=== PATIENT | female | born 1940 | race Hispanic/Latino ===

== ENCOUNTER 2016-06-20 14:21 | Inpatient (IN) | payer MEDICARE, OTHER ==
[2016-06-20 14:28] VITALS: BMI 27.4
[2016-06-20] MEDS ORDERED: Morphine 4 mg/ml ISec IVP STA ×2 (14:47→18:10)
--- NOTE | 2016-06-20 14:51 | ED PDOC ---
Arrival/HPI - General Chief Complaint: Trauma Time Seen by Provider: 06/20/16 14:50 Historian: Patient, Family - History of Present Illness Narrative History of Present Illness (Text): 06/20/16 14:51 A 75 year old female was brought into the emergency department by family complaining of left hip pain prior to arrival. History obtained through family who translated for patient. Family reports patient felt near-syncopal causing her to fall and land on her left hip. Patient states the pain is worse with movement. Patient denies any loss of consciousness, head trauma, headache, neck pain, back pain, nausea, vomiting, abdominal pain, chest pain, shortness of breath or any other complaints. PMD: Dr. Humphrey Time/Duration: Prior to Arrival Symptom Course: Unchanged Quality: Other Context: Home Past Medical History - Provider Review Nursing Documentation Reviewed: Yes - Infectious Disease Hx of Infectious Diseases: None - Cardiac Hx Cardiac Disorders: Yes Hx Hypertension: Yes - Pulmonary Hx Respiratory Disorders: No - Neurological Hx Neurological Disorder: Yes Hx Dizziness: Yes - HEENT Hx HEENT Disorder: No - Renal Hx Renal Disorder: No - Endocrine/Metabolic Hx Endocrine Disorders: Yes Hx Diabetes Mellitus Type 2: Yes Hx Hypothyroidism: Yes - Hematological/Oncological Hx Blood Disorders: No - Integumentary Hx Dermatological Disorder: No - Musculoskeletal/Rheumatological Hx Musculoskeletal Disorders: Yes Hx Falls: Yes - Gastrointestinal Hx Gastrointestinal Disorders: No - Genitourinary/Gynecological Hx Genitourinary Disorders: No - Psychiatric Hx Psychophysiologic Disorder: No Hx Substance Use: No - Surgical History Hx Orthopedic Surgery: Yes Hx Thyroidectomy: Yes (partial) Other/Comment: R hip surgery - Anesthesia Hx Anesthesia: Yes Hx Anesthesia Reactions: No Hx Malignant Hyperthermia: No - Suicidal Assessment Feels Threatened In Home Enviroment: No Family/Social History - Physician Review Nursing Documentation Reviewed: Yes Family/Social History: No Known Family HX Smoking Status: Never Smoked Hx Alcohol Use: No Hx Substance Use: No Allergies/Home Meds Allergies/Adverse Reactions: Allergies No Known Allergies Allergy (Verified 06/20/16 14:27) Home Medications: Home Meds Medication Instructions Recorded Confirmed Diclofenac Sodium [Voltaren] 50 mg PO BID PRN 12/03/15 12/03/15 Glimepiride [Amaryl] 1 mg PO BID 12/03/15 12/03/15 HYDROmorphone [Dilaudid] 4 mg PO Q3H 12/03/15 12/03/15 Omeprazole 20 mg PO BID 12/03/15 12/03/15 Oxybutynin [Ditropan Tab] 5 mg PO DAILY 12/03/15 12/03/15 Polyethylene Glycol 3350 [Miralax] 17 gm PO DAILY PRN 12/03/15 12/03/15 Physical Exam - Physical Exam Narrative Physical Exam (Text): - Review of Systems Constitutional: Normal. absent: Fatigue, Weight Change, Fevers Eyes: Normal ENT: Normal Respiratory: Normal absent: SOB, Cough, Sputum Cardiovascular: (+) Near-syncope absent: Chest pain, Palpitations Gastrointestinal: Normal absent: Abdominal pain, Diarrhea, Nausea, Vomiting Genitourinary: Normal. absent: Dysuria, Frequency, Hematuria Musculoskeletal: (+) Left hip pain absent: Arthralgias, Back Pain, Neck Pain Skin: Normal Neurological: Normal absent: Focal Weakness Endocrine: Normal Hemo/Lymphatic: Normal Psychiatric: Normal - Physical exam Patient appears age appropriate, speaking full sentences without difficulty Head atraumatic. No nasal bone deformity or tenderness, no facial or jaw pain/ swelling. No neck midline tenderness, thoracic and lumbar spine with no midline tenderness. Pt moving b/l upper extremities without difficulty, 5/5 strength, with full active and passive ROM (except for LLE). Left hip tenderness with decrease ROM. L. knee/foot/ankle unremarkable. Distal neurovasc fully intact. Abd soft/nt/ng, no hematomas, no peritoneal signs. Neg. pelvic rock. - Systems Exam Head: Present: Atraumatic, Normocephalic Pupils: Present: PERRL Extraocular Muscles: Present: EOMI Conjunctiva: Present: Normal Mouth: Present: Moist Mucous Membranes Neck: Present: Normal Range of Motion. No: MIDLINE TENDERNESS, Paraspinal Tenderness Respiratory/Chest: Present: Clear to Auscultation, Good Air Exchange. No: Respiratory Distress, Accessory Muscle Use, Tachypneic Cardiovascular: Present: Regular Rate and Rhythm, Normal S1, S2, Peripheral Pulses Present. No: Murmurs Abdomen: Present: Normal Bowel Sounds, No: Tenderness, Peritoneal Signs, Rebound, Guarding, Distention Back: Present: Normal Inspection. No: Midline Tenderness, Paraspinal Tenderness Upper Extremity: Present: Normal Inspection. No: Cyanosis, Edema Lower Extremity: Present: Left hip tenderness, decreased ROM secondary to pain. Distal neurovascular intact. No: Edema Neurological: Present: GCS=15, Speech Normal, cranial nerves II through XII fully intact with no cerebellar abnormality, neuro-sensory fully intact. No focal neurological deficits. Skin: Present: Warm, Dry, Normal Color. No: Rashes Lymphatic: Present: OX3, NI, NC Psychiatric: Present: Alert, Oriented x 3, Normal Insight, Normal Concentration Vital Signs Reviewed: Yes Vital Signs Temp Pulse Resp BP Pulse Ox 06/20/16 17:54 69 18 125/64 97 06/20/16 16:28 73 19 128/69 97 06/20/16 15:39 68 18 134/79 99 06/20/16 14:49 97.8 F 70 19 117/65 99 Temperature: Afebrile Blood Pressure: Normal Pulse: Regular Respiratory Rate: Normal Appearance: Positive for: Well-Appearing, Non-Toxic, Comfortable Pain Distress: None Mental Status: Positive for: Alert and Oriented X 3 Finger Stick Blood Glucose: 282 Medical Decision Making ED Course and Treatment: 06/20/16 14:51 Impression: A 75 year old female with left hip pain. Patient felt near syncopal causing her to fall. On exam left hip tenderness and decreased ROM secondary to pain. Plan: -- Head CT -- Left hip xray -- EKG -- Labs -- Morphine -- Reassess and disposition Progress Notes: EKG shows NSR at [address]-segment elevations, normal intervals. Interpreted by me. 06/20/16 18:06 New Vehicle Sales Consultant : Ti Murrell MD FINDINGS: BLADDER: Unremarkable. No mass. REPRODUCTIVE ORGANS: Unremarkable. VISUALIZED BOWEL: Unremarkable. PERITONEUM: Unremarkable, as visualized. No free fluid. No free air. LYMPH NODES: Unremarkable. No enlarged lymph nodes. BONES: No acute fracture dislocation is observed. Extensive soft tissue density along the left greater trochanter possibly representing hematoma or trochanteric bursitis. VASCULATURE: Unremarkable. OTHER FINDINGS: None. IMPRESSION: No acute fracture. Question left greater trochanter soft tissue hematoma versus trochanteric bursitis. 06/20/16 18:09 based on previous records, Dr. Mckinney saw pt in the hospital paged for admission for inability to walk due to pain and near syncope 06/20/16 18:[address] Mckinney, accepted pt to her service dw Dr. [place] (per Dr. Mckinney's request), states will see tomorrow pt and family aware of and agree with plan encounter translated by family members - Lab Interpretations Lab Results: 06/20/16 14:33 06/20/16 14:33 Lab Results 06/20/16 16:01: Blood Type B POSITIVE, Antibody Screen Negative, BBK History Checked Patient has bt 06/20/16 14:33: WBC 7.2, RBC 4.58, Hgb 10.7 L, Hct 33.7 L, MCV 73.6 L, MCH 23.4 L, MCHC 31.8, RDW 17.9 H, Plt Count 183, Gran % 75.3 H, Lymph % (Auto) 15.6 L, [place] % (Auto) 8.2 H, Eos % (Auto) 0.6 L, Baso % (Auto) 0.3, Gran # 5.42, Lymph # 1.1 L, [place] # 0.6, Eos # 0.0, Baso # 0.02, PT 11.3, INR 1.05, APTT 28.1, Sodium 138, Potassium 4.1, Chloride 106, Carbon Dioxide 17 L, Anion Gap 19, BUN 24 H, Creatinine 1.4, Est GFR ( Amer) 44, Est GFR (Non-Af Amer) 36, Random Glucose 265 H, Calcium 8.9, Total Bilirubin 0.9, AST 45 H, ALT 23, Alkaline Phosphatase 178 H, Total Protein 8.8 H, Albumin 3.9, Globulin 4.9, Albumin/Globulin Ratio 0.8 L I have reviewed the lab results: Yes - RAD Interpretation Radiology Orders: 06/20/16 14:44 HEAD W/O CONTRAST [CT] Stat Hip Left [HIP MIN 2V W/ PELVIS LT] [RAD] Stat 06/20/16 16:11 HIP WITHOUT CONTRAST LEFT [CT] Stat PELVIS W/O PO OR IV CONTRAST [CT] Stat FEMUR 1 VIEW LT [RAD] Stat 06/20/16 18:19 CAROTID & VERTEBRAL DUPLEX [US] Urgent - Medication Orders Current Medication Orders: Glimepiride (Amaryl) 1 mg PO BID DESHAWN Levothyroxine Sodium (Synthroid) 125 mcg PO ACB DESHAWN Metoprolol Tartrate (Lopressor) 25 mg PO BRKDIN DESHAWN Oxybutynin Chloride (Ditropan Tab) 5 mg PO DAILY DESHAWN Pantoprazole Sodium (Protonix Ec Tab) 40 mg PO 0630 DESHAWN Discontinued Medications Morphine Sulfate (Morphine) 4 mg IVP STAT STA Stop: 06/20/16 14:48 Last Admin: 06/20/16 14:57 Dose: 4 MG MAR Pain Assessment Document 06/20/16 14:57 SE (Rec: 06/20/16 14:57 SE [id number]) Pain Reassessment Is this a pain reassessment? No Sleep Is patient sleeping during reassessment? No Presence of Pain Presence of Pain Yes Pain Scale Used Pain Scale Used Numeric Location Left, Right or Bilateral Left Pain Location Body Site Hip Thigh IVP Administration Document 06/20/16 14:57 SE (Rec: 06/20/16 14:57 SE [id number]) Charges for Administration # of IVP Administrations 1 Morphine Sulfate (Morphine) 4 mg IVP STAT STA Stop: 06/20/16 18:11 - Scribe Statement The provider has reviewed the documentation as recorded by the Serge Ku Provider Scribe Attestation: All medical record entries made by the Scribe were at my direction and personally dictated by me. I have reviewed the chart and agree that the record accurately reflects my personal performance of the history, physical exam, medical decision making, and the department course for this patient. I have also personally directed, reviewed, and agree with the discharge instructions and disposition. Disposition/Present on Arrival - Present on Arrival Any Indicators Present on Arrival: No History of DVT/PE: No History of Uncontrolled Diabetes: Yes Urinary Catheter: No History of Decub. Ulcer: No History Surgical Site Infection Following: None - Disposition Have Diagnosis and Disposition been Completed?: Yes Diagnosis: Near syncope Disposition: HOSPITALIZED Disposition Time: 18:10 Patient Plan: Admission Patient Problems: Current Active Problems Problem Status Diagnosed Near syncope Acute Condition: FAIR Referrals: PCP,NO [Primary Care Provider] - Follow up with primary
[2016-06-20 15:04] LABS: ADD MANUAL DIFF? NO
[2016-06-20 15:13] LABS: BASO # 0.02 K/mm3 (0.0-2.0); BASO % 0.3 % (0.0-3.0); EOS % 0.6 % (1.5-5.0); GRAN # 5.42 (1.4-6.5); GRAN % 75.3 % (50.0-68.0); HEMATOCRIT 33.7 % (36.0-48.0); LYMPH # 1.1 (1.2-3.4); LYMPH % 15.6 % (22.0-35.0); MEAN CELL VOLUME 73.6 fL (80.0-105.0); MEAN CORPUSCULAR HEMOGLOBIN 23.4 pg (25.0-35.0); MEAN CORPUSCULAR HGB CONC 31.8 g/dl (31.0-37.0); MONO # 0.6 (0.1-0.6); MONO % 8.2 % (1.0-6.0); PLATELET COUNT 183 10^3/uL (120.0-450.0); RED CELL DISTRIBUTION WIDTH 17.9 % (11.5-14.5); WHITE BLOOD COUNT 7.2 10^3/ul (4.5-11.0)
[2016-06-20 15:22] LABS: INR 1.05 (0.93-1.08); PARTIAL THROMBOPLASTIN TIME 28.1 Seconds (23.7-30.8)
[2016-06-20 15:27] LABS: ALB/GLOB RATIO 0.8 (1.1-1.8); BILIRUBIN,TOTAL 0.9 mg/dL (0.2-1.3); CALCIUM 8.9 mg/dL (8.4-10.5); POTASSIUM 4.1 mmol/L (3.6-5.0); TOTAL PROTEIN 8.8 g/dL (5.8-8.3)
--- NOTE | 2016-06-20 16:06 | CT ---
PROCEDURE: CT HEAD WITHOUT CONTRAST. HISTORY: fall COMPARISON: 12/03/2015 TECHNIQUE: Axial computed tomography images were obtained through the head/brain without intravenous contrast. Radiation dose: Total exam DLP = 688 mGy-cm. This CT exam was performed using one or more of the following dose reduction techniques: Automated exposure control, adjustment of the mA and/or kV according to patient size, and/or use of iterative reconstruction technique. FINDINGS: HEMORRHAGE: No intracranial hemorrhage. BRAIN: No mass effect or edema. Chronic microvascular changes are seen VENTRICLES: Unremarkable. No hydrocephalus. CALVARIUM: Unremarkable. PARANASAL SINUSES: Unremarkable as visualized. No significant inflammatory changes. MASTOID AIR CELLS: Unremarkable as visualized. No inflammatory changes. OTHER FINDINGS: None. IMPRESSION: No acute finding
--- NOTE | 2016-06-20 17:55 | CT ---
PROCEDURE: Left hip noncontrast CT scan HISTORY: fall COMPARISON: None TECHNIQUE: Noncontrast CT scan through the left hip followed by coronal sagittal reconstructions. Radiation dosage of 461 MAS FINDINGS: There is no acute fracture or dislocation. No joint effusion is observed. There is extensive soft tissue density along the greater trochanter compatible with an underlying hematoma in the setting of recent trauma. This alternatively could represent severe trochanteric bursitis. No muscle tear or hematoma is observed. Limited assessment of the internal pelvic cavity is unremarkable. IMPRESSION: No acute fracture. Question left greater trochanter soft tissue hematoma versus trochanteric bursitis.
--- NOTE | 2016-06-20 18:02 | CT ---
PROCEDURE: CT Pelvis without contrast HISTORY: fall COMPARISON: None. TECHNIQUE: Contiguous axial images of the pelvis . No intravenous or oral contrast given. Coronal and sagittal reformats generated. Radiation dose: Total exam DLP = 776 mGy-cm. This CT exam was performed using one or more of the following dose reduction techniques: Automated exposure control, adjustment of the mA and/or kV according to patient size, and/or use of iterative reconstruction technique. FINDINGS: BLADDER: Unremarkable. No mass. REPRODUCTIVE ORGANS: Unremarkable. VISUALIZED BOWEL: Unremarkable. PERITONEUM: Unremarkable, as visualized. No free fluid. No free air. LYMPH NODES: Unremarkable. No enlarged lymph nodes. BONES: No acute fracture dislocation is observed. Extensive soft tissue density along the left greater trochanter possibly representing hematoma or trochanteric bursitis. VASCULATURE: Unremarkable. OTHER FINDINGS: None. IMPRESSION: No acute fracture. Question left greater trochanter soft tissue hematoma versus trochanteric bursitis.
[2016-06-20] MEDS ORDERED: Morphine 4 mg/ml ISec IVP PRN (18:23)
[2016-06-20] MEDS: Levothyroxine 125 MCG TAB PO SCH (18:44)
[2016-06-20 18:59] LABS: TROPONIN I < 0.01 ng/mL
--- NOTE | 2016-06-20 19:41 | HP ---
HISTORY OF PRESENT ILLNESS: The patient is a 75-year-old who was brought in by family. The patient is Azeri speaking. History taken from the family member that when she got up to walk to the bed she felt very weak and dizzy and she fell. She fell on her left side then she was unable to stand up, w as complaining of lot of pain in the left hip. She did not lose consciousness, did not hit her head. No complaint of headache. Does have some slight neck pain, back pain. No history of nausea or vom iting. No fever, no chills. PAST MEDICAL HISTORY: Significant for: 1. Hypertension. 2. Non-insulin dependent diabetes. 3. Hypothyroidism. 4. Gastritis. ALLERGIES: She is not allergic to any medications. MEDICATIONS AT HOME: She is on: 1. Carafate 1 gram q.i.d. 2. Crestor 5 mg daily. 3. MiraLax 17 grams daily. 4. Ditropan 5 mg daily. 5. Omeprazole 20 mg twice a day. 6. Metoprolol 25 twice a day. 7. Levothyroxine 125 mcg daily. 8. Amaryl 1 mg twice. 9. 50 mg twice a day. SOCIAL HISTORY: She lives with her family. Denies smoking, drinking or alcohol use. PHYSICAL EXAMINATION: GENERAL: Complained of left hip pain. Otherwise, she is awake and alert, not able communicative, be cause of language barrier. VITAL SIGNS: She is afebrile, pulse 70, respirations 19, blood pressure 117/65. LUNGS: Bilateral fair airflow, no rhonchi or crackle. HEART: S1, S2 audible. ABDOMEN: Soft, nontender, no hepatosplenomegaly. NEUROLOGIC: The patient is awake and alert, complained of left hip pain and inability to move. LABORATORY DATA: WBC 7.2, hemoglobin 10.7, hematocrit 33.7, platelet of 183. PT 11.3, INR 1.05. Ch emistry: Sodium 138, potassium 4.1, chloride 106, CO2 of , BUN 24, creatinine 1.4, blood sugar of 265, calcium 8.9, AST 45, ALT 23, alk phos 178, total protein 8.8. CT scan of the pelvis: Left g reater trochanteric soft tissue hematoma versus trochanteric bursitis. CT of the hip: No acute frac ture, questionable soft tissue hematoma. ASSESSMENT: 1. Near syncope. 2. Non-insulin dependent diabetes. 3. Hypertension. 4. Hyperlipidemia. 5. Chronic back pain. PLAN: We will admit the patient. Start her on analgesic. Dr. Hudson to evaluate the patient and will order for carotid Doppler, physical therapy evaluation and will continue her usual medicatio n and monitor blood sugar. She is on Amaryl 1 mg twice a day, levothyroxine 125 mcg daily, Protonix 40 daily, morphine 4 mg q. 4 hours p.r.n., metoprolol 25 twice a day, and oxybutynin 5 mg daily. We will evaluate the patient in the a.m. Demetrius Mckinney MD cc: [id number] TT: 06/20/2016 19:40:54 md
[2016-06-21] MEDS: Insulin Lispro (humaLOG) MEDIUM Coverage SC SCH ×5 (05:45→22:03)
[2016-06-21 06:52] LABS: ADD MANUAL DIFF? NO
[2016-06-21] MEDS: Pantoprazole 40 mg EC Tab PO SCH (06:55)
[2016-06-21 07:13] LABS: ALB/GLOB RATIO 0.7 (1.1-1.8); BILIRUBIN,TOTAL 1.2 mg/dL (0.2-1.3); CALCIUM 9.1 mg/dL (8.4-10.5)
[2016-06-21 07:25] LABS: POTASSIUM 4.1 mmol/L (3.6-5.0)
[2016-06-21 08:02] LABS: BASO # 0.03 K/mm3 (0.0-2.0); BASO % 0.5 % (0.0-3.0); EOS # 0.2 (0.0-0.7); EOS % 3.5 % (1.5-5.0); GRAN # 3.47 (1.4-6.5); GRAN % 55.6 % (50.0-68.0); HEMATOCRIT 35.7 % (36.0-48.0); LYMPH # 1.7 (1.2-3.4); LYMPH % 27.8 % (22.0-35.0); MEAN CELL VOLUME 73.5 fL (80.0-105.0); MEAN CORPUSCULAR HEMOGLOBIN 23.5 pg (25.0-35.0); MEAN CORPUSCULAR HGB CONC 31.9 g/dl (31.0-37.0); MONO # 0.8 (0.1-0.6); MONO % 12.6 % (1.0-6.0); PLATELET COUNT 194 10^3/uL (120.0-450.0); RED CELL DISTRIBUTION WIDTH 17.8 % (11.5-14.5); WHITE BLOOD COUNT 6.3 10^3/ul (4.5-11.0)
--- NOTE | 2016-06-21 08:45 | US ---
PROCEDURE: Bilateral carotid artery duplex ultrasound HISTORY: Carotid stenosis syncope. PHYSICIAN(S): Mikael Richardson MD. TECHNIQUE: Duplex sonography and color-flow Doppler were used to evaluate the carotid bifurcations and limited segments of the vertebral arteries bilaterally. FINDINGS: There is mild smooth heterogeneous plaque noted at the carotid bifurcations bilaterally. The peak systolic velocity in the proximal right internal carotid artery is 77 cm/sec. This corresponds to a 20 to 39% proximal right ICA stenosis. Normal systolic velocities are noted in the proximal right external carotid artery. There is antegrade flow in the right vertebral artery. The peak systolic velocity in the proximal left internal carotid artery is 90 cm/sec. This corresponds to a 20 to 39% proximal left ICA stenosis. Normal systolic velocities are noted in the proximal left external carotid artery. There is antegrade flow in the left vertebral artery. IMPRESSION: 1. Bilateral 20-39% proximal ICA stenoses. 2. Antegrade flow in both vertebral arteries.
--- NOTE | 2016-06-21 09:33 | CON ---
DATE: 06/21/2016 ORTHOPEDIC CONSULT REPORT A 75-year-old female in 265, bed 1. 8am The patient has a history by the family since she is not talking,she had fallin out of bed at home and sustained injury to her left hip. The son says it is her hip pain and not abdominal pain - as both regions cause pain. Plain x -rays show no fracture including a CAT scan. There may be a suggestion of some swelling or involvement of the intratrochanteric region on the CAT scan. So I am going to order an MRI to see if there is a stress fracture of her left hip, as when I moved the hip, it does hurt. It is definitely not deformed and no obvious fracture, but there is possibility of a stress fracture of her left hip. So we will get an MRI of her left hip. Hopefully, she can cooperate with this to determine if she has any bone edema of the left hip, which could cause further fracture if she falls again, but today, she can have a diet, and I will check her once the MRI is done to make sure there is no fracture of her left hip , because she does hurt when I attempt to move the hip, but not touch the hip, but she hurts I would say more in her lower abdomen on the left side than the hip, but that is to be evaluated by the medical doctors. I will follow her after the MRI is done of her left hip to make sure there is no fracture. the mri was done today showing a stress fx of lt hip inter troch region the family is now hwre and he surg will be done in am about 9.30 amtold of haja Nathaniel Hudson DO cc: [id number] TT: 06/21/2016 09:33:05 Confirmation # [id number] Dictation # [id number] jn ,may need blood transfusion if hgb gets ,,8gm . MTDD
--- NOTE | 2016-06-21 09:42 | RAD ---
PROCEDURE: Pelvis, left hip. HISTORY: fall, L hip pain COMPARISON: June 20, 2016. Left femur. June 20, 2016. CT pelvis left hip TECHNIQUE: Standard protocol for this study/examination. FINDINGS: There are no osseous abnormalities to suggest fracture. The pelvic ring is intact. Preserved femoral-acetabular relationship. Negative study for protrusio, subluxation or dislocation. Degenerative changes: Moderate left hip. Incompletely visualized postoperative findings proximal right femur. IMPRESSION: No acute findings related to/accounting for the clinical presentation.
--- NOTE | 2016-06-21 09:52 | RAD ---
PROCEDURE: Left femur HISTORY: fall COMPARISON: June 20, 2016. TECHNIQUE: Standard protocol for this study/examination. FINDINGS: No significant/acute osseous, articular or soft tissue abnormalities. IMPRESSION: No acute findings related to/accounting for the clinical presentation.
--- NOTE | 2016-06-21 10:51 | CARD ---
APPROVED REPORT EKG Measurement Heart [id number] <Conclusion> Normal sinus rhythm Left axis deviation Inferior infarct, age undetermined Abnormal ECG
--- NOTE | 2016-06-21 11:12 | MRI ---
PROCEDURE: MRI Left Hip TECHNIQUE: Multiecho multiplanar sequences were performed through the left hip without the use of intravenous contrast. HISTORY: Pain. COMPARISON:: Plain radiographs an noncontrast CT from 06/20/2016 FINDINGS: BONES: There is an acute nondisplaced left intertrochanteric fracture with mild surrounding vasogenic edema. Bone alignment is normal. Status post right hip arthroplasty. There is severe degenerative osteoarthrosis in the hip joint with near complete loss of joint space. MUSCLES:: There is increased T2/stir signal in the the lateral periarticular muscles and diffuse subcutaneous edema in the lateral soft tissues. JOINT FLUID:: Normal. OTHER FINDINGS: None. IMPRESSION: Acute nondisplaced left intertrochanteric fracture. No dislocation. Suspect acute hematoma in the lateral periarticular muscles.
--- NOTE | 2016-06-21 11:52 | PN ---
DATE: 06/21/2016 SUBJECTIVE: The patient is a 75-year-old Citizen Of [place] female who was admitted last night after a fall. CT scan and x-ray did not show any fracture. However, her pain was unproportional. Dr. Hudson ordered for MRI of the hip that showed nondisplaced intertrochanteric fracture on MRI. PHYSICAL EXAMINATION: GENERAL: The patient is a poor historian, does not offer much complaint. VITAL SIGNS: She is afebrile. Pulse 7____, respirations 20, blood pressure 139/65. LUNGS: Bilateral fair airflow. No rhonchi or crackle. HEART: S1, S2 audible. ABDOMEN: Soft, nontender. No rebound, no guarding. NEUROLOGIC: She is awake, alert, and communicative. She is awake and alert, able to express herself , but language, she is Yi-speaking, and information was gotten through java support engineer. EXTREMITIES: Lower extremity exam: She has decreased range of motion because of her left hip pain. She is unable to flex at her knee, and she has bruise in her buttock area. LABORATORY EXAMINATION: WBC 6.3, hemoglobin 11.4, hematocrit 35.7, platelets 194. PT 11.3, INR 1.05 . Chemistry: Sodium 142, potassium 4.1, chloride 108, CO2 of 21. BUN 24, creatinine 1.4. Blood hernández gar 126. Alk phos is 172. ASSESSMENT AND PLAN: 1. Status post fall. 2. Left hip intertrochanteric fracture. 3. Noninsulin-dependent diabetes. 4. Hypothyroidism. 5. History of peptic ulcer disease. 6. Calcified aortic valve. 7. Generalized osteoarthritis. PLAN: I had a discussion with the patient's son, ____. According to him, she does ambulate, althoug h her ambulation is very limited, only with a cane. It is up to Dr. Hudson to decide if she is candidate for surgical intervention to bring her back to her baseline, and Dr. Sanchez has been consu lted for cardiology clearance. We will continue to monitor her blood sugar and analgesic as needed. We will follow up the patient in a.m. Demetrius Mckinney MD cc: [phone] TT: 06/21/2016 11:51:30 Confirmation # [id number] Dictation # [id number] jn
[2016-06-21] MEDS: Levothyroxine 125 MCG TAB PO SCH (11:56)
[2016-06-21] MEDS: POLYETHYLENE GLYCOL 3350 17 GM/Dose PACKET PO SCH (11:58)
[2016-06-21] MEDS ORDERED: DiphenhydrAMINE 50 mg/ml Inj IM ONE (16:59)
--- NOTE | 2016-06-21 18:34 | CON ---
DATE: 06/21/2016 REASON FOR CONSULTATION: Preop evaluation and risk stratification for hip surgery. BRIEF CLINICAL HISTORY: This is a 75-year-old female with past medical history of hypertension, type 2 diabetes, hypothyroidism, gastritis, history of possible gastric ulcer, who fell down 2 days ago a nd sustained fracture of the hip, which did not show in regular x-rays, but MRI shows fracture. The patient is scheduled for OR tomorrow at 9:30, so cardiology consult was called for preop evaluation a nd risk stratification. The patient's son is at the bedside and [id number] is at bedside. ____ the information from the son who said that patient denies any chest pain, shortness of breath, any p alpitation. No history of recent shortness of breath or palpitation or chest pain. No definite hist ory of any cardiac disease. PAST HISTORY: Significant for hypertension, diabetes, hyperlipidemia and hypothyroidism and gastriti s, possible gastric ulcer, history of left hip fracture 2 years ago, admitted at [facility] are where the patient had surgery. PAST SURGICAL HISTORY: Significant for left hip surgery 2 years ago. SOCIAL HISTORY: Denies any history of smoking. Denies any history of alcohol abuse. CURRENT MEDICATIONS: The patient is taking sucralfate, Crestor, MiraLax, oxybutynin, metoprolol, lev othyroxine, hydromorphone, glimepiride, diclofenac. ALLERGIES: No known drug allergy. PHYSICAL EXAMINATION: As follows: VITAL SIGNS: Temperature afebrile, heart rate 63, blood pressure 126/73. HEENT: PERRLA. Extraocular muscles intact. NECK: Supple. No carotid bruits. No thyromegaly. CHEST: Clear to auscultation. HEART: S1, S2 regular. ABDOMEN: Soft. EXTREMITIES: Clubbing and cyanosis negative. BLOOD WORKUP: As follows: WBC 6.3, hemoglobin 11.4, hematocrit 35.7, platelet count 194. Chemistry : Sodium 140, potassium ____, chloride 108, carbon dioxide 21, anion gap of 17, BUN 24, creatinine 1 .4. Troponin 0.01, negative. EKG shows normal sinus Q-wave in II, III, aVF. IMPRESSION: No definite history of cardiac problems, no history of recent ischemia, no history of an jonel, palpitations, congestive heart failure. The patient would be moderate risk because of underlyi ng comorbidities, but no absolute contraindication for surgery. The patient has a recent fall and hi story of fracture from the operating room internal fixation. The patient could get the benefit from earlier mobilization and that will prevent him from sepsis, ____ pneumonia, bedsores. So, risk/benef it ratio is in favor of patient having early surgery, early mobilization, and at the same time, no ab solute contraindication from medical point of view or cardiology point of view. So, we will schedule d the patient to go for surgery as mentioned above with a moderate risk. Discussed in length with th e son and the [id number], who translated to the patient in Greenlandic for me. We will also inform Kerrie Mckinney for the patient is okay to go for operating room from cardiology point of view as mentione d above. Thank you, Dr. Mckinney for providing us the opportunity in taking care of the patient. Riddhi Song MD cc: [id number] TT: 06/21/2016 18:33:16 Confirmation # [id number] Dictation # [id number] sn
[2016-06-21 18:39] LABS: ADD MANUAL DIFF? NO
[2016-06-21 18:42] LABS: BASO # 0.06 K/mm3 (0.0-2.0); EOS # 0.3 (0.0-0.7); EOS % 4.4 % (1.5-5.0); GRAN # 3.17 (1.4-6.5); GRAN % 51.7 % (50.0-68.0); HEMATOCRIT 33.5 % (36.0-48.0); LYMPH # 1.9 (1.2-3.4); LYMPH % 31.5 % (22.0-35.0); MEAN CELL VOLUME 73.5 fL (80.0-105.0); MEAN CORPUSCULAR HEMOGLOBIN 23.5 pg (25.0-35.0); MEAN CORPUSCULAR HGB CONC 31.9 g/dl (31.0-37.0); MEAN PLATELET VOLUME 10.6 fl (7.0-11.0); MONO # 0.7 (0.1-0.6); MONO % 11.4 % (1.0-6.0); PLATELET COUNT 152 10^3/uL (120.0-450.0); RED CELL DISTRIBUTION WIDTH 17.9 % (11.5-14.5); WHITE BLOOD COUNT 6.1 10^3/ul (4.5-11.0)
[2016-06-21] MEDS: Dextrose 5%/0.45% NS 1,000 ML IV SCH (18:54)
[2016-06-22] MEDS: Pantoprazole 40 mg EC Tab PO SCH (06:09)
[2016-06-22 07:24] LABS: ADD MANUAL DIFF? NO
[2016-06-22 07:33] LABS: BASO # 0.04 K/mm3 (0.0-2.0); BASO % 0.6 % (0.0-3.0); EOS # 0.4 (0.0-0.7); EOS % 5.6 % (1.5-5.0); GRAN # 3.53 (1.4-6.5); GRAN % 48.7 % (50.0-68.0); HEMATOCRIT 33.7 % (36.0-48.0); LYMPH # 2.5 (1.2-3.4); LYMPH % 34.4 % (22.0-35.0); MEAN CELL VOLUME 73.6 fL (80.0-105.0); MEAN CORPUSCULAR HEMOGLOBIN 23.8 pg (25.0-35.0); MEAN CORPUSCULAR HGB CONC 32.3 g/dl (31.0-37.0); MONO # 0.8 (0.1-0.6); MONO % 10.7 % (1.0-6.0); PLATELET COUNT 164 10^3/uL (120.0-450.0); RED CELL DISTRIBUTION WIDTH 17.9 % (11.5-14.5); WHITE BLOOD COUNT 7.3 10^3/ul (4.5-11.0)
[2016-06-22] MEDS: Levothyroxine 125 MCG TAB PO SCH (07:37)
[2016-06-22 07:48] LABS: ALB/GLOB RATIO 0.7 (1.1-1.8); BILIRUBIN,TOTAL 0.8 mg/dL (0.2-1.3); CALCIUM 8.9 mg/dL (8.4-10.5); MAGNESIUM 2.1 mg/dL (1.7-2.2); PHOSPHOROUS 3.8 mg/dL (2.5-4.5); POTASSIUM 4.1 mmol/L (3.6-5.0); TOTAL PROTEIN 8.6 g/dL (5.8-8.3)
[2016-06-22] MEDS: Insulin Lispro (humaLOG) MEDIUM Coverage SC SCH ×4 (08:13→21:45)
[2016-06-22] MEDS: POLYETHYLENE GLYCOL 3350 17 GM/Dose PACKET PO SCH (10:00)
--- NOTE | 2016-06-22 10:18 | RAD ---
HISTORY: pre op chest COMPARISON: 12/03/2015 FINDINGS: LUNGS: No active pulmonary disease. PLEURA: No significant pleural effusion identified, no pneumothorax apparent. CARDIOVASCULAR: Normal. OSSEOUS STRUCTURES: No significant abnormalities. VISUALIZED UPPER ABDOMEN: Normal. OTHER FINDINGS: None. IMPRESSION: No active disease.
[2016-06-22] MEDS ORDERED: Propofol 10 mg/ml Inj (20 ML) ONE (11:16)
[2016-06-22] MEDS ORDERED: Midazolam 2 MG/2 ML VIAL ONE (11:17)
[2016-06-22] MEDS ORDERED: Desflurane Inhalation Anesthetic Liq (240 ml) ONE (11:32)
[2016-06-22] MEDS ORDERED: Succinylcholine 200 mg/10 ml Inj IV ONE (11:32)
[2016-06-22] MEDS ORDERED: Rocuronium 10 mg/ml (5 ml) ONE (11:32)
[2016-06-22] MEDS ORDERED: ePHEDrine 50 mg/ml Inj ONE ×3 (11:58→15:43)
--- NOTE | 2016-06-22 12:05 | PN ---
DATE: 06/22/2016 The patient is a 75-year-old, seen and examined, lying in bed, complained of left hip pain. PHYSICAL EXAMINATION: GENERAL: She is awake, alert, able to communicate. VITAL SIGNS: She is afebrile, pulse 64, respirations 16, blood pressure 130/64. LUNGS: Bilateral fair airflow, no rhonchi or crackle. HEART: S1, S2 audible. No murmur. ABDOMEN: Soft, nontender, no rebound, no guarding. NEUROLOGIC: The patient is awake and alert, unable to move left leg because of pain. LABORATORY EXAMINATION: WBCs 7.3, hemoglobin 10.9, hematocrit 33.7, platelet of 164. Chemistry: So dium 139, potassium 4.1, chloride 109, CO2 20, BUN 29, creatinine 1.5, blood sugar of 124. She has left intertrochanteric fracture. ASSESSMENT: 1. Status post fall, left intertrochanteric fracture. 2. History of hypertension. 3. Mild dementia. 4. Hyperlipidemia. 5. Non-insulin dependent diabetes. 6. Degenerative disk disease. PLAN: The patient was evaluated by telepathist and is scheduled for open reduction internal fixatio n today. The patient has mild renal insufficiency. We will continue her on IV fluid. She will be p laced on deep venous thrombosis prophylaxis. She is on laxative, analgesic as needed and will be sta rted on physical therapy soon and we will arrange for acute rehab after surgical intervention. Demetrius Mckinney MD cc: [phone] TT: 06/22/2016 12:05:22 Confirmation # [id number] Dictation # [id number] en
[2016-06-22] MEDS: Bupivacaine 0.5% Inj(30mL) ONE ×2 (12:43→12:51)
[2016-06-22] MEDS ORDERED: Neostigmine Methylsulfate 3mg/3ml Syringe IV ONE (13:03)
[2016-06-22] MEDS ORDERED: Sodium Chloride 0.9% 1,000 ML IV SCH (13:15)
[2016-06-22] MEDS ORDERED: HYDROmorphone 0.5 mg/0.5 ml ISec SC PRN (13:21)
--- NOTE | 2016-06-22 15:14 | PN ---
DATE: 06/22/2016 The patient is in room 265, bed 1. REASON FOR CONSULTATION: Preop evaluation for hip surgery, risk stratification. HISTORY OF PRESENT ILLNESS: A 75-year-old female with past medical history of hypertension, type 2 d iabetes, hypothyroidism, gastritis, history of possible gastric ulcer, who fell down 2 days ago and s ustained fracture of the hip, which was seen only on MRI. The patient is going to surgery today. Th e patient denies any chest pain, shortness of breath, or palpitation. The patient is lying flat in b ed without any cardiac symptoms. PHYSICAL EXAMINATION: VITAL SIGNS: Blood pressure 105/59, respirations 14. The patient is afebrile. Pulse 60. HEAD: Normocephalic. EYES: Pupils normal. Conjunctivae slightly pale. NECK: JVP low. Carotid equal. THORAX: AP diameter normal. LUNGS: Clear. CARDIOVASCULAR: S1, S2. ABDOMEN: Soft, no tenderness, no organomegaly. EXTREMITIES: No clubbing, no cyanosis. LABORATORIES: WBC 7.3, hemoglobin 10.9, hematocrit 33.7, platelets 164. Sodium 139, potassium 4.1, BUN 29, creatinine 1.5, sugar 124. Calcium, phosphorus, magnesium are normal. AST, ALT normal. TSH 2.04. DIAGNOSES: Fractured hip, hypertension, diabetes, hyperlipidemia, hypothyroidism, gastritis, questio nable history of gastric ulcer. The patient, from cardiology point of view, can go for surgery at mo derate risk. Clinically, patient's cardiac status at this time seems to be stable. The patient star afshin on metoprolol 25 b.i.d. already, Lovenox 30 subQ daily, levothyroxine 125 mcg p.o. daily, Amaryl 1 mg b.i.d. We will follow with you. Riddhi Sanchez MD cc: [phone] TT: 06/22/2016 15:13:26 Confirmation # [id number] Dictation # [id number] en
[2016-06-22 17:11] LABS: ADD MANUAL DIFF? NO
[2016-06-22 17:13] LABS: BASO # 0.03 K/mm3 (0.0-2.0); BASO % 0.3 % (0.0-3.0); EOS # 0.1 (0.0-0.7); EOS % 0.9 % (1.5-5.0); GRAN # 8.09 (1.4-6.5); GRAN % 74.4 % (50.0-68.0); HEMATOCRIT 32.8 % (36.0-48.0); LYMPH # 1.6 (1.2-3.4); LYMPH % 14.8 % (22.0-35.0); MEAN CELL VOLUME 74.7 fL (80.0-105.0); MEAN CORPUSCULAR HEMOGLOBIN 23.7 pg (25.0-35.0); MEAN CORPUSCULAR HGB CONC 31.7 g/dl (31.0-37.0); MEAN PLATELET VOLUME 10.7 fl (7.0-11.0); MONO % 9.6 % (1.0-6.0); PLATELET COUNT 147 10^3/uL (120.0-450.0); WHITE BLOOD COUNT 10.9 10^3/ul (4.5-11.0)
--- NOTE | 2016-06-22 17:16 | OP ---
PROCEDURE DATE: 06/22/2016 PREOPERATIVE DIAGNOSIS: Stress fracture, left intertrochanteric hip area, proven by MRI that she had a stress fracture. POSTOPERATIVE DIAGNOSIS: Stress fracture, left intertrochanteric hip area proven by MRI that she had a stress fracture. PROCEDURE: Open reduction, internal fixation of left intertrochanteric fracture with a Biomet peritroch alexander TFN using a alexander that was 220 mm long with a lag screw 95 mm long, locked distally with a cortical screw 34 mm long. DESCRIPTION OF PROCEDURE: The patient was taken to the OR. Left hip prepped and draped in sterile fashion. ____helped me, strategically involved with retracting the neurovascular structures and protecting the skin and muscles, making it easier to accomplish an open reduction, internal fixation with a Biomet alexander. The first incision was proximal to the greater trochanter by 4 cm 2 inches long. Deep knife used to go through the subcutaneous tissue into the greater trochanter with digital palpation, once we opened the fascia, then put in a threaded tip guidewire, overreamed this. Once it was in a good position for 7 cm, then when that was done, we put in the beaded tip guidewire the rest of the way to allow us to ream with 1 reamer. Canal was pretty wide, to make sure there was no obstruction by putting a 12.5 mm reamer. After that was done , then we put in the appropriate length alexander which was 22 cm, 11 mm wide and inserted over the guidewire, took the guidewire out and then did a second incision to allow us to get into the femoral head and neck. Once it was in good position in both AP and lateral projection, we did in a similar fashion putting in a threaded tip guidewire into the femoral head and neck, over- reaming it with an 11 mm reamer and then getting our length of 95 mm and so we put in a 95 mm lag screw and locked it proximally. Took the traction off and put 1 locking screw distally with a third incision utilizing the jig and this accomplished fixation of the fracture. Once we locked it with the 32 mm long locking screws distally. The 3 wounds were irrigated with normal saline, and closed in layers with 0 Vicryl deep layer for the fascia, 2-0 subcutaneous tissue, skin with 3-0 nylon. The patient taken to recovery in good condition. Nathaniel Hudson DO cc: [id number] TT: 06/22/2016 17:15:41 jn MTDD
[2016-06-22] MEDS: Dextrose 5%/0.45% NS 1,000 ML IV SCH (23:03)
[2016-06-23] MEDS: HYDROmorphone 0.5 mg/0.5 ml ISec SC PRN (02:22)
[2016-06-23] MEDS: Pantoprazole 40 mg EC Tab PO SCH (06:11)
[2016-06-23 07:22] LABS: ALB/GLOB RATIO 0.7 (1.1-1.8); BILIRUBIN,TOTAL 0.7 mg/dL (0.2-1.3); CALCIUM 8.1 mg/dL (8.4-10.5); POTASSIUM 4.2 mmol/L (3.6-5.0); TOTAL PROTEIN 7.1 g/dL (5.8-8.3)
[2016-06-23] MEDS: Insulin Lispro (humaLOG) MEDIUM Coverage SC SCH ×4 (07:49→22:28)
--- NOTE | 2016-06-23 08:05 | PN ---
DATE: 06/23/2016 ROOM 265, bed 1. She is much more comfortable, does not show signs of left hip pain. The fracture is stabilized with the intramedullary device and a pin and we will plan on getting her up out of bed. She is allowed to put weight on her hip and will closely watch her hemoglobin and hematocrit. Presently, it is at 10. 4 and 32 hemoglobin and hematocrit. She does not display much pain, so will get her up out of bed an d watch her H and H. Plan for good subacute rehab in a couple of days. Nathaniel Hudson DO cc: [id number] TT: 06/23/2016 08:04:32 Confirmation # [id number] Dictation # [id number] michelle
[2016-06-23] MEDS: Levothyroxine 125 MCG TAB PO SCH (08:12)
[2016-06-23 09:30] LABS: ADD MANUAL DIFF? NO
[2016-06-23 09:35] LABS: BASO # 0.03 K/mm3 (0.0-2.0); BASO % 0.4 % (0.0-3.0); EOS # 0.2 (0.0-0.7); EOS % 3.2 % (1.5-5.0); GRAN # 3.35 (1.4-6.5); HEMATOCRIT 27.2 % (36.0-48.0); LYMPH # 2.3 (1.2-3.4); LYMPH % 33.4 % (22.0-35.0); MEAN CELL VOLUME 73.5 fL (80.0-105.0); MEAN CORPUSCULAR HEMOGLOBIN 23.8 pg (25.0-35.0); MEAN CORPUSCULAR HGB CONC 32.4 g/dl (31.0-37.0); PLATELET COUNT 143 10^3/uL (120.0-450.0); RED CELL DISTRIBUTION WIDTH 17.8 % (11.5-14.5); WHITE BLOOD COUNT 6.9 10^3/ul (4.5-11.0)
[2016-06-23] MEDS: POLYETHYLENE GLYCOL 3350 17 GM/Dose PACKET PO SCH (10:10)
[2016-06-23] MEDS: Enoxaparin 30 mg Syringe SC SCH (10:10)
--- NOTE | 2016-06-23 11:43 | RAD ---
Fluoroscopy dated 06/22/2016. History: ORIF left hip fracture. Fluoroscopic guidance for ORIF of left hip. . Approximately 44 seconds of fluoroscopy time utilized. Please refer to operative report for additional details. Impression: Fluoroscopic guided ORIF left hip. Please refer to operative report for additional details
--- NOTE | 2016-06-23 17:12 | PN ---
DATE: 06/23/2016 SUBJECTIVE: The patient is a 75-year-old, seen and examined, lying in bed, complained of pain at the surgical site, no nausea or vomiting, no fever, no chills. PHYSICAL EXAMINATION: VITAL SIGNS: She was afebrile earlier, but in the afternoon she had 99.7, pulse 80, respirations 18, blood pressure 94/48. LUNGS: Bilateral fair airflow, no rhonchi or crackle. HEART: S1, S2 audible. ABDOMEN: Soft, nontender, no rebound, no guarding. NEUROLOGIC: She is awake and alert, able to communicate. Communicating to her son who was by the be dside. LABORATORY: WBC 6.9, hemoglobin 8.8, hematocrit 27.2, platelet of 143. Chemistry: Sodium 134, pota ssium 4.2, chloride 106, CO2 of 19, BUN 29, creatinine 1.6, blood sugar 167. ASSESSMENT AND PLAN: 1. Status post fall and left hip fracture, intertrochanteric. 2. Noninsulin dependent diabetes. 3. Deconditioning and difficulty walking. 4. History of hypertension, but currently hypotensive. 5. Blood loss anemia postoperative 6. Hyperlipidemia. 7. History of degenerative disk disease. PLAN: The patient has drop in hemoglobin. We will follow up CBC in a.m. If it drops below 8, we mi ght give blood transfusion. She is on analgesic as needed. We will monitor blood sugar. I will cut down her metoprolol to 25 daily only. We will monitor her CBC and CMP in a.m. The patient was eval uated by Dr. Hudson. Plan for physical therapy soon, the patient's ambulatory status was not t hat great prior to the fall. She had limited mobility, so probably would be to bring her back to her baseline. I will discuss about the disposition plan in subacute rehab. Demetrius Mckinney MD cc: [phone] TT: 06/23/2016 17:11:52 Confirmation # [id number] Dictation # [id number] michelle
[2016-06-24] MEDS: Pantoprazole 40 mg EC Tab PO SCH (06:37)
[2016-06-24 07:00] LABS: ADD MANUAL DIFF? NO
[2016-06-24 07:19] LABS: BASO # 0.03 K/mm3 (0.0-2.0); BASO % 0.4 % (0.0-3.0); EOS # 0.3 (0.0-0.7); EOS % 4.4 % (1.5-5.0); GRAN # 3.39 (1.4-6.5); GRAN % 46.1 % (50.0-68.0); LYMPH # 2.5 (1.2-3.4); LYMPH % 34.1 % (22.0-35.0); MEAN CELL VOLUME 72.6 fL (80.0-105.0); MEAN CORPUSCULAR HEMOGLOBIN 23.4 pg (25.0-35.0); MEAN CORPUSCULAR HGB CONC 32.2 g/dl (31.0-37.0); MONO # 1.1 (0.1-0.6); PLATELET COUNT 160 10^3/uL (120.0-450.0); RED CELL DISTRIBUTION WIDTH 17.9 % (11.5-14.5); WHITE BLOOD COUNT 7.4 10^3/ul (4.5-11.0)
[2016-06-24 07:23] LABS: ALB/GLOB RATIO 0.7 (1.1-1.8); BILIRUBIN,TOTAL 0.8 mg/dL (0.2-1.3); CALCIUM 8.2 mg/dL (8.4-10.5); POTASSIUM 3.9 mmol/L (3.6-5.0); TOTAL PROTEIN 7.2 g/dL (5.8-8.3)
[2016-06-24] MEDS: Levothyroxine 125 MCG TAB PO SCH (08:15)
--- NOTE | 2016-06-24 09:29 | PN ---
DATE: 06/24/2016 Second day postop report. She is recuperating from a left hip fracture fixation done on 06/22/2016 an d she is doing well, has no undue complaint of pain. The wounds are dry. She has ability to move wi thout undue pain. She was up out of bed. We will continue therapy and follow her CBC. If it goes u nder 8 grams hemoglobin, we will be planning to give her 2 units of blood if that happens and hopeful ly, she can go to subacute rehabilitation this coming week. Nathaniel Hudson DO cc: [id number] TT: 06/24/2016 09:29:25 Confirmation # [id number] Dictation # [id number] en
--- NOTE | 2016-06-24 09:41 | PN ---
DATE: 06/24/2016 The patient is a 76-year-old, seen and examined, lying in bed, seems to be more comfortable. Complai rachel of pain in the left hip area at surgical site upon moving. No nausea, vomiting. Eating fair. PHYSICAL EXAMINATION: VITAL SIGNS: She has a temperature of 100.9, pulse 82, respirations 18, blood pressure 102/47. LUNGS: Bilateral fair airflow, no rhonchi or crackle. HEART: S1, S2 audible. ABDOMEN: Soft, nontender, no rebound, no guarding. NEUROLOGIC: She is awake and alert. EXTREMITIES: Left leg slight edema. LABORATORY EXAMINATION: WBCs 7.4, hemoglobin 8.7, hematocrit 27, platelet 160. Chemistry: Sodium 1 37, potassium 3.9, chloride 106, CO2 20, BUN 31, creatinine 1.5, blood sugar of 56. ASSESSMENT: 1. Status post fall. 2. Left intertrochanteric femur fracture. 3. Hypertension. 4. Noninsulin dependent diabetes. 5. Drop in hemoglobin and hematocrit. 6. History of degenerative disk disease. 7. Postop blood loss anemia. PLAN: We will give her 1 blood transfusion. Will continue her telemetry monitoring. Analgesic as n eeded. She is on deep venous thrombosis prophylaxis. We will continue that. We will reevaluate thi s patient in a.m. and we will get CBC and CMP in a.m. Demetrius Mckinney MD cc: [phone] TT: 06/24/2016 09:41:12 Confirmation # [id number] Dictation # [id number] en
[2016-06-24] MEDS: Insulin Lispro (humaLOG) MEDIUM Coverage SC SCH ×4 (09:45→21:43)
[2016-06-24] MEDS: POLYETHYLENE GLYCOL 3350 17 GM/Dose PACKET PO SCH (09:46)
[2016-06-24] MEDS: Enoxaparin 30 mg Syringe SC SCH (09:46)
[2016-06-25] MEDS: Pantoprazole 40 mg EC Tab PO SCH (05:45)
[2016-06-25 07:30] LABS: ALB/GLOB RATIO 0.7 (1.1-1.8); BILIRUBIN,TOTAL 0.9 mg/dL (0.2-1.3); CALCIUM 8.4 mg/dL (8.4-10.5); POTASSIUM 4.2 mmol/L (3.6-5.0); TOTAL PROTEIN 7.3 g/dL (5.8-8.3)
[2016-06-25] MEDS: Insulin Lispro (humaLOG) MEDIUM Coverage SC SCH ×4 (07:38→22:00)
[2016-06-25] MEDS: Levothyroxine 125 MCG TAB PO SCH (07:47)
[2016-06-25] MEDS: Enoxaparin 30 mg Syringe SC SCH (08:59)
[2016-06-25] MEDS: POLYETHYLENE GLYCOL 3350 17 GM/Dose PACKET PO SCH (08:59)
[2016-06-25 10:59] LABS: ADD MANUAL DIFF? NO
[2016-06-25 11:07] LABS: BASO # 0.02 K/mm3 (0.0-2.0); BASO % 0.3 % (0.0-3.0); EOS # 0.3 (0.0-0.7); EOS % 4.4 % (1.5-5.0); GRAN # 4.36 (1.4-6.5); GRAN % 59.9 % (50.0-68.0); HEMATOCRIT 29.1 % (36.0-48.0); LYMPH # 1.6 (1.2-3.4); LYMPH % 22.4 % (22.0-35.0); MEAN CORPUSCULAR HEMOGLOBIN 24.7 pg (25.0-35.0); MEAN PLATELET VOLUME 10.8 fl (7.0-11.0); PLATELET COUNT 162 10^3/uL (120.0-450.0); RED CELL DISTRIBUTION WIDTH 18.8 % (11.5-14.5); WHITE BLOOD COUNT 7.3 10^3/ul (4.5-11.0)
[2016-06-25 11:11] LABS: ALB/GLOB RATIO 0.7 (1.1-1.8); BILIRUBIN,TOTAL 1.1 mg/dL (0.2-1.3); CALCIUM 8.3 mg/dL (8.4-10.5); POTASSIUM 4.2 mmol/L (3.6-5.0); TOTAL PROTEIN 7.3 g/dL (5.8-8.3)
--- NOTE | 2016-06-25 13:15 | PN ---
DATE: 06/25/2016 SUBJECTIVE: The patient is a 76-year-old, seen and examined, lying in bed, seems to be comfortable, complains of pain only when she moves. Eating fair. PHYSICAL EXAMINATION: VITAL SIGNS: She has temperature of 99.5, pulse 72, respirations 20, blood pressure 123/64. LUNGS: Bilateral good airflow, no rhonchi or crackle. HEART: S1, S2 audible. ABDOMEN: Soft, nontender, no rebound, no guarding. NEUROLOGIC: She is awake and alert, able to communicate, limited because of language barrier. NEUROLOGIC: She is awake and alert. LABORATORY: WBC 7.3, hemoglobin 9.6, hematocrit 29, platelet of 162. Chemistry: Sodium 136, potass ium 4.2, chloride 108, CO2 of 19, BUN 32, creatinine 1.4, blood sugar 146. ASSESSMENT AND PLAN: 1. Status post fall. 2. Status post left intertrochanteric femur fracture, status post open reduction internal fixation. 3. Hypertension. 4. Non-insulin dependent diabetes. 5. Acute on chronic anemia, status post blood transfusion. 6. Degenerative disk disease. PLAN: The patient is currently on a laxative. She is getting Dilaudid as needed. She is on oxybut ynin. Blood sugar is being monitored. We will continue her on DVT prophylaxis. She is on levothyro xine. We will continue that. Discussed with social scientist. The patient is ready to be transferre d to subacute rehabilitation for gait training. As soon as the arrangement is made, the patient will be transferred. Hemodynamically she is stable. We will discontinue her telemetry and we will reeva luate the patient in a.m. Demetrius Mckinney MD cc: [phone] TT: 06/25/2016 13:13:57 Confirmation # [id number] Dictation # [id number] sn
--- NOTE | 2016-06-25 14:24 | PN ---
DATE: 06/25/2016 REASON FOR CONSULTATION AND FOLLOWUP: Fractured hip, status post surgery, risk stratification. HISTORY OF PRESENT ILLNESS: A 76-year-old female with past medical history for hypertension, type 2 diabetes, hypothyroidism, gastritis, history of possible gastric ulcer, who fell down and sustained f racture of the left hip, for which patient had already surgery. The patient lying flat in bed withou t chest pain, shortness of breath, or palpitation. PHYSICAL EXAMINATION: VITAL SIGNS: Blood pressure 104/63, respirations 15, pulse 66, temperature 97.8. HEAD: Normocephalic. EYES: Pupils normal. Conjunctivae slightly pale. NECK: JVP low. Carotid equal. THORAX: AP diameter normal. LUNGS: Clear. CARDIOVASCULAR: S1, S2. ABDOMEN: Soft, no tenderness, no organomegaly. Bowel sounds normal. EXTREMITIES: No clubbing, no cyanosis. LABORATORIES: WBC 7.3, hemoglobin 9.6, hematocrit 29.1, platelets 162. Sodium 136, potassium 4.2, B UN 32, creatinine 1.4, random sugar 145. AST, ALT normal. Total protein, albumin normal. DIAGNOSES: Fractured hip, hypertension, diabetes, hyperlipidemia, hypothyroidism, gastritis, questio nable history of gastric ulcer, status post blood transfusions for anemia. PLAN: Continue metoprolol 25 b.i.d., continue Lovenox 30 mg subQ daily, Protonix 40 daily, Synthroid 125 mcg p.o. daily, Amaryl 1 mg b.i.d. We will follow with you. Riddhi Sanchez MD cc: [phone] TT: 06/25/2016 14:24:06 Confirmation # [id number] Dictation # [id number] en
[2016-06-25] MEDS: HYDROmorphone 0.5 mg/0.5 ml ISec SC PRN ×2 (16:12→21:29)
[2016-06-25 20:44] VITALS: O2SAT 96
[2016-06-26] MEDS: Pantoprazole 40 mg EC Tab PO SCH (06:28)
[2016-06-26 07:51] VITALS: RESP 18; TEMP 98.7
[2016-06-26] MEDS: Insulin Lispro (humaLOG) MEDIUM Coverage SC SCH ×3 (07:54→16:48)
[2016-06-26] MEDS: Levothyroxine 125 MCG TAB PO SCH (08:03)
--- NOTE | 2016-06-26 09:53 | PN ---
DATE: 06/26/2016 LOCATION: 366, bed 3. The patient underwent ORIF of her left hip for a stress fracture approximately 4 days ago and she has no undue complications. She has had 1 unit of blood. Hemoglobin is stable at 9.6. The patient got up out of bed and ambulated a little bit yesterday. Will continue aggressive therapy when she goes to subacute rehab. Hopefully if it is somewhere in [facility], I can follow her. Otherwise, she is doing well. I can move the hip without much pain on that left side. She has mild osteoarthritis, but does not need a total hip. I will follow her at the subacute rehab for followup on rehabilitati on for left hip stress fracture fixed with a peritroch alexander. Will get x-rays at the other facility. Nathaniel Hudson DO cc: [phone] TT: 06/26/2016 09:53:30 Confirmation # [id number] Dictation # [id number] elroy
[2016-06-26] MEDS: Enoxaparin 30 mg Syringe SC SCH (09:54)
[2016-06-26] MEDS: POLYETHYLENE GLYCOL 3350 17 GM/Dose PACKET PO SCH (09:54)
--- NOTE | 2016-06-26 11:28 | PN ---
DATE: 06/26/2016 REASON FOR CONSULTATION AND FOLLOWUP: Fractured hip, preop evaluation and postop follow up for hip f racture status post OR internal fixation. BRIEF CLINICAL HISTORY: This is a 76-year-old female with past medical history significant for hyper tension, type 2 diabetes, hypothyroidism, gastritis, history of possible gastric ulcer, who fell down and sustained fracture of left hip. The patient underwent OR internal fixation. Denies any chest p ain, shortness of breath, any palpitation. Complained of pain of operative site. PHYSICAL EXAMINATION: VITAL SIGNS: Temperature afebrile, heart rate ____, blood pressure 121/66. HEENT: PERRLA. Extraocular muscles intact. NECK: Supple. No carotid bruits. No thyromegaly. CHEST: Clear to auscultation. HEART: S1, S2 regular. ABDOMEN: Soft. EXTREMITIES: Clubbing and cyanosis negative. LABORATORY DATA: WBC 7.3, hemoglobin 9.____, hematocrit 29.1, platelet count 162. Chemistry shows s odium ____, potassium 4.2, chloride 108, carbon dioxide 90, anion gap of 13, BUN 32, creatinine 1.4. Total protein 7.2, albumin 2.____, albumin/globulin ratio 0.7. IMPRESSION: Status post fall, status post fractured hip, status post open reduction internal fixatio n, anemia postoperative; diabetes, hypertension, hyperlipidemia, status post packed red blood cells t ransfusion, hypothyroidism, hyperlipidemia, gastritis, questionable history of gastric ulcer. RECOMMENDATION: Continue DVT prophylaxis postop surgery ____ with Lovenox. Continue metoprolol. Co ntinue Synthroid. Continue rehab. Will follow with you. [facility] status is stable. Continue rehabilita tion. Thank you, Dr. Mckinney, for providing the opportunity in taking care of this patient. Riddhi Song MD cc:Demetrius Mckinney MD 305 TT: 06/26/2016 11:27:28 Confirmation # [id number] Dictation # [id number] mn
--- NOTE | 2016-06-26 12:51 | DS ---
DATE: 06/26/2016 SUBJECTIVE: The patient is 76 years old, seen and examined, lying in bed. Does not look in any distress. Only hurts when moves. Eating and tolerating. PHYSICAL EXAMINATION: VITAL SIGNS: She is afebrile, pulse 63, respirations 18, blood pressure 121/66. LUNGS: Bilateral fair airflow, no rhonchi or crackle. HEART: S1, S2 audible. No murmur. ABDOMEN: Soft, nontender, no rebound, no guarding. NEUROLOGIC: She is awake and alert and not very communicative because of language barrier. Does not offer any complaint. LABORATORY EXAMINATION: There is no new lab available today. ASSESSMENT AND PLAN: 1. Status post fall. 2. Status post intertrochanteric fracture open reduction internal fixation. 3. Postop anemia, status post blood transfusion. 4. Non-insulin dependent diabetes. 5. Hypertension. 6. Hyperlipidemia. 7. Hypothyroidism. PLAN: Currently, patient is on DVT prophylaxis. She is on stool softener, we will continue that. She is on analgesic as needed. Continue her on metoprolol and continue her on levothyroxine. We will continue to monitor her blood sugar. environmental services attendant is in the process of making arrangement for acute rehab. Once this is arranged, she will be discharged. ADDENDUM PT WAS ACCEPTED IN [facility] SO IS BEING DISCHARGED TODAY WILL RESUME ALL MEDS BEING GIVEN HERE. Demetrius Mckinney MD cc: [phone] TT: 06/26/2016 12:50:20 Confirmation # [id number] Dictation # [id number] MTDKerrie
[2016-06-26] MEDS ORDERED: HYDROmorphone 0.5 mg/0.5 ml ISec SC PRN (14:11)
[2016-06-26 17:46] VITALS: BP 129/98; PULSE 69
== END 2016-06-26 20:20 | DRG 481 ==
LOC: ED 14:21 → ERH 18:23 → 2RNO 20:18 → 3RNO 06-25 15:46
PROVIDERS: ADMIT Internal Medicine; ATTEND Internal Medicine
PROC: 0QS704Z Reposition Left Upper Femur with Internal Fixation Device, Open Approach (ICD-10-PCS; principal; 2016-06-22 09:30)
PROC: 30233N1 Transfusion of Nonautologous Red Blood Cells into Peripheral Vein, Percutaneous Approach (ICD-10-PCS; 2016-06-24)
DX: S72.145A Nondisplaced intertrochanteric fracture of left femur, initial encounter for closed fracture (principal); D62 Acute posthemorrhagic anemia; E11.9 Type 2 diabetes mellitus without complications; I10 Essential (primary) hypertension; E78.5 Hyperlipidemia, unspecified; E03.9 Hypothyroidism, unspecified; K29.70 Gastritis, unspecified, without bleeding; F03.90 Unspecified dementia, unspecified severity, without behavioral disturbance, psychotic disturbance, mood disturbance, and anxiety; M15.9 Polyosteoarthritis, unspecified; R26.2 Difficulty in walking, not elsewhere classified; W18.39XA Other fall on same level, initial encounter; Z79.84 Long term (current) use of oral hypoglycemic drugs; Z87.11 Personal history of peptic ulcer disease; Y93.89 Activity, other specified; Y92.098 Other place in other non-institutional residence as the place of occurrence of the external cause; Y99.8 Other external cause status

== ENCOUNTER 2016-08-09 19:01 | Inpatient (IN) | payer OTHER, MEDICARE ==
[2016-08-09 19:17] VITALS: BMI 26.3
[2016-08-09] MEDS ORDERED: Sodium Chloride 0.9% 1,000 ML IV STA ×2 (19:30→20:08)
--- NOTE | 2016-08-09 19:33 | ED PDOC ---
Arrival/HPI - General Chief Complaint: Altered Mental Status Time Seen by Provider: 08/09/16 19:06 - History of Present Illness Narrative History of Present Illness (Text): 08/09/16 19:32 Patient is a 76 y/o F with hx of htn, hyperlipidemia, and hypothyroid, presenting with 3 day history of generalized fatigue and decreased appetite. Patient also reports some vomiting and diarrhea 3 days ago. Patient is confused and is not oriented to time. Son reports that his mother is intermittently confused secondary to dementia, but reports that this has also worsened over the last 3 days. Past Medical History - Infectious Disease Hx of Infectious Diseases: None - Cardiac Hx Cardiac Disorders: Yes Hx Hypertension: Yes - Pulmonary Hx Respiratory Disorders: No - Neurological Hx Neurological Disorder: Yes Hx Dizziness: Yes - HEENT Hx HEENT Disorder: No - Renal Hx Renal Disorder: No - Endocrine/Metabolic Hx Diabetes Mellitus Type 2: Yes Hx Hypothyroidism: Yes - Hematological/Oncological Hx Blood Disorders: No - Integumentary Hx Dermatological Disorder: No - Musculoskeletal/Rheumatological Hx Falls: Yes Other/Comment: b/l hip replacement - Gastrointestinal Hx Gastrointestinal Disorders: No - Genitourinary/Gynecological Hx Genitourinary Disorders: No - Psychiatric Hx Psychophysiologic Disorder: No Hx Substance Use: No - Surgical History Hx Orthopedic Surgery: Yes Other/Comment: b/l hip replacment. - Anesthesia Hx Anesthesia: Yes Hx Anesthesia Reactions: No Hx Malignant Hyperthermia: No - Suicidal Assessment Feels Threatened In Home Enviroment: No Family/Social History Family/Social History: No Known Family HX Smoking Status: Never Smoked Hx Alcohol Use: No Hx Substance Use: No Allergies/Home Meds Allergies/Adverse Reactions: Allergies No Known Allergies Allergy (Verified 06/20/16 14:27) Home Medications: Home Meds Medication Instructions Recorded Confirmed B Complex W-C No.20/Folic Acid 1 sgl PO DAILY 08/09/16 08/09/16 [Raghav Caps] Ferrous Sulfate [Feosol] 325 mg PO DAILY 08/09/16 08/09/16 Glimepiride 1 mg PO BID 08/09/16 08/09/16 Levothyroxine [Synthroid] 125 mcg PO DAILY 08/09/16 08/09/16 Meloxicam 15 mg PO DAILY 08/09/16 08/09/16 Metoprolol Tartrate [Lopressor] 25 mg PO DAILY 08/09/16 08/09/16 Omeprazole 20 mg PO BID 08/09/16 08/09/16 Oxybutynin [Oxybutynin Chloride] 5 mg PO DAILY 08/09/16 08/09/16 Review of Systems - Review of Systems Systems not reviewed;Unavailable: Dementia Constitutional: Fatigue, Fevers Eyes: absent: Vision Changes ENT: absent: Hearing Changes Respiratory: absent: SOB, Cough Cardiovascular: absent: Chest Pain, Syncope Gastrointestinal: Diarrhea, Nausea, Vomiting. absent: Abdominal Pain, Constipation Skin: absent: Rash Neurological: absent: Headache, Dizziness, Focal Weakness, Gait Changes Physical Exam Vital Signs Temp Pulse Resp BP Pulse Ox 08/09/16 20:50 99.4 F 08/09/16 20:39 76 76 H 127/66 94 L 08/09/16 19:10 102.9 F H 88 20 162/87 H 91 L Temperature: Febrile Blood Pressure: Hypertensive Pulse: Regular Respiratory Rate: Normal Appearance: Positive for: Well-Appearing, Non-Toxic, Comfortable Pain Distress: None Mental Status: Positive for: Alert and Oriented X 3 - Systems Exam Head: Present: Atraumatic, Normocephalic Pupils: Present: PERRL Extroacular Muscles: Present: EOMI Conjunctiva: Present: Normal Neck: Present: Normal Range of Motion. No: Meningeal Signs Respiratory/Chest: Present: Clear to Auscultation, Good Air Exchange. No: Respiratory Distress, Accessory Muscle Use Cardiovascular: Present: Regular Rate and Rhythm, Normal S1, S2. No: Murmurs Abdomen: No: Tenderness, Distention, Rebound, Guarding Back: Present: Decubitus Ulcer Upper Extremity: Present: Normal Inspection Lower Extremity: Present: Normal Inspection, Other (moving extremities x 4) Neurological: Present: GCS=15, CN II-XII Intact, Speech Normal Psychiatric: Present: Alert (oriented x 2 (not to time)) Medical Decision Making ED Course and Treatment: 08/09/16 19:43 Patient is febrile and has generalized fatigue and decreased appetite. Will get labs, cxray, ua, blood and urine cultures, give tylenol and IVF. EKG shows NSRat 88bpm with LAD and no acute ST changes, unchanged form prior on 06/20/16 08/09/16 20:11 Lactate resulted at 2.2. Patient meets SIRS criteria and code sepsis called. 1L NS already given. Additional 1.1 L ordered to be given bolus over 30 minutes which equals 30ml/kg. Broad spectrum antibiotics ordered. 4 hour repeat lactate ordered. 08/09/16 20:12 UA consistent with uti 08/09/16 20:28 Cxray negative. Paged hospitalist and will admit for urosepsis. 08/09/16 20:[address] Del Rio and patient accepted - Lab Interpretations Lab Results: 08/09/16 19:20 08/09/16 19:20 Lab Results 08/09/16 19:20: Free T4 1.85, TSH 3rd Generation < 0.02 L 08/09/16 19:20: Urine Color Yellow, Urine Appearance Cloudy, Urine pH 6.0, Ur Specific [place] 1.020, Urine Protein 30 H, Urine Glucose (UA) Negative, Urine Ketones Negative, Urine Blood Large H, Urine Nitrate Positive H, Urine Bilirubin Negative, Urine Urobilinogen 0.2, Ur Leukocyte Esterase Large H, Urine RBC 25 - 30, Urine WBC Tntc, Ur Epithelial Cells 4 - 5, Urine Bacteria Many 08/09/16 19:20: Sodium 137, Chloride 107, Potassium 3.9, Carbon Dioxide 20 L, Anion Gap 14, BUN 32 H, Creatinine 1.4, Est GFR ( Amer) 44, Est GFR (Non- Af Amer) 36, Random Glucose 93, Calcium 9.2, Phosphorus 2.8, Magnesium 2.0, Total Bilirubin 1.1, AST 56 H, ALT 33, Alkaline Phosphatase 171 H, Total Protein 8.3, Albumin 3.4, Globulin 4.8, Albumin/Globulin Ratio 0.7 L 08/09/16 19:20: pO2 29 L, VBG pH 7.43, VBG pCO2 31.0 L, VBG HCO3 20.6 L, VBG Total CO2 21.6 L, VBG O2 Sat (Calc) 60.4, VBG Base Excess -2.8 L, VBG Potassium 4.3, Sodium 138.0, Chloride 109.0 H, Glucose 87, Lactate 2.4 H, FiO2 21.0, Venous Blood Potassium 4.3 08/09/16 19:20: WBC 9.2 D, RBC 4.82, Hgb 12.1, Hct 36.4, MCV 75.5 L, MCH 25.1, MCHC 33.2, RDW 17.9 H, Plt Count 217, MPV 11.2 H, Gran % 69.2 H, Lymph % (Auto) 19.6 L, [place] % (Auto) 11.1 H, Eos % (Auto) 0.0 L, Baso % (Auto) 0.1, Gran # 6.39 , Lymph # 1.8, [place] # 1.0 H, Eos # 0.0, Baso # 0.01 - RAD Interpretation Radiology Orders: 08/09/16 19:30 CHEST PORTABLE [RAD] Stat - Medication Orders Current Medication Orders: Vancomycin HCl (Vancomycin 1gm) 1 gm in 250 mls @ 167 mls/hr IVPB STAT STA PRN Reason: Protocol Stop: 08/09/16 21:39 Last Admin: 08/09/16 21:07 Dose: 167 mls/hr Discontinued Medications Acetaminophen (Tylenol 650 Mg Supp) 650 mg RC STAT STA Stop: 08/09/16 19:41 Last Admin: 08/09/16 19:50 Dose: 650 mg Re-Assess: [email or web address] Pain/Vitals Document 08/09/16 20:50 RD (Rec: 08/09/16 20:53 RD [id number]) Vitals Temperature (97.6 F-99.6 F) 99.4 F Temperature Source Oral Sodium Chloride (Sodium Chloride 0.9%) 1,000 mls @ 999 mls/hr IV .Q1H1M STA Stop: 08/09/16 20:30 Last Admin: 08/09/16 19:48 Dose: 999 mls/hr Sodium Chloride (Sodium Chloride 0.9%) 1,000 mls @ 999 mls/hr IV .Q1H1M STA Stop: 08/09/16 21:08 Last Admin: 08/09/16 20:20 Dose: 999 mls/hr Sodium Chloride 1,100 ml/ IV (SUPPLIES) 1,100 mls @ 4,046.94 mls/hr IV ONCE ONE PRN Reason: 60 ML/KG/HR Stop: 08/09/16 20:09 Last Admin: 08/09/16 20:23 Dose: Piperacillin Sod/Tazobactam Sod (Zosyn 3.375 In Ns 100ml) 100 mls @ 200 mls/hr IVPB STAT STA PRN Reason: Protocol Stop: 08/09/16 20:39 Last Admin: 08/09/16 20:21 Dose: 200 mls/hr Disposition/Present on Arrival - Present on Arrival Any Indicators Present on Arrival: No History of DVT/PE: No History of Uncontrolled Diabetes: Yes Urinary Catheter: No History of Decub. Ulcer: No History Surgical Site Infection Following: None - Disposition Have Diagnosis and Disposition been Completed?: Yes Diagnosis: UTI (urinary tract infection), Sepsis Disposition: HOSPITALIZED Disposition Time: 20:30 Patient Plan: Admission Patient Problems: Current Active Problems Problem Status Onset Sepsis Acute UTI (urinary tract infection) Acute Condition: FAIR
[2016-08-09 19:52] LABS: ADD MANUAL DIFF? NO
[2016-08-09 19:56] LABS: VENOUS BLOOD GAS BASE EXCESS -2.8 mmol/L (0.0-2.0); VENOUS BLOOD PH 7.43 (7.32-7.43)
[2016-08-09 20:00] LABS: URINE BILIRUBIN NEGATIVE (NEGATIVE); URINE BLOOD LARGE (NEGATIVE); URINE GLUCOSE (UA) NEGATIVE (NEGATIVE); URINE KETONE NEGATIVE (NEGATIVE); URINE LEUKOCYTE ESTERASE LARGE Leu/uL (NEGATIVE); URINE PROTEIN 30 mg/dL (<30 mg/dL); URINE UROBILINOGEN 0.2 E.U./dL (<1 E.U./dL)
[2016-08-09 20:01] LABS: URINE APPEARANCE CLOUDY (CLEAR); URINE COLOR YELLOW (YELLOW)
[2016-08-09 20:06] LABS: ALB/GLOB RATIO 0.7 (1.1-1.8); BILIRUBIN,TOTAL 1.1 mg/dL (0.2-1.3); CALCIUM 9.2 mg/dL (8.4-10.5); PHOSPHOROUS 2.8 mg/dL (2.5-4.5); POTASSIUM 3.9 mmol/L (3.6-5.0); TOTAL PROTEIN 8.3 g/dL (5.8-8.3)
[2016-08-09 20:09] LABS: URINE BACTERIA MANY (NEG); URINE RBC 25 - 30 /hpf (0-2); URINE WBC TNTC /hpf (0-6)
[2016-08-09] MEDS ORDERED: Vancomycin 1gm in NS 250ml 1 GM/250 ML BAG IVPB STA (20:10)
[2016-08-09] MEDS ORDERED: Piperacillin/Tazobact 3.375 gm 100 ML IVPB STA (20:10)
[2016-08-09 20:11] LABS: BASO # 0.01 K/mm3 (0.0-2.0); BASO % 0.1 % (0.0-3.0); GRAN # 6.39 (1.4-6.5); GRAN % 69.2 % (50.0-68.0); HEMATOCRIT 36.4 % (36.0-48.0); LYMPH # 1.8 (1.2-3.4); LYMPH % 19.6 % (22.0-35.0); MEAN CELL VOLUME 75.5 fL (80.0-105.0); MEAN CORPUSCULAR HEMOGLOBIN 25.1 pg (25.0-35.0); MEAN CORPUSCULAR HGB CONC 33.2 g/dl (31.0-37.0); MEAN PLATELET VOLUME 11.2 fl (7.0-11.0); MONO % 11.1 % (1.0-6.0); PLATELET COUNT 217 10^3/uL (120.0-450.0); RED CELL DISTRIBUTION WIDTH 17.9 % (11.5-14.5); WHITE BLOOD COUNT 9.2 10^3/ul (4.5-11.0)
[2016-08-09 20:22] LABS: FREE T4 1.85 ng/dL (0.78-2.19)
[2016-08-09 20:36] LABS: THYROID STIMULATING HORMONE < 0.02 mIU/mL (0.46-4.68)
[2016-08-09] MEDS: Insulin Lispro (humaLOG) LOW Coverage SC SCH (22:00)
[2016-08-09] MEDS: Sodium Chloride 0.9% 1,000 ML IV SCH (22:04)
[2016-08-10 00:34] LABS: VENOUS BLOOD GAS BASE EXCESS -5.9 mmol/L (0.0-2.0); VENOUS BLOOD PH 7.44 (7.32-7.43)
--- NOTE | 2016-08-10 00:37 | CP.PCM.HP ---
<Vesna Durán - Last Filed: 08/10/16 01:30> History of Present Illness - History of Present Illness History of Present Illness: PGY-1 H&P 76 yo female with PMH of HTN, HLD, hypothryroidism, and DM presented to ED with general fatigue and weakness. Patient speak Georgian, Son is at bedside to translate. Per family patient has been having fatigue, decreased appetite and weakness over the last few days. Today patient was very lethargic, no speaking a lot and not getting out of bed, they family decided to call an ambulance. Yesterday patient fell due to weakness, she denies loss of consciousness and hitting her head. She complains of chest wall tenderness secondary to the fall. 3 days ago patient had episodes of vomiting and diarrhea which has since resolved. Per son patient has some confusion due to dementia. Patient also has a wound on her lower back for the past few month. Per daughter the wound is cleaned daily and has yellow drainage. Patient denies any dysuria, or other urinary symptoms. She denies weight changes, sob, cough, abd pain. PMH: HTN, HLD, hypothryroidism, and DM PSH: bilateral hip surgery social hx: denies smoking, alcohol use, illicit drug use allergy: NKDA PMD: denies Present on Admission - Present on Admission Any Indicators Present on Admission: Yes Decubitus Ulcer Present: Yes Review of Systems - Constitutional Constitutional: Chills, Lethargy, Weakness. absent: Fever, Weight Gain, Weight Loss Additional comments: decreased appetite - EENT Nose/Mouth/Throat: absent: Nasal Congestion, Nasal Discharge, Sore Throat - Cardiovascular Cardiovascular: absent: Chest Pain, Diaphoresis, Dyspnea, Lightheadedness, Palpitations Additional comments: chest wall tenderness - Respiratory Respiratory: absent: Cough, Dyspnea, Hemoptysis - Gastrointestinal Gastrointestinal: absent: Abdominal Pain, Constipation, Diarrhea, Nausea, Vomiting - Genitourinary Genitourinary: absent: Difficulty Urinating, Dysuria, Hematuria, Urinary Frequency - Musculoskeletal Musculoskeletal: Neck Pain, Numbness. absent: Stiffness - Integumentary Integumentary: Skin Ulcer. absent: Rash, Swelling - Neurological Neurological: Numbness, Weakness. absent: Dizziness, Focal Weakness, Headaches , Syncope - Hematologic/Lymphatic Hematologic: absent: Easy Bleeding, Easy Bruising Past Patient History - Infectious Disease Hx of Infectious Diseases: None - Past Medical History & Family History Past Medical History?: Yes - Past Social History Smoking Status: Never Smoked Alcohol: None Drugs: Denies - CARDIAC Hx Cardiac Disorders: Yes Hx Hypercholesterolemia: Yes Hx Hypertension: Yes - PULMONARY Hx Respiratory Disorders: No (DENIES) - NEUROLOGICAL Hx Neurological Disorder: Yes Hx Dementia: Yes - HEENT Hx HEENT Problems: Yes (USES GLASSES) - RENAL Hx Chronic Kidney Disease: No (DENIES) - ENDOCRINE/METABOLIC Hx Endocrine Disorders: Yes Hx Diabetes Mellitus Type 2: Yes Hx Hypothyroidism: Yes - HEMATOLOGICAL/ONCOLOGICAL Hx Blood Disorders: No - INTEGUMENTARY Hx Dermatological Problems: No - MUSCULOSKELETAL/RHEUMATOLOGICAL Hx Falls: Yes - GASTROINTESTINAL Hx Gastrointestinal Disorders: Yes (GASTRITIS) - GENITOURINARY/GYNECOLOGICAL Hx Genitourinary Disorders: No Hx Incontinence: No - PSYCHIATRIC Hx Substance Use: No - SURGICAL HISTORY Hx Surgeries: Yes (PARTIAL THYROIDECTOMY,B/L HIP REPLACEMENT) Hx Orthopedic Surgery: Yes Other/Comment: b/l hip replacment. - ANESTHESIA Hx Anesthesia: Yes Hx Anesthesia Reactions: No Hx Malignant Hyperthermia: No Meds Allergies/Adverse Reactions: Allergies Allergy/AdvReac Type Severity Reaction Status Date / Time No Known Allergies Allergy Verified 06/20/16 14:27 Physical Exam - Constitutional Appears: Well, No Acute Distress - Head Exam Head Exam: ATRAUMATIC, NORMOCEPHALIC - Eye Exam Eye Exam: Normal appearance - ENT Exam ENT Exam: Mucous Membranes Dry - Respiratory Exam Respiratory Exam: Clear to Auscultation Bilateral, NORMAL BREATHING PATTERN. absent: Rales, Rhonchi, Wheezes, Respiratory Distress - Cardiovascular Exam Cardiovascular Exam: REGULAR RHYTHM, +S1, +S2. absent: Tachycardia, Diastolic murmur, Systolic Murmur - GI/Abdominal Exam GI & Abdominal Exam: Normal Bowel Sounds, Soft. absent: Distended, Firm, Guarding, Tenderness - Extremities Exam Extremities exam: Positive for: normal inspection. Negative for: pedal edema - Neurological Exam Neurological exam: Alert, Oriented x3 - Skin Skin Exam: Dry, Intact, Normal Color, Warm Results - Vital Signs Recent Vital Signs: Last Vital Signs Temp 98.2 F 08/10/16 00:14 Pulse 62 08/10/16 00:14 Resp 18 08/10/16 00:14 BP 111/59 L 08/10/16 00:14 Pulse Ox 97 08/10/16 00:14 - Labs Result Diagrams: 08/09/16 19:20 08/09/16 19:20 Assessment & Plan - Assessment and Plan (Free Text) Assessment: 76 yo female with PMH of HTN, HLD, hypothryroidism, and DM presented to ED with general fatigue and weakness most likely due to urosepsis. Found to have elevated lactate, code sepsis called. Plan: 1. urosepsis - UA positive - repeat lactate - urine culture - blood culture - zosyn and vanco - procalcitonin - ID consult - Tylenol prn fever 2. decubitous ulcer - wound culture - wound care nurse - zosyn and vanco - procalcitonin - ID consult 3. hypothyroidism - cont home med synthroid 125mcg - TSH, T4 4. HTN - hold home BP meds, metoprolol - clonidine 0.1 prn for SBP>170 - cont to monitor 5. DM - hold home meds to avoid hypoglycemia - ISSS- low - fingersticks ACHS ppx DVT- SCDs GI- protonix <Eliane JUAN,Rock - Last Filed: 08/12/16 08:56> Results - Vital Signs Recent Vital Signs: Last Vital Signs Temp 97.9 F 08/12/16 06:00 Pulse 69 08/12/16 07:54 Resp 20 08/12/16 06:00 BP 144/69 08/12/16 07:54 Pulse Ox 98 08/12/16 06:00 - Labs Result Diagrams: 08/12/16 07:54 08/12/16 07:54 Labs: Laboratory Results - last 24 hr 08/11/16 08/12/16 08/12/16 08:26 07:54 07:54 WBC 7.6 RBC 4.30 Hgb 10.7 L Hct 32.3 L MCV 75.1 L MCH 24.9 L MCHC 33.1 RDW 18.4 H Plt Count 187 MPV 10.3 Gran % 57.2 Lymph % (Auto) 27.1 [place] % (Auto) 10.0 H Eos % (Auto) 4.9 Baso % (Auto) 0.8 Gran # 4.36 Lymph # 2.1 [place] # 0.8 H Eos # 0.4 Baso # 0.06 Sodium 140 Potassium 3.8 Chloride 115 H Carbon Dioxide 17 L Anion Gap 12 BUN 19 Creatinine 1.1 Est GFR ( Amer) 58 Est GFR (Non-Af Amer) 48 Random Glucose 67 L Calcium 8.5 Iron TIBC % Saturation Total Bilirubin 0.8 AST 45 H ALT 33 Alkaline Phosphatase 154 H Total Protein 6.8 Albumin 2.7 L Globulin 4.1 Albumin/Globulin Ratio 0.7 L Triglycerides 190 H Cholesterol 115 L LDL Cholesterol Direct 69 HDL Cholesterol 14 L Free T4 Total T3 TSH 3rd Generation Hepatitis A IgM Ab Negative Hep Bs Antigen Negative Hep B Core IgM Ab Negative Hepatitis C Antibody Negative 08/12/16 08/12/16 07:54 07:54 WBC RBC Hgb Hct MCV MCH MCHC RDW Plt Count MPV Gran % Lymph % (Auto) [place] % (Auto) Eos % (Auto) Baso % (Auto) Gran # Lymph # [place] # Eos # Baso # Sodium Potassium Chloride Carbon Dioxide Anion Gap BUN Creatinine Est GFR ( Amer) Est GFR (Non-Af Amer) Random Glucose Calcium Iron 38 L TIBC 236 L % Saturation 16 L Total Bilirubin AST ALT Alkaline Phosphatase Total Protein Albumin Globulin Albumin/Globulin Ratio Triglycerides Cholesterol LDL Cholesterol Direct HDL Cholesterol Free T4 1.85 Total T3 0.72 L TSH 3rd Generation 0.27 L Hepatitis A IgM Ab Hep Bs Antigen Hep B Core IgM Ab Hepatitis C Antibody Attending/Attestation - Attestation I have personally seen and examined this patient.: Yes I have fully participated in the care of the patient.: Yes I have reviewed all pertinent clinical information: Yes Notes (Text): 08/12/16 08:54 -I agree with the above H&P completed by the resident physician with the following additions and/or changes: The patient is a76 year old woman with PMH of HTN, HLD, hypothryroidism, and DM who is being admitted for sepsis due to UTI and possibly infected sacral ulcer. Empiric IV antibiotics have been started and an ID consult placed. Because she is hemodynamically stable, she can be admitted to telemetry. 08/12/16 08:56
--- NOTE | 2016-08-10 00:41 | PCM.SEPTIC ---
<Vesna Durán - Last Filed: 08/10/16 01:29> Sepsis Progress Note - Reassessment Type Date of Evaluation: 08/10/16 Time of Evaluation: 00:40 Reassessment Type: Non-invasive reassessment - Non Invasive Reassessment Were the most recent vital sign reviewed: Yes Vital Sign (Latest): Temp Pulse Resp BP Pulse Ox 98.2 F 62 18 111/59 L 97 08/10/16 00:14 08/10/16 00:14 08/10/16 00:14 08/10/16 00:14 08/10/16 00:14 Cardiovascular: Yes: Regular Rate, Rhythm. No: Chest Non Tender, Murmur, Bradycardia, Tachycardia Respiratory: Yes: Normal Breath Sounds. No: Accessory Muscle Use, Crackles, Rales, Rhonchi, Stridor, Wheezing, Respiratory Distress Capillary Refill: Normal (Less than 2 sec) Skin: Normal Color, Warm, Dry <Rock Del Rio MD - Last Filed: 08/12/16 08:59> Sepsis Progress Note - Non Invasive Reassessment Vital Sign (Latest): Temp Pulse Resp BP Pulse Ox 97.9 F 69 20 144/69 98 08/12/16 06:00 08/12/16 07:54 08/12/16 06:00 08/12/16 07:54 08/12/16 06:00 Attending/Attestation - Attestation I have personally seen and examined this patient.: Yes I have fully participated in the care of the patient.: Yes I have reviewed all pertinent clinical information, including history, physical exam and plan: Yes Notes (Text): 08/12/16 08:59 -I agree with the above sepsis note completed by the resident physician.
[2016-08-10] MEDS: Piperacillin/Tazobact 3.375 gm 100 ML IVPB SCH ×2 (02:02→08:07)
[2016-08-10] MEDS: Sodium Chloride 0.9% 1,000 ML IV SCH ×3 (05:16→16:07)
[2016-08-10 06:48] LABS: ADD MANUAL DIFF? NO
[2016-08-10 07:21] LABS: ALB/GLOB RATIO 0.6 (1.1-1.8); BILIRUBIN,TOTAL 0.9 mg/dL (0.2-1.3); CALCIUM 7.9 mg/dL (8.4-10.5); POTASSIUM 3.4 mmol/L (3.6-5.0); TOTAL PROTEIN 6.5 g/dL (5.8-8.3)
[2016-08-10 07:33] LABS: BASO # 0.01 K/mm3 (0.0-2.0); BASO % 0.2 % (0.0-3.0); EOS # 0.1 (0.0-0.7); EOS % 0.9 % (1.5-5.0); GRAN # 3.97 (1.4-6.5); GRAN % 60.3 % (50.0-68.0); HEMATOCRIT 31.9 % (36.0-48.0); LYMPH # 1.7 (1.2-3.4); LYMPH % 25.4 % (22.0-35.0); MEAN CELL VOLUME 76.3 fL (80.0-105.0); MEAN CORPUSCULAR HEMOGLOBIN 25.1 pg (25.0-35.0); MEAN CORPUSCULAR HGB CONC 32.9 g/dl (31.0-37.0); MONO # 0.9 (0.1-0.6); MONO % 13.2 % (1.0-6.0); PLATELET COUNT 158 10^3/uL (120.0-450.0); RED CELL DISTRIBUTION WIDTH 18.1 % (11.5-14.5); WHITE BLOOD COUNT 6.6 10^3/ul (4.5-11.0)
[2016-08-10] MEDS ORDERED: Potassium Chloride 20 mEq ER Tab PO ONE (07:50)
[2016-08-10] MEDS: Insulin Lispro (humaLOG) LOW Coverage SC SCH ×4 (07:53→21:18)
--- NOTE | 2016-08-10 08:14 | RAD ---
HISTORY: fever, AMS COMPARISON: 06/21/2016 FINDINGS: LUNGS: The lungs are hyperinflated and there is peribronchial thickening with chronic changes in both lungs. There is no lobar pneumonia. There is an apparent 1.8 cm nodular opacity in the left retrocardiac region. PLEURA: No significant pleural effusion identified, no pneumothorax apparent. CARDIOVASCULAR: Normal. OSSEOUS STRUCTURES: No significant abnormalities. VISUALIZED UPPER ABDOMEN: Normal. OTHER FINDINGS: None. IMPRESSION: COPD. No acute findings. Apparent 1.8 cm nodular opacity in the left retrocardiac region could represent round atelectasis or pneumonia parenchymal nodule cannot be entirely excluded. A dedicated CT scan of the thorax without intravenous contrast is recommended for further evaluation.
[2016-08-10] MEDS ORDERED: Albuterol-Ipratrop 3 mg / 0.5 (3 ml) UD IH PRN (08:20)
[2016-08-10] MEDS: Levothyroxine 125 MCG TAB PO SCH (09:37)
[2016-08-10] MEDS: Vancomycin 1gm in NS 250ml 1 GM/250 ML BAG IVPB SCH (09:38)
[2016-08-10] MEDS: Pantoprazole 40 mg EC Tab PO SCH (09:38)
[2016-08-10] MEDS: Multivitamin Vitamin B Complex (Nephro-Vite) Tab PO SCH (09:38)
[2016-08-10] MEDS: Albuterol-Ipratrop 3 mg / 0.5 (3 ml) UD IH SCH ×2 (13:17→20:18)
--- NOTE | 2016-08-10 18:57 | CP.PCM.CON ---
History of Present Illness - History of Present Illness History of Present Illness: Infectious Disease Consultation: August 10, 2016 76 yo Chinese female with extensive past medical history presented with fatigue and weakness. The patient with altered mental status as per the family and EMS services initiated. The patient complained of chest wall tenderness. Transient nausea, vomiting, and diarrhea episode. Lower back ulcer with mild yellow drainage. PMHx: Hypertension, Hyperlipidemia, hypothyroidism, and diabetes mellitus. PSHx: Bilateral hp surgery Allergies: NKDA Social Hx: No tobacco, EtOH, or illicit drug use Active Medications Acetaminophen (Tylenol 325mg Tab) 650 mg PO Q6 PRN PRN Reason: Fever >100.4 F Last Admin: 08/10/16 16:32 Dose: 650 mg Albuterol/Ipratropium (Duoneb 3 Mg/0.5 Mg (3 Ml) Ud) 3 ml IH [id number] [facility] Last Admin: 08/10/16 13:17 Dose: 3 ml Albuterol/Ipratropium (Duoneb 3 Mg/0.5 Mg (3 Ml) Ud) 3 ml IH Q2H PRN PRN Reason: Shortness of Breath Clonidine HCl (Catapres) 0.1 mg PO Q6 PRN PRN Reason: Systolic Blood Pressure Ferrous Sulfate (Feosol) 324 mg PO DAILY [facility] Last Admin: 08/10/16 09:38 Dose: 324 mg Vancomycin HCl (Vancomycin 1gm) 1 gm in 250 mls @ 167 mls/hr IVPB DAILY [facility] PRN Reason: Protocol Last Admin: 08/10/16 09:38 Dose: 167 mls/hr Sodium Chloride (Sodium Chloride 0.9%) 1,000 mls @ 100 mls/hr IV .Q10H [facility] Last Admin: 08/10/16 16:07 Dose: 100 mls/hr Insulin Human Lispro (Humalog Low) 0 units SC ACHS [facility] PRN Reason: Protocol Last Admin: 08/10/16 16:28 Dose: Not Given Levothyroxine Sodium (Synthroid) 125 mcg PO DAILY [facility] Last Admin: 08/10/16 09:37 Dose: 125 mcg Ondansetron HCl (Zofran Inj) 4 mg IVP Q6H PRN PRN Reason: Nausea/Vomiting Oxybutynin Chloride (Ditropan Tab) 5 mg PO DAILY [facility] Last Admin: 08/10/16 09:38 Dose: 5 mg Pantoprazole Sodium (Protonix Ec Tab) 40 mg PO DAILY [facility] Last Admin: 08/10/16 09:38 Dose: 40 mg Vitamin B Complex/Vit C/Folic Acid (Nephro-Mane) 1 tab PO DAILY [facility] Last Admin: 08/10/16 09:38 Dose: 1 tab Family Hx: none given ROS: Fatigue, weakness, nausea, vomiting, diarrhea. Chest wall tenderness. No melena, hematuria, hematemesis, hematochezia, depression, anxiety. Past Patient History - Infectious Disease Hx of Infectious Diseases: None - Past Medical History & Family History Past Medical History?: Yes - Past Social History Smoking Status: Never Smoked Alcohol: None Drugs: Denies - CARDIAC Hx Cardiac Disorders: Yes Hx Hypercholesterolemia: Yes Hx Hypertension: Yes - PULMONARY Hx Respiratory Disorders: No (DENIES) - NEUROLOGICAL Hx Neurological Disorder: Yes Hx Dementia: Yes - HEENT Hx HEENT Problems: Yes (USES GLASSES) - RENAL Hx Chronic Kidney Disease: No (DENIES) - ENDOCRINE/METABOLIC Hx Endocrine Disorders: Yes Hx Diabetes Mellitus Type 2: Yes Hx Hypothyroidism: Yes - HEMATOLOGICAL/ONCOLOGICAL Hx Blood Disorders: No - INTEGUMENTARY Hx Dermatological Problems: No - MUSCULOSKELETAL/RHEUMATOLOGICAL Hx Falls: Yes - GASTROINTESTINAL Hx Gastrointestinal Disorders: Yes (GASTRITIS) - GENITOURINARY/GYNECOLOGICAL Hx Genitourinary Disorders: No Hx Incontinence: No - PSYCHIATRIC Hx Substance Use: No - SURGICAL HISTORY Hx Surgeries: Yes (PARTIAL THYROIDECTOMY,B/L HIP REPLACEMENT) Hx Orthopedic Surgery: Yes Other/Comment: b/l hip replacment. - ANESTHESIA Hx Anesthesia: Yes Hx Anesthesia Reactions: No Hx Malignant Hyperthermia: No Meds Allergies/Adverse Reactions: Allergies Allergy/AdvReac Type Severity Reaction Status Date / Time No Known Allergies Allergy Verified 06/20/16 14:27 - Medications Medications: Current Medications Acetaminophen (Tylenol 325mg Tab) 650 mg PO Q6 PRN PRN Reason: Fever >100.4 F Last Admin: 08/10/16 16:32 Dose: 650 mg Albuterol/Ipratropium (Duoneb 3 Mg/0.5 Mg (3 Ml) Ud) 3 ml IH [id number] [facility] Last Admin: 08/10/16 13:17 Dose: 3 ml Albuterol/Ipratropium (Duoneb 3 Mg/0.5 Mg (3 Ml) Ud) 3 ml IH Q2H PRN PRN Reason: Shortness of Breath Clonidine HCl (Catapres) 0.1 mg PO Q6 PRN PRN Reason: Systolic Blood Pressure Ferrous Sulfate (Feosol) 324 mg PO DAILY [facility] Last Admin: 08/10/16 09:38 Dose: 324 mg Vancomycin HCl (Vancomycin 1gm) 1 gm in 250 mls @ 167 mls/hr IVPB DAILY [facility] PRN Reason: Protocol Last Admin: 08/10/16 09:38 Dose: 167 mls/hr Sodium Chloride (Sodium Chloride 0.9%) 1,000 mls @ 100 mls/hr IV .Q10H [facility] Last Admin: 08/10/16 16:07 Dose: 100 mls/hr Insulin Human Lispro (Humalog Low) 0 units SC ACHS [facility] PRN Reason: Protocol Last Admin: 08/10/16 16:28 Dose: Not Given Levothyroxine Sodium (Synthroid) 125 mcg PO DAILY [facility] Last Admin: 08/10/16 09:37 Dose: 125 mcg Ondansetron HCl (Zofran Inj) 4 mg IVP Q6H PRN PRN Reason: Nausea/Vomiting Oxybutynin Chloride (Ditropan Tab) 5 mg PO DAILY [facility] Last Admin: 08/10/16 09:38 Dose: 5 mg Pantoprazole Sodium (Protonix Ec Tab) 40 mg PO DAILY [facility] Last Admin: 08/10/16 09:38 Dose: 40 mg Vitamin B Complex/Vit C/Folic Acid (Nephro-Mane) 1 tab PO DAILY [facility] Last Admin: 08/10/16 09:38 Dose: 1 tab Physical Exam - Constitutional Appears: Non-toxic, No Acute Distress, Chronically Ill - Head Exam Head Exam: ATRAUMATIC, NORMOCEPHALIC - Eye Exam Eye Exam: EOMI, PERRL Pupil Exam: NORMAL ACCOMODATION, PERRL - ENT Exam ENT Exam: Mucous Membranes Moist, Normal External Ear Exam, TM's Normal Bilaterally - Respiratory Exam Respiratory Exam: Clear to Auscultation Bilateral, NORMAL BREATHING PATTERN. absent: Rales, Rhonchi, Wheezes - Cardiovascular Exam Cardiovascular Exam: REGULAR RHYTHM, RRR, +S1, +S2 - GI/Abdominal Exam GI & Abdominal Exam: Normal Bowel Sounds, Soft. absent: Distended, Tenderness - Extremities Exam Extremities exam: Positive for: full ROM, normal inspection - Neurological Exam Neurological exam: Alert, CN II-XII Intact, Normal Gait, Oriented x3 - Psychiatric Exam Psychiatric exam: Normal Affect, Normal Mood - Skin Skin Exam: Intact, Normal Color Results - Vital Signs Recent Vital Signs: Last Vital Signs Temp 97.4 F L 08/10/16 12:00 Pulse 68 08/10/16 14:00 Resp 18 08/10/16 12:00 BP 127/66 08/10/16 12:00 Pulse Ox 98 08/10/16 06:00 - Labs Result Diagrams: 08/10/16 06:30 08/10/16 06:30 Labs: Laboratory Results - last 24 hr 08/09/16 08/10/16 08/10/16 23:55 06:30 06:30 WBC 6.6 D RBC 4.18 Hgb 10.5 L Hct 31.9 L MCV 76.3 L MCH 25.1 MCHC 32.9 RDW 18.1 H Plt Count 158 MPV 11.0 Gran % 60.3 Lymph % (Auto) 25.4 [facility] % (Auto) 13.2 H Eos % (Auto) 0.9 L Baso % (Auto) 0.2 Gran # 3.97 Lymph # 1.7 [facility] # 0.9 H Eos # 0.1 Baso # 0.01 pO2 79 H VBG pH 7.44 H VBG pCO2 26.0 L VBG HCO3 17.7 L VBG Total CO2 18.5 L VBG O2 Sat (Calc) 99.4 H VBG Base Excess -5.9 L VBG Potassium 3.6 Sodium 139.0 139 Chloride 117.0 H 115 H Glucose 84 Lactate 1.1 FiO2 21.0 Potassium 3.4 L Carbon Dioxide 17 L Anion Gap 10 BUN 28 H Creatinine 1.3 Est GFR ( Amer) 48 Est GFR (Non-Af Amer) 40 Random Glucose 73 Calcium 7.9 L Total Bilirubin 0.9 AST 43 H ALT 27 Alkaline Phosphatase 119 Total Protein 6.5 Albumin 2.5 L Globulin 4.0 Albumin/Globulin Ratio 0.6 L Venous Blood Potassium 3.6 Assessment & Plan - Assessment and Plan (Free Text) Assessment: 76 yo female with potential UTI started on Zosyn and Vancomycin. [place] cultures sent. Fever up to 102.9 F. Multiple medical issues. Supportive care. Lower back wound. Local wound care. Renal insufficiency. R/O sepsis. Thank you for allowing me to participate in the care of the patient, we will follow with you.
--- NOTE | 2016-08-10 19:03 | CT ---
PROCEDURE: CT Chest without contrast HISTORY: F/U LT LUNG NODULE/ATELECTASIS COMPARISON: Comparison is made to the previous study dated 11/10/2014 TECHNIQUE: Contiguous axial images were obtained through the chest without intravenous contrast enhancement. Sagittal and coronal reconstructions were performed. Radiation dose (DLP): mGy-cm. This CT exam was performed using one or more of the following dose reduction techniques: Automated exposure control, adjustment of the mA and/or kV according to patient size, and/or use of iterative reconstruction technique. FINDINGS: LUNGS: Mild pulmonary vascular congestion seen. No evidence of suspicious mass in the lungs. No evidence of pneumonia. MEDIASTINUM: Unremarkable thoracic aorta. No aneurysm. Mild to moderate cardiomegaly seen. There is a small pericardial effusion. Mild enlargement of the pulmonary artery. No lymphadenopathy. PLEURA: Small bilateral pleural effusions. BONES: No fracture. No destructive lesion. Diffuse osteopenia seen UPPER ABDOMEN: Cirrhotic changes of the liver seen. OTHER FINDINGS: None. IMPRESSION: No evidence of pneumonia or mass in the lungs. Bibasilar atelectasis. Small bilateral pleural effusions. Cardiomegaly. Cirrhosis
--- NOTE | 2016-08-10 19:21 | CARD ---
APPROVED REPORT EKG Measurement Heart [id number] [id number] <Conclusion> Normal sinus rhythm Left axis deviation Inferior infarct, age undetermined Abnormal ECG
[2016-08-11] MEDS: Albuterol-Ipratrop 3 mg / 0.5 (3 ml) UD IH SCH ×2 (01:35→08:14)
[2016-08-11] MEDS: Sodium Chloride 0.9% 1,000 ML IV SCH (01:58)
[2016-08-11 06:47] LABS: ADD MANUAL DIFF? NO
[2016-08-11 06:50] LABS: BASO # 0.02 K/mm3 (0.0-2.0); BASO % 0.3 % (0.0-3.0); EOS # 0.1 (0.0-0.7); EOS % 1.9 % (1.5-5.0); GRAN # 4.57 (1.4-6.5); GRAN % 60.8 % (50.0-68.0); LYMPH # 1.7 (1.2-3.4); LYMPH % 23.2 % (22.0-35.0); MEAN CELL VOLUME 74.6 fL (80.0-105.0); MEAN CORPUSCULAR HEMOGLOBIN 25.2 pg (25.0-35.0); MEAN CORPUSCULAR HGB CONC 33.8 g/dl (31.0-37.0); MEAN PLATELET VOLUME 10.9 fl (7.0-11.0); MONO % 13.8 % (1.0-6.0); PLATELET COUNT 177 10^3/uL (120.0-450.0); RED CELL DISTRIBUTION WIDTH 18.2 % (11.5-14.5); WHITE BLOOD COUNT 7.5 10^3/ul (4.5-11.0)
[2016-08-11 07:02] LABS: ALB/GLOB RATIO 0.6 (1.1-1.8); ALKALINE PHOSPHATASE 140 U/L (38-133); ALT/SGPT 34 U/L (7-56); AST/SGOT 49 U/L (15-39); BILIRUBIN,TOTAL 0.7 mg/dL (0.2-1.3); BLOOD UREA NITROGEN 21 mg/dL (7-21); CALCIUM 8.2 mg/dL (8.4-10.5); CARBON DIOXIDE 16 mmol/L (21-33); CHLORIDE 117 mmol/L (98-107); GFR AFRICAN-AMERICAN > 60; GLUCOSE,RANDOM 72 mg/dL (70-110); POTASSIUM 3.7 mmol/L (3.6-5.0); SODIUM 140 mmol/L (132-148); TOTAL PROTEIN 6.5 g/dL (5.8-8.3)
[2016-08-11] MEDS ORDERED: Levalbuterol 0.63 MG/3 ML Inhal Soln UD IH PRN ×2 (08:18→08:19)
[2016-08-11] MEDS: Multivitamin Vitamin B Complex (Nephro-Vite) Tab PO SCH (09:37)
[2016-08-11] MEDS: Levothyroxine 125 MCG TAB PO SCH (09:37)
[2016-08-11] MEDS: Pantoprazole 40 mg EC Tab PO SCH (09:37)
[2016-08-11] MEDS: Enoxaparin 80 mg Syringe SC STA ×2 (09:37→09:58)
[2016-08-11] MEDS: Sucralfate 1 gm/10 ml Oral Susp UD PO SCH ×2 (09:40→17:59)
[2016-08-11] MEDS: Vancomycin 1gm in NS 250ml 1 GM/250 ML BAG IVPB SCH (09:40)
[2016-08-11] MEDS ORDERED: Enoxaparin 80 mg Syringe SC SCH (10:00)
[2016-08-11] MEDS ORDERED: Enoxaparin 40 mg Syringe SC SCH (10:00)
[2016-08-11] MEDS ORDERED: Piperacillin/Tazobact 3.375 gm 100 ML IVPB SCH (12:00)
[2016-08-11] MEDS: Insulin Lispro (humaLOG) LOW Coverage SC SCH ×4 (12:38→22:15)
[2016-08-11] MEDS: Levalbuterol 0.63 MG/3 ML Inhal Soln UD IH SCH ×2 (13:44→19:12)
--- NOTE | 2016-08-11 14:52 | CP.PCM.PN ---
<Daniela Hurley - Last Filed: 08/11/16 15:30> Subjective - Date & Time of Evaluation Date of Evaluation: 08/11/16 Time of Evaluation: 14:49 - Subjective Subjective: HOSPITALISTS PROGRESS NOTE Pt is seen and examined at bedside. No acute events overnight. Patient is noted to be tachycardic on monitor. EKg is done and shows new onset a fib with rvr. Patient denie shaving any CP, SOB, abd pain N/V/D/C. She is tolerating diet. Objective - Vital Signs/Intake and Output Vital Signs (last 24 hours): Temp Pulse Resp BP Pulse Ox 98.7 F 75 19 120/74 97 08/11/16 12:00 08/11/16 12:00 08/11/16 12:00 08/11/16 12:00 08/11/16 05:36 Intake and Output: 08/11/16 08/11/16 06:59 18:59 Intake Total 1320 Output Total 700 Balance 620 - Medications Medications: Current Medications Acetaminophen (Tylenol 325mg Tab) 650 mg PO Q6 PRN PRN Reason: Fever >100.4 F Last Admin: 08/10/16 16:32 Dose: 650 mg Aspirin (Ecotrin) 81 mg PO 0800 [facility] Atorvastatin Calcium (Lipitor) 20 mg PO DIN [facility] Enoxaparin Sodium (Lovenox) 70 mg SC Q12H [facility] PRN Reason: Protocol Ferrous Sulfate (Feosol) 324 mg PO DAILY [facility] Last Admin: 08/11/16 09:37 Dose: 324 mg Vancomycin HCl (Vancomycin 1gm) 1 gm in 250 mls @ 167 mls/hr IVPB DAILY [facility] PRN Reason: Protocol Last Admin: 08/11/16 09:40 Dose: 167 mls/hr Piperacillin Sod/Tazobactam Sod (Zosyn 3.375 In Ns 100ml) 100 mls @ 200 mls/hr IVPB Q6 [facility] PRN Reason: Protocol Stop: 08/11/16 18:29 Last Admin: 08/11/16 13:10 Dose: 200 mls/hr Insulin Human Lispro (Humalog Low) 0 units SC ACHS [facility] PRN Reason: Protocol Last Admin: 08/11/16 12:46 Dose: 1 units Levalbuterol HCl (Xopenex) 0.63 mg IH [id number] [facility] Last Admin: 08/11/16 13:44 Dose: 0.63 mg Levalbuterol HCl (Xopenex) 0.63 mg IH [id number] PRN PRN Reason: Shortness of Breath Levothyroxine Sodium (Synthroid) 125 mcg PO DAILY [facility] Last Admin: 08/11/16 09:37 Dose: 125 mcg Metoprolol Tartrate (Lopressor) 25 mg PO BRKDIN [facility] Ondansetron HCl (Zofran Inj) 4 mg IVP Q6H PRN PRN Reason: Nausea/Vomiting Oxybutynin Chloride (Ditropan Tab) 5 mg PO DAILY [facility] Last Admin: 08/11/16 09:37 Dose: 5 mg Pantoprazole Sodium (Protonix Ec Tab) 40 mg PO DAILY [facility] Last Admin: 08/11/16 09:37 Dose: 40 mg Sucralfate (Carafate Oral Susp) 1 gm PO BID [facility] Last Admin: 08/11/16 09:40 Dose: 1 gm Vitamin B Complex/Vit C/Folic Acid (Nephro-Mane) 1 tab PO DAILY [facility] Last Admin: 08/11/16 09:37 Dose: 1 tab - Labs Labs: 08/11/16 06:30 08/11/16 06:30 - Constitutional Appears: Non-toxic, No Acute Distress - Head Exam Head Exam: ATRAUMATIC - Eye Exam Eye Exam: EOMI - ENT Exam ENT Exam: Mucous Membranes Moist - Respiratory Exam Respiratory Exam: Clear to Ausculation Bilateral. absent: Accessory Muscle Use , Rales, Rhonchi, Wheezes, Respiratory Distress - Cardiovascular Exam Cardiovascular Exam: Tachycardia, Irregular Rhythm, +S1, +S2. absent: Gallop, Murmur - GI/Abdominal Exam GI & Abdominal Exam: Soft, Normal Bowel Sounds. absent: Distended, Firm, Guarding, Rigid, Tenderness - Extremities Exam Extremities Exam: Full ROM. absent: Pedal Edema, Tenderness - Neurological Exam Neurological Exam: Alert, Awake, Oriented x3 - Psychiatric Exam Psychiatric exam: Normal Affect, Normal Mood - Skin Skin Exam: Dry, Intact, Normal Color, Warm Assessment and Plan - Assessment and Plan (Free Text) Assessment: 76 yo female with PMH of HTN, HLD, hypothryroidism, and DM is admitted to hospital for urosepsis. Plan: 1. urosepsis - urine culture pending - blood culture negative - zosyn and vanco - procalcitonin is elevated at 6 - ID consult appreciated - Tylenol prn fever 2. Net onset A-fib with RVR - Cardiology consulted requested - Patient received stat dose of cardizem 5 mg IVP - Contine lopressor - Started on lovenox 1mg/kg BID. Patient does have history of esophageal ulcer. After discussing with GI, Dr. Hernandez, will continue anticoagulation for now. 3. decubitous ulcer - wound culture - wound care nurse 4. hypothyroidism - cont home med synthroid 125mcg - TSh is low, T4 normal 5. HTN - hold home BP meds, metoprolol - clonidine 0.1 prn for SBP>170 - cont to monitor 5. DM - hold home meds to avoid hypoglycemia - ISS- low - fingersticks ACHS 6. HLD - Lipitor 20 mg po qd 7. History of esophageal ulcer - Will check stool for occult blood - will continue to monitor closely for bleeding ppx DVT- SCDs GI- protonix Son is made aware of the new onset a fib. Explained thoroughly all the risk and benefits of anticoag therapy. Case discussed with attending, Dr. Guidry. <Shantel Guidry - Last Filed: 08/11/16 17:34> Objective - Vital Signs/Intake and Output Vital Signs (last 24 hours): Temp Pulse Resp BP Pulse Ox 98.7 F 111 H 19 120/74 97 08/11/16 12:00 08/11/16 14:00 08/11/16 12:00 08/11/16 12:00 08/11/16 05:36 Intake and Output: 08/11/16 08/11/16 06:59 18:59 Intake Total 1320 Output Total 700 Balance 620 - Medications Medications: Current Medications Acetaminophen (Tylenol 325mg Tab) 650 mg PO Q6 PRN PRN Reason: Fever >100.4 F Last Admin: 08/10/16 16:32 Dose: 650 mg Aspirin (Ecotrin) 81 mg PO 0800 [facility] Atorvastatin Calcium (Lipitor) 20 mg PO DIN [facility] Enoxaparin Sodium (Lovenox) 70 mg SC Q12H [facility] PRN Reason: Protocol Ferrous Sulfate (Feosol) 324 mg PO DAILY [facility] Last Admin: 08/11/16 09:37 Dose: 324 mg Vancomycin HCl (Vancomycin 1gm) 1 gm in 250 mls @ 167 mls/hr IVPB DAILY [facility] PRN Reason: Protocol Last Admin: 08/11/16 09:40 Dose: 167 mls/hr Piperacillin Sod/Tazobactam Sod (Zosyn 3.375 In Ns 100ml) 100 mls @ 200 mls/hr IVPB Q6 [facility] PRN Reason: Protocol Stop: 08/11/16 18:29 Last Admin: 08/11/16 13:10 Dose: 200 mls/hr Insulin Human Lispro (Humalog Low) 0 units SC ACHS [facility] PRN Reason: Protocol Last Admin: 08/11/16 12:46 Dose: 1 units Levalbuterol HCl (Xopenex) 0.63 mg IH [id number] [facility] Last Admin: 08/11/16 13:44 Dose: 0.63 mg Levalbuterol HCl (Xopenex) 0.63 mg IH [id number] PRN PRN Reason: Shortness of Breath Levothyroxine Sodium (Synthroid) 125 mcg PO DAILY [facility] Last Admin: 08/11/16 09:37 Dose: 125 mcg Metoprolol Tartrate (Lopressor) 25 mg PO BRKDIN [facility] Ondansetron HCl (Zofran Inj) 4 mg IVP Q6H PRN PRN Reason: Nausea/Vomiting Oxybutynin Chloride (Ditropan Tab) 5 mg PO DAILY [facility] Last Admin: 08/11/16 09:37 Dose: 5 mg Pantoprazole Sodium (Protonix Ec Tab) 40 mg PO DAILY [facility] Last Admin: 08/11/16 09:37 Dose: 40 mg Sucralfate (Carafate Oral Susp) 1 gm PO BID [facility] Last Admin: 08/11/16 09:40 Dose: 1 gm Vitamin B Complex/Vit C/Folic Acid (Nephro-Mane) 1 tab PO DAILY [facility] Last Admin: 08/11/16 09:37 Dose: 1 tab - Labs Labs: 08/11/16 06:30 08/11/16 06:30 Attending/Attestation - Attestation I have personally seen and examined this patient.: Yes I have fully participated in the care of the patient.: Yes I have reviewed all pertinent clinical information, including history, physical exam and plan: Yes Notes (Text): 06/03/17 17:29 attending note; Patient seen and examined with resident. Patient is a 76 year old British female with PMH of HTN, HLD, hypothryroidism, recent hip surgery, fall and DM is admitted to hospital for urosepsis. fever resolved. No leukocytosis. Blood culture is negative. urine culture is growing gram-negative rods. Identification pending. Wound culture growing gram-negative rods. Continue IV vancomycin and Zosyn.ID evaluation appreciated. Patient had tachycardia this morning. MAT VS a fib. started on aspirin and Lovenox. IV Cardizem given. Started on by mouth metoprolol. Cardiology evaluation with Dr. Sanchez requested. History of esophageal ulcer; currently hemoglobin is stable. GI evaluation with Dr. Hernandez requested. Continue Protonix and Carafate. PT evaluation requested. case discussed with patient's daughter in detail. Upon discharge The patient will follow up with PMD Dr. Humphrey. 08/11/16 17:33
--- NOTE | 2016-08-11 15:32 | CON ---
DATE: 08/11/2016 LOCATION: Room 260, bed 1. REASON FOR CONSULTATION: Atrial fibrillation. HISTORY OF PRESENT ILLNESS: The patient is a 76-year-old female who speaks only Syriac. History obt ained through interpretation. The patient known case of hypertension, diabetes, hyperlipidemia, hypo thyroidism, gastritis, possible gastric ulcer, admitted with history that she was feeling generalized weakness and decreased appetite. The patient also stated that she tried to get out of bed and she f elt weak and she fell down, but denies syncope. The patient denies any chest pain, shortness of josi th, or palpitations. The patient, while on the monitor, developed initially what looked like multifo catie atrial tachycardia. Later on, it developed into atrial fibrillation. The patient is asymptomati c. Denies any dizziness, chest pain, shortness of breath, or palpitations. PAST MEDICAL HISTORY: Significant for hypertension, diabetes, hyperlipidemia, hypothyroidism, gastri tis, possible gastric ulcer, history of fracture of both hips and had surgery for that. PERSONAL HISTORY: No history of smoking or drinking. HOME MEDICATIONS: Vitamin B complex, ferrous sulfate 325 daily, glimepiride 1 mg b.i.d., Synthroid 1 25 mcg p.o. daily, meloxicam 15 mg p.o. daily, Lopressor 25 mg daily, omeprazole 20 mg b.i.d., oxybut ynin 5 mg p.o. daily. REVIEW OF SYSTEMS: All the systems were reviewed, positive mentioned in the history, otherwise negat claudia. PHYSICAL EXAMINATION: VITAL SIGNS: Blood pressure 116/63, respiration 20, pulse 67, temperature 98.4. Now, the pulse is 1 25 per minute and is . HEENT: Head is normocephalic. Eyes: Pupils normal. Conjunctivae slightly pale. NECK: JVP low. Carotids equal. THORAX: AP diameter normal. LUNGS: Clear. CARDIOVASCULAR: S1, S2. Regular rhythm. ABDOMEN: Soft, nontender, no organomegaly. EXTREMITIES: No clubbing, no cyanosis. LABORATORY DATA: WBC 7.5, hemoglobin 10.8, hematocrit 32.0, platelets 177, sodium 140, potassium 3.7 , BUN 21, creatinine 1.0, random glucose 72. TSH is less than 0.02 and free T4 is normal at 1.85. C hest x-ray: COPD pattern. There is a 1.8 cm nodular patch seen in the left retrocardiac region, whi ch can represent atelectasis or pneumonia. Pulmonary nodules cannot be entirely excluded. Repeat CT scan showed bibasilar atelectasis, small bilateral pleural effusion, cardiomegaly, cirrhosis of live r. EKG on admission shows normal sinus rhythm, left axis deviation, Q-wave in lead 3 and aVF, possib ility of old inferior wall AR. DIAGNOSES: New onset atrial fibrillation, hypertension, diabetes, hyperlipidemia, hypothyroidism, an emia, history of gastric ulcers in the past, arthritis. PLAN: The patient on Lovenox 70 mg subQ q. 12 hours, metoprolol 25 b.i.d., Lipitor 20 daily, insulin as ordered, ferrous sulfate 325 mg p.o. daily, aspirin 81 mg p.o. daily. We will do an echocardiogr am. We will repeat T3, free T4 and TSH. We will also do a lipid profile. The patient also has anem ia. We will monitor the patient and we will follow with you. Riddhi Sanchez MD cc: [id number] TT: 08/11/2016 15:31:50 Confirmation # [id number] Dictation # [id number] gerhard
--- NOTE | 2016-08-11 15:46 | CARD ---
APPROVED REPORT EKG Measurement Heart [id number] <Conclusion> Atrial fibrillation with rapid ventricular response Left axis deviation Nonspecific ST and T wave abnormality, probably digitalis effect Abnormal ECG
--- NOTE | 2016-08-11 17:12 | CP.PCM.PN ---
Subjective - Date & Time of Evaluation Date of Evaluation: 08/11/16 Time of Evaluation: 15:30 - Subjective Subjective: Infectious Disease Follow Up: August 11, 2016 76 yo Italian female with extensive past medical history presented with fatigue and weakness. The patient with altered mental status as per the family and EMS services initiated. The patient complained of chest wall tenderness. Transient nausea, vomiting, and diarrhea episode. Lower back ulcer with mild yellow drainage. Patient tachycardic today with RVR. Objective - Vital Signs/Intake and Output Vital Signs (last 24 hours): Temp Pulse Resp BP Pulse Ox 98.7 F 111 H 19 120/74 97 08/11/16 12:00 08/11/16 14:00 08/11/16 12:00 08/11/16 12:00 08/11/16 05:36 Intake and Output: 08/11/16 08/11/16 06:59 18:59 Intake Total 1320 Output Total 700 Balance 620 - Medications Medications: Current Medications Acetaminophen (Tylenol 325mg Tab) 650 mg PO Q6 PRN PRN Reason: Fever >100.4 F Last Admin: 08/10/16 16:32 Dose: 650 mg Aspirin (Ecotrin) 81 mg PO 0800 [facility] Atorvastatin Calcium (Lipitor) 20 mg PO DIN [facility] Enoxaparin Sodium (Lovenox) 70 mg SC Q12H [facility] PRN Reason: Protocol Ferrous Sulfate (Feosol) 324 mg PO DAILY [facility] Last Admin: 08/11/16 09:37 Dose: 324 mg Vancomycin HCl (Vancomycin 1gm) 1 gm in 250 mls @ 167 mls/hr IVPB DAILY [facility] PRN Reason: Protocol Last Admin: 08/11/16 09:40 Dose: 167 mls/hr Piperacillin Sod/Tazobactam Sod (Zosyn 3.375 In Ns 100ml) 100 mls @ 200 mls/hr IVPB Q6 [facility] PRN Reason: Protocol Stop: 08/11/16 18:29 Last Admin: 08/11/16 13:10 Dose: 200 mls/hr Insulin Human Lispro (Humalog Low) 0 units SC ACHS [facility] PRN Reason: Protocol Last Admin: 08/11/16 12:46 Dose: 1 units Levalbuterol HCl (Xopenex) 0.63 mg IH [id number] [facility] Last Admin: 08/11/16 13:44 Dose: 0.63 mg Levalbuterol HCl (Xopenex) 0.63 mg IH [id number] PRN PRN Reason: Shortness of Breath Levothyroxine Sodium (Synthroid) 125 mcg PO DAILY [facility] Last Admin: 08/11/16 09:37 Dose: 125 mcg Metoprolol Tartrate (Lopressor) 25 mg PO BRKDIN [facility] Ondansetron HCl (Zofran Inj) 4 mg IVP Q6H PRN PRN Reason: Nausea/Vomiting Oxybutynin Chloride (Ditropan Tab) 5 mg PO DAILY [facility] Last Admin: 08/11/16 09:37 Dose: 5 mg Pantoprazole Sodium (Protonix Ec Tab) 40 mg PO DAILY [facility] Last Admin: 08/11/16 09:37 Dose: 40 mg Sucralfate (Carafate Oral Susp) 1 gm PO BID [facility] Last Admin: 08/11/16 09:40 Dose: 1 gm Vitamin B Complex/Vit C/Folic Acid (Nephro-Mane) 1 tab PO DAILY [facility] Last Admin: 08/11/16 09:37 Dose: 1 tab - Labs Labs: 08/11/16 06:30 08/11/16 06:30 - Constitutional Appears: Non-toxic, No Acute Distress, Chronically Ill - Head Exam Head Exam: ATRAUMATIC, NORMOCEPHALIC - Eye Exam Eye Exam: EOMI, PERRL Pupil Exam: NORMAL ACCOMODATION, PERRL - ENT Exam ENT Exam: Mucous Membranes Moist, Normal External Ear Exam, TM's Normal Bilaterally - Neck Exam Neck Exam: Full ROM, Normal Inspection - Respiratory Exam Respiratory Exam: Clear to Ausculation Bilateral, NORMAL BREATHING PATTERN. absent: Rales, Rhonchi, Wheezes - Cardiovascular Exam Cardiovascular Exam: REGULAR RHYTHM, RRR, +S1, +S2 - GI/Abdominal Exam GI & Abdominal Exam: Soft, Normal Bowel Sounds. absent: Distended, Tenderness - Extremities Exam Extremities Exam: Full ROM, Normal Inspection - Neurological Exam Neurological Exam: Alert, Awake, CN II-XII Intact, Oriented x3 - Psychiatric Exam Psychiatric exam: Normal Affect, Normal Mood - Skin Skin Exam: Intact, Normal Color Assessment and Plan - Assessment and Plan (Free Text) Assessment: 76 yo female with potential UTI started on Zosyn and Vancomycin. [place] cultures sent. Fever up to 102.9 F. Multiple medical issues. Supportive care. Lower back wound. Local wound care. Renal insufficiency. Gram negative rods in urine and wound cultures. Awaiting final culture results. R/O sepsis. Thank you for allowing me to participate in the care of the patient, we will follow with you.
[2016-08-11] MEDS: Piperacillin/Tazobact 3.375 gm 100 ML IVPB SCH (17:59)
[2016-08-11] MEDS: Enoxaparin 80 mg Syringe SC SCH (20:04)
--- NOTE | 2016-08-11 23:03 | CON ---
DATE: 08/11/2016 REQUESTING PHYSICIAN: Dr. Guidry. REASON FOR CONSULTATION: I have been asked to see this 76-year-old female with a history of diabetes mellitus, hypertension, hypothyroidism, gastrointestinal bleeding secondary to an esophageal ulcer, who was brought to the hospital by the family for increasing fatigue and weakness over the last few d ays associated with increasing lethargy. The patient apparently fell at home the day prior to admiss ion due to weakness. In the hospital, workup was suggestive of urosepsis with large amounts of bacte amalia, white blood cell counts in the urine with positive nitrates. She was treated for urosepsis as h er urine was positive for gram-negative rods. The patient was also found to have a decubitus ulcer. The patient was also found to have a cardiac arrhythmia and subsequently found to have atrial fibril lation. Given her history of upper gastrointestinal bleed back in 11/2014 with an esophageal ulcer, I have been asked to see the patient for possible antiplatelet treatment. The patient does have a his tory of dementia and has had frequent falls at home with the falls requiring bilateral hip surgery du e to hip fracture. The history is obtained from the son who was at the bedside as the patient is Alyssa bic and does not speak any Uzbek. PAST MEDICAL HISTORY: Is as above. Again, the patient has a history of diabetes mellitus, hypothyro idism, upper gastrointestinal bleeding secondary to esophageal ulcer, dementia, frequent falls requir ing hip surgery for hip fractures bilaterally. SOCIAL HISTORY: There is no history of cigarette smoking or alcohol use. FAMILY HISTORY: Noncontributory. REVIEW OF SYSTEMS: A 14-point review of systems is unobtainable due to a language barrier. PHYSICAL EXAMINATION: GENERAL: A well-developed female appearing awake and alert, lying in bed. VITAL SIGNS: Reveal temperature of 98.7, blood pressure 120/74, heart rate 111. HEENT: Reveal sclerae to be white, conjunctivae pink. NECK: Supple. CHEST: Lungs are clear. HEART: Reveals an irregularly irregular rate. ABDOMEN: Soft, nontender. EXTREMITIES: Show no edema. LABORATORY DATA: Reveal BUN 21, creatinine 1, alkaline phosphatase 140, AST 49, ALT 34. CBC reveals a white blood cell count 7.5, hemoglobin 10.8. IMPRESSION: This is a 76-year-old female admitted to the hospital with urosepsis, generalized weakne ss, increasing lethargy, now found to be in atrial fibrillation. The patient is at high risk for padmini g-term anticoagulation with warfarin as well as other antiplatelet agents as she has frequent falls a t home as verified by bilateral hip fractures requiring bilateral hip surgery. She also has a histor y of upper gastrointestinal bleeding secondary to esophageal ulcer. She has not followed up with me for this problem over the last year and a half. I have informed the patient's son of the high risk f or long-term anticoagulation as well as the risk for a cerebrovascular accident given her recent find ing of atrial fibrillation. RECOMMENDATIONS: Consider treating the patient with aspirin therapy if this is agreeable with cardio logy. The patient does have anemia, but this appears to be chronic. There are no signs of active ga strointestinal bleeding at this time. The patient should also be maintained on long-term PPI therapy . Mariusz Hernandez MD cc: [id number] TT: 08/11/2016 23:02:11 Confirmation # [id number] Dictation # [id number]
[2016-08-12] MEDS: Piperacillin/Tazobact 3.375 gm 100 ML IVPB SCH ×4 (00:05→19:04)
[2016-08-12] MEDS: Levalbuterol 0.63 MG/3 ML Inhal Soln UD IH SCH ×4 (00:59→20:07)
[2016-08-12 07:57] LABS: ADD MANUAL DIFF? NO
[2016-08-12 08:02] LABS: BASO # 0.06 K/mm3 (0.0-2.0); BASO % 0.8 % (0.0-3.0); EOS # 0.4 (0.0-0.7); EOS % 4.9 % (1.5-5.0); GRAN # 4.36 (1.4-6.5); GRAN % 57.2 % (50.0-68.0); HEMATOCRIT 32.3 % (36.0-48.0); LYMPH # 2.1 (1.2-3.4); LYMPH % 27.1 % (22.0-35.0); MEAN CELL VOLUME 75.1 fL (80.0-105.0); MEAN CORPUSCULAR HEMOGLOBIN 24.9 pg (25.0-35.0); MEAN CORPUSCULAR HGB CONC 33.1 g/dl (31.0-37.0); MEAN PLATELET VOLUME 10.3 fl (7.0-11.0); MONO # 0.8 (0.1-0.6); PLATELET COUNT 187 10^3/uL (120.0-450.0); RED CELL DISTRIBUTION WIDTH 18.4 % (11.5-14.5); WHITE BLOOD COUNT 7.6 10^3/ul (4.5-11.0)
[2016-08-12 08:17] LABS: ALB/GLOB RATIO 0.7 (1.1-1.8); BILIRUBIN,TOTAL 0.8 mg/dL (0.2-1.3); CALCIUM 8.5 mg/dL (8.4-10.5); POTASSIUM 3.8 mmol/L (3.6-5.0); TOTAL PROTEIN 6.8 g/dL (5.8-8.3)
[2016-08-12 08:26] LABS: IRON 38 ug/dL (45-180)
[2016-08-12] MEDS: Enoxaparin 80 mg Syringe SC SCH (08:26)
[2016-08-12] MEDS: Insulin Lispro (humaLOG) LOW Coverage SC SCH ×4 (08:30→21:54)
[2016-08-12 08:32] LABS: FREE T4 1.85 ng/dL (0.78-2.19)
[2016-08-12 08:46] LABS: T3 0.72 ng/mL (0.97-1.69); THYROID STIMULATING HORMONE 0.27 mIU/mL (0.46-4.68)
[2016-08-12] MEDS: Vancomycin 1gm in NS 250ml 1 GM/250 ML BAG IVPB SCH (11:10)
[2016-08-12] MEDS: Pantoprazole 40 mg EC Tab PO SCH (11:10)
[2016-08-12] MEDS: Sucralfate 1 gm/10 ml Oral Susp UD PO SCH ×2 (11:10→19:04)
[2016-08-12] MEDS: Multivitamin Vitamin B Complex (Nephro-Vite) Tab PO SCH (11:10)
[2016-08-12] MEDS: Levothyroxine 125 MCG TAB PO SCH (11:10)
--- NOTE | 2016-08-12 11:27 | CP.PCM.PN ---
Addendum entered and electronically signed by Daniela Hurley DO 08/12/16 11:33: Assessment: Iron deficiency anemia: Patient is receiving ferrous sulfate Original Note: <Daniela Hurley - Last Filed: 08/12/16 11:23> Subjective - Date & Time of Evaluation Date of Evaluation: 08/12/16 Time of Evaluation: 11:23 - Subjective Subjective: HOSPITALISTS PROGRESS NOTE Pt is seen and examined at bedside. No acute events overnight. Patient's heart rate has been stable throughout the night but has remained in A fib. Patient denie shaving any CP, SOB, abd pain, N/v/D/C, fevers or chills. Objective - Vital Signs/Intake and Output Vital Signs (last 24 hours): Temp Pulse Resp BP Pulse Ox 97.9 F 69 20 144/69 98 08/12/16 06:00 08/12/16 07:54 08/12/16 06:00 08/12/16 07:54 08/12/16 06:00 Intake and Output: 08/12/16 08/12/16 06:59 18:59 Intake Total 1560 Output Total 800 Balance 760 - Medications Medications: Current Medications Acetaminophen (Tylenol 325mg Tab) 650 mg PO Q6 PRN PRN Reason: Fever >100.4 F Last Admin: 08/11/16 18:01 Dose: 650 mg Aspirin (Ecotrin) 81 mg PO 0800 [facility] Last Admin: 08/12/16 11:10 Dose: 81 mg Atorvastatin Calcium (Lipitor) 20 mg PO DIN [facility] Last Admin: 08/11/16 17:56 Dose: 20 mg Enoxaparin Sodium (Lovenox) 70 mg SC Q12H [facility] PRN Reason: Protocol Last Admin: 08/12/16 08:26 Dose: 70 mg Ferrous Sulfate (Feosol) 324 mg PO DAILY [facility] Last Admin: 08/12/16 11:10 Dose: 324 mg Vancomycin HCl (Vancomycin 1gm) 1 gm in 250 mls @ 167 mls/hr IVPB DAILY [facility] PRN Reason: Protocol Last Admin: 08/12/16 11:10 Dose: 167 mls/hr Piperacillin Sod/Tazobactam Sod (Zosyn 3.375 In Ns 100ml) 100 mls @ 200 mls/hr IVPB Q6 [facility] PRN Reason: Protocol Last Admin: 08/12/16 05:23 Dose: 200 mls/hr Insulin Human Lispro (Humalog Low) 0 units SC ACHS [facility] PRN Reason: Protocol Last Admin: 08/12/16 08:30 Dose: Not Given Ketorolac Tromethamine (Toradol) 15 mg IVP Q12 PRN PRN Reason: Pain, severe (8-10) Levalbuterol HCl (Xopenex) 0.63 mg IH [id number] [facility] Last Admin: 08/12/16 07:57 Dose: 0.63 mg Levalbuterol HCl (Xopenex) 0.63 mg IH [id number] PRN PRN Reason: Shortness of Breath Levothyroxine Sodium (Synthroid) 125 mcg PO DAILY [facility] Last Admin: 08/12/16 11:10 Dose: 125 mcg Metoprolol Tartrate (Lopressor) 25 mg PO BRKDIN [facility] Last Admin: 08/12/16 07:54 Dose: 25 mg Ondansetron HCl (Zofran Inj) 4 mg IVP Q6H PRN PRN Reason: Nausea/Vomiting Oxybutynin Chloride (Ditropan Tab) 5 mg PO DAILY [facility] Last Admin: 08/12/16 11:10 Dose: 5 mg Pantoprazole Sodium (Protonix Ec Tab) 40 mg PO DAILY [facility] Last Admin: 08/12/16 11:10 Dose: 40 mg Sucralfate (Carafate Oral Susp) 1 gm PO BID [facility] Last Admin: 08/12/16 11:10 Dose: 1 gm Vitamin B Complex/Vit C/Folic Acid (Nephro-Mane) 1 tab PO DAILY [facility] Last Admin: 08/12/16 11:10 Dose: 1 tab - Labs Labs: 08/12/16 07:54 08/12/16 07:54 - Constitutional Appears: Non-toxic, No Acute Distress - Head Exam Head Exam: ATRAUMATIC - Eye Exam Eye Exam: EOMI - ENT Exam ENT Exam: Mucous Membranes Moist - Respiratory Exam Respiratory Exam: Clear to Ausculation Bilateral, NORMAL BREATHING PATTERN. absent: Rales, Rhonchi, Wheezes - Cardiovascular Exam Cardiovascular Exam: REGULAR RHYTHM - GI/Abdominal Exam GI & Abdominal Exam: Soft, Normal Bowel Sounds. absent: Distended, Firm, Guarding, Rigid, Tenderness - Extremities Exam Extremities Exam: absent: Pedal Edema, Tenderness - Neurological Exam Neurological Exam: Alert, Awake, Oriented x3 - Psychiatric Exam Psychiatric exam: Normal Affect, Normal Mood - Skin Skin Exam: Dry, Intact, Normal Color, Warm Assessment and Plan - Assessment and Plan (Free Text) Assessment: 76 yo female with PMH of HTN, HLD, hypothryroidism, and DM is admitted to hospital for urosepsis. Patient was found to have new onset a fib. Plan: 1. urosepsis - urine culture pending - blood culture negative - zosyn and vanco - procalcitonin was elevated - ID consult appreciated - Tylenol prn fever 2. Net onset A-fib with RVR - Cardiology is consulted. - Continue lopressor - Started on lovenox 1mg/kg BID. Patient does have history of esophageal ulcer. After discussing with GI, Dr. Hernandez, will continue anticoagulation for now. 3. decubitous ulcer - wound culture - wound care nurse - Abx 4. hypothyroidism - cont home med synthroid 125mcg - Repeat TSH is low and Free T4 is normal. T3 is low 5. HTN - hold home BP meds, metoprolol - clonidine 0.1 prn for SBP>170 - cont to monitor 5. DM - hold home meds to avoid hypoglycemia - ISS- low - fingersticks ACHS 6. HLD - Lipitor 20 mg po qd - Lipid panel shows elevated TG low cholesterol and normal LDL. will consider starting fenofibrate 7. History of esophageal ulcer - No signs of bleeding - will continue to monitor closely for bleeding ppx DVT- SCDs GI- protonix Case discussed with attending, Dr. Guidry. <Shantel Guidry - Last Filed: 08/12/16 14:39> Objective - Vital Signs/Intake and Output Vital Signs (last 24 hours): Temp Pulse Resp BP Pulse Ox 98.1 F 63 19 147/81 98 08/12/16 12:00 08/12/16 12:00 08/12/16 12:00 08/12/16 12:00 08/12/16 06:00 Intake and Output: 08/12/16 08/12/16 06:59 18:59 Intake Total 1560 Output Total 800 Balance 760 - Medications Medications: Current Medications Acetaminophen (Tylenol 325mg Tab) 650 mg PO Q6 PRN PRN Reason: Fever >100.4 F Last Admin: 08/11/16 18:01 Dose: 650 mg Aspirin (Ecotrin) 81 mg PO 0800 [facility] Last Admin: 08/12/16 11:10 Dose: 81 mg Aspirin (Ecotrin) 81 mg PO DAILY [facility] Atorvastatin Calcium (Lipitor) 20 mg PO DIN [facility] Last Admin: 08/11/16 17:56 Dose: 20 mg Ferrous Sulfate (Feosol) 324 mg PO DAILY [facility] Last Admin: 08/12/16 11:10 Dose: 324 mg Vancomycin HCl (Vancomycin 1gm) 1 gm in 250 mls @ 167 mls/hr IVPB DAILY [facility] PRN Reason: Protocol Last Admin: 08/12/16 11:10 Dose: 167 mls/hr Piperacillin Sod/Tazobactam Sod (Zosyn 3.375 In Ns 100ml) 100 mls @ 200 mls/hr IVPB Q6 [facility] PRN Reason: Protocol Last Admin: 08/12/16 13:29 Dose: 200 mls/hr Insulin Human Lispro (Humalog Low) 0 units SC ACHS [facility] PRN Reason: Protocol Last Admin: 08/12/16 08:30 Dose: Not Given Ketorolac Tromethamine (Toradol) 15 mg IVP Q12 PRN PRN Reason: Pain, severe (8-10) Levalbuterol HCl (Xopenex) 0.63 mg IH [id number] [facility] Last Admin: 08/12/16 13:55 Dose: Not Given Levalbuterol HCl (Xopenex) 0.63 mg IH [id number] PRN PRN Reason: Shortness of Breath Levothyroxine Sodium (Synthroid) 125 mcg PO DAILY [facility] Last Admin: 08/12/16 11:10 Dose: 125 mcg Metoprolol Tartrate (Lopressor) 25 mg PO BRKDIN [facility] Last Admin: 08/12/16 07:54 Dose: 25 mg Ondansetron HCl (Zofran Inj) 4 mg IVP Q6H PRN PRN Reason: Nausea/Vomiting Oxybutynin Chloride (Ditropan Tab) 5 mg PO DAILY [facility] Last Admin: 08/12/16 11:10 Dose: 5 mg Pantoprazole Sodium (Protonix Ec Tab) 40 mg PO DAILY [facility] Last Admin: 08/12/16 11:10 Dose: 40 mg Sucralfate (Carafate Oral Susp) 1 gm PO BID [facility] Last Admin: 08/12/16 11:10 Dose: 1 gm Vitamin B Complex/Vit C/Folic Acid (Nephro-Mane) 1 tab PO DAILY [facility] Last Admin: 08/12/16 11:10 Dose: 1 tab - Labs Labs: 08/12/16 07:54 08/12/16 07:54 Attending/Attestation - Attestation I have personally seen and examined this patient.: Yes I have fully participated in the care of the patient.: Yes I have reviewed all pertinent clinical information, including history, physical exam and plan: Yes Notes (Text): 08/12/16 14:34 attending note; Patient seen and examined with resident. Patient is a 76 year old Macanese female with PMH of HTN, HLD, hypothryroidism, recent hip surgery, fall and DM is admitted to hospital for urosepsis. fever resolved. No leukocytosis. CT chest is negative this for pneumonia. Blood culture is negative. E. coli UTI;on Zosyn. Wound culture growing gram-negative rods. on IV vancomycin and Zosyn.ID evaluation with Dr. Lafleur appreciated. patient had paroxysmal atrial fibrillation yesterday. Today in sinus rhythm. on aspirin and Lovenox. continue po metoprolol. Cardiology evaluation with Dr. Sanchez appreciated. Echocardiogram ordered. we will follow up with cardiology to decide about the need for long-term coagulation. History of esophageal ulcer; currently hemoglobin is stable. GI evaluation with Dr. Hernandez appreciated. Continue Protonix and Carafate. PT evaluation appreciated. TCU evaluation requested. follow-up with assistant case manager for discharge planning. Upon discharge The patient will follow up with PMD Dr. Humphrey. 08/12/16 14:39
--- NOTE | 2016-08-12 16:36 | PN ---
DATE: 08/12/2016 The patient is in room 260, bed 1. REASON FOR CONSULTATION: Atrial fibrillation. HISTORY OF PRESENT ILLNESS: The patient is a 76-year-old female who speaks only Urdu. History was obtained through interpretation. The patient has known case of hypertension, diabetes, hyperlipidem ia, hypothyroidism, gastritis and possible esophageal ulcer in the past, admitted with a history that she was feeling generalized weak and decreased appetite. The patient also stated that she tried to get out of bed and she felt weak and she fell down, but denies syncope. The patient denies chest cassandra n, shortness of breath or palpitations, but the patient while the monitor developed atrial fibrillati on which at times looked multifocal atrial tachycardia, but later on it did look like atrial fi brillation. The patient was asymptomatic and the patient was given medication and she converted to a regular sinus rhythm. The patient lying flat in bed without chest pain, shortness of breath or palp itations. PHYSICAL EXAMINATION: VITAL SIGNS: Blood pressure 147/81, respirations 19, pulse 63, temperature 98.1. HEAD: Normocephalic. EYES: Pupils normal. Conjunctivae slightly pale. NECK: JVP low. Carotid equal. THORAX: AP diameter normal. LUNGS: Clear. CARDIOVASCULAR: S1, S2. ABDOMEN: Soft, nontender, no organomegaly. Bowel sounds normal. EXTREMITIES: No clubbing, no cyanosis. LABORATORY DATA: WBC 7.6, hemoglobin 10.7, hematocrit 32.3, platelets 187. Sodium 140, potassium 3. 8, BUN 19, creatinine 1.1. Serum iron is low, TIBC is low, percent saturation is low. DIAGNOSES: New onset atrial fibrillation converted to sinus rhythm, hypertension, diabetes, hyperlip idemia, hypothyroidism, history of esophageal ulcer in the past and arthritis. The patient has had f alls also in the past. The patient is now converted to sinus rhythm. Also, the patient has falls an d anemia, iron deficiency type anemia. PLAN: Will stop Lovenox and will give Ecotrin 81 mg p.o. daily, ferrous sulfate 324 daily, atorvasta tin 20 daily, metoprolol 25 b.i.d., Protonix 40 p.o. daily, vancomycin 1 gram IV daily and Synthroid 125 mcg daily. The patient is also on piperacillin 3.37 gram IV q.6 hours. Will continue present . Echo has been already requested. Will also order IV Lexiscan stress test and will follow brad ott. Riddhi Sanchez MD cc: [phone] TT: 08/12/2016 16:35:47 Confirmation # [id number] Dictation # [id number]
--- NOTE | 2016-08-12 17:26 | CP.PCM.PN ---
Subjective - Date & Time of Evaluation Date of Evaluation: 08/12/16 Time of Evaluation: 15:00 - Subjective Subjective: Infectious Disease Follow Up: August 12, 2016 76 yo Tajik female with extensive past medical history presented with fatigue and weakness. The patient with altered mental status as per the family and EMS services initiated. The patient complained of chest wall tenderness. Transient nausea, vomiting, and diarrhea episode. Lower back ulcer with mild yellow drainage. Patient tachycardic yesterday with RVR. Objective - Vital Signs/Intake and Output Vital Signs (last 24 hours): Temp Pulse Resp BP Pulse Ox 98.1 F 77 19 147/81 98 08/12/16 12:00 08/12/16 14:00 08/12/16 12:00 08/12/16 12:00 08/12/16 06:00 Intake and Output: 08/12/16 08/12/16 06:59 18:59 Intake Total 1560 Output Total 800 Balance 760 - Medications Medications: Current Medications Acetaminophen (Tylenol 325mg Tab) 650 mg PO Q6 PRN PRN Reason: Fever >100.4 F Last Admin: 08/11/16 18:01 Dose: 650 mg Aspirin (Ecotrin) 81 mg PO 0800 [facility] Last Admin: 08/12/16 11:10 Dose: 81 mg Aspirin (Ecotrin) 81 mg PO DAILY [facility] Atorvastatin Calcium (Lipitor) 20 mg PO DIN [facility] Last Admin: 08/11/16 17:56 Dose: 20 mg Ferrous Sulfate (Feosol) 324 mg PO DAILY [facility] Last Admin: 08/12/16 11:10 Dose: 324 mg Vancomycin HCl (Vancomycin 1gm) 1 gm in 250 mls @ 167 mls/hr IVPB DAILY [facility] PRN Reason: Protocol Last Admin: 08/12/16 11:10 Dose: 167 mls/hr Piperacillin Sod/Tazobactam Sod (Zosyn 3.375 In Ns 100ml) 100 mls @ 200 mls/hr IVPB Q6 [facility] PRN Reason: Protocol Last Admin: 08/12/16 13:29 Dose: 200 mls/hr Insulin Human Lispro (Humalog Low) 0 units SC ACHS [facility] PRN Reason: Protocol Last Admin: 08/12/16 08:30 Dose: Not Given Ketorolac Tromethamine (Toradol) 15 mg IVP Q12 PRN PRN Reason: Pain, severe (8-10) Levalbuterol HCl (Xopenex) 0.63 mg IH [id number] [facility] Last Admin: 08/12/16 13:55 Dose: Not Given Levalbuterol HCl (Xopenex) 0.63 mg IH [id number] PRN PRN Reason: Shortness of Breath Levothyroxine Sodium (Synthroid) 125 mcg PO DAILY [facility] Last Admin: 08/12/16 11:10 Dose: 125 mcg Metoprolol Tartrate (Lopressor) 25 mg PO BRKDIN [facility] Last Admin: 08/12/16 07:54 Dose: 25 mg Ondansetron HCl (Zofran Inj) 4 mg IVP Q6H PRN PRN Reason: Nausea/Vomiting Oxybutynin Chloride (Ditropan Tab) 5 mg PO DAILY [facility] Last Admin: 08/12/16 11:10 Dose: 5 mg Pantoprazole Sodium (Protonix Ec Tab) 40 mg PO DAILY [facility] Last Admin: 08/12/16 11:10 Dose: 40 mg Sucralfate (Carafate Oral Susp) 1 gm PO BID [facility] Last Admin: 08/12/16 11:10 Dose: 1 gm Vitamin B Complex/Vit C/Folic Acid (Nephro-Mane) 1 tab PO DAILY [facility] Last Admin: 08/12/16 11:10 Dose: 1 tab - Labs Labs: 08/12/16 07:54 08/12/16 07:54 - Constitutional Appears: Non-toxic, No Acute Distress, Chronically Ill - Head Exam Head Exam: ATRAUMATIC, NORMOCEPHALIC - Eye Exam Eye Exam: EOMI, PERRL Pupil Exam: NORMAL ACCOMODATION, PERRL - ENT Exam ENT Exam: Mucous Membranes Moist, Normal External Ear Exam, TM's Normal Bilaterally - Neck Exam Neck Exam: Full ROM, Normal Inspection - Respiratory Exam Respiratory Exam: Clear to Ausculation Bilateral, NORMAL BREATHING PATTERN. absent: Rales, Rhonchi, Wheezes - Cardiovascular Exam Cardiovascular Exam: REGULAR RHYTHM, RRR, +S1, +S2 - GI/Abdominal Exam GI & Abdominal Exam: Soft, Normal Bowel Sounds. absent: Distended, Tenderness - Extremities Exam Extremities Exam: Full ROM, Normal Inspection - Neurological Exam Neurological Exam: Alert, Awake, CN II-XII Intact, Oriented x3 - Psychiatric Exam Psychiatric exam: Normal Affect, Normal Mood - Skin Skin Exam: Intact, Normal Color Assessment and Plan - Assessment and Plan (Free Text) Assessment: 76 yo female with potential UTI started on Zosyn and Vancomycin. [place] cultures sent. Fever up to 102.9 F on admission. Multiple medical issues. Supportive care. Lower back wound. Local wound care. Renal insufficiency. Gram negative rods in urine and wound cultures. Awaiting final culture results. R/O sepsis. Afebrile the past few days. Thank you for allowing me to participate in the care of the patient, we will follow with you.
[2016-08-13] MEDS: Piperacillin/Tazobact 3.375 gm 100 ML IVPB SCH ×4 (00:59→17:42)
[2016-08-13] MEDS: Levalbuterol 0.63 MG/3 ML Inhal Soln UD IH SCH ×4 (01:37→19:40)
[2016-08-13 06:54] LABS: HEMATOCRIT 30.7 % (36.0-48.0); MEAN CELL VOLUME 74.7 fL (80.0-105.0); MEAN CORPUSCULAR HEMOGLOBIN 24.6 pg (25.0-35.0); MEAN CORPUSCULAR HGB CONC 32.9 g/dl (31.0-37.0); MEAN PLATELET VOLUME 10.9 fl (7.0-11.0); RED CELL DISTRIBUTION WIDTH 18.4 % (11.5-14.5); WHITE BLOOD COUNT 7.4 10^3/ul (4.5-11.0)
[2016-08-13 07:23] LABS: ALB/GLOB RATIO 0.6 (1.1-1.8); BILIRUBIN,TOTAL 0.8 mg/dL (0.2-1.3); CALCIUM 8.3 mg/dL (8.4-10.5); POTASSIUM 4.1 mmol/L (3.6-5.0); TOTAL PROTEIN 6.5 g/dL (5.8-8.3)
[2016-08-13] MEDS: Insulin Lispro (humaLOG) LOW Coverage SC SCH ×4 (08:32→22:21)
[2016-08-13] MEDS: Sucralfate 1 gm/10 ml Oral Susp UD PO SCH ×2 (10:00→17:41)
[2016-08-13] MEDS ORDERED: Aminophylline 25 mg/ml Inj ONE (10:28)
--- NOTE | 2016-08-13 12:36 | PN ---
DATE: 08/13/2016 SUBJECTIVE: The patient is lying in a stretcher waiting to have a stress test. She denies any chest pain, abdominal pain, nausea, vomiting or rectal bleeding. PHYSICAL EXAMINATION: VITAL SIGNS: Reveal a temperature of 98.6, blood pressure of 120/63, heart rate of 60. ABDOMEN: Soft. There is mild diffuse tenderness to deep palpation. No rebound, no guarding. LABORATORY DATA: Reveal hemoglobin of 10.1, which has been stable over the last 3 days. Chemistries reveal normal electrolytes with a blood sugar of 83 this morning. IMPRESSION: A 76-year-old female admitted to the hospital with generalized weakness, frequent falls. Found to have a urinary tract infection on possible urosepsis with new onset atrial fibrillation. The patient is at high risk for bleeding and thus I do not recommend patient be started on warfarin o r antiplatelet agents. She has had multiple falls in the past with hip fractures requiring bilateral hip surgery. She also has a history of an esophageal ulcer in the past with upper gastrointestinal bleeding. She is currently on baby aspirin. RECOMMENDATIONS: Continue Carafate suspension 1 gram 3 times a day as well as Protonix 40 mg once a day. The patient is to have a nuclear cardiac stress test today. Mariusz Hernandez MD cc: [id number] TT: 08/13/2016 12:35:28 Confirmation # [id number] Dictation # [id number]
[2016-08-13] MEDS: Levothyroxine 125 MCG TAB PO SCH (13:57)
[2016-08-13] MEDS: Multivitamin Vitamin B Complex (Nephro-Vite) Tab PO SCH (13:57)
[2016-08-13] MEDS: Pantoprazole 40 mg EC Tab PO SCH (13:57)
--- NOTE | 2016-08-13 14:25 | PN ---
DATE: 08/13/2016 REASON FOR CONSULTATION AND FOLLOWUP: Atrial fibrillation, cardiac evaluation, admitted with sepsis, possible urosepsis. BRIEF CLINICAL HISTORY: This is a 76-year-old obese female, Tajik speaking, with history of hyperte nsion, diabetes, hyperlipidemia, hypothyroidism. Admitted esophageal ulcer. Admitted with gen eralized weakness, loss of appetite, possible urosepsis. While in the hospital, the patient had 1 ep isode of atrial fibrillation and patient converted to normal sinus. Now, patient is in normal sinus. Admitting EKG was also normal sinus. Then yesterday, patient developed Afib, which converted spont aneously to normal sinus. The patient is scheduled for a stress test today. PHYSICAL EXAMINATION: VITAL SIGNS: Temperature afebrile, heart rate 60, blood pressure 120/63. HEENT: PERRLA. Extraocular muscles intact. NECK: Supple. No carotid bruit, no thyromegaly. CHEST: Clear to auscultation. HEART: S1, S2 regular. ABDOMEN: Soft. EXTREMITIES: Clubbing, cyanosis negative. BLOOD WORKUP: WBC 7.4, hemoglobin 10. , hematocrit 30.7, platelet count 210. Chemistry shows so dium 130, potassium 4.1, chloride 113, carbon dioxide 19, anion gap of 10, BUN 19, creatinine 1.1, to chrissy protein 6.5, albumin 2.5, albumin/globulin ratio 0.6. IMPRESSION: Protein calorie malnutrition, moderate, it was not present on admission, anemia, uroseps is possibly, urine culture growing Escherichia coli gram-negative, blood culture was negative, atrial fibrillation possibly related to sepsis, diabetes, hypertension, hyperlipidemia, obesity, multiple r isk factors for coronary artery disease. The patient is scheduled for a stress test today. History of fall in the past, history of esophageal ulcer, hypothyroidism. RECOMMENDATION: Continue aspirin, continue metoprolol, continue antibiotic. The patient is schedule d for a stress test today. The patient has anemia and history of esophageal ulcer. Lovenox was disc ontinued. We will follow with you. Continue metoprolol, continue levothyroxine, continue aspirin. We will follow with you. Further recommendation after the stress test and echo. We will follow with you. Thank you, Dr. Guidry, for providing us the opportunity in taking care of the patient. Riddhi Song MD cc: [id number] TT: 08/13/2016 14:24:15 Confirmation # [id number] Dictation # [id number]
--- NOTE | 2016-08-13 14:58 | CARD ---
APPROVED REPORT EKG Measurement Heart [id number] VT 160P-18 [id number] <Conclusion> Sinus bradycardia NSSTW changes
--- NOTE | 2016-08-13 16:30 | CP.PCM.PN ---
<Sanam Mtz - Last Filed: 08/13/16 16:27> Subjective - Date & Time of Evaluation Date of Evaluation: 08/13/16 Time of Evaluation: 11:00 - Subjective Subjective: Pt was seen and examined at bedside. No acute complaints at this time. No acute events overnight as per nursing staff. Pt scheduled for stress test this AM. Pt denied fever, chills, chest pains, palpitations, abdominal pains, n/v/d/c. Objective - Vital Signs/Intake and Output Vital Signs (last 24 hours): Temp Pulse Resp BP Pulse Ox 98.6 F 60 20 120/63 96 08/13/16 06:00 08/13/16 08:05 08/13/16 06:00 08/13/16 08:05 08/13/16 06:00 Intake and Output: 08/13/16 08/13/16 06:59 18:59 Intake Total 820 Output Total 1050 Balance -230 - Medications Medications: Current Medications Acetaminophen (Tylenol 325mg Tab) 650 mg PO Q6 PRN PRN Reason: Fever >100.4 F Last Admin: 08/11/16 18:01 Dose: 650 mg Aspirin (Ecotrin) 81 mg PO 0800 [facility] Last Admin: 08/13/16 08:05 Dose: 81 mg Aspirin (Ecotrin) 81 mg PO DAILY [facility] Last Admin: 08/13/16 13:39 Dose: Not Given Atorvastatin Calcium (Lipitor) 20 mg PO DIN [facility] Last Admin: 08/12/16 19:04 Dose: 20 mg Ferrous Sulfate (Feosol) 324 mg PO DAILY [facility] Last Admin: 08/13/16 14:01 Dose: 324 mg Piperacillin Sod/Tazobactam Sod (Zosyn 3.375 In Ns 100ml) 100 mls @ 200 mls/hr IVPB Q6 [facility] PRN Reason: Protocol Last Admin: 08/13/16 13:58 Dose: 200 mls/hr Insulin Human Lispro (Humalog Low) 0 units SC ACHS [facility] PRN Reason: Protocol Last Admin: 08/13/16 11:30 Dose: Not Given Ketorolac Tromethamine (Toradol) 15 mg IVP Q12 PRN PRN Reason: Pain, severe (8-10) Last Admin: 08/13/16 14:30 Dose: 15 mg Levalbuterol HCl (Xopenex) 0.63 mg IH [id number] [facility] Last Admin: 08/13/16 13:48 Dose: 0.63 mg Levalbuterol HCl (Xopenex) 0.63 mg IH [id number] PRN PRN Reason: Shortness of Breath Levothyroxine Sodium (Synthroid) 125 mcg PO DAILY [facility] Last Admin: 08/13/16 13:57 Dose: 125 mcg Metoprolol Tartrate (Lopressor) 25 mg PO BRKDIN [facility] Last Admin: 08/13/16 08:05 Dose: 25 mg Ondansetron HCl (Zofran Inj) 4 mg IVP Q6H PRN PRN Reason: Nausea/Vomiting Oxybutynin Chloride (Ditropan Tab) 5 mg PO DAILY [facility] Last Admin: 08/13/16 13:57 Dose: 5 mg Pantoprazole Sodium (Protonix Ec Tab) 40 mg PO DAILY [facility] Last Admin: 08/13/16 13:57 Dose: 40 mg Sucralfate (Carafate Oral Susp) 1 gm PO BID [facility] Last Admin: 08/13/16 10:00 Dose: Not Given Vitamin B Complex/Vit C/Folic Acid (Nephro-Mane) 1 tab PO DAILY [facility] Last Admin: 08/13/16 13:57 Dose: 1 tab - Labs Labs: 08/13/16 05:10 08/13/16 06:30 - Constitutional Appears: Well, No Acute Distress - Head Exam Head Exam: ATRAUMATIC, NORMAL INSPECTION, NORMOCEPHALIC - Eye Exam Eye Exam: EOMI, Normal appearance, PERRL - ENT Exam ENT Exam: Mucous Membranes Moist, Normal Exam - Respiratory Exam Respiratory Exam: Clear to Ausculation Bilateral, NORMAL BREATHING PATTERN - Cardiovascular Exam Cardiovascular Exam: REGULAR RHYTHM, +S1, +S2. absent: Murmur - GI/Abdominal Exam GI & Abdominal Exam: Soft, Normal Bowel Sounds. absent: Tenderness - Extremities Exam Extremities Exam: Full ROM, Normal Capillary Refill, Normal Inspection. absent : Joint Swelling, Pedal Edema - Neurological Exam Neurological Exam: Alert, Awake, CN II-XII Intact, Normal Gait, Oriented x3 - Psychiatric Exam Psychiatric exam: Normal Affect, Normal Mood - Skin Skin Exam: Dry, Intact, Normal Color, Warm Assessment and Plan - Assessment and Plan (Free Text) Assessment: 76 yo female with PMH of HTN, HLD, hypothryroidism, and DM is admitted to hospital for urosepsis. Patient was found to have new onset a fib. 1. Urosepsis - urine culture positive for E coli - blood culture negative - zosyn and vanco - ID consult appreciated - Tylenol prn fever - zosyn 2. Net onset A-fib with RVR converted to NSR - Cardiology is consulted, Dr. Song rec lexiscan stress test and echo. results pending - Continue lopressor. Patient does have history of esophageal ulcer. 3. decubitous ulcer - wound culture positive for e coli - wound care nurse - Abx 4. hypothyroidism - cont home med synthroid 125mcg 5. HTN - hold home BP meds, metoprolol - clonidine 0.1 prn for SBP>170 - cont to monitor 5. DM - hold home meds to avoid hypoglycemia - ISS- low - fingersticks ACHS 6. HLD - Lipitor 20 mg po qd - Lipid panel shows elevated TG low cholesterol and normal LDL. will consider starting fenofibrate 7. History of esophageal ulcer - No signs of bleeding - will continue to monitor closely for bleeding DVT- SCDs GI- protonix PT Eval completed, recommended TCU As per catalytic case operator, Pt insurance not compatible with TCU, has offered pt's son options of [facility] for placement. Will fu with family for placement. Seen reviewed and discussed with attending <Manjit Beverly - Last Filed: 08/13/16 18:23> Objective - Vital Signs/Intake and Output Vital Signs (last 24 hours): Temp Pulse Resp BP Pulse Ox 98.6 F 64 20 120/71 96 08/13/16 06:00 08/13/16 17:41 08/13/16 06:00 08/13/16 17:41 08/13/16 06:00 Intake and Output: 08/13/16 08/13/16 06:59 18:59 Intake Total 820 Output Total 1050 Balance -230 - Medications Medications: Current Medications Acetaminophen (Tylenol 325mg Tab) 650 mg PO Q6 PRN PRN Reason: Fever >100.4 F Last Admin: 08/11/16 18:01 Dose: 650 mg Aspirin (Ecotrin) 81 mg PO 0800 [facility] Last Admin: 08/13/16 08:05 Dose: 81 mg Aspirin (Ecotrin) 81 mg PO DAILY [facility] Last Admin: 08/13/16 13:39 Dose: Not Given Atorvastatin Calcium (Lipitor) 20 mg PO DIN [facility] Last Admin: 08/13/16 17:41 Dose: 20 mg Ferrous Sulfate (Feosol) 324 mg PO DAILY [facility] Last Admin: 08/13/16 14:01 Dose: 324 mg Piperacillin Sod/Tazobactam Sod (Zosyn 3.375 In Ns 100ml) 100 mls @ 200 mls/hr IVPB Q6 [facility] PRN Reason: Protocol Last Admin: 08/13/16 17:42 Dose: 200 mls/hr Insulin Human Lispro (Humalog Low) 0 units SC ACHS [facility] PRN Reason: Protocol Last Admin: 08/13/16 16:52 Dose: Not Given Ketorolac Tromethamine (Toradol) 15 mg IVP Q12 PRN PRN Reason: Pain, severe (8-10) Last Admin: 08/13/16 14:30 Dose: 15 mg Levalbuterol HCl (Xopenex) 0.63 mg IH [id number] [facility] Last Admin: 08/13/16 13:48 Dose: 0.63 mg Levalbuterol HCl (Xopenex) 0.63 mg IH [id number] PRN PRN Reason: Shortness of Breath Levothyroxine Sodium (Synthroid) 125 mcg PO DAILY [facility] Last Admin: 08/13/16 13:57 Dose: 125 mcg Metoprolol Tartrate (Lopressor) 25 mg PO BRKDIN [facility] Last Admin: 08/13/16 17:41 Dose: 25 mg Ondansetron HCl (Zofran Inj) 4 mg IVP Q6H PRN PRN Reason: Nausea/Vomiting Oxybutynin Chloride (Ditropan Tab) 5 mg PO DAILY [facility] Last Admin: 08/13/16 13:57 Dose: 5 mg Pantoprazole Sodium (Protonix Ec Tab) 40 mg PO DAILY [facility] Last Admin: 08/13/16 13:57 Dose: 40 mg Sucralfate (Carafate Oral Susp) 1 gm PO BID [facility] Last Admin: 08/13/16 17:41 Dose: 1 gm Vitamin B Complex/Vit C/Folic Acid (Nephro-Mane) 1 tab PO DAILY [facility] Last Admin: 08/13/16 13:57 Dose: 1 tab - Labs Labs: 08/13/16 05:10 08/13/16 06:30 Attending/Attestation - Attestation I have personally seen and examined this patient.: Yes I have fully participated in the care of the patient.: Yes I have reviewed all pertinent clinical information, including history, physical exam and plan: Yes Notes (Text): Patient seen and examined with resident. Agree with the above note with the following additions/ exceptions: This is 76 year old Turkish female with history of HTN, HLD, hypothryroidism, recent hip surgery, fall and DM-2 is admitted to hospital for urosepsis (EColi UTI).Wound culture growing gram- negative rods. Continue zosyn and vancomycin. Also found to have PAF on aspirin as she has a history of multiple falls and history of esophageal ulcer. HASBLED is 1. CHADSVASC 5. Echocardiogram pending. Patient is scheduled for stress test today. Continue Protonix and Carafate. launch check out are working on placement. Upon discharge The patient will follow up with PMD Dr. Humphrey. Dr Manjit Beverly
--- NOTE | 2016-08-13 17:16 | CARD ---
APPROVED REPORT EXAM: Two-dimensional and M-mode echocardiogram with Doppler and color Doppler. INDICATION Atrial Fibrillation 2D DIMENSIONS Left Atrium (2D)3.6 (1.6-4.0cm)IVSd0.8 (0.7-1.1cm) Aortic Root (2D)2.8 (2.0-3.7cm)LVDd4.0 (3.9-5.9cm) PWd0.9 (0.7-1.1cm)LVDs2.6 (2.5-4.0cm) FS (%) 36.2 %LVEF (%)66.3 (>50%) Mitral Valve MV E Tgugzefy065.0cm/s TDI Lateral E' Peak V17.50cm/sMedial E' Peak V11.30cm/sE/Lateral E'6.5 E/Medial E'10.1 Tricuspid Valve TR Peak Fysuadmv036ke/sRAP [id number] Peak Gr.15mmHg [id number] LEFT VENTRICLE The left ventricle is normal size. There is normal left ventricular wall thickness. The left ventricular function is normal.EF-60-65% There is normal LV segmental wall motion. A Fib No left ventricle thrombus noted on this study. There is no ventricular septal defect visualized. There is no left ventricular aneurysm. There is no mass noted in the left ventricle. RIGHT VENTRICLE The right ventricle is normal size. There is normal right ventricular wall thickness. The right ventricular systolic function is normal. ATRIA The left atrium size is normal. The right atrium size is normal. The interatrial septum is intact with no evidence for an atrial septal defect. AORTIC VALVE The aortic valve is not well visualized. There is trace aortic regurgitation. MITRAL VALVE The mitral valve is thickened but opens well. Mitral annular calcification is mild to moderate. Mitral regurgitation is trace. There is no mitral valve stenosis. There is no evidence of mitral valve prolapse. TRICUSPID VALVE The tricuspid valve leaflets are thickened , but open well. There is trace to mild tricuspid regurgitation.rvsp-20 MMOF HG. There is no tricuspid valve stenosis. There is no tricuspid valve prolapse or vegetation. PULMONIC VALVE The pulmonic valve is not well visualized. GREAT VESSELS The aortic root is normal in size. The ascending aorta is normal in size. The pulmonary artery is normal. The IVC is normal in size and collapses >50% with inspiration. PERICARDIAL EFFUSION There is no pleural effusion. There is a trace pericardial effusion. <Conclusion> [place] Chamber Size-60-65% There is trace aortic regurgitation. The aortic valve is not well visualized. Mitral regurgitation is trace. There is trace to mild tricuspid regurgitation.rvsp-20 MMOF HGTDS Poor Sonic Window, Pt was [place] at the time of Study.
--- NOTE | 2016-08-13 18:50 | CP.PCM.PN ---
Subjective - Date & Time of Evaluation Date of Evaluation: 08/13/16 Time of Evaluation: 17:00 - Subjective Subjective: Infectious Disease Follow Up: August 12, 2016 76 yo [place] female with extensive past medical history presented with fatigue and weakness. The patient with altered mental status as per the family and EMS services initiated. The patient complained of chest wall tenderness. Transient nausea, vomiting, and diarrhea episode. Lower back ulcer with mild yellow drainage. Patient tachycardic with RVR during this hospitalization. E. coli in the cultures of the buttocks wound and urine. Objective - Vital Signs/Intake and Output Vital Signs (last 24 hours): Temp Pulse Resp BP Pulse Ox 98.6 F 64 20 120/71 96 08/13/16 06:00 08/13/16 17:41 08/13/16 06:00 08/13/16 17:41 08/13/16 06:00 Intake and Output: 08/13/16 08/13/16 06:59 18:59 Intake Total 820 Output Total 1050 Balance -230 - Medications Medications: Current Medications Acetaminophen (Tylenol 325mg Tab) 650 mg PO Q6 PRN PRN Reason: Fever >100.4 F Last Admin: 08/11/16 18:01 Dose: 650 mg Aspirin (Ecotrin) 81 mg PO 0800 [facility] Last Admin: 08/13/16 08:05 Dose: 81 mg Aspirin (Ecotrin) 81 mg PO DAILY [facility] Last Admin: 08/13/16 13:39 Dose: Not Given Atorvastatin Calcium (Lipitor) 20 mg PO DIN [facility] Last Admin: 08/13/16 17:41 Dose: 20 mg Ferrous Sulfate (Feosol) 324 mg PO DAILY [facility] Last Admin: 08/13/16 14:01 Dose: 324 mg Piperacillin Sod/Tazobactam Sod (Zosyn 3.375 In Ns 100ml) 100 mls @ 200 mls/hr IVPB Q6 [facility] PRN Reason: Protocol Last Admin: 08/13/16 17:42 Dose: 200 mls/hr Insulin Human Lispro (Humalog Low) 0 units SC ACHS [facility] PRN Reason: Protocol Last Admin: 08/13/16 16:52 Dose: Not Given Ketorolac Tromethamine (Toradol) 15 mg IVP Q12 PRN PRN Reason: Pain, severe (8-10) Last Admin: 08/13/16 14:30 Dose: 15 mg Levalbuterol HCl (Xopenex) 0.63 mg IH [id number] [facility] Last Admin: 08/13/16 13:48 Dose: 0.63 mg Levalbuterol HCl (Xopenex) 0.63 mg IH [id number] PRN PRN Reason: Shortness of Breath Levothyroxine Sodium (Synthroid) 125 mcg PO DAILY [facility] Last Admin: 08/13/16 13:57 Dose: 125 mcg Metoprolol Tartrate (Lopressor) 25 mg PO BRKDIN [facility] Last Admin: 08/13/16 17:41 Dose: 25 mg Ondansetron HCl (Zofran Inj) 4 mg IVP Q6H PRN PRN Reason: Nausea/Vomiting Oxybutynin Chloride (Ditropan Tab) 5 mg PO DAILY [facility] Last Admin: 08/13/16 13:57 Dose: 5 mg Pantoprazole Sodium (Protonix Ec Tab) 40 mg PO DAILY [facility] Last Admin: 08/13/16 13:57 Dose: 40 mg Sucralfate (Carafate Oral Susp) 1 gm PO BID [facility] Last Admin: 08/13/16 17:41 Dose: 1 gm Vitamin B Complex/Vit C/Folic Acid (Nephro-Mane) 1 tab PO DAILY [facility] Last Admin: 08/13/16 13:57 Dose: 1 tab - Labs Labs: 08/13/16 05:10 08/13/16 06:30 - Constitutional Appears: Non-toxic, No Acute Distress, Chronically Ill - Head Exam Head Exam: ATRAUMATIC, NORMOCEPHALIC - Eye Exam Eye Exam: EOMI, PERRL Pupil Exam: NORMAL ACCOMODATION, PERRL - ENT Exam ENT Exam: Mucous Membranes Moist, Normal External Ear Exam, TM's Normal Bilaterally - Neck Exam Neck Exam: Full ROM, Normal Inspection - Respiratory Exam Respiratory Exam: Clear to Ausculation Bilateral, NORMAL BREATHING PATTERN. absent: Rales, Rhonchi, Wheezes - Cardiovascular Exam Cardiovascular Exam: REGULAR RHYTHM, RRR, +S1, +S2 - GI/Abdominal Exam GI & Abdominal Exam: Soft, Normal Bowel Sounds. absent: Distended, Tenderness - Extremities Exam Extremities Exam: Full ROM, Normal Inspection - Neurological Exam Neurological Exam: Alert, Awake, CN II-XII Intact, Oriented x3 - Psychiatric Exam Psychiatric exam: Normal Affect, Normal Mood - Skin Skin Exam: Intact, Normal Color Assessment and Plan - Assessment and Plan (Free Text) Assessment: 76 yo female with potential UTI started on Zosyn and Vancomycin. [place] cultures sent. Fever up to 102.9 F on admission. Multiple medical issues. Supportive care. Lower back wound. Local wound care. Renal insufficiency. Gram negative rods in urine and wound cultures. E. coli identified from cultures. Can consider use of fluoroquinolones for treatment. R/O sepsis. Afebrile the past few days. Thank you for allowing me to participate in the care of the patient, we will follow with you.
--- NOTE | 2016-08-13 21:25 | CARD ---
APPROVED REPORT Protocol: LEXISCAN Test Type: Lexiscan Sestamibi Stress Test Attending Physician: Dr. Riddhi Sanchez Referring Physician: Dr. Shantel Guidry Test Indications: Chest Pain Height:5 ft 3 in Weight:154lbs Medications: ASA Lipitor Feosol Insulin lopressor Ditropan Medical History: 76 y/o female hx of hypertension and diabetes Target HR: 142 bpm Resting ECG: RSR. Resting Heart Rate: 51 bpm Resting Blood Pressure: 130/80mmHg Submaximum (85%): 121 bpm PROCEDURE Pharmacologic stress testing was performed using 0.4mg per 5ml of regadenoson given intravenously over 7-10 seconds. Reversal agent aminophyline 100 mg, given intravenously for Dyspnea. POST EXERCISE Reason for Termination: Protocol completed Target HR: No Max HR: 57 bpm 52% of Maximum Predicted HR: 142 bpm Exercise duration: 06:15 min:sec, 0 Stage Exercise capacity: 1.0METs Max Blood Pressure: 136/70mmHg Blood Pressure response to exercise: normal resting BP - appropriate response Heart Rate response to exercise: appropriate Chest Pain: No, none Angina index: 0 Arrhythmia: No, none ST Change: No, none Deviation: 0 mm TEST SUMMARY [id number]/80.0. INFUSIONDOSE 101:000.00.01.060/.0. INFUSIONDOSE 201:000.00.01.075/.0. INFUSIONDOSE 301:[id number]/70.0. INFUSIONDOSE 401:[id number]/70.0. INFUSIONDOSE 501:000.00.01.058/.0. INFUSIONDOSE 601:000.00.01.058/.0. INFUSIONDOSE 700:150.00.01.057/.0. INTERPRETATION Stress EKG Conclusion: IV LEXISCAN NUCLEAR STRESS TEST NEGATIVE FOR CHEST PAIN AND NEGATIVE FOR ST-T CHANGES. NUCLEAR SCAN REPORT PENDING. Signed by Riddhi Sanchez Electronically Approved: 08/13/2016 12:32:21 EXAM: Myocardial Perfusion REST/STRESS Stress Test Type: Pharmacologic Imaging Protocol Rest Spect myocardial perfusion imaging was performed in supine position 50 minutes following the injection of 10.6 mCi of Tc-99 Myoview. At peak stress, the patient was injected intravenously with 30.9mCi of Tc-99 tetrofosmin after an infusion time of 0 minutes and 10 seconds. Gated Stress Spect was performed 80 minutes after intravenous Tc-99 Myoview injection. The images were gated to evaluate regional wall motion and calculate ventricular ejection fraction.Images were reconstructed using backfilter projection method in short horizontal and verticle long axis. Spect slices were generated. LV Perfusion The quality of the study is good. The left ventricle is normal in size. The right ventricle is unremarkable. The lung uptake is within normal limits. The distribution of tracer reveals normal uptake pattern throughout the LV myocardium on the stress study. The rest myocardial perfusion study shows no significant change. Wall Motion Wall motion study shows good contractility of the left ventricle. LVEF = 65%. Conclusion 1. Normal SPECT myocardial perfusion study. 2. Normal gated wall motion of the left ventricle.
[2016-08-14] MEDS: Piperacillin/Tazobact 3.375 gm 100 ML IVPB SCH ×5 (00:05→23:44)
[2016-08-14] MEDS: Levalbuterol 0.63 MG/3 ML Inhal Soln UD IH SCH ×5 (01:18→20:47)
[2016-08-14 06:19] LABS: HEMATOCRIT 31.6 % (36.0-48.0); MEAN CELL VOLUME 77.1 fL (80.0-105.0); MEAN CORPUSCULAR HEMOGLOBIN 24.6 pg (25.0-35.0); MEAN PLATELET VOLUME 10.4 fl (7.0-11.0); RED CELL DISTRIBUTION WIDTH 18.5 % (11.5-14.5); WHITE BLOOD COUNT 7.6 10^3/ul (4.5-11.0)
[2016-08-14 06:43] LABS: ALB/GLOB RATIO 0.7 (1.1-1.8); BILIRUBIN,TOTAL 0.6 mg/dL (0.2-1.3); CALCIUM 8.4 mg/dL (8.4-10.5); POTASSIUM 3.9 mmol/L (3.6-5.0); TOTAL PROTEIN 6.5 g/dL (5.8-8.3)
[2016-08-14] MEDS: Insulin Lispro (humaLOG) LOW Coverage SC SCH ×4 (07:55→22:06)
--- NOTE | 2016-08-14 10:00 | PN ---
DATE: 08/14/2016 REASON FOR CONSULTATION AND FOLLOWUP: Atrial fibrillation, cardiac evaluation, admitted with possibl e urosepsis, negative stress test. BRIEF CLINICAL HISTORY: A 76-year-old Vietnamese-speaking female with past medical history of hypertensi on, diabetes, hyperlipidemia, and hypothyroidism admitted with generalized weakness, loss of appetite , possible secondary to sepsis, 1 episode of atrial fibrillation converted to normal sinus, and then the patient in normal sinus. Denies any chest pain, shortness of breath, any palpitation. The patie nt underwent yesterday a stress test that was essentially negative. PHYSICAL EXAMINATION: VITAL SIGNS: Temperature afebrile, heart rate 61, blood pressure 128/54. HEENT: PERRLA. Extraocular muscles intact. NECK: Supple. No carotid bruits. No thyromegaly. CHEST: Clear to auscultation. HEART: S1, S2 regular. ABDOMEN: Soft. EXTREMITIES: Clubbing and cyanosis negative. LABORATORY DATA: Blood workup as follows: WBC 7.____, hemoglobin 10.____, hematocrit 31.6, platelet count 213. Chemistry shows sodium 130, potassium 3.9, chloride ____, carbon dioxide 20, anion gap o f 11, BUN 20, creatinine 1.2. A stress test yesterday showed no reversible ischemia, normal myocardial perfusion study, ejection fr action 65%. The patient had echocardiography also done. Now that shows ejection fraction of 65%, tr kailee aortic regurgitation, aortic valve not well visualized, trace mitral regurgitation, trace tricusp id regurg, RV systolic pressure 20 mmHg - technically difficult study, poor sonic window. The patien t was supine at the time of the study. A stress IV Lexiscan scan - ejection fraction 65%. EKG shows normal sinus. One EKG shows AFib, but now the patient is in normal sinus. IMPRESSION: Paroxysmal atrial fibrillation, one episode of atrial fibrillation, urosepsis, negative stress test. Essentially good left ventricular function by echo, as well trace mitral regurgitation, trace tricuspid regurgitation, history of esophageal ulcer, anemia, metoprolol. Since the patient h as a history of esophageal ulcer and anemia, Lovenox was discontinued. Ambulate. Continue levothyro xine, continue baby aspirin. We will discontinue telemetry. No further cardiac workup is planned. Discharge planning when the patient is stable from other consults. The patient can be discharged dara e. No further cardiac workup is planned at this time. We will discontinue telemetry. Riddhi Song MD cc: [id number] TT: 08/14/2016 10:00:08 Confirmation # [id number] Dictation # [id number] michelle
[2016-08-14] MEDS: Multivitamin Vitamin B Complex (Nephro-Vite) Tab PO SCH (10:40)
[2016-08-14] MEDS: Sucralfate 1 gm/10 ml Oral Susp UD PO SCH ×2 (10:40→17:36)
[2016-08-14] MEDS: Levothyroxine 125 MCG TAB PO SCH (10:40)
[2016-08-14] MEDS: Pantoprazole 40 mg EC Tab PO SCH (10:40)
--- NOTE | 2016-08-14 13:47 | PN ---
DATE: 08/14/2016 SUBJECTIVE: The patient is lying in bed, comfortable. She denies any abdominal pain, nausea and vom iting. Her nuclear stress test yesterday was negative for any ischemic changes. She also was noted to have a normal LV ejection fraction. The patient's rhythm has reverted back to normal sinus rhythm . PHYSICAL EXAMINATION: VITAL SIGNS: Reveal temperature of 97.8, blood pressure 130/62, heart rate of 57. ABDOMEN: Soft, nontender. LABORATORY DATA: Reveal hemoglobin 10.1. Normal electrolytes. IMPRESSION: A 76-year-old female admitted to the hospital with urinary tract infection, urosepsis, p aroxysmal atrial fibrillation, which has converted to sinus rhythm. The patient is at high risk for anticoagulation given her history of frequent falls as well as a history of upper gastrointestinal bl eed from an esophageal ulcer. Cardiology has recommended that the patient be placed on a baby aspiri n. RECOMMENDATIONS: 1. Would continue PPI. 2. Continue Carafate suspension. 3. No plans for any further GI workup at this time. Mariusz Hernandez MD cc: [id number] TT: 08/14/2016 13:47:27 Confirmation # [id number] Dictation # [id number] en
--- NOTE | 2016-08-14 19:46 | CP.PCM.PN ---
Subjective - Date & Time of Evaluation Date of Evaluation: 08/14/16 Time of Evaluation: 17:45 - Subjective Subjective: Infectious Disease Follow Up: August 14, 2016 76 yo Hungarian female with extensive past medical history presented with fatigue and weakness. The patient with altered mental status as per the family and EMS services initiated. The patient complained of chest wall tenderness. Transient nausea, vomiting, and diarrhea episode. Lower back ulcer with mild yellow drainage. Patient tachycardic with RVR during this hospitalization. E. coli in the cultures of the buttocks wound and urine. Negative stress test. Objective - Vital Signs/Intake and Output Vital Signs (last 24 hours): Temp Pulse Resp BP Pulse Ox 97.5 F L 80 17 129/76 93 L 08/14/16 16:00 08/14/16 17:37 08/14/16 16:00 08/14/16 17:37 08/14/16 16:00 - Medications Medications: Current Medications Acetaminophen (Tylenol 325mg Tab) 650 mg PO Q6 PRN PRN Reason: Fever >100.4 F Last Admin: 08/11/16 18:01 Dose: 650 mg Aspirin (Ecotrin) 81 mg PO 0800 [facility] Last Admin: 08/14/16 08:02 Dose: 81 mg Aspirin (Ecotrin) 81 mg PO DAILY [facility] Last Admin: 08/14/16 10:41 Dose: Not Given Atorvastatin Calcium (Lipitor) 20 mg PO DIN [facility] Last Admin: 08/14/16 17:38 Dose: 20 mg Ferrous Sulfate (Feosol) 324 mg PO DAILY [facility] Last Admin: 08/14/16 10:40 Dose: 324 mg Piperacillin Sod/Tazobactam Sod (Zosyn 3.375 In Ns 100ml) 100 mls @ 200 mls/hr IVPB Q6 [facility] PRN Reason: Protocol Last Admin: 08/14/16 19:12 Dose: 200 mls/hr Insulin Human Lispro (Humalog Low) 0 units SC ACHS [facility] PRN Reason: Protocol Last Admin: 08/14/16 17:38 Dose: Not Given Ketorolac Tromethamine (Toradol) 15 mg IVP Q12 PRN PRN Reason: Pain, severe (8-10) Last Admin: 08/13/16 14:30 Dose: 15 mg Levalbuterol HCl (Xopenex) 0.63 mg IH [id number] [facility] Last Admin: 08/14/16 13:55 Dose: 0.63 mg Levalbuterol HCl (Xopenex) 0.63 mg IH [id number] PRN PRN Reason: Shortness of Breath Levothyroxine Sodium (Synthroid) 125 mcg PO DAILY [facility] Last Admin: 08/14/16 10:40 Dose: 125 mcg Metoprolol Tartrate (Lopressor) 25 mg PO BRKDIN [facility] Last Admin: 08/14/16 17:37 Dose: 25 mg Ondansetron HCl (Zofran Inj) 4 mg IVP Q6H PRN PRN Reason: Nausea/Vomiting Oxybutynin Chloride (Ditropan Tab) 5 mg PO DAILY [facility] Last Admin: 08/14/16 10:40 Dose: 5 mg Pantoprazole Sodium (Protonix Ec Tab) 40 mg PO DAILY [facility] Last Admin: 08/14/16 10:40 Dose: 40 mg Sucralfate (Carafate Oral Susp) 1 gm PO BID [facility] Last Admin: 08/14/16 17:36 Dose: 1 gm Vitamin B Complex/Vit C/Folic Acid (Nephro-Mane) 1 tab PO DAILY [facility] Last Admin: 08/14/16 10:40 Dose: 1 tab - Labs Labs: 08/14/16 05:45 08/14/16 05:45 - Constitutional Appears: Non-toxic, No Acute Distress, Chronically Ill - Head Exam Head Exam: ATRAUMATIC, NORMOCEPHALIC - Eye Exam Eye Exam: EOMI, PERRL Pupil Exam: NORMAL ACCOMODATION, PERRL - ENT Exam ENT Exam: Mucous Membranes Moist, Normal External Ear Exam, TM's Normal Bilaterally - Neck Exam Neck Exam: Full ROM, Normal Inspection - Respiratory Exam Respiratory Exam: Clear to Ausculation Bilateral, NORMAL BREATHING PATTERN. absent: Rales, Rhonchi, Wheezes - Cardiovascular Exam Cardiovascular Exam: REGULAR RHYTHM, RRR, +S1, +S2 - GI/Abdominal Exam GI & Abdominal Exam: Soft, Normal Bowel Sounds. absent: Distended, Tenderness - Extremities Exam Extremities Exam: Full ROM, Normal Inspection - Neurological Exam Neurological Exam: Alert, Awake, CN II-XII Intact, Oriented x3 - Psychiatric Exam Psychiatric exam: Normal Affect, Normal Mood - Skin Skin Exam: Intact, Normal Color Assessment and Plan - Assessment and Plan (Free Text) Assessment: 76 yo female with potential UTI started on Zosyn and Vancomycin. [place] cultures sent. Fever up to 102.9 F on admission. Multiple medical issues. Supportive care. Lower back wound. Local wound care. Renal insufficiency. Gram negative rods in urine and wound cultures. E. coli identified from cultures. Can consider use of fluoroquinolones for treatment. R/O sepsis. Afebrile the past few days. Thank you for allowing me to participate in the care of the patient, we will follow with you.
[2016-08-15] MEDS: Levalbuterol 0.63 MG/3 ML Inhal Soln UD IH SCH ×4 (01:01→21:40)
[2016-08-15] MEDS: Piperacillin/Tazobact 3.375 gm 100 ML IVPB SCH ×4 (05:52→23:32)
[2016-08-15 07:14] LABS: HEMATOCRIT 32.1 % (36.0-48.0); MEAN CELL VOLUME 77.5 fL (80.0-105.0); MEAN CORPUSCULAR HEMOGLOBIN 24.6 pg (25.0-35.0); MEAN CORPUSCULAR HGB CONC 31.8 g/dl (31.0-37.0); MEAN PLATELET VOLUME 10.1 fl (7.0-11.0); RED CELL DISTRIBUTION WIDTH 18.7 % (11.5-14.5); WHITE BLOOD COUNT 7.2 10^3/ul (4.5-11.0)
[2016-08-15 07:22] LABS: ALB/GLOB RATIO 0.7 (1.1-1.8); BILIRUBIN,TOTAL 0.8 mg/dL (0.2-1.3); CALCIUM 8.4 mg/dL (8.4-10.5); POTASSIUM 3.8 mmol/L (3.6-5.0); TOTAL PROTEIN 6.7 g/dL (5.8-8.3)
[2016-08-15] MEDS: Insulin Lispro (humaLOG) LOW Coverage SC SCH ×4 (08:09→23:31)
[2016-08-15] MEDS: Pantoprazole 40 mg EC Tab PO SCH (09:47)
[2016-08-15] MEDS: Levothyroxine 125 MCG TAB PO SCH (09:47)
[2016-08-15] MEDS: Sucralfate 1 gm/10 ml Oral Susp UD PO SCH ×2 (09:47→17:24)
[2016-08-15] MEDS: Multivitamin Vitamin B Complex (Nephro-Vite) Tab PO SCH (09:47)
[2016-08-15] MEDS: Multivitamin Therapeutic Tab PO SCH (13:30)
--- NOTE | 2016-08-15 17:35 | CP.PCM.PN ---
Subjective - Date & Time of Evaluation Date of Evaluation: 08/15/16 Time of Evaluation: 15:30 - Subjective Subjective: Infectious Disease Follow Up: August 15, 2016 76 yo Romansh female with extensive past medical history presented with fatigue and weakness. The patient with altered mental status as per the family and EMS services initiated. The patient complained of chest wall tenderness. Transient nausea, vomiting, and diarrhea episode. Lower back ulcer with mild yellow drainage. Patient tachycardic with RVR during this hospitalization. E. coli in the cultures of the buttocks wound and urine. Negative stress test. Patient stable. Objective - Vital Signs/Intake and Output Vital Signs (last 24 hours): Temp Pulse Resp BP Pulse Ox 98.5 F 60 15 132/69 94 L 08/15/16 16:00 08/15/16 16:00 08/15/16 16:00 08/15/16 16:00 08/15/16 16:00 Intake and Output: 08/15/16 08/15/16 06:59 18:59 Intake Total 440 720 Output Total 580 250 Balance -140 470 - Medications Medications: Current Medications Acetaminophen (Tylenol 325mg Tab) 650 mg PO Q6 PRN PRN Reason: Fever >100.4 F Last Admin: 08/14/16 23:43 Dose: 650 mg Ascorbic Acid (Vitamin C 500 Mg Tab) 500 mg PO DAILY [facility] Last Admin: 08/15/16 09:47 Dose: 500 mg Aspirin (Ecotrin) 81 mg PO 0800 [facility] Last Admin: 08/15/16 08:10 Dose: Not Given Aspirin (Ecotrin) 81 mg PO DAILY [facility] Last Admin: 08/15/16 09:47 Dose: 81 mg Atorvastatin Calcium (Lipitor) 20 mg PO DIN [facility] Last Admin: 08/14/16 17:38 Dose: 20 mg Ferrous Sulfate (Feosol) 324 mg PO DAILY [facility] Last Admin: 08/15/16 09:47 Dose: 324 mg Piperacillin Sod/Tazobactam Sod (Zosyn 3.375 In Ns 100ml) 100 mls @ 200 mls/hr IVPB Q6 [facility] PRN Reason: Protocol Last Admin: 08/15/16 12:01 Dose: 200 mls/hr Insulin Human Lispro (Humalog Low) 0 units SC ACHS [facility] PRN Reason: Protocol Last Admin: 08/15/16 11:32 Dose: Not Given Ketorolac Tromethamine (Toradol) 15 mg IVP Q12 PRN PRN Reason: Pain, severe (8-10) Last Admin: 08/13/16 14:30 Dose: 15 mg Levalbuterol HCl (Xopenex) 0.63 mg IH [id number] [facility] Last Admin: 08/15/16 13:57 Dose: 0.63 mg Levalbuterol HCl (Xopenex) 0.63 mg IH [id number] PRN PRN Reason: Shortness of Breath Levothyroxine Sodium (Synthroid) 125 mcg PO DAILY [facility] Last Admin: 08/15/16 09:47 Dose: 125 mcg Metoprolol Tartrate (Lopressor) 25 mg PO BRKDIN [facility] Last Admin: 08/15/16 08:10 Dose: Not Given Multivitamins (Thera Tab) 1 tab PO DAILY [facility] Last Admin: 08/15/16 13:30 Dose: 1 tab Ondansetron HCl (Zofran Inj) 4 mg IVP Q6H PRN PRN Reason: Nausea/Vomiting Oxybutynin Chloride (Ditropan Tab) 5 mg PO DAILY [facility] Last Admin: 08/15/16 09:47 Dose: 5 mg Pantoprazole Sodium (Protonix Ec Tab) 40 mg PO DAILY [facility] Last Admin: 08/15/16 09:47 Dose: 40 mg Sucralfate (Carafate Oral Susp) 1 gm PO BID [facility] Last Admin: 08/15/16 09:47 Dose: 1 gm Vitamin B Complex/Vit C/Folic Acid (Nephro-Mane) 1 tab PO DAILY [facility] Last Admin: 08/15/16 09:47 Dose: 1 tab Zinc Sulfate (Zinc Sulfate 220 Mg Cap) 220 mg PO DAILY [facility] Last Admin: 08/15/16 09:47 Dose: 220 mg - Labs Labs: 08/15/16 05:00 08/15/16 05:00 - Constitutional Appears: Non-toxic, No Acute Distress, Chronically Ill - Head Exam Head Exam: ATRAUMATIC, NORMOCEPHALIC - Eye Exam Eye Exam: EOMI, PERRL Pupil Exam: NORMAL ACCOMODATION, PERRL - ENT Exam ENT Exam: Mucous Membranes Moist, Normal External Ear Exam, TM's Normal Bilaterally - Neck Exam Neck Exam: Full ROM, Normal Inspection - Respiratory Exam Respiratory Exam: Clear to Ausculation Bilateral, NORMAL BREATHING PATTERN. absent: Rales, Rhonchi, Wheezes - Cardiovascular Exam Cardiovascular Exam: REGULAR RHYTHM, +S1, +S2 - GI/Abdominal Exam GI & Abdominal Exam: Soft, Normal Bowel Sounds. absent: Distended, Tenderness - Extremities Exam Extremities Exam: Full ROM, Normal Inspection - Neurological Exam Neurological Exam: Alert, Awake, CN II-XII Intact, Oriented x3 - Psychiatric Exam Psychiatric exam: Normal Affect, Normal Mood - Skin Skin Exam: Intact, Normal Color Assessment and Plan - Assessment and Plan (Free Text) Assessment: 76 yo female with potential UTI started on Zosyn and Vancomycin. [place] cultures sent. Fever up to 102.9 F on admission. Multiple medical issues. Supportive care. Lower back wound. Local wound care. Renal insufficiency. Gram negative rods in urine and wound cultures. E. coli identified from cultures. Can consider use of fluoroquinolones for treatment. R/O sepsis. Afebrile the past few days. Thank you for allowing me to participate in the care of the patient, we will follow with you.
--- NOTE | 2016-08-15 19:17 | PN ---
DATE: 08/15/2016 The patient is in room 564, bed #2. REASON FOR CONSULTATION: Follow up atrial fibrillation. HISTORY OF PRESENT ILLNESS: A 76-year-old Maltese speaking female with past medical history significa nt for hypertension, diabetes, hyperlipidemia, hypothyroidism, admitted with generalized weakness, lo ss of appetite, possibly secondary to sepsis. The patient had one episode of atrial fibrillation, co nverted to normal sinus rhythm. The patient since then has been maintaining normal sinus rhythm with beta blockers. The patient denies chest pain, shortness of breath, or palpitation. PHYSICAL EXAMINATION: VITAL SIGNS: Blood pressure 132/69, respirations 20, pulse 54, temperature 98.8. HEAD: Normocephalic. EYES: Pupils normal. Conjunctivae are slightly pale. NECK: JVP low. Carotids equal. THORAX: AP diameter normal. LUNGS: No rales. CARDIOVASCULAR: S1, S2. Systolic murmur. ABDOMEN: Soft, nontender, no organomegaly. Bowel sounds normal. EXTREMITIES: No clubbing, no cyanosis. LABORATORY DATA: WBC 7.2, hemoglobin 10.2, hematocrit 32.1, platelets 243. Sodium 140, potassium 3. 8, BUN 19, creatinine 1.3. Stress test is negative with LV ejection fraction 55%. Echo also showed ejection fraction 65%, trace aortic regurgitation, aortic valve not well visualized, trace mitral reg urg, trace tricuspid regurg. DIAGNOSES AND PLAN: Paroxysmal atrial fibrillation, one episode, now maintaining sinus rhythm, urose psis, stress test negative, normal left ventricular ejection fraction of 65%. The patient has histor y of esophageal ulcer and anemia. The patient was not anticoagulated for that reason. However, mila ent was started on aspirin 81 mg p.o. daily, Lipitor 20 daily, metoprolol 25 b.i.d. The patient is o n levothyroxine 125 mcg p.o. daily. The patient is on piperacillin/tazobactam 3.375 grams IV q. 6 ho urs. Will continue present therapy and follow with you. Riddhi Sanchez MD cc: [id number] TT: 08/15/2016 19:15:45 Confirmation # [id number] Dictation # [id number] rn
[2016-08-16] MEDS: Levalbuterol 0.63 MG/3 ML Inhal Soln UD IH SCH ×4 (03:10→22:00)
[2016-08-16] MEDS: Piperacillin/Tazobact 3.375 gm 100 ML IVPB SCH ×3 (06:30→18:07)
[2016-08-16 07:11] LABS: HEMATOCRIT 32.7 % (36.0-48.0); MEAN CELL VOLUME 77.5 fL (80.0-105.0); MEAN CORPUSCULAR HEMOGLOBIN 24.4 pg (25.0-35.0); MEAN CORPUSCULAR HGB CONC 31.5 g/dl (31.0-37.0); MEAN PLATELET VOLUME 10.4 fl (7.0-11.0); RED CELL DISTRIBUTION WIDTH 18.9 % (11.5-14.5); WHITE BLOOD COUNT 7.9 10^3/ul (4.5-11.0)
[2016-08-16 07:28] LABS: ALB/GLOB RATIO 0.6 (1.1-1.8); BILIRUBIN,TOTAL 0.7 mg/dL (0.2-1.3); CALCIUM 8.8 mg/dL (8.4-10.5); TOTAL PROTEIN 6.9 g/dL (5.8-8.3)
--- NOTE | 2016-08-16 07:50 | CP.PCM.PN ---
<SmithSanam - Last Filed: 08/16/16 07:55> Subjective - Date & Time of Evaluation Date of Evaluation: 08/16/16 Time of Evaluation: 07:10 - Subjective Subjective: Pt was seen and examined at bedside. No acute complaints at this time. Pt was seen with nurse available for translating purposes. Pt initially grimmacing upon examination of abdomen, however once beginning to speak to her, she denied any pain associated with the abdomen. Pt is very pleasant and denies any pains or discomforts. She is eating well and moving her bowels and bladder regularly. Her last BM was yesterday. Pt states she feels weak and would like to improve her strength in order to walk without falling like she has in the past. Pt denied fever, chills, chest pains, palpitations, abdominal pains, n/v/d/c or urinary symptoms. Pt was to be placed in [facility], however further discussions need to be followed up to become accepted. Objective - Vital Signs/Intake and Output Vital Signs (last 24 hours): Temp Pulse Resp BP Pulse Ox 98.5 F 60 15 132/69 94 L 08/15/16 16:00 08/15/16 17:24 08/15/16 16:00 08/15/16 17:24 08/15/16 16:00 Intake and Output: 08/16/16 08/16/16 06:59 18:59 Intake Total 240 Balance 240 - Medications Medications: Current Medications Acetaminophen (Tylenol 325mg Tab) 650 mg PO Q6 PRN PRN Reason: Fever >100.4 F Last Admin: 08/14/16 23:43 Dose: 650 mg Ascorbic Acid (Vitamin C 500 Mg Tab) 500 mg PO DAILY [facility] Last Admin: 08/15/16 09:47 Dose: 500 mg Aspirin (Ecotrin) 81 mg PO 0800 [facility] Last Admin: 08/16/16 07:28 Dose: Not Given Aspirin (Ecotrin) 81 mg PO DAILY [facility] Last Admin: 08/15/16 09:47 Dose: 81 mg Atorvastatin Calcium (Lipitor) 20 mg PO DIN [facility] Last Admin: 08/15/16 17:24 Dose: 20 mg Ferrous Sulfate (Feosol) 324 mg PO DAILY [facility] Last Admin: 08/15/16 09:47 Dose: 324 mg Piperacillin Sod/Tazobactam Sod (Zosyn 3.375 In Ns 100ml) 100 mls @ 200 mls/hr IVPB Q6 DESHAWN PRN Reason: Protocol Last Admin: 08/16/16 06:30 Dose: 200 mls/hr Insulin Human Lispro (Humalog Low) 0 units SC ACHS DESHAWN PRN Reason: Protocol Last Admin: 08/15/16 23:31 Dose: Not Given Ketorolac Tromethamine (Toradol) 15 mg IVP Q12 PRN PRN Reason: Pain, severe (8-10) Last Admin: 08/13/16 14:30 Dose: 15 mg Levalbuterol HCl (Xopenex) 0.63 mg IH [id number] [facility] Last Admin: 08/16/16 03:10 Dose: Not Given Levalbuterol HCl (Xopenex) 0.63 mg IH [id number] PRN PRN Reason: Shortness of Breath Levothyroxine Sodium (Synthroid) 125 mcg PO DAILY [facility] Last Admin: 08/15/16 09:47 Dose: 125 mcg Metoprolol Tartrate (Lopressor) 25 mg PO BRKDIN [facility] Last Admin: 08/15/16 17:24 Dose: 25 mg Multivitamins (Thera Tab) 1 tab PO DAILY [facility] Last Admin: 08/15/16 13:30 Dose: 1 tab Ondansetron HCl (Zofran Inj) 4 mg IVP Q6H PRN PRN Reason: Nausea/Vomiting Oxybutynin Chloride (Ditropan Tab) 5 mg PO DAILY [facility] Last Admin: 08/15/16 09:47 Dose: 5 mg Pantoprazole Sodium (Protonix Ec Tab) 40 mg PO DAILY [facility] Last Admin: 08/15/16 09:47 Dose: 40 mg Sucralfate (Carafate Oral Susp) 1 gm PO BID [facility] Last Admin: 08/15/16 17:24 Dose: 1 gm Vitamin B Complex/Vit C/Folic Acid (Nephro-Mane) 1 tab PO DAILY [facility] Last Admin: 08/15/16 09:47 Dose: 1 tab Zinc Sulfate (Zinc Sulfate 220 Mg Cap) 220 mg PO DAILY [facility] Last Admin: 08/15/16 09:47 Dose: 220 mg - Labs Labs: 08/16/16 07:00 08/15/16 05:00 - Constitutional Appears: Well, No Acute Distress - Head Exam Head Exam: ATRAUMATIC, NORMAL INSPECTION, NORMOCEPHALIC - Eye Exam Eye Exam: EOMI, Normal appearance, PERRL - ENT Exam ENT Exam: Mucous Membranes Moist, Normal Exam - Respiratory Exam Respiratory Exam: Clear to Ausculation Bilateral, NORMAL BREATHING PATTERN - Cardiovascular Exam Cardiovascular Exam: REGULAR RHYTHM, +S1, +S2. absent: Murmur - GI/Abdominal Exam GI & Abdominal Exam: Soft, Normal Bowel Sounds. absent: Tenderness - Extremities Exam Extremities Exam: Full ROM, Normal Capillary Refill, Normal Inspection. absent : Joint Swelling, Pedal Edema - Neurological Exam Neurological Exam: Alert, Awake, CN II-XII Intact, Normal Gait, Oriented x3 - Psychiatric Exam Psychiatric exam: Normal Affect, Normal Mood - Skin Skin Exam: Dry, Intact, Normal Color, Warm Assessment and Plan - Assessment and Plan (Free Text) Assessment: 76 yo female with PMH of HTN, HLD, hypothryroidism, and DM is admitted to hospital for urosepsis. Patient was found to have new onset a fib. 1. Urosepsis - urine culture positive for E coli - blood culture negative - afebrile, no leukocytosis - zosyn and vanco - ID consulted, Dr. Lafleur following, continue abx for now and will dc with cipro for 7-10 days. 2. Paroxsymal A-fib with RVR converted to NSR - Cardiology is consulted, Dr. Song rec lexiscan stress test, which resulted negative. Echo demonstrated Ef of 65% - Asa, lipitor, metoprolol, - Continue lopressor. Patient does have history of esophageal ulcer. 3. decubitous ulcer - wound culture positive for e coli - wound care nurse - Abx 4. hypothyroidism - cont home med synthroid 125mcg 5. HTN - Stable - cont to monitor 5. DM - ISS- low - fingersticks ACHS 6. HLD - Lipitor 20 mg po qd 7. History of esophageal ulcer - No signs of bleeding - will continue to monitor closely for bleeding DVT- SCDs GI- protonix As per case aide, Pt insurance not compatible with TCU, has offered pt's son options of [facility] for placement. Family has picked [facility] however, insurance has denied [facility], Peer to peer next step in placement Seen reviewed and discussed with attending <Manjit Beverly - Last Filed: 08/17/16 09:36> Objective - Vital Signs/Intake and Output Vital Signs (last 24 hours): Temp Pulse Resp BP Pulse Ox 98.1 F 59 L 20 151/66 H 95 08/17/16 08:29 08/17/16 08:47 08/17/16 08:29 08/17/16 08:47 08/17/16 08:29 Intake and Output: 08/17/16 08/17/16 06:59 18:59 Intake Total 240 Output Total 200 Balance 40 - Medications Medications: Current Medications Acetaminophen (Tylenol 325mg Tab) 650 mg PO Q6 PRN PRN Reason: Fever >100.4 F Last Admin: 08/14/16 23:43 Dose: 650 mg Ascorbic Acid (Vitamin C 500 Mg Tab) 500 mg PO DAILY [facility] Last Admin: 08/16/16 09:51 Dose: 500 mg Aspirin (Ecotrin) 81 mg PO 0800 [facility] Last Admin: 08/17/16 08:47 Dose: 81 mg Aspirin (Ecotrin) 81 mg PO DAILY [facility] Last Admin: 08/16/16 09:51 Dose: 81 mg Atorvastatin Calcium (Lipitor) 20 mg PO DIN [facility] Last Admin: 08/16/16 18:06 Dose: 20 mg Ferrous Sulfate (Feosol) 324 mg PO DAILY [facility] Last Admin: 08/16/16 09:51 Dose: 324 mg Piperacillin Sod/Tazobactam Sod (Zosyn 3.375 In Ns 100ml) 100 mls @ 200 mls/hr IVPB Q6 DESHAWN PRN Reason: Protocol Last Admin: 08/17/16 05:41 Dose: 200 mls/hr Insulin Human Lispro (Humalog Low) 0 units SC ACHS DESHAWN PRN Reason: Protocol Last Admin: 08/17/16 08:47 Dose: Not Given Levalbuterol HCl (Xopenex) 0.63 mg IH [id number] [facility] Last Admin: 08/17/16 07:21 Dose: 0.63 mg Levalbuterol HCl (Xopenex) 0.63 mg IH [id number] PRN PRN Reason: Shortness of Breath Levothyroxine Sodium (Synthroid) 125 mcg PO DAILY [facility] Last Admin: 08/16/16 09:51 Dose: 125 mcg Metoprolol Tartrate (Lopressor) 25 mg PO BRKDIN [facility] Last Admin: 08/17/16 08:47 Dose: 25 mg Multivitamins (Thera Tab) 1 tab PO DAILY [facility] Last Admin: 08/16/16 09:51 Dose: 1 tab Ondansetron HCl (Zofran Inj) 4 mg IVP Q6H PRN PRN Reason: Nausea/Vomiting Oxybutynin Chloride (Ditropan Tab) 5 mg PO DAILY [facility] Last Admin: 08/16/16 09:51 Dose: 5 mg Pantoprazole Sodium (Protonix Ec Tab) 40 mg PO DAILY [facility] Last Admin: 08/16/16 09:50 Dose: 40 mg Sucralfate (Carafate Oral Susp) 1 gm PO BID [facility] Last Admin: 08/16/16 18:06 Dose: 1 gm Vitamin B Complex/Vit C/Folic Acid (Nephro-Mane) 1 tab PO DAILY [facility] Last Admin: 08/16/16 09:50 Dose: 1 tab Zinc Sulfate (Zinc Sulfate 220 Mg Cap) 220 mg PO DAILY [facility] Last Admin: 08/16/16 09:51 Dose: 220 mg - Labs Labs: 08/17/16 06:30 08/17/16 06:30 Attending/Attestation - Attestation I have personally seen and examined this patient.: Yes I have fully participated in the care of the patient.: Yes I have reviewed all pertinent clinical information, including history, physical exam and plan: Yes Notes (Text): Patient seen and examined with resident. Agree with the above note with the following additions/ exceptions: This is 76 year old M[place] female with history of HTN, HLD, hypothryroidism, recent hip surgery, fall and DM-2 is admitted to hospital for urosepsis (EColi UTI).Wound culture growing Ecoli. Continue zosyn and vancomycin for now. Plan to dc her home on cipro. Also found to have PAF on aspirin as she has a history of multiple falls and history of esophageal ulcer. HASBLED is 1. CHADSVASC 5. Echocardiogram revealed EF of 65%. Stress test was normal. Continue Protonix and Carafate. PT recommended [facility]. 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 Upon discharge The patient will follow up with PMD Dr. Humphrey. Dr Manjit Beverly
[2016-08-16 07:59] VITALS: RESP 20
--- NOTE | 2016-08-16 08:09 | US ---
HISTORY: Abdominal discomfort COMPARISON: None. TECHNIQUE: Grayscale imaging was performed. FINDINGS: LIVER: Measures 17.6 cm. There is diffuse increased echogenicity and coarse echotexture of the liver parenchyma. No mass. No intrahepatic bile duct dilatation. GALLBLADDER: Unremarkable. No gallstones. COMMON BILE DUCT: Measures 5.0 mm. No stones. No dilatation. PANCREAS: Unremarkable as visualized. No mass. No ductal dilatation. RIGHT KIDNEY: Measures 9.7cm. Normal echogenicity. No calculus, mass, or hydronephrosis. LEFT KIDNEY: Measures 10.1cm. Normal echogenicity. No calculus, mass, or hydronephrosis. SPLEEN: Normal in size and contour. No mass. AORTA: No aneurysmal dilatation. IVC: Unremarkable. OTHER FINDINGS: None. IMPRESSION: Mild hepatomegaly. Diffuse increased echogenicity in the liver may reflect hepatic steatosis however parenchymal infectious/ inflammatory etiologies cannot be entirely excluded. Clinical and laboratory correlation is advised.
[2016-08-16] MEDS: Insulin Lispro (humaLOG) LOW Coverage SC SCH ×4 (08:14→22:02)
[2016-08-16] MEDS: Pantoprazole 40 mg EC Tab PO SCH (09:50)
[2016-08-16] MEDS: Multivitamin Vitamin B Complex (Nephro-Vite) Tab PO SCH (09:50)
[2016-08-16] MEDS: Multivitamin Therapeutic Tab PO SCH (09:51)
[2016-08-16] MEDS: Levothyroxine 125 MCG TAB PO SCH (09:51)
[2016-08-16] MEDS: Sucralfate 1 gm/10 ml Oral Susp UD PO SCH ×2 (09:51→18:06)
--- NOTE | 2016-08-16 15:45 | CP.PCM.DIS ---
<Sanam Mtz - Last Filed: 08/18/16 17:46> Provider - Provider Date of Admission: 08/09/16 20:31 Attending physician: Manjit Beverly MD Primary care physician: NO PRIMARY CARE PROVIDER Consults: ID: Dr. Lafleur Cardio: Dr. Song GI: Dr. Hernandez Time Spent in preparation of Discharge (in minutes): 45 Hospital Course - Lab Results Lab Results: Micro Results 08/09/16 22:40 Buttock Gram Stain - Final 08/09/16 22:40 Buttock Wound Culture - Final Escherichia Coli Most Recent Lab Values WBC 7.9 10^3/ul (4.5-11.0) 08/16/16 07:00 RBC 4.22 10^6/uL (3.5-6.1) 08/16/16 07:00 Hgb 10.3 gm/dL (12.0-16.0) L 08/16/16 07:00 Hct 32.7 % (36.0-48.0) L 08/16/16 07:00 MCV 77.5 fL (80.0-105.0) L 08/16/16 07:00 MCH 24.4 pg (25.0-35.0) L 08/16/16 07:00 MCHC 31.5 g/dl (31.0-37.0) 08/16/16 07:00 RDW 18.9 % (11.5-14.5) H 08/16/16 07:00 Plt Count 263 10^3/uL (120.0-450.0) 08/16/16 07:00 MPV 10.4 fl (7.0-11.0) 08/16/16 07:00 Gran % 57.2 % (50.0-68.0) 08/12/16 07:54 Lymph % (Auto) 27.1 % (22.0-35.0) 08/12/16 07:54 [place] % (Auto) 10.0 % (1.0-6.0) H 08/12/16 07:54 Eos % (Auto) 4.9 % (1.5-5.0) 08/12/16 07:54 Baso % (Auto) 0.8 % (0.0-3.0) 08/12/16 07:54 Gran # 4.36 (1.4-6.5) 08/12/16 07:54 Lymph # 2.1 (1.2-3.4) 08/12/16 07:54 [place] # 0.8 (0.1-0.6) H 08/12/16 07:54 Eos # 0.4 (0.0-0.7) 08/12/16 07:54 Baso # 0.06 K/mm3 (0.0-2.0) 08/12/16 07:54 pO2 79 mm/Hg (30-55) H 08/09/16 23:55 VBG pH 7.44 (7.32-7.43) H 08/09/16 23:55 VBG pCO2 26.0 (40-60) L 08/09/16 23:55 VBG HCO3 17.7 mmol/l (21-28) L 08/09/16 23:55 VBG Total CO2 18.5 mmol.L (22-28) L 08/09/16 23:55 VBG O2 Sat (Calc) 99.4 % (40-65) H 08/09/16 23:55 VBG Base Excess -5.9 mmol/L (0.0-2.0) L 08/09/16 23:55 VBG Potassium 3.6 mmol/L (3.6-5.2) 08/09/16 23:55 Sodium 139.0 mmol/L (132-148) 08/09/16 23:55 Chloride 117.0 mmol/L (98-107) H 08/09/16 23:55 Glucose 84 mg/dl (65-105) 08/09/16 23:55 Lactate 1.1 mmol/L (0.7-2.1) 08/09/16 23:55 FiO2 21.0 % 08/09/16 23:55 Sodium 140 mmol/L (132-148) 08/16/16 07:00 Potassium 4.0 mmol/L (3.6-5.0) 08/16/16 07:00 Chloride 112 mmol/L (98-107) H 08/16/16 07:00 Carbon Dioxide 22 mmol/L (21-33) 08/16/16 07:00 Anion Gap 10 (10-20) 08/16/16 07:00 BUN 18 mg/dL (7-21) 08/16/16 07:00 Creatinine 1.2 mg/dL (0.5-1.4) 08/16/16 07:00 Est GFR ( Amer) 53 08/16/16 07:00 Est GFR (Non-Af Amer) 43 08/16/16 07:00 POC Glucose (mg/dL) 170 mg/dL (65-110) H 08/14/16 11:14 Random Glucose 80 mg/dL (70-110) 08/16/16 07:00 Calcium 8.8 mg/dL (8.4-10.5) 08/16/16 07:00 Phosphorus 2.8 mg/dL (2.5-4.5) 08/09/16 19:20 Magnesium 2.0 mg/dL (1.7-2.2) 08/09/16 19:20 Iron 38 ug/dL (45-180) L 08/12/16 07:54 TIBC 236 ug/dL (265-497) L 08/12/16 07:54 % Saturation 16 % (20-55) L 08/12/16 07:54 Ferritin 76.3 ng/mL 08/12/16 07:54 Total Bilirubin 0.7 mg/dL (0.2-1.3) 08/16/16 07:00 AST 39 U/L (15-39) 08/16/16 07:00 ALT 25 U/L (7-56) 08/16/16 07:00 Alkaline Phosphatase 145 U/L (38-133) H 08/16/16 07:00 Total Protein 6.9 g/dL (5.8-8.3) 08/16/16 07:00 Albumin 2.7 g/dL (3.0-4.8) L 08/16/16 07:00 Globulin 4.2 gm/dL 08/16/16 07:00 Albumin/Globulin Ratio 0.6 (1.1-1.8) L 08/16/16 07:00 Triglycerides 190 mg/dL (35-160) H 08/12/16 07:54 Cholesterol 115 mg/dL (130-200) L 08/12/16 07:54 LDL Cholesterol Direct 69 mg/dL (0-129) 08/12/16 07:54 HDL Cholesterol 14 mg/dL (29-60) L 08/12/16 07:54 Procalcitonin 6.00 NG/ML (0.19-0.49) H 08/09/16 19:50 Free T4 1.85 ng/dL (0.78-2.19) 08/12/16 07:54 Total T3 0.72 ng/mL (0.97-1.69) L 08/12/16 07:54 TSH 3rd Generation 0.27 mIU/mL (0.46-4.68) L 08/12/16 07:54 Venous Blood Potassium 3.6 mmol/L (3.6-5.2) 08/09/16 23:55 Urine Color Yellow (YELLOW) 08/09/16 19:20 Urine Appearance Cloudy (CLEAR) 08/09/16 19:20 Urine pH 6.0 (4.7-8.0) 08/09/16 19:20 Ur Specific [place] 1.020 (1.005-1.035) 08/09/16 19:20 Urine Protein 30 mg/dL (<30 mg/dL) H 08/09/16 19:20 Urine Glucose (UA) Negative mg/dL (NEGATIVE) 08/09/16 19:20 Urine Ketones Negative mg/dL (NEGATIVE) 08/09/16 19:20 Urine Blood Large (NEGATIVE) H 08/09/16 19:20 Urine Nitrate Positive (NEGATIVE) H 08/09/16 19:20 Urine Bilirubin Negative (NEGATIVE) 08/09/16 19:20 Urine Urobilinogen 0.2 E.U./dL (<1 E.U./dL) 08/09/16 19:20 Ur Leukocyte Esterase Large Viv/uL (NEGATIVE) H 08/09/16 19:20 Urine RBC 25 - 30 /hpf (0-2) 08/09/16 19:20 Urine WBC Tntc /hpf (0-6) 08/09/16 19:20 Ur Epithelial Cells 4 - 5 /hpf (0-5) 08/09/16 19:20 Urine Bacteria Many (NEG) 08/09/16 19:20 Vancomycin Trough 11.3 ug/mL (5.0-10.0) H 08/11/16 08:26 Hepatitis A IgM Ab Negative (NEGATIVE) 08/11/16 08:26 Hep Bs Antigen Negative (NEGATIVE) 06/03/17 08:26 Hep B Core IgM Ab Negative (NEGATIVE) 08/11/16 08:26 Hepatitis C Antibody Negative (NEGATIVE) 08/11/16 08:26 - Hospital Course Hospital Course: Pt presented to ED with general fatigue and weakness most likely due to urosepsis. Found to have elevated lactate, code sepsis called. UA +RBC, protein , nitrate, WBC esterase. CXR showed COPD, 1.8-cm retrocardiac nodule, no acute findings. 08/10: Pt C/O pleuritic rib pain on inhalation, back pain, and vomiting. 08/11: new onset a fib. started on lovenox. HR controlled for now 08/12: continues to be in a fib. getting anticoagulation. has history of esophageal ulcer bleed so need to anticoagulate carefully. Cardio recommended Eliquis/Lexiscan stress test. TCU eval requested (dont accept Insurance - CM for alternative [facility] vs Home with services). As per immigration case manager, Pt insurance not compatible with TCU, has offered pt's son options of [facility] for placement. Will fu with family for placement. Pts insurance was finally accepted for LTAC placement. Pt will be dc'ed with doxycycline abx for uti. Discharge Exam - Head Exam Head Exam: ATRAUMATIC, NORMAL INSPECTION, NORMOCEPHALIC - Eye Exam Eye Exam: EOMI, Normal appearance, PERRL Pupil Exam: NORMAL ACCOMODATION, PERRL - ENT Exam ENT Exam: Mucous Membranes Moist - Respiratory Exam Respiratory Exam: Clear to PA & Lateral, NORMAL BREATHING PATTERN, UNREMARKABLE - Cardiovascular Exam Cardiovascular Exam: RRR, +S1, +S2 - GI/Abdominal Exam GI & Abdominal Exam: Normal Bowel Sounds, Soft. absent: Tenderness - Extremities Exam Extremities exam: normal inspection - Neurological Exam Neurological exam: Alert, CN II-XII Intact, Normal Gait, Oriented x3, Reflexes Normal - Psychiatric Exam Psychiatric exam: Normal Affect, Normal Mood - Skin Skin Exam: Dry, Intact, Normal Color, Warm Discharge Plan - Discharge Medications Prescriptions: Ciprofloxacin [Cipro] 500 mg PO BID #14 tab - Follow Up Plan Condition: FAIR Disposition: TRANSF TO SNF Instructions: Pneumococcal Vaccine for Adults (DC), Urinary Tract Infection in Women (DC), Heart Healthy Diet (GEN), Basic Carbohydrate Counting (DC), Dysuria (GEN), Altered Mental Status (GEN), Fall Prevention (DC) Additional Instructions: 1. Transfer to [facility] 2. Pt to continue all home meds plus ciprofloxacin abx Referrals: PCP,NO [Primary Care Provider] - <Manjit Beverly - Last Filed: 08/19/16 11:19> Provider - Provider Date of Admission: 08/09/16 20:31 Attending physician: Manjit Beverly MD Primary care physician: [facility] PRIMARY CARE PROVIDER Hospital Course - Lab Results Lab Results: Micro Results 08/09/16 22:40 Buttock Gram Stain - Final 08/09/16 22:40 Buttock Wound Culture - Final Escherichia Coli Most Recent Lab Values WBC 8.9 10^3/ul (4.5-11.0) 08/17/16 06:30 RBC 4.46 10^6/uL (3.5-6.1) 08/17/16 06:30 Hgb 11.0 gm/dL (12.0-16.0) L 08/17/16 06:30 Hct 34.7 % (36.0-48.0) L 08/17/16 06:30 MCV 77.8 fL (80.0-105.0) L 08/17/16 06:30 MCH 24.7 pg (25.0-35.0) L 08/17/16 06:30 MCHC 31.7 g/dl (31.0-37.0) 08/17/16 06:30 RDW 19.0 % (11.5-14.5) H 08/17/16 06:30 Plt Count 274 10^3/uL (120.0-450.0) 08/17/16 06:30 MPV 10.4 fl (7.0-11.0) 08/17/16 06:30 Gran % 58.6 % (50.0-68.0) 08/17/16 06:30 Lymph % (Auto) 23.8 % (22.0-35.0) 08/17/16 06:30 [place] % (Auto) 9.5 % (1.0-6.0) H 08/17/16 06:30 Eos % (Auto) 7.2 % (1.5-5.0) H 08/17/16 06:30 Baso % (Auto) 0.9 % (0.0-3.0) 08/17/16 06:30 Gran # 5.24 (1.4-6.5) 08/17/16 06:30 Lymph # 2.1 (1.2-3.4) 08/17/16 06:30 [place] # 0.9 (0.1-0.6) H 08/17/16 06:30 Eos # 0.6 (0.0-0.7) 08/17/16 06:30 Baso # 0.08 K/mm3 (0.0-2.0) 08/17/16 06:30 pO2 79 mm/Hg (30-55) H 08/09/16 23:55 VBG pH 7.44 (7.32-7.43) H 08/09/16 23:55 VBG pCO2 26.0 (40-60) L 08/09/16 23:55 VBG HCO3 17.7 mmol/l (21-28) L 08/09/16 23:55 VBG Total CO2 18.5 mmol.L (22-28) L 08/09/16 23:55 VBG O2 Sat (Calc) 99.4 % (40-65) H 08/09/16 23:55 VBG Base Excess -5.9 mmol/L (0.0-2.0) L 08/09/16 23:55 VBG Potassium 3.6 mmol/L (3.6-5.2) 08/09/16 23:55 Sodium 139.0 mmol/L (132-148) 08/09/16 23:55 Chloride 117.0 mmol/L (98-107) H 08/09/16 23:55 Glucose 84 mg/dl (65-105) 08/09/16 23:55 Lactate 1.1 mmol/L (0.7-2.1) 08/09/16 23:55 FiO2 21.0 % 08/09/16 23:55 Sodium 140 mmol/L (132-148) 08/17/16 06:30 Potassium 4.0 mmol/L (3.6-5.0) 08/17/16 06:30 Chloride 110 mmol/L (98-107) H 08/17/16 06:30 Carbon Dioxide 22 mmol/L (21-33) 08/17/16 06:30 Anion Gap 12 (10-20) 08/17/16 06:30 BUN 19 mg/dL (7-21) 08/17/16 06:30 Creatinine 1.3 mg/dL (0.5-1.4) 08/17/16 06:30 Est GFR ( Amer) 48 08/17/16 06:30 Est GFR (Non-Af Amer) 40 08/17/16 06:30 POC Glucose (mg/dL) 170 mg/dL (65-110) H 08/14/16 11:14 Random Glucose 88 mg/dL (70-110) 08/17/16 06:30 Calcium 9.0 mg/dL (8.4-10.5) 08/17/16 06:30 Phosphorus 2.8 mg/dL (2.5-4.5) 08/09/16 19:20 Magnesium 2.0 mg/dL (1.7-2.2) 08/09/16 19:20 Iron 38 ug/dL (45-180) L 08/12/16 07:54 TIBC 236 ug/dL (265-497) L 08/12/16 07:54 % Saturation 16 % (20-55) L 08/12/16 07:54 Ferritin 76.3 ng/mL 08/12/16 07:54 Total Bilirubin 0.7 mg/dL (0.2-1.3) 08/17/16 06:30 AST 45 U/L (15-39) H 08/17/16 06:30 ALT 27 U/L (7-56) 08/17/16 06:30 Alkaline Phosphatase 149 U/L (38-133) H 08/17/16 06:30 Total Protein 7.5 g/dL (5.8-8.3) 08/17/16 06:30 Albumin 2.9 g/dL (3.0-4.8) L 08/17/16 06:30 Globulin 4.5 gm/dL 08/17/16 06:30 Albumin/Globulin Ratio 0.6 (1.1-1.8) L 08/17/16 06:30 Triglycerides 190 mg/dL (35-160) H 08/12/16 07:54 Cholesterol 115 mg/dL (130-200) L 08/12/16 07:54 LDL Cholesterol Direct 69 mg/dL (0-129) 08/12/16 07:54 HDL Cholesterol 14 mg/dL (29-60) L 08/12/16 07:54 Procalcitonin 6.00 NG/ML (0.19-0.49) H 08/09/16 19:50 Free T4 1.85 ng/dL (0.78-2.19) 08/12/16 07:54 Total T3 0.72 ng/mL (0.97-1.69) L 08/12/16 07:54 TSH 3rd Generation 0.27 mIU/mL (0.46-4.68) L 08/12/16 07:54 Venous Blood Potassium 3.6 mmol/L (3.6-5.2) 08/09/16 23:55 Urine Color Yellow (YELLOW) 08/09/16 19:20 Urine Appearance Cloudy (CLEAR) 08/09/16 19:20 Urine pH 6.0 (4.7-8.0) 08/09/16 19:20 Ur Specific [place] 1.020 (1.005-1.035) 08/09/16 19:20 Urine Protein 30 mg/dL (<30 mg/dL) H 08/09/16 19:20 Urine Glucose (UA) Negative mg/dL (NEGATIVE) 08/09/16 19:20 Urine Ketones Negative mg/dL (NEGATIVE) 08/09/16 19:20 Urine Blood Large (NEGATIVE) H 08/09/16 19:20 Urine Nitrate Positive (NEGATIVE) H 08/09/16 19:20 Urine Bilirubin Negative (NEGATIVE) 08/09/16 19:20 Urine Urobilinogen 0.2 E.U./dL (<1 E.U./dL) 08/09/16 19:20 Ur Leukocyte Esterase Large Viv/uL (NEGATIVE) H 08/09/16 19:20 Urine RBC 25 - 30 /hpf (0-2) 08/09/16 19:20 Urine WBC Tntc /hpf (0-6) 08/09/16 19:20 Ur Epithelial Cells 4 - 5 /hpf (0-5) 08/09/16 19:20 Urine Bacteria Many (NEG) 08/09/16 19:20 Vancomycin Trough 11.3 ug/mL (5.0-10.0) H 08/11/16 08:26 Hepatitis A IgM Ab Negative (NEGATIVE) 08/11/16 08:26 Hep Bs Antigen Negative (NEGATIVE) 08/11/16 08:26 Hep B Core IgM Ab Negative (NEGATIVE) 08/11/16 08:26 Hepatitis C Antibody Negative (NEGATIVE) 08/11/16 08:26 Attending/Attestation - Attestation I have personally seen and examined this patient.: Yes I have fully participated in the care of the patient.: Yes I have reviewed all pertinent clinical information, including history, physical exam and plan: Yes Notes (Text): Patient seen and examined with resident. Agree with the above note with the following additions/ exceptions: This is 76 year old [place] female with history of HTN, HLD, hypothryroidism, recent hip surgery, fall and DM-2 is admitted to hospital for urosepsis (EColi UTI). Wound culture growing Ecoli. Continue zosyn. Plan to dc her home on cipro. Also found to have PAF on aspirin as she has a history of multiple falls and history of esophageal ulcer. Echocardiogram revealed EF of 65%. Stress test was normal. Continue Protonix and Carafate. PT recommended [facility]. train dispatcher are working on placement in [facility]. Upon discharge The patient will follow up with PMD Dr. Humphrey. Patient is being transferred to [facility]. Dr Manjit Beverly
--- NOTE | 2016-08-16 16:17 | PN ---
DATE: 08/16/2016 REASON FOR CONSULTATION AND FOLLOWUP: Cardiac evaluation followup, history of paroxysmal atrial fibr illation. BRIEF CLINICAL HISTORY: This is a 76-year-old female admitted with history of hypertension, hyperlip idemia, generalized weakness, sepsis. During hospital ____, found to be 1 episode of AFib, converted to normal sinus. The patient underwent noninvasive workup that was negative. Denies any chest pain , shortness of breath, but complained of back pain between the shoulder blades. PHYSICAL EXAMINATION: VITAL SIGNS: Temperature afebrile, heart rate 60, blood pressure 134/67. HEENT: PERRLA. Extraocular muscles intact. NECK: Supple. No carotid bruits. No thyromegaly. CHEST: Clear to auscultation. HEART: S1, S2 regular. ABDOMEN: Soft. EXTREMITIES: Clubbing and cyanosis negative. BLOOD WORKUP: As follows: WBC 7.9, hemoglobin 10.3, hematocrit 32.7, platelet count 263. Chemistry shows sodium 140, potassium 4, chloride 112, carbon dioxide 22, anion gap of 10, BUN 18, creatinine 1.2, albumin 2.7. IMPRESSION: Protein-calorie malnutrition which was not present on admission, anemia; atrial fibrill ation, very brief period; history of noninvasive cardiac workup essentially negative. Stress test wa s negative for ischemia. History of esophageal ulcer. The patient is not on anticoagulation because of history of esophageal ulcer. The patient had echocardiography that showed ejection fraction 60%, trace aortic regurgitation, trace mitral regurgitation. RECOMMENDATION: Continue metoprolol. The patient is off telemetry. Aspirin, ferrous sulfate, atorv astatin, levothyroxine. Will sign off and glad to follow up p.r.n. Reasonably stable. Thank you, Dr. Beverly, for providing the opportunity in taking care of this patient. Riddhi Song MD cc: [id number] TT: 08/16/2016 16:16:58 Confirmation # [id number] Dictation # [id number] mn
--- NOTE | 2016-08-16 18:48 | CP.PCM.PN ---
Subjective - Date & Time of Evaluation Date of Evaluation: 08/16/16 Time of Evaluation: 17:00 - Subjective Subjective: Infectious Disease Follow Up: August 16, 2016 76 yo [place]ian female with extensive past medical history presented with fatigue and weakness. The patient with altered mental status as per the family and EMS services initiated. The patient complained of chest wall tenderness. Transient nausea, vomiting, and diarrhea episode. Lower back ulcer with mild yellow drainage. Patient tachycardic with RVR during this hospitalization. E. coli in the cultures of the buttocks wound and urine. Negative stress test. Patient stable. Objective - Vital Signs/Intake and Output Vital Signs (last 24 hours): Temp Pulse Resp BP Pulse Ox 98.1 F 64 20 132/69 95 08/16/16 16:00 08/16/16 18:06 08/16/16 16:00 08/16/16 18:06 08/16/16 16:00 Intake and Output: 08/16/16 08/16/16 06:59 18:59 Intake Total 240 600 Balance 240 600 - Medications Medications: Current Medications Acetaminophen (Tylenol 325mg Tab) 650 mg PO Q6 PRN PRN Reason: Fever >100.4 F Last Admin: 08/14/16 23:43 Dose: 650 mg Ascorbic Acid (Vitamin C 500 Mg Tab) 500 mg PO DAILY [facility] Last Admin: 08/16/16 09:51 Dose: 500 mg Aspirin (Ecotrin) 81 mg PO 0800 [facility] Last Admin: 08/16/16 07:28 Dose: Not Given Aspirin (Ecotrin) 81 mg PO DAILY [facility] Last Admin: 08/16/16 09:51 Dose: 81 mg Atorvastatin Calcium (Lipitor) 20 mg PO DIN [facility] Last Admin: 08/16/16 18:06 Dose: 20 mg Ferrous Sulfate (Feosol) 324 mg PO DAILY [facility] Last Admin: 08/16/16 09:51 Dose: 324 mg Piperacillin Sod/Tazobactam Sod (Zosyn 3.375 In Ns 100ml) 100 mls @ 200 mls/hr IVPB Q6 [facility] PRN Reason: Protocol Last Admin: 08/16/16 18:07 Dose: 200 mls/hr Insulin Human Lispro (Humalog Low) 0 units SC ACHS [facility] PRN Reason: Protocol Last Admin: 08/16/16 18:07 Dose: Not Given Ketorolac Tromethamine (Toradol) 15 mg IVP Q12 PRN PRN Reason: Pain, severe (8-10) Last Admin: 08/13/16 14:30 Dose: 15 mg Levalbuterol HCl (Xopenex) 0.63 mg IH [id number] [facility] Last Admin: 08/16/16 13:28 Dose: Not Given Levalbuterol HCl (Xopenex) 0.63 mg IH [id number] PRN PRN Reason: Shortness of Breath Levothyroxine Sodium (Synthroid) 125 mcg PO DAILY [facility] Last Admin: 08/16/16 09:51 Dose: 125 mcg Metoprolol Tartrate (Lopressor) 25 mg PO BRKDIN [facility] Last Admin: 08/16/16 18:06 Dose: 25 mg Multivitamins (Thera Tab) 1 tab PO DAILY [facility] Last Admin: 08/16/16 09:51 Dose: 1 tab Ondansetron HCl (Zofran Inj) 4 mg IVP Q6H PRN PRN Reason: Nausea/Vomiting Oxybutynin Chloride (Ditropan Tab) 5 mg PO DAILY [facility] Last Admin: 08/16/16 09:51 Dose: 5 mg Pantoprazole Sodium (Protonix Ec Tab) 40 mg PO DAILY [facility] Last Admin: 08/16/16 09:50 Dose: 40 mg Sucralfate (Carafate Oral Susp) 1 gm PO BID [facility] Last Admin: 08/16/16 18:06 Dose: 1 gm Vitamin B Complex/Vit C/Folic Acid (Nephro-Mane) 1 tab PO DAILY [facility] Last Admin: 08/16/16 09:50 Dose: 1 tab Zinc Sulfate (Zinc Sulfate 220 Mg Cap) 220 mg PO DAILY [facility] Last Admin: 08/16/16 09:51 Dose: 220 mg - Labs Labs: 08/16/16 07:00 08/16/16 07:00 - Constitutional Appears: Non-toxic, No Acute Distress, Chronically Ill - Head Exam Head Exam: ATRAUMATIC, NORMOCEPHALIC - Eye Exam Eye Exam: EOMI, PERRL Pupil Exam: NORMAL ACCOMODATION, PERRL - ENT Exam ENT Exam: Mucous Membranes Moist, Normal External Ear Exam, TM's Normal Bilaterally - Neck Exam Neck Exam: Full ROM, Normal Inspection - Respiratory Exam Respiratory Exam: Clear to Ausculation Bilateral, NORMAL BREATHING PATTERN. absent: Rales, Rhonchi, Wheezes - Cardiovascular Exam Cardiovascular Exam: REGULAR RHYTHM, RRR, +S1, +S2 - GI/Abdominal Exam GI & Abdominal Exam: Soft, Normal Bowel Sounds. absent: Distended, Tenderness - Extremities Exam Extremities Exam: Full ROM, Normal Inspection - Neurological Exam Neurological Exam: Alert, Awake, CN II-XII Intact, Oriented x3 - Psychiatric Exam Psychiatric exam: Normal Affect, Normal Mood - Skin Skin Exam: Intact, Normal Color Assessment and Plan - Assessment and Plan (Free Text) Assessment: 76 yo female with potential UTI started on Zosyn and Vancomycin. [place] cultures sent. Fever up to 102.9 F on admission. Multiple medical issues. Supportive care. Lower back wound. Local wound care. Renal insufficiency. Gram negative rods in urine and wound cultures. E. coli identified from cultures. Can consider use of fluoroquinolones for treatment. R/O sepsis. Afebrile the past few days. At this point, continuing on Zosyn alone for treatment. Thank you for allowing me to participate in the care of the patient, we will follow with you.
[2016-08-17] MEDS: Piperacillin/Tazobact 3.375 gm 100 ML IVPB SCH ×4 (01:21→18:27)
[2016-08-17] MEDS: Levalbuterol 0.63 MG/3 ML Inhal Soln UD IH SCH ×4 (01:49→19:40)
[2016-08-17 07:13] LABS: ADD MANUAL DIFF? NO
[2016-08-17 07:23] LABS: BASO # 0.08 K/mm3 (0.0-2.0); BASO % 0.9 % (0.0-3.0); EOS # 0.6 (0.0-0.7); EOS % 7.2 % (1.5-5.0); GRAN # 5.24 (1.4-6.5); GRAN % 58.6 % (50.0-68.0); HEMATOCRIT 34.7 % (36.0-48.0); LYMPH # 2.1 (1.2-3.4); LYMPH % 23.8 % (22.0-35.0); MEAN CELL VOLUME 77.8 fL (80.0-105.0); MEAN CORPUSCULAR HEMOGLOBIN 24.7 pg (25.0-35.0); MEAN CORPUSCULAR HGB CONC 31.7 g/dl (31.0-37.0); MEAN PLATELET VOLUME 10.4 fl (7.0-11.0); MONO # 0.9 (0.1-0.6); MONO % 9.5 % (1.0-6.0); PLATELET COUNT 274 10^3/uL (120.0-450.0); WHITE BLOOD COUNT 8.9 10^3/ul (4.5-11.0)
[2016-08-17 07:33] LABS: ALB/GLOB RATIO 0.6 (1.1-1.8); BILIRUBIN,TOTAL 0.7 mg/dL (0.2-1.3); TOTAL PROTEIN 7.5 g/dL (5.8-8.3)
--- NOTE | 2016-08-17 07:39 | CP.PCM.PN ---
<Sanam Mtz - Last Filed: 08/17/16 07:39> Subjective - Date & Time of Evaluation Date of Evaluation: 08/17/16 Time of Evaluation: 07:00 - Subjective Subjective: Pt was seen and examined at bedside. No acute complaints at this time. Pt is very pleasant and denies any pains or discomforts. She is eating well and moving her bowels and bladder regularly. As per nursing staff, no acute or adverse event overnight. Pt denied fever, chills, chest pains, palpitations, abdominal pains, n/v/d/c or urinary symptoms. Pt was to be placed in [facility], however further discussions need to be followed up to become accepted. Objective - Vital Signs/Intake and Output Vital Signs (last 24 hours): Temp Pulse Resp BP Pulse Ox 98.1 F 64 20 132/69 95 08/16/16 16:00 08/16/16 18:06 08/16/16 16:00 08/16/16 18:06 08/16/16 16:00 Intake and Output: 08/17/16 08/17/16 06:59 18:59 Intake Total 240 Output Total 200 Balance 40 - Medications Medications: Current Medications Acetaminophen (Tylenol 325mg Tab) 650 mg PO Q6 PRN PRN Reason: Fever >100.4 F Last Admin: 08/14/16 23:43 Dose: 650 mg Ascorbic Acid (Vitamin C 500 Mg Tab) 500 mg PO DAILY [facility] Last Admin: 08/16/16 09:51 Dose: 500 mg Aspirin (Ecotrin) 81 mg PO 0800 [facility] Last Admin: 08/16/16 07:28 Dose: Not Given Aspirin (Ecotrin) 81 mg PO DAILY [facility] Last Admin: 08/16/16 09:51 Dose: 81 mg Atorvastatin Calcium (Lipitor) 20 mg PO DIN [facility] Last Admin: 08/16/16 18:06 Dose: 20 mg Ferrous Sulfate (Feosol) 324 mg PO DAILY [facility] Last Admin: 08/16/16 09:51 Dose: 324 mg Piperacillin Sod/Tazobactam Sod (Zosyn 3.375 In Ns 100ml) 100 mls @ 200 mls/hr IVPB Q6 [facility] PRN Reason: Protocol Last Admin: 08/17/16 05:41 Dose: 200 mls/hr Insulin Human Lispro (Humalog Low) 0 units SC ACHS [facility] PRN Reason: Protocol Last Admin: 08/16/16 22:02 Dose: Not Given Levalbuterol HCl (Xopenex) 0.63 mg IH [id number] [facility] Last Admin: 08/17/16 07:21 Dose: 0.63 mg Levalbuterol HCl (Xopenex) 0.63 mg IH [id number] PRN PRN Reason: Shortness of Breath Levothyroxine Sodium (Synthroid) 125 mcg PO DAILY [facility] Last Admin: 08/16/16 09:51 Dose: 125 mcg Metoprolol Tartrate (Lopressor) 25 mg PO BRKDIN [facility] Last Admin: 08/16/16 18:06 Dose: 25 mg Multivitamins (Thera Tab) 1 tab PO DAILY [facility] Last Admin: 08/16/16 09:51 Dose: 1 tab Ondansetron HCl (Zofran Inj) 4 mg IVP Q6H PRN PRN Reason: Nausea/Vomiting Oxybutynin Chloride (Ditropan Tab) 5 mg PO DAILY [facility] Last Admin: 08/16/16 09:51 Dose: 5 mg Pantoprazole Sodium (Protonix Ec Tab) 40 mg PO DAILY [facility] Last Admin: 08/16/16 09:50 Dose: 40 mg Sucralfate (Carafate Oral Susp) 1 gm PO BID [facility] Last Admin: 08/16/16 18:06 Dose: 1 gm Vitamin B Complex/Vit C/Folic Acid (Nephro-Mane) 1 tab PO DAILY [facility] Last Admin: 08/16/16 09:50 Dose: 1 tab Zinc Sulfate (Zinc Sulfate 220 Mg Cap) 220 mg PO DAILY [facility] Last Admin: 08/16/16 09:51 Dose: 220 mg - Labs Labs: 08/17/16 06:30 08/17/16 06:30 - Constitutional Appears: Well, No Acute Distress - Head Exam Head Exam: ATRAUMATIC, NORMAL INSPECTION, NORMOCEPHALIC - Eye Exam Eye Exam: EOMI, Normal appearance, PERRL - ENT Exam ENT Exam: Mucous Membranes Moist, Normal Exam - Neck Exam Neck Exam: Full ROM, Normal Inspection. absent: Lymphadenopathy - Respiratory Exam Respiratory Exam: Clear to Ausculation Bilateral, NORMAL BREATHING PATTERN - Cardiovascular Exam Cardiovascular Exam: REGULAR RHYTHM, +S1, +S2. absent: Murmur - GI/Abdominal Exam GI & Abdominal Exam: Soft, Normal Bowel Sounds. absent: Tenderness - Extremities Exam Extremities Exam: Full ROM, Normal Capillary Refill, Normal Inspection. absent : Joint Swelling, Pedal Edema - Neurological Exam Neurological Exam: Alert, Awake, CN II-XII Intact, Normal Gait, Oriented x3 - Psychiatric Exam Psychiatric exam: Normal Affect, Normal Mood - Skin Skin Exam: Dry, Intact, Normal Color, Warm Assessment and Plan - Assessment and Plan (Free Text) Assessment: 76 yo female with PMH of HTN, HLD, hypothryroidism, and DM is admitted to hospital for urosepsis. Patient was found to have new onset a fib. 1. Urosepsis - improved - blood culture negative - afebrile, no leukocytosis - zosyn and vanco - ID consulted, Dr. Lafleur following, continue abx for now and will dc with cipro for 7-10 days. 2. Paroxsymal A-fib with RVR converted to NSR - Cardiology is consulted, Dr. Song rec lexiscan stress test, which resulted negative. Echo demonstrated Ef of 65% - Asa, lipitor, metoprolol - Continue lopressor. Patient does have history of esophageal ulcer. 3. decubitous ulcer - wound culture positive for e coli - wound care nurse - Abx doxycycline upon discharge 4. hypothyroidism - cont home med synthroid 125mcg 5. HTN - Stable - cont to monitor 5. DM - ISS- low - fingersticks ACHS 6. HLD - Lipitor 20 mg po qd 7. History of esophageal ulcer - No signs of bleeding - will continue to monitor closely for bleeding DVT- SCDs GI- protonix As per case management rn, Pt insurance not compatible with TCU, has offered pt's son options of [facility] for placement. Family has picked [facility] however, insurance has denied [facility], Peer to peer next step in placement. As per CM: Insurance authorize LTC for the pt - no auth # provided at present. Pertinent info given to the SW. VM left ot patient son Everett Garcia t# [phone] to update status Awaiting input from Accepting facility who will discuss with son financial matters regarding patient discharge planning Seen reviewed and discussed with attending <Manjit Beverly - Last Filed: 08/17/16 17:43> Objective - Vital Signs/Intake and Output Vital Signs (last 24 hours): Temp Pulse Resp BP Pulse Ox 98.1 F 59 L 20 151/66 H 95 08/17/16 08:29 08/17/16 08:47 08/17/16 08:29 08/17/16 08:47 08/17/16 08:29 Intake and Output: 08/17/16 08/17/16 06:59 18:59 Intake Total 240 Output Total 200 Balance 40 - Medications Medications: Current Medications Acetaminophen (Tylenol 325mg Tab) 650 mg PO Q6 PRN PRN Reason: Fever >100.4 F Last Admin: 08/14/16 23:43 Dose: 650 mg Ascorbic Acid (Vitamin C 500 Mg Tab) 500 mg PO DAILY [facility] Last Admin: 08/17/16 10:35 Dose: 500 mg Aspirin (Ecotrin) 81 mg PO 0800 [facility] Last Admin: 08/17/16 08:47 Dose: 81 mg Aspirin (Ecotrin) 81 mg PO DAILY [facility] Last Admin: 08/17/16 10:34 Dose: Not Given Atorvastatin Calcium (Lipitor) 20 mg PO DIN [facility] Last Admin: 08/16/16 18:06 Dose: 20 mg Ferrous Sulfate (Feosol) 324 mg PO DAILY [facility] Last Admin: 08/17/16 10:34 Dose: 324 mg Piperacillin Sod/Tazobactam Sod (Zosyn 3.375 In Ns 100ml) 100 mls @ 200 mls/hr IVPB Q6 [facility] PRN Reason: Protocol Last Admin: 08/17/16 12:36 Dose: 200 mls/hr Insulin Human Lispro (Humalog Low) 0 units SC ACHS [facility] PRN Reason: Protocol Last Admin: 08/17/16 17:16 Dose: 1 units Levalbuterol HCl (Xopenex) 0.63 mg IH [id number] [facility] Last Admin: 08/17/16 13:11 Dose: 0.63 mg Levalbuterol HCl (Xopenex) 0.63 mg IH [id number] PRN PRN Reason: Shortness of Breath Levothyroxine Sodium (Synthroid) 125 mcg PO DAILY [facility] Last Admin: 08/17/16 10:35 Dose: 125 mcg Metoprolol Tartrate (Lopressor) 25 mg PO BRKDIN [facility] Last Admin: 08/17/16 08:47 Dose: 25 mg Multivitamins (Thera Tab) 1 tab PO DAILY [facility] Last Admin: 08/17/16 10:35 Dose: 1 tab Ondansetron HCl (Zofran Inj) 4 mg IVP Q6H PRN PRN Reason: Nausea/Vomiting Oxybutynin Chloride (Ditropan Tab) 5 mg PO DAILY [facility] Last Admin: 08/17/16 10:34 Dose: 5 mg Pantoprazole Sodium (Protonix Ec Tab) 40 mg PO DAILY [facility] Last Admin: 08/17/16 10:35 Dose: 40 mg Sucralfate (Carafate Oral Susp) 1 gm PO BID [facility] Last Admin: 08/17/16 10:33 Dose: 1 gm Vitamin B Complex/Vit C/Folic Acid (Nephro-Mane) 1 tab PO DAILY [facility] Last Admin: 08/17/16 10:34 Dose: 1 tab Zinc Sulfate (Zinc Sulfate 220 Mg Cap) 220 mg PO DAILY [facility] Last Admin: 08/17/16 10:35 Dose: 220 mg - Labs Labs: 08/17/16 06:30 08/17/16 06:30 Attending/Attestation - Attestation I have personally seen and examined this patient.: Yes I have fully participated in the care of the patient.: Yes I have reviewed all pertinent clinical information, including history, physical exam and plan: Yes Notes (Text): Patient seen and examined with resident. Agree with the above note with the following additions/ exceptions: This is 76 year old [place] female with history of HTN, HLD, hypothryroidism, recent hip surgery, fall and DM-2 is admitted to hospital for urosepsis (EColi UTI).Wound culture growing Ecoli. Continue zosyn.Plan to dc her home on cipro. Also found to have PAF on aspirin as she has a history of multiple falls and history of esophageal ulcer. Echocardiogram revealed EF of 65%. Stress test was normal. Continue Protonix and Carafate. PT recommended [facility]. [facility] working [facility] placement in [facility]. Upon discharge The patient will follow up with PMD Dr. Humphrey. Dr Manjit Beverly
[2016-08-17] MEDS: Insulin Lispro (humaLOG) LOW Coverage SC SCH ×4 (08:47→21:44)
[2016-08-17] MEDS: Sucralfate 1 gm/10 ml Oral Susp UD PO SCH ×2 (10:33→18:27)
[2016-08-17] MEDS: Multivitamin Vitamin B Complex (Nephro-Vite) Tab PO SCH (10:34)
[2016-08-17] MEDS: Levothyroxine 125 MCG TAB PO SCH (10:35)
[2016-08-17] MEDS: Multivitamin Therapeutic Tab PO SCH (10:35)
[2016-08-17] MEDS: Pantoprazole 40 mg EC Tab PO SCH (10:35)
--- NOTE | 2016-08-17 16:30 | CP.PCM.PN ---
Subjective - Date & Time of Evaluation Date of Evaluation: 08/17/16 Time of Evaluation: 14:45 - Subjective Subjective: Infectious Disease Follow Up: August 17, 2016 76 yo [place] female with extensive past medical history presented with fatigue and weakness. The patient with altered mental status as per the family and EMS services initiated. The patient complained of chest wall tenderness. Transient nausea, vomiting, and diarrhea episode. Lower back ulcer with mild yellow drainage. Patient tachycardic with RVR during this hospitalization. E. coli in the cultures of the buttocks wound and urine. Negative stress test. Patient stable. Objective - Vital Signs/Intake and Output Vital Signs (last 24 hours): Temp Pulse Resp BP Pulse Ox 98.1 F 59 L 20 151/66 H 95 08/17/16 08:29 08/17/16 08:47 08/17/16 08:29 08/17/16 08:47 08/17/16 08:29 Intake and Output: 08/17/16 08/17/16 06:59 18:59 Intake Total 240 Output Total 200 Balance 40 - Medications Medications: Current Medications Acetaminophen (Tylenol 325mg Tab) 650 mg PO Q6 PRN PRN Reason: Fever >100.4 F Last Admin: 08/14/16 23:43 Dose: 650 mg Ascorbic Acid (Vitamin C 500 Mg Tab) 500 mg PO DAILY [facility] Last Admin: 08/17/16 10:35 Dose: 500 mg Aspirin (Ecotrin) 81 mg PO 0800 [facility] Last Admin: 08/17/16 08:47 Dose: 81 mg Aspirin (Ecotrin) 81 mg PO DAILY [facility] Last Admin: 08/17/16 10:34 Dose: Not Given Atorvastatin Calcium (Lipitor) 20 mg PO DIN [facility] Last Admin: 08/16/16 18:06 Dose: 20 mg Ferrous Sulfate (Feosol) 324 mg PO DAILY [facility] Last Admin: 08/17/16 10:34 Dose: 324 mg Piperacillin Sod/Tazobactam Sod (Zosyn 3.375 In Ns 100ml) 100 mls @ 200 mls/hr IVPB Q6 [facility] PRN Reason: Protocol Last Admin: 08/17/16 12:36 Dose: 200 mls/hr Insulin Human Lispro (Humalog Low) 0 units SC ACHS [facility] PRN Reason: Protocol Last Admin: 08/17/16 12:36 Dose: Not Given Levalbuterol HCl (Xopenex) 0.63 mg IH [id number] [facility] Last Admin: 08/17/16 13:11 Dose: 0.63 mg Levalbuterol HCl (Xopenex) 0.63 mg IH [id number] PRN PRN Reason: Shortness of Breath Levothyroxine Sodium (Synthroid) 125 mcg PO DAILY [facility] Last Admin: 08/17/16 10:35 Dose: 125 mcg Metoprolol Tartrate (Lopressor) 25 mg PO BRKDIN [facility] Last Admin: 08/17/16 08:47 Dose: 25 mg Multivitamins (Thera Tab) 1 tab PO DAILY [facility] Last Admin: 08/17/16 10:35 Dose: 1 tab Ondansetron HCl (Zofran Inj) 4 mg IVP Q6H PRN PRN Reason: Nausea/Vomiting Oxybutynin Chloride (Ditropan Tab) 5 mg PO DAILY [facility] Last Admin: 08/17/16 10:34 Dose: 5 mg Pantoprazole Sodium (Protonix Ec Tab) 40 mg PO DAILY [facility] Last Admin: 08/17/16 10:35 Dose: 40 mg Sucralfate (Carafate Oral Susp) 1 gm PO BID [facility] Last Admin: 08/17/16 10:33 Dose: 1 gm Vitamin B Complex/Vit C/Folic Acid (Nephro-Mane) 1 tab PO DAILY [facility] Last Admin: 08/17/16 10:34 Dose: 1 tab Zinc Sulfate (Zinc Sulfate 220 Mg Cap) 220 mg PO DAILY [facility] Last Admin: 08/17/16 10:35 Dose: 220 mg - Labs Labs: 08/17/16 06:30 08/17/16 06:30 - Constitutional Appears: Non-toxic, No Acute Distress, Chronically Ill - Head Exam Head Exam: ATRAUMATIC, NORMOCEPHALIC - Eye Exam Eye Exam: EOMI, PERRL Pupil Exam: NORMAL ACCOMODATION, PERRL - ENT Exam ENT Exam: Mucous Membranes Moist, Normal External Ear Exam, TM's Normal Bilaterally - Neck Exam Neck Exam: Full ROM, Normal Inspection - Respiratory Exam Respiratory Exam: Clear to Ausculation Bilateral, NORMAL BREATHING PATTERN. absent: Rales, Rhonchi, Wheezes - Cardiovascular Exam Cardiovascular Exam: REGULAR RHYTHM, RRR, +S1, +S2 - GI/Abdominal Exam GI & Abdominal Exam: Soft, Normal Bowel Sounds. absent: Distended, Tenderness - Extremities Exam Extremities Exam: Full ROM, Normal Inspection - Neurological Exam Neurological Exam: Alert, Awake, CN II-XII Intact, Oriented x3 - Psychiatric Exam Psychiatric exam: Normal Affect, Normal Mood - Skin Skin Exam: Intact, Normal Color Assessment and Plan - Assessment and Plan (Free Text) Assessment: 76 yo female with potential UTI started on Zosyn and Vancomycin. [place] cultures sent. Fever up to 102.9 F on admission. Multiple medical issues. Supportive care. Lower back wound. Local wound care. Renal insufficiency. Gram negative rods in urine and wound cultures. E. coli identified from cultures. Can consider use of fluoroquinolones for treatment. R/O sepsis. Afebrile the past few days. At this point, continuing on Zosyn alone for treatment. Can complete with Cipro PO for antibiotic treatment. Thank you for allowing me to participate in the care of the patient, we will follow with you.
[2016-08-17 18:43] VITALS: BP 119/64; PULSE 61
[2016-08-17 19:56] VITALS: TEMP 98; O2SAT 93
== END 2016-08-17 22:28 | DRG 584 ==
LOC: ED 19:01 → ERH 20:31 → 2RNO 23:09 → 5RNO 08-14 14:26
PROVIDERS: ADMIT Internal Medicine; ATTEND Hospitalist
PROC: 3E0F7GC Introduction of Other Therapeutic Substance into Respiratory Tract, Via Natural or Artificial Opening (ICD-10-PCS; principal; 2016-08-10)
DX: A41.9 Sepsis, unspecified organism (principal); L89.153 Pressure ulcer of sacral region, stage 3; F03.90 Unspecified dementia, unspecified severity, without behavioral disturbance, psychotic disturbance, mood disturbance, and anxiety; I48.0 Paroxysmal atrial fibrillation; K22.10 Ulcer of esophagus without bleeding; J44.9 Chronic obstructive pulmonary disease, unspecified; N39.0 Urinary tract infection, site not specified; B96.20 Unspecified Escherichia coli [E. coli] as the cause of diseases classified elsewhere; I10 Essential (primary) hypertension; E11.9 Type 2 diabetes mellitus without complications; E78.5 Hyperlipidemia, unspecified; E03.9 Hypothyroidism, unspecified; K29.70 Gastritis, unspecified, without bleeding; D50.9 Iron deficiency anemia, unspecified; N28.9 Disorder of kidney and ureter, unspecified; M19.90 Unspecified osteoarthritis, unspecified site; R29.6 Repeated falls; Z79.84 Long term (current) use of oral hypoglycemic drugs; Z91.81 History of falling

== ENCOUNTER 2016-11-04 12:20 | Inpatient (IN) | payer MEDICAID, MEDICARE ==
[2016-11-04 12:21] VITALS: BMI 27.4
--- NOTE | 2016-11-04 12:58 | ED PDOC ---
Arrival/HPI - General Chief Complaint: Trauma Time Seen by Provider: 11/04/16 12:28 Historian: Patient, Family - History of Present Illness Narrative History of Present Illness (Text): 11/04/16 13:04 A 76 year old female from retirement on [facility], was sent to the emergency department by EMS from retirement s/p fall. Patient was trying to sit after using the restroom and may have struck head. Patient and patient's family are poor historians. Patient is complaining of low back pain, left sided rib pain and mild neck pain. Denies any other complaints at this time. Symptom Onset: Sudden Symptom Course: Unchanged Activities at Onset: Rest Context: Other (retirement) Past Medical History - Provider Review Nursing Documentation Reviewed: Yes - Infectious Disease Hx of Infectious Diseases: None - Cardiac Hx Atrial Fibrillation: Yes Hx Hypertension: Yes Other/Comment: Acute Ischemic Heart Disease - Pulmonary Hx Respiratory Disorders: No (DENIES) - Neurological Hx Neurological Disorder: Yes Hx Dementia: Yes - HEENT Hx HEENT Disorder: Yes (USES GLASSES) - Renal Hx Renal Disorder: No (DENIES) Other/Comment: Kidney Disease - Endocrine/Metabolic Hx Diabetes Mellitus Type 2: Yes Hx Hypothyroidism: Yes - Hematological/Oncological Hx Blood Disorders: No - Integumentary Hx Dermatological Disorder: No - Musculoskeletal/Rheumatological Hx Falls: Yes Hx Osteoarthritis: Yes Other/Comment: family assist with ambulation, walker, w/ch mostly bedridden - Gastrointestinal Hx Gastrointestinal Disorders: Yes (GASTRITIS) Hx Constipation: Yes Hx Gastroesophageal Reflux: Yes - Genitourinary/Gynecological Hx Genitourinary Disorders: No Hx Incontinence: No Hx Urinary Tract Infection: Yes - Psychiatric Hx Psychophysiologic Disorder: No Hx Substance Use: No - Surgical History Other/Comment: R hip surgery - Anesthesia Hx Anesthesia: Yes Hx Anesthesia Reactions: No Hx Malignant Hyperthermia: No - Suicidal Assessment Feels Threatened In Home Enviroment: No Family/Social History - Physician Review Nursing Documentation Reviewed: Yes Family/Social History: No Known Family HX Smoking Status: Never Smoked Hx Alcohol Use: No Hx Substance Use: No Allergies/Home Meds Allergies/Adverse Reactions: Allergies No Known Allergies Allergy (Verified 11/04/16 12:45) Home Medications: Home Meds Medication Instructions Recorded Confirmed B Complex W-C No.20/Folic Acid 1 sgl PO DAILY 08/09/16 11/04/16 [[place] Caps Softgel] Omeprazole 20 mg PO DAILY 08/09/16 11/04/16 Acetaminophen [Tylenol 325mg tab] 650 mg PO Q4 PRN 11/04/16 11/04/16 Albuterol 0.083% [Albuterol 0.083% 1 vial INH Q6 PRN 11/04/16 11/04/16 Inhal Pamela (2.5 mg/3 ml) UD] Insulin Detemir [Levemir] 12 unit INJ HS 11/04/16 11/04/16 traMADol [Ultram] 50 mg PO PRN PRN 11/04/16 11/04/16 Review of Systems - Physician Review All systems were reviewed & negative as marked: Yes - Review of Systems Constitutional: absent: Fevers Musculoskeletal: Back Pain (low), Neck Pain (mild), Other (left sided rib pain) Physical Exam Vital Signs Reviewed: Yes Vital Signs Temp Pulse Resp BP Pulse Ox 11/04/16 15:42 60 18 102/67 99 11/04/16 15:18 55 L 18 94/39 L 99 11/04/16 12:50 98.1 F 68 16 99/44 L 99 Temperature: Afebrile Blood Pressure: Hypotensive Pulse: Regular Respiratory Rate: Normal Appearance: Positive for: Well-Appearing, Non-Toxic, Comfortable Pain Distress: None Mental Status: Positive for: Alert and Oriented X 3 - Systems Exam Head: Present: Atraumatic, Normocephalic Pupils: Present: PERRL Extroacular Muscles: Present: EOMI Conjunctiva: Present: Normal Mouth: Present: Moist Mucous Membranes Neck: Present: Normal Range of Motion Respiratory/Chest: Present: Clear to Auscultation, Good Air Exchange, Other ( mild left costal margin tenderness). No: Respiratory Distress, Accessory Muscle Use Cardiovascular: Present: Regular Rate and Rhythm, Normal S1, S2. No: Murmurs Abdomen: Present: Normal Bowel Sounds. No: Tenderness, Distention, Peritoneal Signs Back: Present: Other (mild paraspinal cervical tenderness and lumbar tenderness) Upper Extremity: Present: Normal Inspection. No: Cyanosis, Edema Lower Extremity: Present: Normal Inspection. No: Edema Neurological: Present: GCS=15, CN II-XII Intact, Speech Normal Skin: Present: Warm, Dry, Normal Color. No: Rashes Psychiatric: Present: Alert, Oriented x 3, Normal Insight, Normal Concentration Medical Decision Making ED Course and Treatment: 11/04/16 12:55 Impression: A 76 year old female s/p fall with low back pain, left sided rib pain and mild neck pain. Plan: -- CT cervical spine -- CT head -- CT lumbar spine -- Radiology pelvis -- Radiology ribs left -- labs -- Urinalysis -- Tylenol -- Reassess and disposition Prior Visits: Notes and results from previous visits were reviewed. Patient last reported to the emergency department on 08/09/16 for evaluation of generalized fatigue and decreased appetite. Progress Notes: 11/04/16 14:34 CT HEAD WITHOUT CONTRAST Creator : Jules Jung MD FINDINGS: HEMORRHAGE: No acute parenchymal, subarachnoid or extra-axial hemorrhage. Hemorrhage. BRAIN: Re- demonstrated are moderate chronic periventricular white matter ischemic changes extending peripherally into the deep and subcortical white matter both cerebral hemispheres. There also appears to be some extension of these changes into the white matter tracts of both basal nuclei. Chronic appearing right thalamic lacunar type infarct noted. . Moderate on generalized volume loss VENTRICLES: No obstructive hydrocephalus CALVARIUM: There are no acute calvarial fractures. PARANASAL SINUSES: Unremarkable as visualized. No significant inflammatory changes. MASTOID AIR CELLS: Unremarkable as visualized. No inflammatory changes. IMPRESSION: No acute intracranial hemorrhage. Moderate chronic white matter ischemic and basal nuclei ischemic changes as above Moderate generalized volume loss. 11/04/16 14:44 CT Lumbar Spine without contrast Creator : Jules Jung MD IMPRESSION: No acute fracture seen. 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 There is widening of the AP diameter of the canal and bilateral foraminal stenosis as is typical for spondylolysis/ spondylolisthesis. Minor multilevel degenerative spondylosis seen at the remaining levels as above. 11/04/16 14:49 CT Cervical Spine without contrast Creator : Jules Jung MD FINDINGS: VERTEBRAE: Current study reveals no acute compression fractures no retropulsed fragments. . There is mild chronic appearing anterior stature loss of the C5 and to a lesser degree C4 and C6 segments felt to be degenerative in origin. Remaining vertebral bodies otherwise exhibit relatively normal stature. Vertebral bodies and facets normally aligned. DISCS/SPINAL CANAL/NEURAL FORAMINA: Multilevel degenerative spondylosis. At the C2-C3 level, there is mild disc space narrowing more so along the posterior disc margin with small broad-based disc bulge ridge complex contiguous with slightly hypertrophic uncovertebral joints. Facets also mildly hypertrophic. Central canal appears adequate. Exit foramina appear adequate on the left than marginal to minimally narrowed on the right. At the C3-C4 level, there is relatively adequate disc height. Small asymmetric disc bulge larger on the left than right noted. The facets are slightly hypertrophic right greater than left. Central canal appears adequate. The left exit foramen is adequate. Right exit foramen is marginal to minimally narrowed. At the at see 4 C5 level, marked disc space narrowing cortical endplate irregularity -eburnation with small posterior osteophytic ridge disc complex contiguous with hypertrophic uncovertebral joints. Facets also slightly hypertrophic. Central canal appears adequate as do the exit foramina. At the C5-C6 level, there is also disc space narrowing with endplate eburnation and small osteophytic ridge disc complex that is contiguous with hypertrophic uncovertebral joints. The facets also mildly hypertrophic. Central canal appears adequate without significant cord compression. Exit foramina appear narrowed bilaterally. At the C6-C7 level, there is disc space narrowing, endplate eburnation with small osteophytic ridge disc complex contiguous with hypertrophic uncovertebral joints. Facets are hypertrophic. Central canal appears adequate. Exit foramina appear adequate as well. PARASPINAL SOFT TISSUES: Prevertebral and paraspinal soft tissues unremarkable. OTHER FINDINGS: Lung apices are clear without evidence of pneumothorax IMPRESSION: No acute fractures. Multilevel degenerative spondylosis as detailed above. Lung apices clear 11/04/16 15:22 Radiographs of the pelvis Creator : Jules Jung MD FINDINGS: BONES: Suspect fracture of the medial aspect right inferior pubic ramus. The followup CT scan could be performed for further evaluation. There has been interval placement of a intramedullary fixation nail and traversing the left femoral neck which is stabilized by an intramedullary fixation alexander within the proximal left femur. Similar ORIF changes right hip. Hardware appears intact without evidence of loosening or infection. No definitive radiographic evidence of acute displaced Both femoral heads are appropriately located within the respective acetabula. JOINTS: Mild joint space narrowing both hips. IMPRESSION: Suspect fracture medial aspect left and right inferior pubic ramus. ORIF changes both femurs as described. Discussed with Dr Bruno approximately 3 :16 p.m. See above discussion for additional details findings and recommendations 11/04/16 15:28 Radiographs of the Chest and Left Ribs Creator : Jules Jung MD IMPRESSION: Suspect fracture left anterolateral 8th rib. No evidence of pneumothorax. Poor inspiration with low lung volumes, crowded/nodular appearance of the interstitial markings. This may be due to AP supine positioning however the possibility of nonspecific interstitial infiltrates not excluded. Note these findings discussed with Dr. Bruno and approximately 3:24 p.m. with written down and read back verification. 11/08/16 07:[address] graves and dr adan. accepted for admission - Lab Interpretations Lab Results: 11/04/16 13:24 11/04/16 13:24 Lab Results 11/04/16 13:30: Iron 27 L, TIBC 238 L, % Saturation 11 L 11/04/16 13:30: Troponin I < 0.01 11/04/16 13:24: Ferritin 40.3 11/04/16 13:24: Sodium 138, Potassium 4.1, Chloride 106, Carbon Dioxide 23, Anion Gap 13, BUN 29 H, Creatinine 1.4, Est GFR ( Amer) 44, Est GFR (Non- Af Amer) 36, Random Glucose 132 H, Calcium 8.5, Total Bilirubin 0.4, AST 51 H, ALT 23, Alkaline Phosphatase 211 H, Total Protein 7.3, Albumin 2.9 L, Globulin 4.3, Albumin/Globulin Ratio 0.7 L 11/04/16 13:24: PT 13.6 H, INR 1.26 H, APTT 37.8 H 11/04/16 13:24: WBC 6.4 D, RBC 3.64, Hgb 9.1 L, Hct 28.6 L, MCV 78.6 L, MCH 25.0, MCHC 31.8, RDW 16.0 H, Plt Count 181, MPV 10.5, Gran % 67.7, Lymph % (Auto ) 20.9 L, [place] % (Auto) 10.0 H, Eos % (Auto) 1.1 L, Baso % (Auto) 0.3, Gran # 4.33, Lymph # 1.3, [place] # 0.6, Eos # 0.1, Baso # 0.02 I have reviewed the lab results: Yes - RAD Interpretation Radiology Orders: 11/04/16 12:48 CERVICAL SPINE W/O CONTRAST [CT] Stat HEAD W/O CONTRAST [CT] Stat LUMBAR SPINE W/O CONTRAST [CT] Stat PELVIS ONE VIEW [RAD] Stat RIBS LEFT & PA CHEST [RAD] Stat - Medication Orders Current Medication Orders: Discontinued Medications Acetaminophen (Tylenol 325mg Tab) 650 mg PO STAT STA Stop: 11/04/16 12:48 Last Admin: 11/04/16 13:29 Dose: 650 mg Re-Assess: MAR Pain/Vitals Document 11/04/16 14:29 MB (Rec: 11/04/16 20:00 MB [id number]) Pain Reassessment Is This A Pain ReAssessment? Yes Sleep Is patient sleeping during reassessment? Yes Acetaminophen (Tylenol 325mg Tab) 650 mg PO Q4 PRN PRN Reason: Fever >100.4 F Albuterol Sulfate (Albuterol 0.083% Inhal Pamela (2.5 Mg/3 Ml) Ud) 2.5 mg INH Q6 PRN PRN Reason: Wheezing Calcium Carbonate (Oscal) 500 mg PO DAILY [facility] Last Admin: 11/07/16 10:45 Dose: 500 mg Docusate Sodium (Colace) 100 mg PO TID [facility] Last Admin: 11/07/16 13:35 Dose: 100 mg Ergocalciferol (Drisdol 50,000 Intl Units Cap) 1 cap PO QWK [facility] Last Admin: 11/06/16 12:20 Dose: 1 cap Hydrocortisone (Anusol-Hc) 25 mg RC BID [facility] Last Admin: 11/07/16 13:33 Dose: 25 mg Sodium Chloride (Sodium Chloride 0.9%) 1,000 mls @ 75 mls/hr IV .[id number] [facility] Last Admin: 11/05/16 12:13 Dose: 75 mls/hr Dextrose/Sodium Chloride (Dextrose 5%/0.45% Ns 1000 Ml) 1,000 mls @ 50 mls/hr IV .Q20H [facility] Last Admin: 11/06/16 09:55 Dose: 50 mls/hr Sodium Chloride (Sodium Chloride 0.9%) 1,000 mls @ 999 mls/hr IV .Q1H1M STA Stop: 11/06/16 16:08 Last Admin: 11/06/16 15:43 Dose: 999 mls/hr Comments: scanner not working. Dextrose/Sodium Chloride (Dextrose 5%/0.45% Ns 1000 Ml) 1,000 mls @ 100 mls/hr IV .Q10H [facility] Last Admin: 11/07/16 08:39 Dose: 100 mls/hr Insulin Human Lispro (Humalog Low) 0 units SC ACHS DESHAWN PRN Reason: Protocol Last Admin: 11/07/16 11:30 Dose: Not Given Non-Admin Reason: Blood Sugar Parameter Lactulose (Enulose) 10 gm PO ONCE ONE Stop: 11/07/16 11:35 Last Admin: 11/07/16 13:33 Dose: 10 gm Levothyroxine Sodium (Synthroid) 125 mcg PO DAILY [facility] Last Admin: 11/06/16 09:54 Dose: 125 mcg Levothyroxine Sodium (Synthroid) 150 mcg PO ACB [facility] Last Admin: 11/07/16 08:35 Dose: 150 mcg Metoclopramide HCl (Reglan) 5 mg IVP ACHS [facility] Last Admin: 11/07/16 11:30 Dose: Non-Formulary Medication (B Complex W-C No.20/Folic Acid [[place] Caps Softgel]) 1 sgl PO DAILY [facility] Last Admin: 11/07/16 10:18 Dose: Pantoprazole Sodium (Protonix Ec Tab) 40 mg PO HS [facility] Last Admin: 11/06/16 22:46 Dose: Not Given Non-Admin Reason: Patient Refused Polyethylene Glycol (Miralax) 17 gm PO BID [facility] Last Admin: 11/07/16 10:44 Dose: 17 gm Polyethylene Glycol (Miralax) 17 gm PO DAILY [facility] Last Admin: 11/05/16 14:41 Dose: Tramadol HCl (Ultram) 50 mg PO PRN PRN PRN Reason: Pain, moderate (4-7) Tramadol HCl (Ultram) 50 mg PO TID PRN PRN Reason: Pain, moderate (4-7) Last Admin: 11/05/16 22:03 Dose: 50 mg Re-Assess: KWABENA Pain Assessment Document 11/05/16 23:03 MB (Rec: 11/05/16 23:19 MB [id number]) Pain Reassessment Is this a pain reassessment? Yes Sleep Is patient sleeping during reassessment? Yes - Scribe Statement The provider has reviewed the documentation as recorded by the Serge Cervantes Provider Scribe Attestation: All medical record entries made by the Homeroibneo were at my direction and personally dictated by me. I have reviewed the chart and agree that the record accurately reflects my personal performance of the history, physical exam, medical decision making, and the department course for this patient. I have also personally directed, reviewed, and agree with the discharge instructions and disposition. Disposition/Present on Arrival - Present on Arrival Any Indicators Present on Arrival: No History of DVT/PE: No History of Uncontrolled Diabetes: No Urinary Catheter: No History of Decub. Ulcer: Yes (sacral) History Surgical Site Infection Following: None - Disposition Have Diagnosis and Disposition been Completed?: Yes Diagnosis: Pelvic fracture, Rib fracture Disposition: HOSPITALIZED Disposition Time: 02:00 Condition: FAIR
[2016-11-04 13:36] LABS: BASO # 0.02 K/mm3 (0.0-2.0); BASO % 0.3 % (0.0-3.0); EOS # 0.1 (0.0-0.7); EOS % 1.1 % (1.5-5.0); GRAN # 4.33 (1.4-6.5); GRAN % 67.7 % (50.0-68.0); HEMATOCRIT 28.6 % (36.0-48.0); LYMPH # 1.3 (1.2-3.4); LYMPH % 20.9 % (22.0-35.0); MEAN CELL VOLUME 78.6 fl (80.0-105.0); MEAN CORPUSCULAR HGB CONC 31.8 g/dl (31.0-37.0); MEAN PLATELET VOLUME 10.5 fl (7.0-11.0); MONO # 0.6 (0.1-0.6); WHITE BLOOD COUNT 6.4 10^3/ul (4.5-11.0)
[2016-11-04 13:42] LABS: INR 1.26 (0.93-1.08); PARTIAL THROMBOPLASTIN TIME 37.8 Seconds (23.7-30.8)
[2016-11-04 13:45] LABS: ALB/GLOB RATIO 0.7 (1.1-1.8); BILIRUBIN,TOTAL 0.4 mg/dL (0.2-1.3); CALCIUM 8.5 mg/dL (8.4-10.5); POTASSIUM 4.1 mmol/L (3.6-5.0); TOTAL PROTEIN 7.3 g/dL (5.8-8.3)
--- NOTE | 2016-11-04 14:32 | CT ---
PROCEDURE: CT HEAD WITHOUT CONTRAST. HISTORY: fall COMPARISON: Comparison made with CT scan brain dated 06/20/2016 TECHNIQUE: Axial computed tomography images were obtained through the head/brain without intravenous contrast. Radiation dose: Total exam DLP = 725.84 mGy-cm. This CT exam was performed using one or more of the following dose reduction techniques: Automated exposure control, adjustment of the mA and/or kV according to patient size, and/or use of iterative reconstruction technique. FINDINGS: HEMORRHAGE: No acute parenchymal, subarachnoid or extra-axial hemorrhage. Hemorrhage. BRAIN: Re- demonstrated are moderate chronic periventricular white matter ischemic changes extending peripherally into the deep and subcortical white matter both cerebral hemispheres. There also appears to be some extension of these changes into the white matter tracts of both basal nuclei. Chronic appearing right thalamic lacunar type infarct noted. . Moderate on generalized volume loss VENTRICLES: No obstructive hydrocephalus CALVARIUM: There are no acute calvarial fractures. PARANASAL SINUSES: Unremarkable as visualized. No significant inflammatory changes. MASTOID AIR CELLS: Unremarkable as visualized. No inflammatory changes. OTHER FINDINGS: None. IMPRESSION: No acute intracranial hemorrhage. Moderate chronic white matter ischemic and basal nuclei ischemic changes as above Moderate generalized volume loss.
--- NOTE | 2016-11-04 14:41 | CT ---
PROCEDURE: CT Lumbar Spine without contrast HISTORY: fall COMPARISON: Comparison made with MRI of the lumbar spine 11/11/2014 leyda TECHNIQUE: Axial computed tomography images were obtained of the lumbar spine without the use of intravenous contrast. Coronal and sagittal reformatted images were created and reviewed. Radiation dose: Total exam DLP = 749.33 mGy-cm. This CT exam was performed using one or more of the following dose reduction techniques: Automated exposure control, adjustment of the mA and/or kV according to patient size, and/or use of iterative reconstruction technique. FINDINGS: VERTEBRAE: The current study reveals no definitive radiographic evidence of acute no compression fractures nor retropulsed fragments. Note that the inferolateral margin left talus aspect of the sacrum has been partially excluded from the KAE placement. Re- demonstrated are bilateral spondylolysis and minimal less than grade 1 spondylolisthesis L5-S1 level. Facets are quite hypertrophic at this level with heterotopic bone changes about the pars defects bilaterally. Widening of the AP diameter of the canal with bilateral foraminal stenosis as is typical for bilateral spondylolysis/spondylolisthesis. Minor posterior disc space narrowing. The remaining vertebral bodies otherwise exhibit normal alignment. Facets normally aligned. DISCS/SPINAL CANAL/NEURAL FORAMINA: Disc space heights are relatively maintained at the remaining levels. Mild broad-based disc bulging noted at the L4-L5, L3-L4 and L2-L3 levels with mildly hypertrophic facets and buckled ligamentum flavum. . Changes result in mild flattening of the ventral surfaces of the thecal sac at each level on. Lateral recesses are slightly narrowed at the L4-L5 level. Canal is adequate at the L3-L4 and L2-L3 levels level. . Exit foramina appear adequate. PARASPINAL SOFT TISSUES: Paraspinal soft tissues grossly unremarkable OTHER FINDINGS: None. IMPRESSION: No acute fracture seen. 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 There is widening of the AP diameter of the canal and bilateral foraminal stenosis as is typical for spondylolysis/spondylolisthesis. Minor multilevel degenerative spondylosis seen at the remaining levels as above.
--- NOTE | 2016-11-04 14:47 | CT ---
PROCEDURE: CT Cervical Spine without contrast HISTORY: Status post fall COMPARISON: None available. TECHNIQUE: Axial computed tomography images were obtained of the cervical spine without the use of intravenous contrast. Coronal and sagittal reformatted images were created and reviewed. Radiation dose: Total exam DLP = 462.84 mGy-cm. This CT exam was performed using one or more of the following dose reduction techniques: Automated exposure control, adjustment of the mA and/or kV according to patient size, and/or use of iterative reconstruction technique. FINDINGS: VERTEBRAE: Current study reveals no acute compression fractures no retropulsed fragments. . There is mild chronic appearing anterior stature loss of the C5 and to a lesser degree C4 and C6 segments felt to be degenerative in origin. Remaining vertebral bodies otherwise exhibit relatively normal stature. Vertebral bodies and facets normally aligned. DISCS/SPINAL CANAL/NEURAL FORAMINA: Multilevel degenerative spondylosis. At the C2-C3 level, there is mild disc space narrowing more so along the posterior disc margin with small broad-based disc bulge ridge complex contiguous with slightly hypertrophic uncovertebral joints. Facets also mildly hypertrophic. Central canal appears adequate. Exit foramina appear adequate on the left than marginal to minimally narrowed on the right. At the C3-C4 level, there is relatively adequate disc height. Small asymmetric disc bulge larger on the left than right noted. The facets are slightly hypertrophic right greater than left. Central canal appears adequate. The left exit foramen is adequate. Right exit foramen is marginal to minimally narrowed. At the at see 4 C5 level, marked disc space narrowing cortical endplate irregularity -eburnation with small posterior osteophytic ridge disc complex contiguous with hypertrophic uncovertebral joints. Facets also slightly hypertrophic. Central canal appears adequate as do the exit foramina. At the C5-C6 level, there is also disc space narrowing with endplate eburnation and small osteophytic ridge disc complex that is contiguous with hypertrophic uncovertebral joints. The facets also mildly hypertrophic. Central canal appears adequate without significant cord compression. Exit foramina appear narrowed bilaterally. At the C6-C7 level, there is disc space narrowing, endplate eburnation with small osteophytic ridge disc complex contiguous with hypertrophic uncovertebral joints. Facets are hypertrophic. Central canal appears adequate. Exit foramina appear adequate as well. PARASPINAL SOFT TISSUES: Prevertebral and paraspinal soft tissues unremarkable. OTHER FINDINGS: Lung apices are clear without evidence of pneumothorax IMPRESSION: No acute fractures. Multilevel degenerative spondylosis as detailed above. Lung apices clear
--- NOTE | 2016-11-04 15:20 | RAD ---
PROCEDURE: Radiographs of the pelvis. HISTORY: fall COMPARISON: Comparison made with plain film radiographs/ left hip and CT scan of the pelvis 06/20/2016. FINDINGS: BONES: Suspect fracture of the medial aspect right inferior pubic ramus. The followup CT scan could be performed for further evaluation. There has been interval placement of a intramedullary fixation nail and traversing the left femoral neck which is stabilized by an intramedullary fixation alexander within the proximal left femur. Similar ORIF changes right hip. Hardware appears intact without evidence of loosening or infection. No definitive radiographic evidence of acute displaced Both femoral heads are appropriately located within the respective acetabula. . JOINTS: Mild joint space narrowing both hips. OTHER FINDINGS: None. IMPRESSION: Suspect fracture medial aspect left and right inferior pubic ramus. ORIF changes both femurs as described. Discussed with Dr Bruno approximately 3:16 p.m. See above discussion for additional details findings and recommendations
--- NOTE | 2016-11-04 15:27 | RAD ---
PROCEDURE: Radiographs of the Chest and Left Ribs. HISTORY: fall COMPARISON: Comparison chest 08/09/2016. TECHNIQUE: Poor inspiration with FINDINGS: LEFT RIBS: There appears to be a fracture of the left anterolateral what is felt to represent a the left anterolateral 8th rib LUNGS: Poor inspiration with low lung volumes, crowded/nodular appearance of the interstitial markings. This may be due to AP supine positioning however the possibility of nonspecific interstitial infiltrates not excluded PLEURA: No evidence of pneumothorax. No pleural fluid. CARDIOVASCULAR: Normal sized heart. No pulmonary vascular congestion. OTHER FINDINGS: None. IMPRESSION: Suspect fracture left anterolateral 8th rib. No evidence of pneumothorax. Poor inspiration with low lung volumes, crowded/nodular appearance of the interstitial markings. This may be due to AP supine positioning however the possibility of nonspecific interstitial infiltrates not excluded. Note these findings discussed with Dr. Bruno and approximately 3:24 p.m. with written down and read back verification.
[2016-11-04] MEDS ORDERED: Albuterol 0.083% Inhal Sol (2.5 mg/3 mL) UD INH PRN (16:41)
[2016-11-04 18:48] LABS: IRON 27 ug/dL (45-180)
--- NOTE | 2016-11-04 20:27 | CP.PCM.HP ---
<Rivas Cruz - Last Filed: 11/05/16 06:58> History of Present Illness - History of Present Illness History of Present Illness: Internal Medicine H&P for Hospitalist Service CC: Fall, pelvic and rib fracture on radiographs HPI: This is a 76 yo Azeri-speaking F with PMH of Paroxysmal Afib, HTN, HLD, hypothryroidism, esophageal ulcer and DM who presents to the ED s/p mechanical fall at retirement ([facility]). Per patient and daughter at bedside, patient reports being wheeled to bathroom in wheelchair, and when staff stepped out for a moment to grab equipment, patient attempted to push up from wheelchair, but the wheel brakes were not engaged, so the chair moved back and she fell backwards onto her buttocks. Denies head trauma, dizziness, loss of consciousness, down on ground for prolonged period. Reports initially that staff returned to room immediately after fall, but later states that they were absent for several minutes. Patient insists she retains full memory prior to and after fall. She reports occasional dizziness when moving from sitting to standing, but is adamant that it did not occur with this fall. Denies chest pain, shortness of breath, cough, nausea/emesis, poor/decreased PO intake, dysuria/hematuria, constipation/diarrhea, fevers/chills, focal weakness, room spinning/lightheadedness, vision changes, or syncope/near-syncope. Does complain of neck pain, but as per daughter, this is a chronic complaint for patient, and patient is observed moving head in all directions during exam without overt difficulty or distress. All other ROS in 12-point system review negative. Of note, during last admission, patient was discharged on ASA and Metoprolol for paroxysmal AFib, and Eliquis for anticoagulation was held, due to bleeding risk given hx of esophageal ulcers (as per Cardio), however on return to the ED paperwork from [facility] indicates discontinuation of ASA/Metoprolol and resumption of Eliquis. Will hold Eliquis at this time due to fall, but due to NSR and borderline bradycardia (HR 58-61 on bedside monitor during exam), will continue to hold Metoprolol. PMH: as above PSH: bilateral hip surgery SHx: denies tobacco/EtOH/illicits, currently at [facility] FHx: denies PMD: Dr. Grady Present on Admission - Present on Admission Any Indicators Present on Admission: Yes History of DVT/PE: No History of Uncontrolled Diabetes: No Urinary Catheter: No Decubitus Ulcer Present: No (hx of decubitus ulcers) Review of Systems - Review of Systems All systems: reviewed and no additional remarkable complaints except (as per HPI ) Past Patient History - Infectious Disease Hx of Infectious Diseases: None - Past Medical History & Family History Past Medical History?: Yes - Past Social History Smoking Status: Former Smoker - CARDIAC Hx Cardiac Disorders: No Hx Angina: No Hx Cardia Arrhythmia: No Hx Circulatory Problems: No Hx Congestive Heart Failure: No Hx Heart Murmur: No Hx Heart Transplant: No Hx Hypercholesterolemia: Yes Hx Hypertension: Yes Hx Internal Defibrillator: No Hx Mitral Valve Prolapse: No Hx Pacemaker: No Hx Peripheral Edema: No Hx Peripheral Vascular Disease: No - PULMONARY Hx Respiratory Disorders: No Hx Asthma: No Hx Bronchitis: No Hx Chronic Obstructive Pulmonary Disease (COPD): No Hx Emphysema: No Hx Pneumonia: No Hx Respiratory Aspiration: No Hx Respiratory Tract Infection: No Hx Sleep Apnea: No Hx Tuberculosis: No - NEUROLOGICAL Hx Neurological Disorder: No Hx Alzheimer's Disease: No HX Cerebrovascular Accident: No Hx Dementia: Yes Hx Dizziness: No Hx Meningitis: No Hx Migraine: No Hx Parkinson's Disease: No Hx Seizures: No Hx Transient Ischemic Attacks (TIA): No - HEENT Hx HEENT Problems: Yes (USES GLASSES) - RENAL Hx Chronic Kidney Disease: No Hx Dialysis: No Hx Kidney Stones: No Hx Neurogenic Bladder: No Hx Pyelonephritis: No Hx Renal (Kidney) Cancer: No Hx Renal Failure: No - ENDOCRINE/METABOLIC Hx Endocrine Disorders: Yes Hx Adrenal Cancer: No Hx Diabetes Insipidus: No Hx Diabetes Mellitus Type 1: No Hx Diabetes Mellitus Type 2: Yes Hx Hyperthyroidism: No Hx Hypothyroidism: Yes Hx Systemic Lupus Erythematosus: No - HEMATOLOGICAL/ONCOLOGICAL Hx Blood Disorders: No Hx AIDS: No Hx Cancer: No Hx Chemotherapy: No Hx Cirrhosis: No Hx Hemophilia: No Hx Hepatitis A: No Hx Hepatitis B: No Hx Hepatitis C: No Hx Human Immunodeficiency Virus (HIV): No Hx Metastesis: No Hx Shingles: No Hx Sickle Cell Disease: No Hx Unexplained Bleeding: No - INTEGUMENTARY Hx Dermatological Problems: No - MUSCULOSKELETAL/RHEUMATOLOGICAL Hx Musculoskeletal Disorders: Yes Hx Arthritis: No Hx Back Pain: No Hx Degenerative Joint Disease: No Hx Falls: Yes Hx Fractures: Yes Hx Gout: No Hx Herniated Disk: No Hx Myasthenia Gravis: No Hx Rhabdomyolysis: No Hx Spinal Stenosis: No Hx Unsteady Gait: Yes - GASTROINTESTINAL Hx Gastrointestinal Disorders: Yes (Gastritis) Hx Colostomy: No Hx Crohn's Disease: No Hx Diverticulitis: No Hx Gall Bladder Disease: No Hx Gastroesophageal Reflux: No Hx Ileostomy: No Hx Liver Failure: No Hx Pancreatitis: No HX Swallowing Problems: No Hx Ulcer: No - GENITOURINARY/GYNECOLOGICAL Hx Genitourinary Disorders: No Hx Hematuria: No Hx Incontinence: Yes Hx Sexually Transmitted Disorders: No - PSYCHIATRIC Hx Psychophysiologic Disorder: No Hx Anxiety: No Hx Bipolar Disorder: No Hx Depression: No Hx Emotional Abuse: No Hx Hallucinations: No Hx Panic Symptoms: No Hx Paranoia: No Hx Post Traumatic Stress Disorder: No Hx Psychosis: No Hx Physical Abuse: No Hx Schizophrenia: No Hx Sexual Abuse: No - SURGICAL HISTORY Hx Surgeries: Yes (Partial thyroidectomy, Lorne hip replacement) Hx Amputation: No Hx Appendectomy: No Hx Cardiac Catheterization: No Hx Cholecystectomy: No Hx Coronary Stent: No Hx Gastric Bypass Surgery: No Hx Hysterectomy: No Hx Joint Replacement: No Hx Kidney Transplant: No Hx Liver Transplant: No Hx Mastectomy: No Hx Musculoskeletal Surgery: No Hx Open Heart Surgery: No Hx Orthopedic Surgery: No Hx Splenectomy: No Hx Valve Replacement: No - ANESTHESIA Hx Anesthesia: Yes Hx Anesthesia Reactions: No Hx Malignant Hyperthermia: No Meds Home Medications: Home Medication List Medication Instructions Recorded Confirmed Type Calcium Carbonate [Oscal] 500 mg PO DAILY #30 tab 11/07/16 Rx Docusate Sodium [Dulcolax Stool 100 mg PO TID #90 capsule 11/07/16 Rx Softener] Ergocalciferol [Drisdol 50,000 1 cap PO QWK #4 cap 11/07/16 Rx Intl Units Cap] Hydrocortisone 30 gm RC BID 30 Days 11/07/16 Rx Levothyroxine [Synthroid] 150 mcg PO ACB #30 tab 11/07/16 Rx Polyethylene Glycol 3350 [Miralax] 17 gm PO BID #60 packet 11/07/16 Rx Allergies/Adverse Reactions: Allergies Allergy/AdvReac Type Severity Reaction Status Date / Time No Known Allergies Allergy Verified 11/04/16 12:45 Physical Exam - Constitutional Appears: Non-toxic, No Acute Distress, Chronically Ill, Other (Uncomfortable) - Head Exam Head Exam: ATRAUMATIC, NORMAL INSPECTION, NORMOCEPHALIC - Eye Exam Eye Exam: EOMI, Normal appearance. absent: Conjunctival injection, Scleral icterus Pupil Exam: absent: Irregular, Unequal - ENT Exam ENT Exam: Mucous Membranes Moist - Neck Exam Neck exam: Positive for: Full Rom Additional comments: Lifting head off of bed, moving actively in all directions without pain or difficulty, no nuchal rigidity, no paraspinal or verterbal tenderness - Respiratory Exam Respiratory Exam: Chest Wall Tenderness (tenderness at inferior left lateral chest wall, at site of 8th rib fracture confirmed on radiograph), Clear to Auscultation Bilateral, NORMAL BREATHING PATTERN. absent: Accessory Muscle Use , Decreased Breath Sounds, Rales, Rhonchi, Wheezes, Respiratory Distress - Cardiovascular Exam Cardiovascular Exam: Bradycardia, REGULAR RHYTHM, +S1, +S2. absent: Tachycardia , Irregular Rhythm, +S4 Additional comments: NSR 60 on EKG, HR 58-61 on bedside monitor during exam - GI/Abdominal Exam GI & Abdominal Exam: Normal Bowel Sounds, Soft. absent: Hyperactive Bowel Sounds, Tenderness - Extremities Exam Extremities exam: Positive for: pedal pulses present (faintly palpable bilateral dorsalis pedis). Negative for: calf tenderness, pedal edema, tenderness - Back Exam Back exam: absent: CVA tenderness (L), CVA tenderness (R) - Neurological Exam Neurological exam: Alert, Oriented x3 - Psychiatric Exam Psychiatric exam: Normal Affect, Normal Mood - Skin Skin Exam: Dry, Intact, Normal Color, Warm Results - Vital Signs Recent Vital Signs: Last Vital Signs Temp 97.5 F L 11/04/16 17:21 Pulse 59 L 11/04/16 17:21 Resp 18 11/04/16 17:21 BP 111/61 11/04/16 17:21 Pulse Ox 99 11/04/16 15:42 - Labs Result Diagrams: 11/04/16 13:24 11/04/16 13:24 Assessment & Plan - Assessment and Plan (Free Text) Assessment: This is a 76 yo Azeri-speaking F with PMH of Paroxysmal Afib, HTN, HLD, hypothryroidism, esophageal ulcer and DM who presents to the ED s/p mechanical fall at retirement ([facility]). Radiographs in the ED concerning for rib fracture and possible pelvic fracture. Plan: This is a 76 yo Azeri-speaking F with PMH of Paroxysmal Afib, HTN, HLD, hypothyroidism, esophageal ulcer and DM who presents to the ED s/p mechanical fall at retirement ([facility]). 1) Traumatic fall -mechanical fall vs orthostatic vs syncopal vs 2/2 arrhythmia -CT head/cervical spine/lumbar spine obtained, unremarkable -Pelvic x-ray read as suspected fracture medial aspect left and right inferior pubic ramus -Rib X-ray read as Suspect fracture left anterolateral 8th rib, No evidence of pneumothorax -borderline hypotensive with SBP 100's, but unable to do orthostatic BP's due to suspected pelvic fracture and pain; holding home amlodpine, when stable/ cleared by ortho, can pursue orthostatic BPs -Ortho consulted, Dr. Hudson, appreciate all recs -High fall risk protocol -NSR on EKG in ED, borderline bradycardic on bedside monitor at 58-61, no longer on B-brisa as per charting from [facility], avoid any B-blockers or CCB for now 2) DM -holding home oral hypoglycemics in favor of sliding scale, fingersticks ACHS -patient and family report issues with moving bowels, on multiple pro-kinetic agents at [facility], possibly diabetic gastroparesis; normal QTc interval on EKG, so Reglan 5mg IVP ACHS ordered, Miralax PO BID ordered, f/u 3) Paroxysmal AFib -previously discharged on Metoprolol and ASA, d/c'ed Eliquis as per Cardio due to bleeding risk from hx esophageal ulcers -charting from [facility] indicates no longer on Metoprolol or ASA, Eliquis has been restarted at half-way -Holding elequis currently due to bleed risk and traumatic fall -Currently NSR on EKG and monitoring, if relapses into afib, can discuss possibility of anticoagulation with Cardio at that time -Avoid any rate or rhythm control medication at this time as in sinus rhythm and borderline bradycardic 4) HTN -borderline hypotensive in ED, holding home amlodpine 5) HLD -not currently on statin therapy, lipid panel ordered, f/u 6) Hypothyroidism -continue home synthroid Dispo: Med/Surg, pending Ortho assessment and input FEN: Finely chopped, NS 75 cc/hr Access: Peripheral IV Consults: Ortho, PT, slag worker for discharge planning Ppx: protonix for GI, SCDs for DVT Patient seen, reviewed, and discussed with attending, Dr. Manjit Beverly. Decision To Admit - Pt Status Changed To: Hospital Disposition Of: Inpatient Admission - Admit Certification Admit to Inpatient:: After my assessment, the patient will require hospitalization for at least two midnights. This is because of the severity of symptoms shown, intensity of services needed, and/or the medical risk in this patient being treated as an outpatient. - . Bed Request Type: Med/Surg <Manjit Beverly - Last Filed: 11/25/16 14:14> Results - Vital Signs Recent Vital Signs: Last Vital Signs Temp 98.2 F 11/07/16 07:00 Pulse 90 11/07/16 07:00 Resp 20 11/07/16 07:00 BP 132/65 11/07/16 07:00 Pulse Ox 99 11/07/16 07:00 - Labs Result Diagrams: 11/07/16 06:00 11/07/16 06:00 Attending/Attestation - Attestation I have personally seen and examined this patient.: Yes I have fully participated in the care of the patient.: Yes I have reviewed all pertinent clinical information: Yes Notes (Text): I have seen and examined the patient at bedside. Agree with the above note with the following additions/ exceptions: Briefly this is 76 year old male with history of PAF, HTN, HLD, hypothyroidism, esophageal ulcer and DM-2 who presented after mechanical fall at [facility] and found to have fracture in the bilateral inferior pubic rami. Will consult ortho. Patient is on asa and metoprolol for afib and no anticoagulation due to risk of falls and esophageal ulcers. Upon discharge patient will follow up with Dr Grady. Dr Manjit Beverly
[2016-11-04] MEDS: Pantoprazole 40 mg EC Tab PO SCH (21:47)
[2016-11-04] MEDS: POLYETHYLENE GLYCOL 3350 17 GM/Dose PACKET PO SCH (21:47)
[2016-11-04] MEDS: Sodium Chloride 0.9% 1,000 ML IV SCH (21:50)
[2016-11-04] MEDS: Insulin Lispro (humaLOG) LOW Coverage SC SCH (22:05)
[2016-11-05 03:54] LABS: URINE BILIRUBIN NEGATIVE (NEGATIVE); URINE BLOOD NEGATIVE (NEGATIVE); URINE GLUCOSE (UA) NEGATIVE (NEGATIVE); URINE KETONE NEGATIVE (NEGATIVE); URINE LEUKOCYTE ESTERASE SMALL Leu/uL (NEGATIVE); URINE PROTEIN NEGATIVE mg/dL (<30 mg/dL); URINE UROBILINOGEN 0.2 E.U./dL (<1 E.U./dL)
[2016-11-05 04:19] LABS: URINE APPEARANCE SL CLOUDY (CLEAR); URINE COLOR YELLOW (YELLOW)
[2016-11-05 04:24] LABS: URINE BACTERIA FEW (NEG)
[2016-11-05 07:17] LABS: BASO # 0.03 K/mm3 (0.0-2.0); BASO % 0.5 % (0.0-3.0); EOS # 0.3 (0.0-0.7); EOS % 4.3 % (1.5-5.0); GRAN # 3.18 (1.4-6.5); GRAN % 53.2 % (50.0-68.0); HEMATOCRIT 28.2 % (36.0-48.0); LYMPH # 2.1 (1.2-3.4); LYMPH % 34.2 % (22.0-35.0); MEAN CELL VOLUME 78.1 fl (80.0-105.0); MEAN CORPUSCULAR HEMOGLOBIN 24.9 pg (25.0-35.0); MEAN CORPUSCULAR HGB CONC 31.9 g/dl (31.0-37.0); MEAN PLATELET VOLUME 10.7 fl (7.0-11.0); MONO # 0.5 (0.1-0.6); MONO % 7.8 % (1.0-6.0); RED CELL DISTRIBUTION WIDTH 16.1 % (11.5-14.5)
[2016-11-05 07:40] LABS: ALB/GLOB RATIO 0.7 (1.1-1.8); BILIRUBIN,TOTAL 0.4 mg/dL (0.2-1.3); CALCIUM 8.2 mg/dL (8.4-10.5); MAGNESIUM 2.1 mg/dL (1.7-2.2); PHOSPHOROUS 3.8 mg/dL (2.5-4.5); POTASSIUM 4.2 mmol/L (3.6-5.0); TOTAL PROTEIN 6.8 g/dL (5.8-8.3)
[2016-11-05] MEDS: Insulin Lispro (humaLOG) LOW Coverage SC SCH ×4 (08:04→23:19)
[2016-11-05 08:12] LABS: CHOLESTEROL 103 mg/dL (130-200)
[2016-11-05] MEDS: Levothyroxine 125 MCG TAB PO SCH (09:18)
[2016-11-05] MEDS: POLYETHYLENE GLYCOL 3350 17 GM/Dose PACKET PO SCH ×2 (09:19→17:40)
[2016-11-05] MEDS: [UNRECOGNIZED DRUG - REMARK] PO SCH (09:22)
[2016-11-05] MEDS: Sodium Chloride 0.9% 1,000 ML IV SCH (12:13)
[2016-11-05] MEDS ORDERED: POLYETHYLENE GLYCOL 3350 17 GM/Dose PACKET PO SCH (13:00)
--- NOTE | 2016-11-05 13:30 | CP.PCM.PN ---
<IZABELA HOBBS - Last Filed: 11/05/16 15:09> Subjective - Date & Time of Evaluation Date of Evaluation: 11/05/16 Time of Evaluation: 07:30 - Subjective Subjective: Izabela Hobbs DO PGY1 - Medicine Progress Note Patient seen and examined at bedside. No acute events overnight. Patient is still complaining of pain in her buttocks when she sits, and pain in her left side. She denies pain with deep inspiration, denies CP, SOB, F/C, N/V/D. Admits that her last BM was 4-5 days ago, though she continues to have a normal appetite, and denies any abdominal pain. Objective - Vital Signs/Intake and Output Vital Signs (last 24 hours): Temp Pulse Resp BP Pulse Ox 98.8 F 66 20 118/61 97 11/05/16 08:18 11/05/16 08:18 11/05/16 08:18 11/05/16 08:18 11/05/16 08:18 Intake and Output: 11/05/16 11/05/16 06:59 18:59 Intake Total 660 Balance 660 - Medications Medications: Current Medications Acetaminophen (Tylenol 325mg Tab) 650 mg PO Q4 PRN PRN Reason: Fever >100.4 F Albuterol Sulfate (Albuterol 0.083% Inhal Pamela (2.5 Mg/3 Ml) Ud) 2.5 mg INH Q6 PRN PRN Reason: Wheezing Calcium Carbonate (Oscal) 500 mg PO DAILY [facility] Last Admin: 11/05/16 09:19 Dose: 500 mg Dextrose/Sodium Chloride (Dextrose 5%/0.45% Ns 1000 Ml) 1,000 mls @ 50 mls/hr IV .Q20H [facility] Insulin Human Lispro (Humalog Low) 0 units SC ACHS DESHAWN PRN Reason: Protocol Last Admin: 11/05/16 12:03 Dose: Not Given Levothyroxine Sodium (Synthroid) 125 mcg PO DAILY [facility] Last Admin: 11/05/16 09:18 Dose: 125 mcg Metoclopramide HCl (Reglan) 5 mg IVP ACHS [facility] Last Admin: 11/05/16 12:11 Dose: 5 mg Non-Formulary Medication (B Complex W-C No.20/Folic Acid [Raghav Caps Softgel]) 1 sgl PO DAILY [facility] Last Admin: 11/05/16 09:22 Dose: Not Given Pantoprazole Sodium (Protonix Ec Tab) 40 mg PO HS DESHAWN Last Admin: 11/04/16 21:47 Dose: 40 mg Polyethylene Glycol (Miralax) 17 gm PO BID DESHAWN Last Admin: 11/05/16 09:19 Dose: 17 gm Polyethylene Glycol (Miralax) 17 gm PO DAILY DESHAWN Tramadol HCl (Ultram) 50 mg PO TID PRN PRN Reason: Pain, moderate (4-7) Last Admin: 11/04/16 21:47 Dose: 50 mg - Labs Labs: 11/05/16 05:50 11/05/16 05:50 PT 13.6 Seconds (9.9-11.8) H 11/04/16 13:24 INR 1.26 (0.93-1.08) H 11/04/16 13:24 APTT 37.8 Seconds (23.7-30.8) H 11/04/16 13:24 Assessment and Plan - Assessment and Plan (Free Text) Assessment: This is a 76 yo Albanian-speaking F with PMH of Paroxysmal Afib, HTN, HLD, hypothryroidism, esophageal ulcer and DM who presents to the ED s/p mechanical fall at [facility] ([facility]). Radiographs in the ED concerning for rib fracture and possible pelvic fracture. Also noted to be constipated, and with acute on chronic anemia. Plan: 1) Traumatic fall with right inferior pubic ramus fracture -Mechanical fall vs orthostatic vs syncopal vs 2/2 arrhythmia -CT head/cervical spine/lumbar spine obtained, unremarkable -Pelvic x-ray read as suspected fracture medial aspect left and right inferior pubic ramus -Rib X-ray read as Suspect fracture left anterolateral 8th rib, No evidence of pneumothorax -Borderline hypotensive on admission, BP normalized off oral antihypertensives. Continue holding home amlodpine, when stable/cleared by ortho, can pursue orthostatic BPs -Ortho consulted, Dr. Hudson, appreciate all recs -High fall risk protocol -Vit D level ordered. On calcium supplement, and multivitamin -NSR on EKG in ED, borderline bradycardic on bedside monitor at 58-66, no longer on B-brisa as per charting from [facility], avoid any B-blockers or CCB for now 2) DM -Holding home oral hypoglycemics in favor of sliding scale, fingersticks ACHS -Patient and family report issues with moving bowels, on multiple pro-kinetic agents at [facility], possibly diabetic gastroparesis; normal QTc interval on EKG, so Reglan 5mg IVP ACHS ordered, Miralax PO BID ordered, f/u -Hypoglycemic this AM BG 60, prior to eating breakfast, which normalized afterwards. Started D5 0.45%NS 3) Paroxysmal AFib -previously discharged on Metoprolol and ASA, d/c'ed Eliquis as per Cardio due to bleeding risk from hx esophageal ulcers -charting from [facility] indicates no longer on Metoprolol or ASA, Eliquis had been restarted at residential -Holding elequis currently due to bleed risk and traumatic fall -Currently NSR on EKG and monitoring, if relapses into afib, can discuss possibility of anticoagulation with Cardio at that time -Avoid any rate or rhythm control medication at this time as in sinus rhythm and borderline bradycardic 4) Constipation -No BM's for past 4-5 days -Ordered miralax PO BID -Ordered stool for occult blood -Continue to monitor 5) Acute on chronic anemia - Asymtomatic, no signs of active bleeding, H/H stable since yesterday - Hgb 9.0 today, in previously admissions, typically 10-11. - Iron studies ordered, TSH ordered 6) HTN -Borderline hypotensive in ED, holding home amlodpine 7) H/o HLD -Not currently on statin therapy, lipid panel significant for low HDL. Will not start any new meds at this time 8) Hypothyroidism -Continue home synthroid -Check TSH Dispo: Med/Surg, pending Ortho assessment and input FEN: Finely chopped, NS 75 cc/hr Access: Peripheral IV Consults: Ortho, PT, hoe worker for discharge planning Ppx: protonix for GI, SCDs for DVT Patient seen, reviewed, and discussed with attending, Dr. Manjit Beverly. <Manjit Beverly - Last Filed: 11/25/16 14:17> Objective - Vital Signs/Intake and Output Vital Signs (last 24 hours): Temp Pulse Resp BP Pulse Ox 98.2 F 90 20 132/65 99 11/07/16 07:00 11/07/16 07:00 11/07/16 07:00 11/07/16 07:00 11/07/16 07:00 - Labs Labs: 11/07/16 06:00 11/07/16 06:00 PT 13.6 Seconds (9.9-11.8) H 11/04/16 13:24 INR 1.26 (0.93-1.08) H 11/04/16 13:24 APTT 37.8 Seconds (23.7-30.8) H 11/04/16 13:24 Attending/Attestation - Attestation I have personally seen and examined this patient.: Yes I have fully participated in the care of the patient.: Yes I have reviewed all pertinent clinical information, including history, physical exam and plan: Yes Notes (Text): 11/25/16 14:14 I have seen and examined the patient at bedside. Agree with the above note with the following additions/ exceptions: Briefly this is 76 year old male with history of PAF, HTN, HLD, hypothyroidism, esophageal ulcer and DM-2 who presented after mechanical fall at [facility] and found to have fracture in the bilateral inferior pubic rami. She also has left anterlateral 8th rib fracture. Ortho consult appreciated. Cervical spine xray and pelvic CT scan ordered. Patient is on asa and metoprolol for afib and no anticoagulation due to risk of falls and esophageal ulcers. Upon discharge patient will follow up with Dr Grady. Dr Manjit Beverly
[2016-11-05 13:38] LABS: IRON 19 ug/dL (45-180)
[2016-11-05] MEDS: Dextrose 5%/0.45% NS 1,000 ML IV SCH (14:15)
[2016-11-05 17:39] LABS: FOLATE 7.6 ng/mL
--- NOTE | 2016-11-05 20:07 | CT ---
EXAM: CT Pelvis Without Intravenous Contrast EXAM DATE/TIME: 11/05/2016 5:51 PM CLINICAL HISTORY: The patient age is 76 years old and is female; Injury or trauma; Injury Pubic ramus fracture; Initial encounter; Fracture of pelvis & hip; Right; Not specified; Pubis (pubic symphysis or rami); Prior surgery; Surgery date: 6+ months; Additional info: Right pubic rami fxs Facility exam id and description: Ct pelvs pelvis w/o po or iv contrast TECHNIQUE: Axial computed tomography images of the pelvis without intravenous contrast. All CT scans at this facility use one or more dose reduction techniques, viz.: automated exposure control; ma/kV adjustment per patient size (including targeted exams where dose is matched to indication; i.e. head); or iterative reconstruction technique. Coronal and sagittal reformatted images were created and reviewed. COMPARISON: CT - HIP WITHOUT CONTRAST LEFT 06/20/2016 5:14:54 PM FINDINGS: Bowel: There is a small umbilical hernia. Fat is contained within this hernia as well as a band of abnormal density suggestive of minimal bowel, without visualized obstruction. There is fecal distention of the rectum and distal sigmoid colon. Appendix: The appendix is not visualized. Intraperitoneal space: No visualized free air. Bladder: No stones. Reproductive: Unremarkable as visualized. Subperitoneal space: There is stranding of the mesentery within the right lower quadrant, which is likely inflammatory or post traumatic. Presacral swelling is also visualized. Bones/joints: Fractures are identified of the right pubic ramus and right parasymphyseal pubic bone. Sclerotic change is visualized in this region suggestive of a subacute fracture. These findings are new compared to the previous CT. There is mild deformation of the right side of the sacrum, consistent with prior fracture. Sclerotic change is visualized in this region as well, suggestive of a subacute fracture. There is grade I anterolisthesis of L5 on S1, with bilateral spondylolysis. Osteopenia. Postoperative changes are identified with bilateral femoral intramedullary rods and femoral neck screws. There is spurring of the bilateral greater trochanters. Hypertrophic arthropathy is seen at the pubic symphysis. The remaining bones of the pelvis are intact. No dislocation of the hips. There is bilateral hip arthropathy, with narrowing of the hip joints. Soft tissues: There is a nodular focus of heterogeneous density within the subcutaneous tissues ventral to the right abdominal wall, which is nonspecific. Muscle atrophy is visualized. Vasculature: Atherosclerotic changes. Lymph nodes: No intrapelvic lymphadenopathy. IMPRESSION: 1. Fractures are identified of the right pubic ramus and right parasymphyseal pubic bone. Sclerotic change is visualized in this region suggestive of a subacute fracture. These findings are new compared to the previous CT. Clinical correlation is recommended. 2. There is mild deformation of the right side of the sacrum, consistent with prior fracture. Sclerotic change is visualized in this region as well, suggestive of a subacute fracture. 3. There is grade I anterolisthesis of L5 on S1, with bilateral spondylolysis. 4. There is stranding of the mesentery within the right lower quadrant, which is likely inflammatory or post traumatic. Presacral swelling is also visualized. 5. Bilateral hip arthropathy. 6. Additional CT findings, including postoperative changes, are described above.
--- NOTE | 2016-11-05 21:50 | CARD ---
APPROVED REPORT EKG Measurement Heart [id number] DC [id number] [id number] <Conclusion> Normal sinus rhythm Left axis deviation Inferior infarct, age undetermined Abnormal ECG
[2016-11-05] MEDS: Pantoprazole 40 mg EC Tab PO SCH (22:02)
--- NOTE | 2016-11-06 04:17 | CON ---
DATE: 11/05/2016 REASON FOR CONSULTATION: Pelvic fracture. HISTORY OF PRESENT ILLNESS: This is a 76-year-old female, who presented status post fall with neck pain, left-sided rib pain, and some pelvic pain. The patient denies any numbness or tingling down the legs. She denies any weakness. According to her son, she does have a history of neck pain, but she states she has never been evaluated for this. PAST MEDICAL HISTORY: Significant for two prior open reduction and internal fixation of bilateral hip fractures. She says with her neck, she denies any history of any prior trauma, but complains of difficulty at times with range of motion. PHYSICAL EXAMINATION: GENERAL: This is an elderly female in no apparent distress. NEUROLOGICAL: She is grossly and neurologically intact in bilateral upper and lower extremities. She does have some loss of cervical extension. She has good rotation to both sides. She has some right-sided cervical paraspinal tenderness to palpation. She has negative Solis's bilaterally. Evaluation of her hip, she is tolerating active range of motion of both her hips without significant pain to the thighs and calves are soft and nontender. She does have some mild anterior left and right pelvic tenderness to palpation. She has negative straight leg raises bilaterally. LABORATORY DATA: She has no cervical spine films available. She had x-rays of the pelvis and on AP pelvis had showed what looks like possible left and right pubic rami fractures. She also has intramedullary nails to bilateral hips with no new periprosthetic fractures appreciated. ASSESSMENT: Cervical pain and pubic rami fractures. PLAN: At this point, I recommend that we will get x-rays of her cervical spine and a CAT scan of her pelvis. I discussed this with her son and we will follow up with these radiographic studies. For now I recommended DVT prophylaxis. Hammad Banegas MD
[2016-11-06 07:31] LABS: BASO # 0.03 K/mm3 (0.0-2.0); BASO % 0.5 % (0.0-3.0); EOS # 0.3 (0.0-0.7); EOS % 5.3 % (1.5-5.0); GRAN # 2.86 (1.4-6.5); GRAN % 46.1 % (50.0-68.0); HEMATOCRIT 27.1 % (36.0-48.0); LYMPH # 2.4 (1.2-3.4); LYMPH % 38.8 % (22.0-35.0); MEAN CELL VOLUME 77.4 fl (80.0-105.0); MEAN CORPUSCULAR HEMOGLOBIN 24.9 pg (25.0-35.0); MEAN CORPUSCULAR HGB CONC 32.1 g/dl (31.0-37.0); MEAN PLATELET VOLUME 10.1 fl (7.0-11.0); MONO # 0.6 (0.1-0.6); MONO % 9.3 % (1.0-6.0); RED CELL DISTRIBUTION WIDTH 16.1 % (11.5-14.5); WHITE BLOOD COUNT 6.2 10^3/ul (4.5-11.0)
[2016-11-06 07:43] LABS: ALB/GLOB RATIO 0.6 (1.1-1.8); ALKALINE PHOSPHATASE 210 U/L (38-133); ALT/SGPT 22 U/L (7-56); AST/SGOT 45 U/L (15-39); BILIRUBIN,TOTAL 0.6 mg/dL (0.2-1.3); BLOOD UREA NITROGEN 20 mg/dL (7-21); CALCIUM 8.2 mg/dL (8.4-10.5); CARBON DIOXIDE 24 mmol/L (21-33); CHLORIDE 108 mmol/L (95-110); GFR AFRICAN-AMERICAN > 60; GLUCOSE,RANDOM 77 mg/dL (70-110); SODIUM 139 mmol/L (132-148); TOTAL PROTEIN 7.1 g/dL (5.8-8.3)
[2016-11-06 07:56] LABS: FREE T4 0.97 ng/dL (0.78-2.19)
[2016-11-06] MEDS: Insulin Lispro (humaLOG) LOW Coverage SC SCH ×4 (08:09→21:22)
[2016-11-06 08:10] LABS: T3 0.78 ng/mL (0.97-1.69)
--- NOTE | 2016-11-06 09:04 | RAD ---
PROCEDURE: Cervical Spine Radiographs. HISTORY: Pain. COMPARISON: None. FINDINGS: BONES: There is diffuse bone demineralization. There is straightening of the cervical spine with loss of normal cervical lordosis. Vertebral alignment is normal. Vertebral height is maintained. There is no acute fracture although evaluation of this C6 and C7 vertebral bodies is limited due to patient position. There is no spondylolisthesis. The craniocervical junction is normal. The atlantoaxial joint is normal. DISC SPACES: There is moderate degenerative disc disease at C4-5 and C5-6 with reduced disc heights and anterior osteophytes. SOFT TISSUES: The paraspinous soft tissues are normal. No prevertebral soft tissue swelling. OTHER FINDINGS: None. IMPRESSION: Moderate degenerative disc disease at C5-6 and C6-7. Examination is limited as the lower cervical vertebral bodies cannot be well evaluated due to patient positioning.
[2016-11-06] MEDS: Levothyroxine 125 MCG TAB PO SCH (09:54)
[2016-11-06] MEDS: [UNRECOGNIZED DRUG - REMARK] PO SCH (09:54)
[2016-11-06] MEDS: POLYETHYLENE GLYCOL 3350 17 GM/Dose PACKET PO SCH ×2 (09:54→17:40)
[2016-11-06] MEDS: Dextrose 5%/0.45% NS 1,000 ML IV SCH ×2 (09:55→16:38)
[2016-11-06] MEDS ORDERED: Ergocalciferol 50,000 Intl Units Cap PO SCH (11:43)
--- NOTE | 2016-11-06 14:02 | CP.PCM.CON ---
History of Present Illness - History of Present Illness History of Present Illness: Consult note for Dr. Dockery 76 yo female patient with PMH of Afib, HTN, HLD, hypothryroidism, DM was seen at bedside this morning. Patient came to ED s/p mechanical fall at senior living ([facility]). Patient speaks Frisian and Paramedic Supervisor monitor is used today. Patient states that she experienced dizziness and fell [facility]. She denies of any pain to lower pelvic area. Patient was advised that the Xray shows a non-displaced fracture of the pubic ramus and Dr. Dockery has no plan for surgery at this time. Patient is advised to follow up with Dr. Dockery at his office upon discharge. Patient denies of any N/V/F/C or SOb today Past Patient History - Infectious Disease Hx of Infectious Diseases: None - Past Medical History & Family History Past Medical History?: Yes - Past Social History Smoking Status: Former Smoker - CARDIAC Hx Cardiac Disorders: Yes Hx Hypercholesterolemia: Yes Hx Hypertension: Yes - PULMONARY Hx Respiratory Disorders: No Hx Asthma: No Hx Bronchitis: No Hx Chronic Obstructive Pulmonary Disease (COPD): No Hx Emphysema: No Hx Pneumonia: No Hx Respiratory Aspiration: No Hx Respiratory Tract Infection: No Hx Sleep Apnea: No Hx Tuberculosis: No - NEUROLOGICAL Hx Neurological Disorder: No Hx Alzheimer's Disease: No HX Cerebrovascular Accident: No Hx Dementia: Yes Hx Dizziness: No Hx Meningitis: No Hx Migraine: No Hx Parkinson's Disease: No Hx Seizures: No Hx Transient Ischemic Attacks (TIA): No - HEENT Hx HEENT Problems: Yes (USES GLASSES) - RENAL Hx Chronic Kidney Disease: No Hx Dialysis: No Hx Kidney Stones: No Hx Neurogenic Bladder: No Hx Pyelonephritis: No Hx Renal (Kidney) Cancer: No Hx Renal Failure: No - ENDOCRINE/METABOLIC Hx Diabetes Mellitus Type 2: Yes Hx Hypothyroidism: Yes - HEMATOLOGICAL/ONCOLOGICAL Hx Blood Disorders: No Hx AIDS: No Hx Cancer: No Hx Chemotherapy: No Hx Cirrhosis: No Hx Hemophilia: No Hx Hepatitis A: No Hx Hepatitis B: No Hx Hepatitis C: No Hx Human Immunodeficiency Virus (HIV): No Hx Metastesis: No Hx Shingles: No Hx Sickle Cell Disease: No Hx Unexplained Bleeding: No - INTEGUMENTARY Hx Dermatological Problems: No - MUSCULOSKELETAL/RHEUMATOLOGICAL Hx Arthritis: Yes - GASTROINTESTINAL Hx Gastrointestinal Disorders: Yes (Gastritis) Hx Colostomy: No Hx Crohn's Disease: No Hx Diverticulitis: No Hx Gall Bladder Disease: No Hx Gastroesophageal Reflux: No Hx Ileostomy: No Hx Liver Failure: No Hx Pancreatitis: No HX Swallowing Problems: No Hx Ulcer: No - GENITOURINARY/GYNECOLOGICAL Hx Genitourinary Disorders: No Hx Hematuria: No Hx Incontinence: Yes Hx Sexually Transmitted Disorders: No - PSYCHIATRIC Hx Psychophysiologic Disorder: No Hx Anxiety: No Hx Bipolar Disorder: No Hx Depression: No Hx Emotional Abuse: No Hx Hallucinations: No Hx Panic Symptoms: No Hx Paranoia: No Hx Post Traumatic Stress Disorder: No Hx Psychosis: No Hx Physical Abuse: No Hx Schizophrenia: No Hx Sexual Abuse: No - SURGICAL HISTORY Hx Surgeries: Yes (Partial thyroidectomy, Lorne hip replacement) Hx Amputation: No Hx Appendectomy: No Hx Cardiac Catheterization: No Hx Cholecystectomy: No Hx Coronary Stent: No Hx Gastric Bypass Surgery: No Hx Hysterectomy: No Hx Joint Replacement: No Hx Kidney Transplant: No Hx Liver Transplant: No Hx Mastectomy: No Hx Musculoskeletal Surgery: No Hx Open Heart Surgery: No Hx Orthopedic Surgery: No Hx Splenectomy: No Hx Valve Replacement: No - ANESTHESIA Hx Anesthesia: Yes Hx Anesthesia Reactions: No Hx Malignant Hyperthermia: No Meds Allergies/Adverse Reactions: Allergies Allergy/AdvReac Type Severity Reaction Status Date / Time No Known Allergies Allergy Verified 11/04/16 12:45 - Medications Medications: Current Medications Acetaminophen (Tylenol 325mg Tab) 650 mg PO Q4 PRN PRN Reason: Fever >100.4 F Albuterol Sulfate (Albuterol 0.083% Inhal Pamela (2.5 Mg/3 Ml) Ud) 2.5 mg INH Q6 PRN PRN Reason: Wheezing Calcium Carbonate (Oscal) 500 mg PO DAILY [facility] Last Admin: 11/06/16 09:54 Dose: 500 mg Ergocalciferol (Drisdol 50,000 Intl Units Cap) 1 cap PO QWK [facility] Last Admin: 11/06/16 12:20 Dose: 1 cap Dextrose/Sodium Chloride (Dextrose 5%/0.45% Ns 1000 Ml) 1,000 mls @ 50 mls/hr IV .Q20H [facility] Last Admin: 11/06/16 09:55 Dose: 50 mls/hr Insulin Human Lispro (Humalog Low) 0 units SC ACHS [facility] PRN Reason: Protocol Last Admin: 11/06/16 12:20 Dose: Not Given Levothyroxine Sodium (Synthroid) 150 mcg PO ACB [facility] Metoclopramide HCl (Reglan) 5 mg IVP ACHS [facility] Last Admin: 11/06/16 12:15 Dose: 5 mg Non-Formulary Medication (B Complex W-C No.20/Folic Acid [Raghav Caps Softgel]) 1 sgl PO DAILY [facility] Last Admin: 11/06/16 09:54 Dose: Not Given Pantoprazole Sodium (Protonix Ec Tab) 40 mg PO HS [facility] Last Admin: 11/05/16 22:02 Dose: 40 mg Polyethylene Glycol (Miralax) 17 gm PO BID [facility] Last Admin: 11/06/16 09:54 Dose: 17 gm Tramadol HCl (Ultram) 50 mg PO TID PRN PRN Reason: Pain, moderate (4-7) Last Admin: 11/05/16 22:03 Dose: 50 mg Physical Exam - Constitutional Appears: Well, Non-toxic, No Acute Distress - Head Exam Head Exam: ATRAUMATIC - Eye Exam Eye Exam: EOMI Pupil Exam: NORMAL ACCOMODATION - ENT Exam ENT Exam: Mucous Membranes Moist - Respiratory Exam Respiratory Exam: NORMAL BREATHING PATTERN - Cardiovascular Exam Cardiovascular Exam: Bradycardia, REGULAR RHYTHM - GI/Abdominal Exam GI & Abdominal Exam: Soft. absent: Tenderness - Rectal Exam Rectal Exam: Deferred - Extremities Exam Extremities exam: Positive for: normal inspection. Negative for: tenderness - Neurological Exam Neurological exam: Alert, Oriented x3 - Psychiatric Exam Psychiatric exam: Normal Affect, Normal Mood - Skin Skin Exam: Normal Color, Warm Results - Vital Signs Recent Vital Signs: Last Vital Signs Temp 98.2 F 11/05/16 23:00 Pulse 63 11/05/16 23:00 Resp 18 11/05/16 23:00 BP 109/54 L 11/05/16 23:00 Pulse Ox 95 11/05/16 23:00 - Labs Result Diagrams: 11/06/16 06:45 11/06/16 06:45 Labs: Laboratory Results - last 24 hr 11/05/16 11/05/16 11/05/16 08:30 08:30 13:00 WBC RBC Hgb Hct MCV MCH MCHC RDW Plt Count MPV Gran % Lymph % (Auto) Hale % (Auto) Eos % (Auto) Baso % (Auto) Gran # Lymph # Hale # Eos # Baso # Sodium Potassium Chloride Carbon Dioxide Anion Gap BUN Creatinine Est GFR ( Amer) Est GFR (Non-Af Amer) POC Glucose (mg/dL) Random Glucose Calcium Ferritin 36.8 Total Bilirubin AST ALT Alkaline Phosphatase Total Protein Albumin Globulin Albumin/Globulin Ratio Vitamin B12 920 25-OH Vitamin D Total 27.7 L Folate 7.6 Free T4 Total T3 TSH 3rd Generation 6.16 H 11/05/16 11/05/16 11/06/16 16:07 21:23 06:45 WBC 6.2 RBC 3.50 Hgb 8.7 L Hct 27.1 L MCV 77.4 L MCH 24.9 L MCHC 32.1 RDW 16.1 H Plt Count 222 MPV 10.1 Gran % 46.1 L Lymph % (Auto) 38.8 H Hale % (Auto) 9.3 H Eos % (Auto) 5.3 H Baso % (Auto) 0.5 Gran # 2.86 Lymph # 2.4 Hale # 0.6 Eos # 0.3 Baso # 0.03 Sodium Potassium Chloride Carbon Dioxide Anion Gap BUN Creatinine Est GFR ( Amer) Est GFR (Non-Af Amer) POC Glucose (mg/dL) 120 H 202 H Random Glucose Calcium Ferritin Total Bilirubin AST ALT Alkaline Phosphatase Total Protein Albumin Globulin Albumin/Globulin Ratio Vitamin B12 25-OH Vitamin D Total Folate Free T4 Total T3 TSH 3rd Generation 11/06/16 11/06/16 06:45 06:45 WBC RBC Hgb Hct MCV MCH MCHC RDW Plt Count MPV Gran % Lymph % (Auto) Hale % (Auto) Eos % (Auto) Baso % (Auto) Gran # Lymph # Hale # Eos # Baso # Sodium 139 Potassium 4.0 Chloride 108 Carbon Dioxide 24 Anion Gap 11 BUN 20 Creatinine 1.0 Est GFR ( Amer) > 60 Est GFR (Non-Af Amer) 54 POC Glucose (mg/dL) Random Glucose 77 Calcium 8.2 L Ferritin Total Bilirubin 0.6 AST 45 H ALT 22 Alkaline Phosphatase 210 H Total Protein 7.1 Albumin 2.8 L Globulin 4.4 Albumin/Globulin Ratio 0.6 L Vitamin B12 25-OH Vitamin D Total Folate Free T4 0.97 Total T3 0.78 L TSH 3rd Generation Assessment & Plan - Assessment and Plan (Free Text) Assessment: 76 yo female patient presenting with complete, non-displaced fracture to pubic rami Plan: Patient was seen, evaluated with all questions and concerns addressed labs and vitals reviewed Discussed in detail with Dr. Dockery Xray reveals complete non-displaced fx to pubic rami No plan for surgical intervention at this time as per Dr. Dockery Patient will follow up with Dr. Dockery upon discharge when patient is stable
[2016-11-06] MEDS ORDERED: Sodium Chloride 0.9% 1,000 ML IV STA (15:08)
--- NOTE | 2016-11-06 17:07 | CP.PCM.PN ---
<FABYIZABELA - Last Filed: 11/06/16 17:04> Subjective - Date & Time of Evaluation Date of Evaluation: 11/06/16 Time of Evaluation: 07:30 - Subjective Subjective: Izabela Silverman DO PGY1 - Medicine Progress Note Patient seen and examined at bedside. No acute events overnight. Patient reports that she often gets dizzy when changing from sitting to standing, resulting in frequent falls. Patient is still complaining of pain in her buttocks when she sits, and pain in her left side. She denies pain with deep inspiration, denies CP, SOB, F/C, N/V/D. Admits that her last BM was 4-5 days ago, though she continues to have a normal appetite, and denies any abdominal pain, and still hasn't has a BM after starting miralax. Objective - Vital Signs/Intake and Output Vital Signs (last 24 hours): Temp Pulse Resp BP Pulse Ox 98.2 F 63 18 109/54 L 95 11/05/16 23:00 11/05/16 23:00 11/05/16 23:00 11/05/16 23:00 11/05/16 23:00 Intake and Output: 11/06/16 11/06/16 06:59 18:59 Intake Total 660 760 Balance 660 760 - Medications Medications: Current Medications Acetaminophen (Tylenol 325mg Tab) 650 mg PO Q4 PRN PRN Reason: Fever >100.4 F Albuterol Sulfate (Albuterol 0.083% Inhal Pamela (2.5 Mg/3 Ml) Ud) 2.5 mg INH Q6 PRN PRN Reason: Wheezing Calcium Carbonate (Oscal) 500 mg PO DAILY [facility] Last Admin: 11/06/16 09:54 Dose: 500 mg Ergocalciferol (Drisdol 50,000 Intl Units Cap) 1 cap PO QWK [facility] Last Admin: 11/06/16 12:20 Dose: 1 cap Dextrose/Sodium Chloride (Dextrose 5%/0.45% Ns 1000 Ml) 1,000 mls @ 100 mls/hr IV .Q10H [facility] Insulin Human Lispro (Humalog Low) 0 units SC ACHS [facility] PRN Reason: Protocol Last Admin: 11/06/16 16:36 Dose: Not Given Levothyroxine Sodium (Synthroid) 150 mcg PO ACB [facility] Metoclopramide HCl (Reglan) 5 mg IVP ACHS [facility] Last Admin: 11/06/16 12:15 Dose: 5 mg Non-Formulary Medication (B Complex W-C No.20/Folic Acid [[place] Caps Softgel]) 1 sgl PO DAILY [facility] Last Admin: 11/06/16 09:54 Dose: Not Given Pantoprazole Sodium (Protonix Ec Tab) 40 mg PO HS [facility] Last Admin: 11/05/16 22:02 Dose: 40 mg Polyethylene Glycol (Miralax) 17 gm PO BID [facility] Last Admin: 11/06/16 09:54 Dose: 17 gm Tramadol HCl (Ultram) 50 mg PO TID PRN PRN Reason: Pain, moderate (4-7) Last Admin: 11/05/16 22:03 Dose: 50 mg - Labs Labs: 11/06/16 06:45 11/06/16 06:45 PT 13.6 Seconds (9.9-11.8) H 11/04/16 13:24 INR 1.26 (0.93-1.08) H 11/04/16 13:24 APTT 37.8 Seconds (23.7-30.8) H 11/04/16 13:24 - Constitutional Appears: Non-toxic, No Acute Distress, Chronically Ill - Head Exam Head Exam: ATRAUMATIC, NORMOCEPHALIC - Eye Exam Eye Exam: EOMI, Normal appearance, PERRL - ENT Exam ENT Exam: Mucous Membranes Moist - Neck Exam Neck Exam: absent: Lymphadenopathy, Thyromegaly - Respiratory Exam Respiratory Exam: Clear to Ausculation Bilateral, NORMAL BREATHING PATTERN. absent: Rales, Rhonchi, Wheezes - Cardiovascular Exam Cardiovascular Exam: RRR, +S1, +S2 Additional comments: Orthostatic pressures significant for HR increase from 69 to 111 from supine to standing, with unchanging BP, though persistently low. - GI/Abdominal Exam GI & Abdominal Exam: Distended, Firm, Soft. absent: Rigid, Tenderness - Extremities Exam Extremities Exam: absent: Calf Tenderness, Pedal Edema - Neurological Exam Neurological Exam: Alert, Awake, Oriented x3 Neuro motor strength exam: Left Upper Extremity: 5, Right Upper Extremity: 5, Left Lower Extremity: 5, Right Lower Extremity: 5 - Psychiatric Exam Psychiatric exam: Normal Affect, Normal Mood - Skin Skin Exam: Dry, Intact Assessment and Plan - Assessment and Plan (Free Text) Assessment: This is a 76 yo Luxembourgish-speaking F with PMH of Paroxysmal Afib, HTN, HLD, hypothryroidism, esophageal ulcer and DM who presents to the ED s/p mechanical fall at shelter ([facility]). Radiographs in the ED concerning for rib fracture and possible pelvic fracture. Also noted to be constipated, and with acute on chronic anemia. Plan: 1) Traumatic fall with right inferior pubic ramus fracture -Mechanical fall vs orthostatic -CT head/cervical spine/lumbar spine obtained, unremarkable -Pelvic x-ray read as suspected fracture medial aspect left and right inferior pubic ramus -Pelvis CT significant for Fractures of the right pubic ramus and right parasymphyseal pubic bone with Sclerotic change suggestive of a subacute fracture. Mild deformation of the right side of the sacrum, consistent with prior fracture also with sclerotic change suggestive of a subacute fracture. -Rib X-ray read as Suspect fracture left anterolateral 8th rib, No evidence of pneumothorax -Borderline hypotensive on admission, BP normalized off oral antihypertensives. Continue holding home amlodpine. -Orthostatic BP today positive, given 1L NS bolus and increased rate of maintenance fluid. -Ortho consulted, Dr. Banegas, appreciate all recs. Dr. Hudson, who was previously consulted, is out of town. -High fall risk protocol -Vit D level low, started Vit D 50k QWK. On calcium supplement, and multivitamin -NSR on EKG in ED, borderline bradycardic on bedside monitor at 58-66, no longer on B-brisa as per charting from [facility], avoid any B-blockers or CCB for now 2) DM -Holding home oral hypoglycemics in favor of sliding scale, fingersticks ACHS -Patient and family report issues with moving bowels, on multiple pro-kinetic agents at [facility], possibly diabetic gastroparesis; normal QTc interval on EKG, so Reglan 5mg IVP ACHS ordered, Miralax PO BID ordered, f/u -Hypoglycemic yesterday, now on D5 0.45%NS 3) Paroxysmal AFib -previously discharged on Metoprolol and ASA, d/c'ed Eliquis as per Cardio due to bleeding risk from hx esophageal ulcers -charting from [facility] indicates no longer on Metoprolol or ASA, Eliquis had been restarted at retirement -Holding elequis currently due to bleed risk and traumatic fall -Currently NSR on EKG and monitoring, if relapses into afib, can discuss possibility of anticoagulation with Cardio at that time -Avoid any rate or rhythm control medication at this time as in sinus rhythm and borderline bradycardic 4) Constipation -No BM's for past 4-5 days -On miralax PO BID, still no BMs -Ordered stool for occult blood -Ordered tap water enema -Continue to monitor 5) Acute on chronic anemia - Asymtomatic, no signs of active bleeding, H/H stable since yesterday - Hgb 8.7 today, in previously admissions, typically 10-11. - Iron studies indicate iron deficiency anemia. Will not yet start iron at this time due to constipation - TSH elevated, possibly contributing to anemia, will increase synthroid - Continue to monitor 6) H/o HTN -Borderline hypotensive in ED, holding home amlodpine -Orthostatics positive. Volume repleted, as above. 7) H/o HLD -Not currently on statin therapy, lipid panel significant only for low HDL. Will not start any new meds at this time 8) Hypothyroidism -TSH elevated -Increase synthroid to 150ug Dispo: Med/Surg, pending Ortho assessment and input FEN: Finely chopped, NS 75 cc/hr Access: Peripheral IV Consults: Ortho, PT, youth accommodation support worker for discharge planning Ppx: protonix for GI, SCDs for DVT Patient seen, reviewed, and discussed with attending, Dr. Manjit Beverly. <Manjit Beverly - Last Filed: 11/25/16 14:20> Objective - Vital Signs/Intake and Output Vital Signs (last 24 hours): Temp Pulse Resp BP Pulse Ox 98.2 F 90 20 132/65 99 11/07/16 07:00 11/07/16 07:00 11/07/16 07:00 11/07/16 07:00 11/07/16 07:00 - Labs Labs: 11/07/16 06:00 11/07/16 06:00 PT 13.6 Seconds (9.9-11.8) H 11/04/16 13:24 INR 1.26 (0.93-1.08) H 11/04/16 13:24 APTT 37.8 Seconds (23.7-30.8) H 11/04/16 13:24 Attending/Attestation - Attestation I have personally seen and examined this patient.: Yes I have fully participated in the care of the patient.: Yes I have reviewed all pertinent clinical information, including history, physical exam and plan: Yes Notes (Text): I have seen and examined the patient at bedside. Agree with the above note with the following additions/ exceptions: Briefly this is 76 year old male with history of PAF, HTN, HLD, hypothyroidism, esophageal ulcer and DM-2 who presented after mechanical fall at [facility] and found to have minimally displace acute right pubic ramus fracture. Old scaral fractures were also seen. She also has left anterlateral 8th rib fracture. Ortho consult appreciated. Recommended PT for mobilization and gait training. Patient is on asa and metoprolol for afib and no anticoagulation due to risk of falls and esophageal ulcers. Upon discharge patient will follow up with Dr Grady. Dr Manjit Beverly
[2016-11-06 17:24] VITALS: RESP 20
[2016-11-06] MEDS: Pantoprazole 40 mg EC Tab PO SCH (22:46)
[2016-11-07] MEDS: Dextrose 5%/0.45% NS 1,000 ML IV SCH ×2 (06:32→08:39)
[2016-11-07 07:08] LABS: BASO # 0.02 K/mm3 (0.0-2.0); BASO % 0.2 % (0.0-3.0); EOS % 0.3 % (1.5-5.0); GRAN # 9.11 (1.4-6.5); GRAN % 77.1 % (50.0-68.0); HEMATOCRIT 26.8 % (36.0-48.0); LYMPH # 1.7 (1.2-3.4); LYMPH % 14.4 % (22.0-35.0); MEAN CORPUSCULAR HEMOGLOBIN 25.3 pg (25.0-35.0); MEAN CORPUSCULAR HGB CONC 32.8 g/dl (31.0-37.0); MEAN PLATELET VOLUME 9.9 fl (7.0-11.0); MONO # 0.9 (0.1-0.6); RED CELL DISTRIBUTION WIDTH 16.1 % (11.5-14.5); WHITE BLOOD COUNT 11.8 10^3/ul (4.5-11.0)
[2016-11-07 07:16] LABS: ALB/GLOB RATIO 0.6 (1.1-1.8); ALKALINE PHOSPHATASE 205 U/L (38-133); ALT/SGPT 33 U/L (7-56); AST/SGOT 53 U/L (15-39); BILIRUBIN,TOTAL 0.5 mg/dL (0.2-1.3); BLOOD UREA NITROGEN 20 mg/dL (7-21); CALCIUM 8.1 mg/dL (8.4-10.5); CARBON DIOXIDE 21 mmol/L (21-33); CHLORIDE 107 mmol/L (95-110); GFR AFRICAN-AMERICAN > 60; GLUCOSE,RANDOM 117 mg/dL (70-110); POTASSIUM 3.8 mmol/L (3.6-5.0); SODIUM 137 mmol/L (132-148)
[2016-11-07] MEDS ORDERED: Levothyroxine 150 MCG TAB PO SCH (07:30)
--- NOTE | 2016-11-07 08:08 | CP.PCM.PN ---
Subjective - Date & Time of Evaluation Date of Evaluation: 11/07/16 Time of Evaluation: 08:04 - Subjective Subjective: Pt awake, alert. VSS Neuro unchanged intact CT of pelvis consistent with minimally displaced acute right pubic rami fxs old sacral fx Cervical spine xray limited but no obvious acute fx appreciated significant degenerative changes Recommend PT for mobilization and gait training WBAT b/l lower extremities DVT prophylaxis Objective - Vital Signs/Intake and Output Vital Signs (last 24 hours): Temp Pulse Resp BP Pulse Ox 98.3 F 84 20 126/72 97 11/06/16 16:00 11/06/16 16:00 11/06/16 16:00 11/06/16 16:00 11/06/16 16:00 Intake and Output: 11/07/16 11/07/16 06:59 18:59 Intake Total 720 Output Total 3 Balance 717 - Medications Medications: Current Medications Acetaminophen (Tylenol 325mg Tab) 650 mg PO Q4 PRN PRN Reason: Fever >100.4 F Albuterol Sulfate (Albuterol 0.083% Inhal Pamela (2.5 Mg/3 Ml) Ud) 2.5 mg INH Q6 PRN PRN Reason: Wheezing Calcium Carbonate (Oscal) 500 mg PO DAILY [facility] Last Admin: 11/06/16 09:54 Dose: 500 mg Docusate Sodium (Colace) 100 mg PO TID [facility] Ergocalciferol (Drisdol 50,000 Intl Units Cap) 1 cap PO QWK [facility] Last Admin: 11/06/16 12:20 Dose: 1 cap Dextrose/Sodium Chloride (Dextrose 5%/0.45% Ns 1000 Ml) 1,000 mls @ 100 mls/hr IV .Q10H [facility] Last Admin: 11/07/16 06:32 Dose: Not Given Insulin Human Lispro (Humalog Low) 0 units SC ACHS [facility] PRN Reason: Protocol Last Admin: 11/06/16 21:22 Dose: Not Given Levothyroxine Sodium (Synthroid) 150 mcg PO ACB [facility] Metoclopramide HCl (Reglan) 5 mg IVP ACHS [facility] Last Admin: 11/06/16 22:46 Dose: Not Given Non-Formulary Medication (B Complex W-C No.20/Folic Acid [Eagle Caps Softgel]) 1 sgl PO DAILY [facility] Last Admin: 11/06/16 09:54 Dose: Not Given Pantoprazole Sodium (Protonix Ec Tab) 40 mg PO HS [facility] Last Admin: 11/06/16 22:46 Dose: Not Given Polyethylene Glycol (Miralax) 17 gm PO BID [facility] Last Admin: 11/06/16 17:40 Dose: Not Given Tramadol HCl (Ultram) 50 mg PO TID PRN PRN Reason: Pain, moderate (4-7) Last Admin: 11/05/16 22:03 Dose: 50 mg - Labs Labs: 11/07/16 06:00 11/07/16 06:00 PT 13.6 Seconds (9.9-11.8) H 11/04/16 13:24 INR 1.26 (0.93-1.08) H 11/04/16 13:24 APTT 37.8 Seconds (23.7-30.8) H 11/04/16 13:24
[2016-11-07] MEDS: Insulin Lispro (humaLOG) LOW Coverage SC SCH ×2 (08:36→11:30)
[2016-11-07] MEDS: [UNRECOGNIZED DRUG - REMARK] PO SCH (10:18)
[2016-11-07] MEDS: POLYETHYLENE GLYCOL 3350 17 GM/Dose PACKET PO SCH (10:44)
[2016-11-07 15:19] VITALS: BP 132/65; PULSE 90; TEMP 98.2; O2SAT 99
--- NOTE | 2016-11-07 17:50 | CP.PCM.DIS ---
<NEIDA HOBBS - Last Filed: 11/07/16 17:21> Provider - Provider Date of Admission: 11/04/16 15:28 Attending physician: Manjit Beverly MD Primary care physician: Guanako Grady MD Consults: Ortho: Bassam Time Spent in preparation of Discharge (in minutes): 50 Diagnosis - Discharge Diagnosis (1) Pelvic fracture Status: Acute Priority: High (2) Rib fracture Status: Acute Priority: Medium (3) Decreased ambulation status Status: Acute Priority: Medium (4) Dizziness Status: Chronic Priority: Medium (5) Anemia Status: Acute (6) Acute blood loss anemia Status: Acute Priority: Medium Hospital Course - Lab Results Lab Results: Most Recent Lab Values WBC 11.8 10^3/ul (4.5-11.0) H D 11/07/16 06:00 RBC 3.48 10^6/uL (3.5-6.1) L 11/07/16 06:00 Hgb 8.8 g/dL (12.0-16.0) L 11/07/16 06:00 Hct 26.8 % (36.0-48.0) L 11/07/16 06:00 MCV 77.0 fl (80.0-105.0) L 11/07/16 06:00 MCH 25.3 pg (25.0-35.0) 11/07/16 06:00 MCHC 32.8 g/dl (31.0-37.0) 11/07/16 06:00 RDW 16.1 % (11.5-14.5) H 11/07/16 06:00 Plt Count 220 10^3/uL (120.0-450.0) 11/07/16 06:00 MPV 9.9 fl (7.0-11.0) 11/07/16 06:00 Gran % 77.1 % (50.0-68.0) H 11/07/16 06:00 Lymph % (Auto) 14.4 % (22.0-35.0) L 11/07/16 06:00 [place] % (Auto) 8.0 % (1.0-6.0) H 11/07/16 06:00 Eos % (Auto) 0.3 % (1.5-5.0) L 11/07/16 06:00 Baso % (Auto) 0.2 % (0.0-3.0) 11/07/16 06:00 Gran # 9.11 (1.4-6.5) H 11/07/16 06:00 Lymph # 1.7 (1.2-3.4) 11/07/16 06:00 [place] # 0.9 (0.1-0.6) H 11/07/16 06:00 Eos # 0.0 (0.0-0.7) 11/07/16 06:00 Baso # 0.02 K/mm3 (0.0-2.0) 11/07/16 06:00 PT 13.6 Seconds (9.9-11.8) H 11/04/16 13:24 INR 1.26 (0.93-1.08) H 11/04/16 13:24 APTT 37.8 Seconds (23.7-30.8) H 11/04/16 13:24 Sodium 137 mmol/L (132-148) 11/07/16 06:00 Potassium 3.8 mmol/L (3.6-5.0) 11/07/16 06:00 Chloride 107 mmol/L (95-110) 11/07/16 06:00 Carbon Dioxide 21 mmol/L (21-33) 11/07/16 06:00 Anion Gap 13 (10-20) 11/07/16 06:00 BUN 20 mg/dL (7-21) 11/07/16 06:00 Creatinine 0.9 mg/dL (0.5-1.4) 11/07/16 06:00 Est GFR ( Amer) > 60 11/07/16 06:00 Est GFR (Non-Af Amer) > 60 11/07/16 06:00 POC Glucose (mg/dL) 124 mg/dL (65-110) H 11/07/16 11:15 Random Glucose 117 mg/dL (70-110) H 11/07/16 06:00 Calcium 8.1 mg/dL (8.4-10.5) L 11/07/16 06:00 Phosphorus 3.8 mg/dL (2.5-4.5) 11/05/16 05:50 Magnesium 2.1 mg/dL (1.7-2.2) 11/05/16 05:50 Iron 19 ug/dL (45-180) L 11/05/16 Unknown TIBC 235 ug/dL (265-497) L 11/05/16 Unknown % Saturation 8 % (20-55) L 11/05/16 Unknown Ferritin 36.8 ng/mL 11/05/16 13:00 Total Bilirubin 0.5 mg/dL (0.2-1.3) 11/07/16 06:00 AST 53 U/L (15-39) H 11/07/16 06:00 ALT 33 U/L (7-56) 11/07/16 06:00 Alkaline Phosphatase 205 U/L (38-133) H 11/07/16 06:00 Troponin I < 0.01 ng/mL 11/04/16 13:30 Total Protein 7.0 g/dL (5.8-8.3) 11/07/16 06:00 Albumin 2.7 g/dL (3.0-4.8) L 11/07/16 06:00 Globulin 4.2 gm/dL 11/07/16 06:00 Albumin/Globulin Ratio 0.6 (1.1-1.8) L 11/07/16 06:00 Triglycerides 107 mg/dL (35-160) 11/05/16 05:50 Cholesterol 103 mg/dL (130-200) L 11/05/16 05:50 LDL Cholesterol Direct 58 mg/dL (0-129) 11/05/16 05:50 HDL Cholesterol 23 mg/dL (29-60) L 11/05/16 05:50 Vitamin B12 920 pg/mL (239-931) 11/05/16 13:00 25-OH Vitamin D Total 27.7 NG/ML (30.0-100.0) L 11/05/16 08:30 Folate 7.6 ng/mL 11/05/16 13:00 Free T4 0.97 ng/dL (0.78-2.19) 11/06/16 06:45 Total T3 0.78 ng/mL (0.97-1.69) L 11/06/16 06:45 TSH 3rd Generation 6.16 mIU/mL (0.46-4.68) H 11/05/16 08:30 Urine Color Yellow (YELLOW) 11/04/16 16:40 Urine Appearance Sl cloudy (CLEAR) 11/04/16 16:40 Urine pH 6.0 (4.7-8.0) 11/04/16 16:40 Ur Specific [place] 1.010 (1.005-1.035) 11/04/16 16:40 Urine Protein Negative mg/dL (<30 mg/dL) 11/04/16 16:40 Urine Glucose (UA) Negative mg/dL (NEGATIVE) 11/04/16 16:40 Urine Ketones Negative mg/dL (NEGATIVE) 11/04/16 16:40 Urine Blood Negative (NEGATIVE) 11/04/16 16:40 Urine Nitrate Negative (NEGATIVE) 11/04/16 16:40 Urine Bilirubin Negative (NEGATIVE) 11/04/16 16:40 Urine Urobilinogen 0.2 E.U./dL (<1 E.U./dL) 11/04/16 16:40 Ur Leukocyte Esterase Small Viv/uL (NEGATIVE) H 11/04/16 16:40 Urine RBC 1 - 3 /hpf (0-2) 11/04/16 16:40 Urine WBC 2 - 5 /hpf (0-6) 11/04/16 16:40 Ur Epithelial Cells 4 - 5 /hpf (0-5) 11/04/16 16:40 Urine Bacteria Few (NEG) 11/04/16 16:40 Stool Occult Blood Positive (NEGATIVE) H 11/06/16 18:32 - Hospital Course Hospital Course: 76 yo Irish-speaking F with PMH of Paroxysmal Afib, HTN, HLD, hypothryroidism, esophageal ulcer and DM who initially presented to the ER after a mechanical fall at her prison ([facility]). She also complained of dizziness that occurred when going from sitting to standing, and chronic constipation, with no BM for the past 4-5 days. Ortho was consulted on admission, and GI was later consulted. On admission, she was noted to be borderline hypotensive, so all antihypertensives were held. She was also noted to be acutely anemic, with a history of anemia chronically. Workup significant for iron deficiency and positive GUIAC. GI was consulted, but were unable to see her in the hospital, and recommended outpatient follow up after discharge. Regarding the fall, CT pelvis showed pubic ramus fracture, and ortho recommended conservative management with outpatient follow up. She was also found to have orthostatic hypotension, which improved with a fluid bolus and IVF maintenance. She was strongly encouraged to maintain her fluid intake, and she should remain off all antihypertensives. Lastly, regarding her constipation, patient did not have a BP after 2 days on Miralax, and was found to be straining extremely hard, with intense pain, saying "I feel like I am going to ." She was given a tap water enema twice, which did not help much. Today, patient said pain from fall is improved, and has less lightheadedness. On exam, patient was hemodynamically stable, with a stable H/H, mildly decreased though likely dilutional after fluid bolus. She still had not had a BM , and still had rectal pain. She was given lactulose and colace, and manual disimpaction was attempted, producing a significant amount of hard dry stool, though some remained in the rectal vault. On that exam, large extenal and internal hemorrhoids were noted, as well as small amounts of bright red blood. Afterwards, patient noted some relief, and denied abdominal pain. Patient was strongly encouraged to maintain fluid intake for both orthostasis and constipation. With daughter at bedside, consultations and outpatient follow up, all medical conditions, and medications were discussed, and all questions were answered to their satisfaction. Patient was discharged back to [facility]. Patient was seen, discussed, and reviewed with attending. Discharge Exam - Head Exam Head Exam: ATRAUMATIC, NORMOCEPHALIC - Eye Exam Eye Exam: EOMI, PERRL - ENT Exam ENT Exam: Mucous Membranes Moist - Respiratory Exam Respiratory Exam: Clear to PA & Lateral. absent: Rales, Rhonchi, Wheezes - Cardiovascular Exam Cardiovascular Exam: RRR, +S1, +S2 - Rectal Exam Rectal Exam: Hemorrhoids (internal and external), Fecal Impaction Additional comments: Minimal amount of bright red blood noted after disimpaction - Extremities Exam Extremities exam: normal inspection - Neurological Exam Neurological exam: Alert, Oriented x3 - Psychiatric Exam Psychiatric exam: Normal Affect, Normal Mood - Skin Skin Exam: Dry, Intact Discharge Plan - Discharge Medications Prescriptions: Calcium Carbonate [Oscal] 500 mg PO DAILY #30 tab Docusate Sodium [Dulcolax Stool Softener] 100 mg PO TID #90 capsule Ergocalciferol [Drisdol 50,000 Intl Units Cap] 1 cap PO QWK #4 cap Hydrocortisone 30 gm RC BID 30 Days Levothyroxine [Synthroid] 150 mcg PO ACB #30 tab Polyethylene Glycol 3350 [Miralax] 17 gm PO BID #60 packet - Follow Up Plan Condition: FAIR Disposition: TRANSF TO SNF Instructions: Constipation (DC), Pneumococcal Vaccine for Adults (DC), Rib Fracture (DC), Diabetes Mellitus Type 2 in Adults (DC) Additional Instructions: Patient being discharged to [facility]. 1. Continue to take all medications as prescribed 2. Stop all antihypertensives, because of orthostatic hypotension 3. Levothyroxine increased to 150mcg daily 4. Started on colace and miralax for constipation, and Anusol for hemorrhoids 5. Follow up with Dr. Hernandez, or replenishment buyer of your choice, within the next week for occult GI bleed and constipation 6. Follow up with Dr. Banegas within the next week for further recommendations regarding pelvic fracture and neck pain 7. Follow up with PCP within the next week 8. Maintain hydration and drink at least 1L of water daily to prevent further orthostatic hypotension 9. For any new or worsening symptoms, contact PCP immediately or return to ER Referrals: Hammad Banegas MD [Staff Provider] - Ofelia Humphrey MD [Staff Provider] - Follow up with primary Omar Hernandez DO [Staff Provider] - <Manjit Beverly - Last Filed: 11/25/16 14:23> Provider - Provider Date of Admission: 11/04/16 15:28 Attending physician: Manjit Beverly MD Primary care physician: Guanako Grady MD Hospital Course - Lab Results Lab Results: Micro Results 11/06/16 18:15 Urine,Catheterized Urine Culture - Final No Growth (<1,000 CFU/ML) Most Recent Lab Values WBC 11.8 10^3/ul (4.5-11.0) H D 11/07/16 06:00 RBC 3.48 10^6/uL (3.5-6.1) L 11/07/16 06:00 Hgb 8.8 g/dL (12.0-16.0) L 11/07/16 06:00 Hct 26.8 % (36.0-48.0) L 11/07/16 06:00 MCV 77.0 fl (80.0-105.0) L 11/07/16 06:00 MCH 25.3 pg (25.0-35.0) 11/07/16 06:00 MCHC 32.8 g/dl (31.0-37.0) 11/07/16 06:00 RDW 16.1 % (11.5-14.5) H 11/07/16 06:00 Plt Count 220 10^3/uL (120.0-450.0) 11/07/16 06:00 MPV 9.9 fl (7.0-11.0) 11/07/16 06:00 Gran % 77.1 % (50.0-68.0) H 11/07/16 06:00 Lymph % (Auto) 14.4 % (22.0-35.0) L 11/07/16 06:00 [place] % (Auto) 8.0 % (1.0-6.0) H 11/07/16 06:00 Eos % (Auto) 0.3 % (1.5-5.0) L 11/07/16 06:00 Baso % (Auto) 0.2 % (0.0-3.0) 11/07/16 06:00 Gran # 9.11 (1.4-6.5) H 11/07/16 06:00 Lymph # 1.7 (1.2-3.4) 11/07/16 06:00 [place] # 0.9 (0.1-0.6) H 11/07/16 06:00 Eos # 0.0 (0.0-0.7) 11/07/16 06:00 Baso # 0.02 K/mm3 (0.0-2.0) 11/07/16 06:00 PT 13.6 Seconds (9.9-11.8) H 11/04/16 13:24 INR 1.26 (0.93-1.08) H 11/04/16 13:24 APTT 37.8 Seconds (23.7-30.8) H 11/04/16 13:24 Sodium 137 mmol/L (132-148) 11/07/16 06:00 Potassium 3.8 mmol/L (3.6-5.0) 11/07/16 06:00 Chloride 107 mmol/L (95-110) 11/07/16 06:00 Carbon Dioxide 21 mmol/L (21-33) 11/07/16 06:00 Anion Gap 13 (10-20) 11/07/16 06:00 BUN 20 mg/dL (7-21) 11/07/16 06:00 Creatinine 0.9 mg/dL (0.5-1.4) 11/07/16 06:00 Est GFR ( Amer) > 60 11/07/16 06:00 Est GFR (Non-Af Amer) > 60 11/07/16 06:00 POC Glucose (mg/dL) 124 mg/dL (65-110) H 11/07/16 11:15 Random Glucose 117 mg/dL (70-110) H 11/07/16 06:00 Calcium 8.1 mg/dL (8.4-10.5) L 11/07/16 06:00 Phosphorus 3.8 mg/dL (2.5-4.5) 11/05/16 05:50 Magnesium 2.1 mg/dL (1.7-2.2) 11/05/16 05:50 Iron 19 ug/dL (45-180) L 11/05/16 Unknown TIBC 235 ug/dL (265-497) L 11/05/16 Unknown % Saturation 8 % (20-55) L 11/05/16 Unknown Ferritin 36.8 ng/mL 11/05/16 13:00 Total Bilirubin 0.5 mg/dL (0.2-1.3) 11/07/16 06:00 AST 53 U/L (15-39) H 11/07/16 06:00 ALT 33 U/L (7-56) 11/07/16 06:00 Alkaline Phosphatase 205 U/L (38-133) H 11/07/16 06:00 Troponin I < 0.01 ng/mL 11/04/16 13:30 Total Protein 7.0 g/dL (5.8-8.3) 11/07/16 06:00 Albumin 2.7 g/dL (3.0-4.8) L 11/07/16 06:00 Globulin 4.2 gm/dL 11/07/16 06:00 Albumin/Globulin Ratio 0.6 (1.1-1.8) L 11/07/16 06:00 Triglycerides 107 mg/dL (35-160) 11/05/16 05:50 Cholesterol 103 mg/dL (130-200) L 11/05/16 05:50 LDL Cholesterol Direct 58 mg/dL (0-129) 11/05/16 05:50 HDL Cholesterol 23 mg/dL (29-60) L 11/05/16 05:50 Vitamin B12 920 pg/mL (239-931) 11/05/16 13:00 25-OH Vitamin D Total 27.7 NG/ML (30.0-100.0) L 11/05/16 08:30 Folate 7.6 ng/mL 11/05/16 13:00 Free T4 0.97 ng/dL (0.78-2.19) 11/06/16 06:45 Total T3 0.78 ng/mL (0.97-1.69) L 11/06/16 06:45 TSH 3rd Generation 6.16 mIU/mL (0.46-4.68) H 11/05/16 08:30 Urine Color Yellow (YELLOW) 11/04/16 16:40 Urine Appearance Sl cloudy (CLEAR) 11/04/16 16:40 Urine pH 6.0 (4.7-8.0) 11/04/16 16:40 Ur Specific [place] 1.010 (1.005-1.035) 11/04/16 16:40 Urine Protein Negative mg/dL (<30 mg/dL) 11/04/16 16:40 Urine Glucose (UA) Negative mg/dL (NEGATIVE) 11/04/16 16:40 Urine Ketones Negative mg/dL (NEGATIVE) 11/04/16 16:40 Urine Blood Negative (NEGATIVE) 11/04/16 16:40 Urine Nitrate Negative (NEGATIVE) 11/04/16 16:40 Urine Bilirubin Negative (NEGATIVE) 11/04/16 16:40 Urine Urobilinogen 0.2 E.U./dL (<1 E.U./dL) 11/04/16 16:40 Ur Leukocyte Esterase Small Viv/uL (NEGATIVE) H 11/04/16 16:40 Urine RBC 1 - 3 /hpf (0-2) 11/04/16 16:40 Urine WBC 2 - 5 /hpf (0-6) 11/04/16 16:40 Ur Epithelial Cells 4 - 5 /hpf (0-5) 11/04/16 16:40 Urine Bacteria Few (NEG) 11/04/16 16:40 Stool Occult Blood Positive (NEGATIVE) H 11/06/16 18:32 Attending/Attestation - Attestation I have personally seen and examined this patient.: Yes I have fully participated in the care of the patient.: Yes I have reviewed all pertinent clinical information, including history, physical exam and plan: Yes Notes (Text): I have seen and examined the patient at bedside. Agree with the above note with the following additions/ exceptions: Briefly this is 76 year old male with history of PAF, HTN, HLD, hypothyroidism, esophageal ulcer and DM-2 who presented after mechanical fall at [facility] and found to have minimally displace acute right pubic ramus fracture. Old scaral fractures were also seen. She also has left anterlateral 8th rib fracture. Ortho consult appreciated and they Recommended PT for mobilization and gait training. PT recommended AMBER for her. Patient is on asa and metoprolol for afib and no anticoagulation due to risk of falls and esophageal ulcers. Patient will be discharged to [facility]. Upon discharge patient will follow up with Dr Grady. Dr Manjit Beverly
== END 2016-11-07 15:48 | DRG 236 ==
LOC: ED 12:20 → ERH 15:28 → 5RSO 17:19
PROVIDERS: ADMIT Hospitalist; ATTEND Hospitalist
DX: S32.591A Other specified fracture of right pubis, initial encounter for closed fracture (principal); F03.90 Unspecified dementia, unspecified severity, without behavioral disturbance, psychotic disturbance, mood disturbance, and anxiety; I48.0 Paroxysmal atrial fibrillation; D62 Acute posthemorrhagic anemia; E11.9 Type 2 diabetes mellitus without complications; I10 Essential (primary) hypertension; D50.9 Iron deficiency anemia, unspecified; S22.31XA Fracture of one rib, right side, initial encounter for closed fracture; E03.9 Hypothyroidism, unspecified; E78.5 Hyperlipidemia, unspecified; R42 Dizziness and giddiness; K59.09 Other constipation; I95.1 Orthostatic hypotension; K64.4 Residual hemorrhoidal skin tags; K64.8 Other hemorrhoids; K21.9 Gastro-esophageal reflux disease without esophagitis; M43.17 Spondylolisthesis, lumbosacral region; W18.39XA Other fall on same level, initial encounter; R29.6 Repeated falls; Y93.89 Activity, other specified; Y92.121 Bathroom in nursing home as the place of occurrence of the external cause; Z87.19 Personal history of other diseases of the digestive system; Z87.891 Personal history of nicotine dependence

== ENCOUNTER 2018-04-08 17:50 | Inpatient (IN) | payer MEDICARE, MEDICAID ==
[2018-04-08 17:59] VITALS: BMI 20.5
--- NOTE | 2018-04-08 18:24 | ED PDOC ---
Arrival/HPI - General Chief Complaint: GI Problem Time Seen by Provider: 04/08/18 18:04 Historian: Patient, Family - History of Present Illness Narrative History of Present Illness (Text): 04/08/18 18:25 77 year old female, with PMH of paroxysmal Afib, DM2, HTN, HLD, hypothyroid, esophageal ulcers, gastritis and decondition 2/2 multiple falls and fractures, presents to the ED for evaluation of worsening lower back pain since 5 days. As per family, patient informs pain with movement and informs limited ability to use the bathroom secondary to pain. Patient denies any recent trauma or injury. Patient reports radiation of pain to bilateral lower extremities. Family informs history of similar symptoms and is currently on tramadol for the pain. Patient denies any other somatic complaints. Patient denies any fevers, chills, headache, dizziness, chest pain, shortness of breath, dyspnea on exertion, cough, abdominal pain, nausea, vomiting, diarrhea, neck pain, or any other complaint. Time/Duration: < week Symptom Onset: Gradual Symptom Course: Unchanged Quality: Aching Activities at Onset: Light Context: Home Past Medical History - Provider Review Nursing Documentation Reviewed: Yes - Infectious Disease Hx of Infectious Diseases: None - Cardiac Hx Cardiac Disorders: Yes (afib, acute ischemic heart disease) Hx Hypertension: Yes - Pulmonary Hx Respiratory Disorders: No (DENIES) - Neurological Hx Neurological Disorder: Yes Hx Dementia: Yes - HEENT Hx HEENT Disorder: Yes (USES GLASSES) - Renal Hx Renal Disorder: Yes - Endocrine/Metabolic Hx Diabetes Mellitus Type 2: Yes Hx Hypothyroidism: Yes - Hematological/Oncological Hx Blood Disorders: No - Integumentary Hx Dermatological Disorder: No - Musculoskeletal/Rheumatological Hx Arthritis: Yes - Gastrointestinal Hx Gastrointestinal Disorders: Yes (GASTRITIS) Hx Gastroesophageal Reflux: Yes - Genitourinary/Gynecological Hx Genitourinary Disorders: No Hx Incontinence: No Hx Urinary Tract Infection: Yes - Psychiatric Hx Psychophysiologic Disorder: No Hx Substance Use: No - Surgical History Hx Joint Replacement: Yes (b/l hips) Other/Comment: R hip surgery - Anesthesia Hx Anesthesia: Yes Hx Anesthesia Reactions: No Hx Malignant Hyperthermia: No - Suicidal Assessment Feels Threatened In Home Enviroment: No Family/Social History - Physician Review Nursing Documentation Reviewed: Yes Family/Social History: No Known Family HX Smoking Status: Never Smoked Hx Alcohol Use: No Hx Substance Use: No Allergies/Home Meds Allergies/Adverse Reactions: Allergies No Known Allergies Allergy (Verified 11/04/16 12:45) Home Medications: Home Meds Medication Instructions Recorded Confirmed Albuterol 0.083% [Albuterol 0.083% 1 vial INH Q6 PRN 11/04/16 01/17/17 Inhal Pamela (2.5 mg/3 ml) UD] Pantoprazole Sodium [Protonix] 1 tab PO HS 12/21/16 01/17/17 Calcium Carb/Magnesium Hydrox 500 mg PO DAILY 01/17/17 01/17/17 [Antacid Chewable Tablet] Cholecalciferol [Vitamin D 1000 IU] 5,000 iu PO TUE 01/17/17 01/17/17 Enoxaparin [Lovenox] 40 mg SQ DAILY 01/17/17 01/17/17 Insulin Lispro [humALOG] 1 unit SQ ACBHS 01/17/17 01/17/17 traMADol [Ultram] 50 mg PO Q6 01/17/17 01/17/17 Review of Systems - Physician Review All systems were reviewed & negative as marked: Yes - Review of Systems Constitutional: absent: Fevers Respiratory: absent: SOB, Cough Cardiovascular: absent: Chest Pain Gastrointestinal: absent: Abdominal Pain, Diarrhea, Nausea, Vomiting Genitourinary Female: absent: Dysuria, Urine Output Changes Musculoskeletal: Back Pain. absent: Neck Pain Skin: absent: Rash Neurological: absent: Headache, Dizziness Physical Exam - Physical Exam Narrative Physical Exam (Text): 04/08/18 18:23 Gen: VS reviewed, alert, well developed, well nourished, nontoxic, mild distress Eye: EOMI, PERRL Neck: no JVD, supple, no adenopathy CV: regular rate, regular rhythm, no rubs,no murmur, S1, S2 Pulm: no distress, clear to auscultation, no wheeze, no rhonchi, breath sounds equal, no rales Abd: soft, nontender, no guarding, no rebound, no rigidity Ext: no edema, limited range of motion at the hip second to pain. Patient appears to wince in pain intermittently from the pain. Skin: good color, no rash, no cyanosis Psych: responds appropriately to questions, normal affect Neuro: oriented x3, CN2-12 intact grossly, motor intact, sensation intact Appearance: Positive for: Well-Appearing, Non-Toxic, Comfortable Pain Distress: None Mental Status: Positive for: Alert and Oriented X 3 Medical Decision Making ED Course and Treatment: 04/08/18 18:30 Impression: 77 year old female presents to the ED for evaluation of lower back pain. Plan: -- CT of Lumbar spine -- CT of Thoracic Spine -- Labs -- Flexeril -- Lidocaine -- Tylenol -- X-ray of Abdomen -- Reassess and disposition Prior Visits: Notes and results from previous visits were reviewed. Progress Notes: 04/08/18 20:[address] hurley to the hospitalist service. patient to be admitted for intractable low back pain. the back is radicular down both legs but no associated neuro deficits such as numbness or weakness. patient is very uncomfortable from the pain and can barely more/function. patient has known lower thoracic compression deformity and l5-s1 listhesis. pending CT of T and L spine to rule out fracture or worsening of known conditions. - RAD Interpretation Narrative RAD Interpretations (Text): 04/08/18 21:48 abdomen xray my read: moderate fecla loaded, no dilated small bowel loops - Scribe Statement The provider has reviewed the documentation as recorded by the Scribe Jose Fournier. All medical record entries made by the Scribe were at my direction and personally dictated by me. I have reviewed the chart and agree that the record accurately reflects my personal performance of the history, physical exam, medical decision making, and the department course for this patient. I have also personally directed, reviewed, and agree with the discharge instructions and disposition. Disposition/Present on Arrival - Present on Arrival Any Indicators Present on Arrival: No History of DVT/PE: No History of Uncontrolled Diabetes: No Urinary Catheter: No History of Decub. Ulcer: No History Surgical Site Infection Following: None - Disposition Have Diagnosis and Disposition been Completed?: Yes Diagnosis: Intractable low back pain Disposition: HOSPITALIZED Disposition Time: 20:58 Patient Plan: Observation Patient Problems: Current Active Problems Problem Status Onset Intractable low back pain Acute Condition: STABLE
[2018-04-08] MEDS ORDERED: Lidocaine 5% Patch TD STA (18:27)
[2018-04-08 19:58] LABS: BASO # 0.04 K/mm3 (0.0-2.0); BASO % 0.6 % (0.0-3.0); EOS # 0.2 (0.0-0.7); EOS % 3.2 % (1.5-5.0); HEMOGLOBIN 14.8 g/dL (12.0-16.0); LYMPH # 1.4 (1.2-3.4); LYMPH % 20.2 % (22.0-35.0); MEAN CELL VOLUME 81.4 fl (80.0-105.0); MEAN CORPUSCULAR HEMOGLOBIN 26.5 pg (25.0-35.0); MEAN CORPUSCULAR HGB CONC 32.6 g/dl (31.0-37.0); MEAN PLATELET VOLUME 11.1 fl (7.0-11.0); MONO # 0.4 (0.1-0.6); MONO % 6.4 % (1.0-6.0); RBC 5.58 10^6/uL (3.5-6.1); RED CELL DISTRIBUTION WIDTH 15.2 % (11.5-14.5); WHITE BLOOD COUNT 6.8 10^3/uL (4.5-11.0)
[2018-04-08 20:05] LABS: ALB/GLOB RATIO 0.8 (1.1-1.8); ALBUMIN 4.1 g/dL (3.0-4.8); CALCIUM 9.9 mg/dL (8.4-10.5)
[2018-04-08] MEDS ORDERED: Morphine 4 mg/ml ISec IVP STA (20:46)
[2018-04-08] MEDS ORDERED: Morphine 2 mg/ml ISec IVP PRN (22:34)
--- NOTE | 2018-04-08 22:53 | CP.PCM.HP ---
<Daniel Mg - Last Filed: 04/09/18 00:42> History of Present Illness - History of Present Illness History of Present Illness: Daniel Mg, PGY1 H&P for Dr. Bruce cc: "worsening lower back pain" Patient is a 77 year old Persian Speaking female with PMHx of paroxysmal Afib, DM2, HTN, HLD, hypothyroidism, esophageal ulcers, gastritis, osteoporosis, multiple falls and fractures who presented to the ED for worsening lower back pain for 5 days in duration. In the ED, Vitals: HR 72, BP 160/90, HR 18, SaO2 95%. Patient was given tylenol, flexeril, morphine, and lidoderm patch for pain control. Medical team consulted for evaluation. Family members were available for translation at bedside. Aside from lower back pain, patient also has constipation for x10 days in duration with poor appetite. There is no history of malignancy. She denies cp, sob, abdominal pain, n/v/d, fevers, chills, urinary frequency, urgency, dysuria. No sick contacts or recent travel history. Patient was seen in the ED on 01/2017 for similar complaint and was sent to [facility] at the time. During this ED visit, she is coming from home. Lower back pain is worse with movement and patient says her home medications are not controlling the pain. No bowel or bladder incontinence. She does not endorse decreased sensation in the trunk, groin, or extremities. Her last fall was approximately 1 year ago. As per family, there has been no acute change in mental status. A full 12 point ROS was conducted and unremarkable except as stated above PMD: Dr. Grady PMHx: paroxysmal Afib, DM2, HTN, HLD, hypothyroidism, esophageal ulcers, gastritis, osteoporosis, multiple falls and fractures PSHx: Bilateral Hip surgery Meds: see MAR Allergies: NKDA SocialHx: Lives at home. Denies tobacco, EtOH, drug use. No sick contacts or recent travel hx. FHx: non-contributory Present on Admission - Present on Admission Any Indicators Present on Admission: No Review of Systems - Review of Systems All systems: reviewed and no additional remarkable complaints except (as per HPI) Past Patient History - Infectious Disease Hx of Infectious Diseases: None - Past Medical History & Family History Past Medical History?: Yes - Past Social History Smoking Status: Never Smoked - CARDIAC Hx Cardiac Disorders: Yes (afib, acute ischemic heart disease) Hx Hypertension: Yes - PULMONARY Hx Respiratory Disorders: No (DENIES) - NEUROLOGICAL Hx Neurological Disorder: Yes Hx Dementia: Yes - HEENT Hx HEENT Problems: Yes (USES GLASSES) - RENAL Hx Chronic Kidney Disease: Yes - ENDOCRINE/METABOLIC Hx Diabetes Mellitus Type 2: Yes Hx Hypothyroidism: Yes - HEMATOLOGICAL/ONCOLOGICAL Hx Blood Disorders: No - INTEGUMENTARY Hx Dermatological Problems: No - MUSCULOSKELETAL/RHEUMATOLOGICAL Hx Arthritis: Yes - GASTROINTESTINAL Hx Gastrointestinal Disorders: Yes (GASTRITIS) Hx Gastroesophageal Reflux: Yes - GENITOURINARY/GYNECOLOGICAL Hx Genitourinary Disorders: No Hx Incontinence: No Hx Urinary Tract Infection: Yes - PSYCHIATRIC Hx Psychophysiologic Disorder: No Hx Substance Use: No - SURGICAL HISTORY Hx Joint Replacement: Yes (b/l hips) Other/Comment: R hip surgery - ANESTHESIA Hx Anesthesia: Yes Hx Anesthesia Reactions: No Hx Malignant Hyperthermia: No Meds Allergies/Adverse Reactions: Allergies Allergy/AdvReac Type Severity Reaction Status Date / Time No Known Allergies Allergy Verified 11/04/16 12:45 Physical Exam - Constitutional Appears: No Acute Distress - Head Exam Head Exam: ATRAUMATIC, NORMAL INSPECTION, NORMOCEPHALIC - Eye Exam Eye Exam: EOMI, Normal appearance, PERRL Pupil Exam: NORMAL ACCOMODATION - ENT Exam ENT Exam: Mucous Membranes Moist - Neck Exam Neck exam: Positive for: Normal Inspection - Respiratory Exam Respiratory Exam: Clear to Auscultation Bilateral, NORMAL BREATHING PATTERN. absent: Chest Wall Tenderness, Rales, Rhonchi, Wheezes, Stridor - Cardiovascular Exam Cardiovascular Exam: RRR, +S1, +S2 - GI/Abdominal Exam GI & Abdominal Exam: Normal Bowel Sounds, Soft. absent: Distended, Firm, Guarding, Mass, Organomegaly, Rebound, Rigid, Tenderness - Extremities Exam Extremities exam: Positive for: normal capillary refill, pedal pulses present. Negative for: calf tenderness, joint swelling, pedal edema, tenderness Additional comments: No evidence of pressure ulcers. - Back Exam Back exam: paraspinal tenderness, tenderness, vertebral tenderness. absent: CVA tenderness (L), CVA tenderness (R), FULL ROM Additional comments: Significant tenderness with mobility of lumbar spine. No evidence of pressure ulcers. - Neurological Exam Neurological exam: Alert, CN II-XII Intact, Oriented x3 Additional comments: No evidence of diminished sensation or cauda equina features. Sensation intact in all distal extremities. Pulses +2 in all distal extremities. - Psychiatric Exam Psychiatric exam: Normal Affect, Normal Mood - Skin Skin Exam: Dry, Intact, Normal Color, Warm Results - Vital Signs Recent Vital Signs: Last Vital Signs Temp Pulse 72 04/08/18 19:01 Resp 18 04/08/18 19:01 BP 160/90 H 04/08/18 19:01 Pulse Ox 95 04/08/18 19:01 - Labs Result Diagrams: 04/08/18 19:50 04/08/18 19:50 Labs: Laboratory Results - last 24 hr 04/08/18 04/08/18 19:50 19:50 WBC 6.8 RBC 5.58 Hgb 14.8 D Hct 45.4 MCV 81.4 D MCH 26.5 MCHC 32.6 RDW 15.2 H Plt Count 217 MPV 11.1 H Neut % (Auto) 69.6 H Lymph % (Auto) 20.2 L [place] % (Auto) 6.4 H Eos % (Auto) 3.2 Baso % (Auto) 0.6 Lymph # (Auto) 1.4 Ell[place] # (Auto) 0.4 Eos # (Auto) 0.2 Baso # (Auto) 0.04 Absolute Neuts (auto) 4.71 Sodium 142 Potassium 4.4 Chloride 111 H Carbon Dioxide 21 Anion Gap 14 BUN 33 H Creatinine 1.3 H Est GFR ( Amer) 48 Est GFR (Non-Af Amer) 40 Random Glucose 162 H Calcium 9.9 Total Bilirubin 0.8 AST 31 ALT 12 Alkaline Phosphatase 162 H D Total Protein 9.3 H Albumin 4.1 Globulin 5.2 Albumin/Globulin Ratio 0.8 L Assessment & Plan - Assessment and Plan (Free Text) Assessment: Patient is a 77 year old Persian Speaking female with PMHx of paroxysmal Afib, DM2, HTN, HLD, hypothyroidism, esophageal ulcers, gastritis, osteoporosis, multiple falls and fractures who presented to the ED for worsening lower back pain for 5 days in duration. Patient will be admitted for intractable low back pain. Plan: Intractable Lower Back Pain 2/2 Hx Osteoporotic Compression Fractures - c/w Lidoderm patch - morphine 1 q6 prn for pain control with holding parameters - c/w Calcium and Vitamin D supplement home meds - PT eval - f/u results of imaging of Thoracic and Lumbar CT spine to r/o acute compression fractures. If acute fx present, may need to consider IR for possible kyphoplasty. Also r/o tumor via imaging. - Due to patient immobility, q2 turns and multipodus boot to prevent pressure ulcers Constipation 2/2 Immobility - c/w home med mirilax and colace - glycerin per rectum Pre-renal CATARINO likely due poor PO intake - NS @ 75 cc/hr - strict ins/outs - BUN/Cr was 33/1.3 (baseline Cr is 0.9) Hx HTN - Elevated BP may be 2/2 pain - started on hydralazine 10mg PO BID prn with holding parameters - monitor BP Hx DM - ISS (low) - Accuchecks ACHS - Hgb A1c ordered Hx gastritis - c/w home med protonix PO Hx Hypothyroidism - TSH and T4 - c/w home med synthroid Diet: HHD Dispo: Monitor patient on the floor. Follow up results of the CT imaging. Case was discussed and reviewed with Attending Physician, Dr. Bruce <Alban Bruce - Last Filed: 04/12/18 21:33> Results - Vital Signs Recent Vital Signs: Last Vital Signs Temp 97.6 F 04/12/18 06:00 Pulse 62 04/12/18 06:00 Resp 20 04/12/18 06:00 BP 145/75 04/12/18 06:00 Pulse Ox 99 04/12/18 06:00 - Labs Result Diagrams: 04/12/18 07:51 04/12/18 07:51 Labs: Laboratory Results - last 24 hr 04/12/18 04/12/18 04/12/18 07:30 07:51 07:51 WBC 7.0 RBC 5.07 Hgb 13.0 Hct 40.7 MCV 80.3 MCH 25.6 MCHC 31.9 RDW 15.2 H Plt Count 188 MPV 11.1 H Neut % (Auto) 50.3 Lymph % (Auto) 33.3 Ellsworth % (Auto) 8.2 H Eos % (Auto) 7.8 H Baso % (Auto) 0.4 Lymph # (Auto) 2.3 Ellsworth # (Auto) 0.6 Eos # (Auto) 0.5 Baso # (Auto) 0.03 Absolute Neuts (auto) 3.50 Sodium 140 Potassium 4.1 Chloride 111 H Carbon Dioxide 21 Anion Gap 12 BUN 26 H Creatinine 1.3 H Est GFR ( Amer) 48 Est GFR (Non-Af Amer) 40 POC Glucose (mg/dL) 97 Random Glucose 92 Calcium 9.7 Total Bilirubin 0.7 AST 30 ALT 13 Alkaline Phosphatase 145 H Total Protein 8.5 H Albumin 3.6 Globulin 4.9 Albumin/Globulin Ratio 0.7 L 04/12/18 04/12/18 04/12/18 11:35 15:55 21:13 WBC RBC Hgb Hct MCV MCH MCHC RDW Plt Count MPV Neut % (Auto) Lymph % (Auto) Ellsworth % (Auto) Eos % (Auto) Baso % (Auto) Lymph # (Auto) Ellsworth # (Auto) Eos # (Auto) Baso # (Auto) Absolute Neuts (auto) Sodium Potassium Chloride Carbon Dioxide Anion Gap BUN Creatinine Est GFR ( Amer) Est GFR (Non-Af Amer) POC Glucose (mg/dL) 151 H 141 H 142 H Random Glucose Calcium Total Bilirubin AST ALT Alkaline Phosphatase Total Protein Albumin Globulin Albumin/Globulin Ratio Attending/Attestation - Attestation I have personally seen and examined this patient.: Yes I have fully participated in the care of the patient.: Yes I have reviewed all pertinent clinical information: Yes
[2018-04-09] MEDS: Sodium Chloride 0.9% 1,000 ML IV SCH ×2 (00:40→21:28)
[2018-04-09 00:48] LABS: FREE T4 0.61 ng/dL (0.78-2.19)
[2018-04-09 06:40] LABS: MEAN CELL VOLUME 80.2 fl (80.0-105.0); MEAN CORPUSCULAR HEMOGLOBIN 25.7 pg (25.0-35.0); MEAN CORPUSCULAR HGB CONC 32.1 g/dl (31.0-37.0); MEAN PLATELET VOLUME 10.7 fl (7.0-11.0); RBC 5.05 10^6/uL (3.5-6.1); RED CELL DISTRIBUTION WIDTH 15.1 % (11.5-14.5); WHITE BLOOD COUNT 6.4 10^3/uL (4.5-11.0)
[2018-04-09 06:57] LABS: ALB/GLOB RATIO 0.8 (1.1-1.8); ALBUMIN 3.6 g/dL (3.0-4.8); CALCIUM 9.3 mg/dL (8.4-10.5)
[2018-04-09] MEDS ORDERED: Levothyroxine 150 MCG TAB PO SCH (07:30)
[2018-04-09] MEDS: Insulin Lispro (humaLOG) LOW Coverage SC SCH ×4 (08:00→21:25)
--- NOTE | 2018-04-09 08:38 | CT ---
Date of service: 04/08/2018 PROCEDURE: CT Lumbar Spine without contrast HISTORY: pain, stenosis COMPARISON: Lumbar spine CT without contrast 11/04/2016. TECHNIQUE: Axial computed tomography images were obtained of the lumbar spine without the use of intravenous contrast. Coronal and sagittal reformatted images were created and reviewed. Radiation dose: Total exam DLP = 911.95 mGy-cm. This CT exam was performed using one or more of the following dose reduction techniques: Automated exposure control, adjustment of the mA and/or kV according to patient size, and/or use of iterative reconstruction technique. FINDINGS: VERTEBRAE: Grade 1 spondylolisthesis L5-S1 on the basis of bilateral spondylolysis. Normal curvature otherwise evident. Mild compression fracture is likely insufficiency based at L1, borderline at T12. Age of these fractures is indeterminate. Prevertebral paraspinal soft tissues appear unremarkable. No destructive bony lesion appreciated. Nonaneurysmal abdominal aortic calcific atherosclerotic changes are identified. DISCS/SPINAL CANAL/NEURAL FORAMINA: L1-2: Mild circumferential disc bulging is appreciated with some encroaching the lateral recesses and mild bilateral neural foraminal stenosis resulting. L2-3: Unremarkable. L3-4: Limited circumferential disc bulging is appreciated as well as facet joint degenerative change without stenosis resulting. L4-5: Circumferential disc bulging is appreciated combining with facet arthropathy results in a mild central stenosis concentrated at the lateral recesses symmetrically. No neural foraminal stenosis bilaterally. L5-S1: Grade 1 spondylolisthesis causes [id number] bilateral neural foraminal stenosis symmetrically, no central canal stenosis identified. No gross disc herniation appreciable. MRI is more sensitive for soft tissue evaluation and can be performed for added characterization if disc herniation is a clinical concern. PARASPINAL SOFT TISSUES: Unremarkable. OTHER FINDINGS: Probable cholelithiasis incidentally noted. IMPRESSION: 1. No large disc herniation or prominent bony central canal stenosis appreciable. MRI is more sensitive and can be performed for follow-up if clinically warranted. 2. Grade 1 spondylolisthesis L5-S1 resulting [id number] bilateral neural foraminal stenosis but no significant central canal stenosis. 3. Multilevel degenerative disease and facet arthropathy appears mild. Degenerative spinal stenosis is mild at L4-5. 4. Incidental cholelithiasis identified. 5. Overall no dramatic interval change compared to prior lumbar spine CT 11/04/2016. Concordant preliminary report from [facility] 03/30/2018, 11:04 p.m..
[2018-04-09] MEDS: Pantoprazole 20 mg EC Tab PO SCH (08:41)
--- NOTE | 2018-04-09 08:48 | CT ---
Date of service: 04/08/2018 PROCEDURE: CT Thoracic Spine without contrast HISTORY: pain, fracture COMPARISON: None available. TECHNIQUE: Axial computed tomography images were obtained of the thoracic spine without intravenous contrast. Coronal and sagittal reformatted images were created and reviewed. Radiation dose: Total exam DLP = 652.16 mGy-cm. This CT exam was performed using one or more of the following dose reduction techniques: Automated exposure control, adjustment of the mA and/or kV according to patient size, and/or use of iterative reconstruction technique. FINDINGS: Note, this study only captured the upper half of the T12 vertebral body but lumbar spine CT also performed 03/30/2018 does capture intact T12 vertebral body. VERTEBRAE: Mild vertebral body height loss with anterior wedging is seen at T7 likely indicative of compression fracture, though mild. The age of this fracture is indeterminate. MRI or bone scan can accurately assess timeframe of fracture. No spondylolisthesis. Normal kyphotic curvature identified. No destructive bony lesion focally identified. Limited mid to inferior multilevel spondylosis identified. 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 DISCS/SPINAL CANAL/NEURAL FORAMINA: Within the limits of the CT technique, no disc herniation seen. No central canal or neural foraminal stenosis.. PARASPINAL SOFT TISSUES: Unremarkable. OTHER FINDINGS: Unremarkable. IMPRESSION: 1. Mild anterior wedge compression fracture T7, age indeterminate. Bone scan or MRI can accurately assess timeframe of this fracture as clinically warranted. No additional potential thoracic spinal fracture identified. Normal curvature preserved throughout the thoracic spine nevertheless. 2. No spondylolisthesis or spinal stenosis appreciated. Preliminary report provided by [facility], 04/08/2018, 10:54 p.m.
[2018-04-09] MEDS: POLYETHYLENE GLYCOL 3350 17 GM/Dose PACKET PO SCH ×2 (09:47→17:20)
[2018-04-09] MEDS: Lidocaine 5% Patch TD SCH (09:48)
--- NOTE | 2018-04-09 12:26 | CARD ---
APPROVED REPORT Date of service: 04/08/2018 EKG Measurement Heart [id number] <Conclusion> Normal sinus rhythm Inferior-posterior infarct, age undetermined Abnormal ECG
[2018-04-09] MEDS ORDERED: Albuterol-Ipratrop 3 mg / 0.5 (3 ml) UD IH PRN (12:44)
--- NOTE | 2018-04-09 13:11 | CP.PCM.PN ---
<José Lau - Last Filed: 04/09/18 18:54> Subjective - Date & Time of Evaluation Date of Evaluation: 04/09/18 Time of Evaluation: 18:37 - Subjective Subjective: José Lau, PGY-1 Medicine Progress Note for Dr. Payne: Pt was seen and examined this AM at bedside. picture frame maker was used to help translate for the pt. Pt states that she is continuing to have lower back pain which is present b/l without radiation to the LE on either side. Pt states also that she does not have any numbness, tingling, bowel incontinence, or saddle anesthesia. She states that otherwise she has no fevers, or chills though does admit to cold intolerance. She also states that she does not have chest pain or palpitations, SOB or cough. She does admit to constipation for the past 10 days but states is still able to tolerate a diet without associated n/v. She has no other acute complaints at this time. Objective - Vital Signs/Intake and Output Vital Signs (last 24 hours): Temp Pulse Resp BP Pulse Ox 97.4 F L 60 20 145/83 94 L 04/09/18 06:00 04/09/18 06:00 04/09/18 06:00 04/09/18 06:00 04/09/18 06:00 Intake and Output: 04/09/18 04/09/18 06:59 18:59 Intake Total 770 Output Total 200 Balance 570 - Medications Medications: Current Medications Albuterol/Ipratropium (Duoneb 3 Mg/0.5 Mg (3 Ml) Ud) 3 ml IH [id number] PRN PRN Reason: Shortness of Breath Calcium Carbonate (Oscal) 500 mg PO DAILY [facility] Last Admin: 04/09/18 09:47 Dose: 500 mg Docusate Sodium (Colace) 100 mg PO DAILY [facility] Last Admin: 04/09/18 09:47 Dose: 100 mg Ergocalciferol (Drisdol 50,000 Intl Units Cap) 1 cap PO QWK [facility] Hydralazine HCl (Apresoline) 10 mg PO BID PRN PRN Reason: Systolic Blood Pressure Sodium Chloride (Sodium Chloride 0.9%) 1,000 mls @ 75 mls/hr IV .[id number] [facility] Last Admin: 04/09/18 00:40 Dose: 75 mls/hr Insulin Human Lispro (Humalog Low) 0 units SC ACHS [facility]; Protocol Last Admin: 04/09/18 11:50 Dose: Not Given Levothyroxine Sodium (Synthroid) 150 mcg PO 0600 [facility] Lidocaine (Lidoderm) 1 ea TD DAILY [facility] Last Admin: 04/09/18 09:48 Dose: 1 ea Memantine (Namenda) 5 mg PO DAILY [facility] Last Admin: 04/09/18 09:47 Dose: 5 mg Metoclopramide HCl (Reglan) 5 mg PO 0600,1130,1630,2200 [facility] Last Admin: 04/09/18 11:58 Dose: 5 mg Morphine Sulfate (Morphine) 1 mg IVP Q6H PRN PRN Reason: Pain, severe (8-10) Pantoprazole Sodium (Protonix Ec Tab) 20 mg PO 0600 [facility] Last Admin: 04/09/18 08:41 Dose: 20 mg Polyethylene Glycol (Miralax) 17 gm PO BID [facility] Last Admin: 04/09/18 09:47 Dose: 17 gm - Labs Labs: 04/09/18 06:00 04/09/18 06:00 - Constitutional Appears: Well, Non-toxic, No Acute Distress - Head Exam Head Exam: ATRAUMATIC, NORMAL INSPECTION, NORMOCEPHALIC - Eye Exam Eye Exam: EOMI, Normal appearance, PERRL - Respiratory Exam Respiratory Exam: Clear to Ausculation Bilateral, NORMAL BREATHING PATTERN. absent: Accessory Muscle Use, Rales, Rhonchi, Wheezes, Respiratory Distress - Cardiovascular Exam Cardiovascular Exam: RRR, +S1, +S2. absent: Gallop, Rubs - GI/Abdominal Exam GI & Abdominal Exam: Soft, Normal Bowel Sounds. absent: Firm, Guarding, Rigid, Tenderness - Extremities Exam Extremities Exam: Normal Capillary Refill, Normal Inspection. absent: Calf T enderness, Pedal Edema, Tenderness - Back Exam Back Exam: NORMAL INSPECTION. absent: CVA tenderness (L), CVA tenderness (R) - Neurological Exam Neurological Exam: Alert, Awake, Oriented x3 - Psychiatric Exam Psychiatric exam: Normal Affect, Normal Mood - Skin Skin Exam: Dry, Normal Color, Warm Assessment and Plan - Assessment and Plan (Free Text) Assessment: Patient is a 77 year old Italian Speaking female with PMHx of paroxysmal Afib, DM2, HTN, HLD, hypothyroidism, esophageal ulcers, gastritis, osteoporosis, multiple falls and fractures who presented to the ED for worsening lower back pain for 5 days in duration. Patient will be admitted for intractable low back pain. Abd XR shows a lot of stool without transition point or evidence of obstruction. Plan: 1) Intractable Lower Back Pain - Likely 2/2 constipation and hx Osteoporotic Compression Fractures - Abd XR: No evidence of mechanical obstruction. Stool present throughout bowel - Thoracic CT: IMPRESSION: 1. Mild anterior wedge compression fracture T7, age indeterminate. Bone scan or MRI can accurately assess timeframe of this fracture as clinically warranted. No additional potential thoracic spinal fracture identified. Normal curvature preserved throughout the thoracic spine nevertheless. 2. No spondylolisthesis or spinal stenosis appreciated. - L Spine CT: IMPRESSION: 1. No large disc herniation or prominent bony central canal stenosis appreciable. MRI is more sensitive and can be performed for follow-up if clinically warranted. 2. Grade 1 spondylolisthesis L5-S1 resulting [id number] bilateral neural foraminal stenosis but no significant central canal stenosis. 3. Multilevel degenerative disease and facet arthropathy appears mild. Degenerative spinal stenosis is mild at L4-5. 4. Incidental cholelithiasis identified. 5. Overall no dramatic interval change compared to prior lumbar spine - cont Lidoderm patch - morphine 1 q6 prn for pain control with holding parameters - cont Calcium and Vitamin D supplement home meds - Started reglan to assist motility. - PT eval - Recommend AMBER - Due to patient immobility, q2 turns and multipodus boot to prevent pressure ulcers - cont home med mirilax and colace Pre-renal CATARINO likely due poor PO intake - NS @ 75 cc/hr - strict ins/outs - BUN/Cr was 33/1.3 (baseline Cr is 0.9) Hx HTN - Elevated BP may be 2/2 pain - started on hydralazine 10mg PO BID prn with holding parameters - monitor BP Hx DM - ISS (low) - Accuchecks ACHS - Hgb A1c - 6.4 Hx gastritis - cont home med protonix PO Hx Hypothyroidism - TSH - elevated at 6.67 and Free T4 low at .61 - cont home med synthroid Diet: HHD Dispo: AMBER placement Case was discussed and reviewed with Attending Physician, Dr. Elmer Lau, PGY-1 <Neo Payne - Last Filed: 04/10/18 06:43> Objective - Vital Signs/Intake and Output Vital Signs (last 24 hours): Temp Pulse Resp BP Pulse Ox 97.9 F 74 20 140/77 96 04/09/18 17:29 04/09/18 17:29 04/09/18 17:29 04/09/18 17:29 04/09/18 17:29 Intake and Output: 04/09/18 04/10/18 18:59 06:59 Intake Total 750 Balance 750 - Medications Medications: Current Medications Albuterol/Ipratropium (Duoneb 3 Mg/0.5 Mg (3 Ml) Ud) 3 ml IH [id number] PRN PRN Reason: Shortness of Breath Calcium Carbonate (Oscal) 500 mg PO DAILY [facility] Last Admin: 04/09/18 09:47 Dose: 500 mg Docusate Sodium (Colace) 100 mg PO DAILY [facility] Last Admin: 04/09/18 09:47 Dose: 100 mg Ergocalciferol (Drisdol 50,000 Intl Units Cap) 1 cap PO QWK [facility] Hydralazine HCl (Apresoline) 10 mg PO BID PRN PRN Reason: Systolic Blood Pressure Sodium Chloride (Sodium Chloride 0.9%) 1,000 mls @ 75 mls/hr IV .[id number] [facility] Last Admin: 04/09/18 21:28 Dose: 75 mls/hr Insulin Human Lispro (Humalog Low) 0 units SC ACHS [facility]; Protocol Last Admin: 04/09/18 21:25 Dose: Not Given Levothyroxine Sodium (Synthroid) 150 mcg PO 0600 [facility] Last Admin: 04/10/18 05:40 Dose: 150 mcg Lidocaine (Lidoderm) 1 ea TD DAILY [facility] Last Admin: 04/09/18 09:48 Dose: 1 ea Memantine (Namenda) 5 mg PO DAILY [facility] Last Admin: 04/09/18 09:47 Dose: 5 mg Metoclopramide HCl (Reglan) 5 mg PO 0600,1130,1630,2200 [facility] Last Admin: 04/10/18 05:40 Dose: 5 mg Morphine Sulfate (Morphine) 1 mg IVP Q6H PRN PRN Reason: Pain, severe (8-10) Last Admin: 04/09/18 15:45 Dose: 1 mg Pantoprazole Sodium (Protonix Ec Tab) 20 mg PO 0600 [facility] Last Admin: 04/10/18 05:40 Dose: 20 mg Polyethylene Glycol (Miralax) 17 gm PO BID [facility] Last Admin: 04/09/18 17:20 Dose: 17 gm - Labs Labs: 04/09/18 06:00 04/09/18 06:00 Attending/Attestation - Attestation I have personally seen and examined this patient.: Yes I have fully participated in the care of the patient.: Yes I have reviewed all pertinent clinical information, including history, physical exam and plan: Yes Notes (Text): 04/09/18 77 year old female with past medical history of paroxysmal afib, diabetes, hypertension, hypothyroidims, gastritis, multiple falls and fractures who presents with intractable back pain and constipation. CT spine showed mild anterior wedge compression fracture T7, grade 1 spondylolisthesis L5-S1 r esulting mild to moderate bilateral neural foraminal stenosis and multilevel degenerative disease. Abdominal xray showed constipation without impaction or obstruction. Patient is on iv morphine prn, lidoderm patch and flexeral. Patient reports she lives alone; may benefit from rehab. PT evaluation was appreciated; recommended AMBER. Continue with colace and miralax for constipation. Continue with synthroid for hypothyroidism. She was counselled on medication compliance. Continue with iv fluids for mild CATARINO. Repeat labs in AM. Neo Payne MD Hospitalist.
[2018-04-09] MEDS ORDERED: Albuterol-Ipratrop 3 mg / 0.5 (3 ml) UD IH SCH (14:00)
--- NOTE | 2018-04-09 14:41 | RAD ---
Date of service: 04/08/2018 HISTORY: constipation COMPARISON: None available. FINDINGS: BOWEL: Constipation without fecal impaction or obstruction. BONES: Normal. OTHER FINDINGS: None. IMPRESSION: No evidence of mechanical obstruction.
--- NOTE | 2018-04-09 14:43 | CP.PCM.PCO ---
Physician Communication Note - Physician Communication Note Physician Communication Note: pt.seen by PT, recommended AMBER
[2018-04-09] MEDS: Morphine 2 mg/ml ISec IVP PRN (15:45)
--- NOTE | 2018-04-09 16:27 | CP.PCM.APN ---
Subjective - Date & Time of Evaluation Date of Evaluation: 04/09/18 Time of Evaluation: 16:20 - Subjective Subjective: Pt. seen and examined. Is complaining of lower back pain. Offers no other complaints. Review of Systems - Review of Systems All systems: reviewed and no additional remarkable complaints except - Musculoskeletal Musculoskeletal: Back Pain Objective - Vital Signs/Intake and Output Vital Signs (last 24 hours): Temp Pulse Resp BP Pulse Ox 97.4 F L 60 20 145/83 94 L 04/09/18 06:00 04/09/18 06:00 04/09/18 06:00 04/09/18 06:00 04/09/18 06:00 Intake and Output: 04/09/18 04/09/18 06:59 18:59 Intake Total 770 Output Total 200 Balance 570 - Medications Medications: Current Medications Albuterol/Ipratropium (Duoneb 3 Mg/0.5 Mg (3 Ml) Ud) 3 ml IH [id number] PRN PRN Reason: Shortness of Breath Calcium Carbonate (Oscal) 500 mg PO DAILY [facility] Last Admin: 04/09/18 09:47 Dose: 500 mg Docusate Sodium (Colace) 100 mg PO DAILY [facility] Last Admin: 04/09/18 09:47 Dose: 100 mg Ergocalciferol (Drisdol 50,000 Intl Units Cap) 1 cap PO QWK [facility] Hydralazine HCl (Apresoline) 10 mg PO BID PRN PRN Reason: Systolic Blood Pressure Sodium Chloride (Sodium Chloride 0.9%) 1,000 mls @ 75 mls/hr IV .[id number] [facility] Last Admin: 04/09/18 00:40 Dose: 75 mls/hr Insulin Human Lispro (Humalog Low) 0 units SC ACHS [facility]; Protocol Last Admin: 04/09/18 11:50 Dose: Not Given Levothyroxine Sodium (Synthroid) 150 mcg PO 0600 [facility] Lidocaine (Lidoderm) 1 ea TD DAILY [facility] Last Admin: 04/09/18 09:48 Dose: 1 ea Memantine (Namenda) 5 mg PO DAILY [facility] Last Admin: 04/09/18 09:47 Dose: 5 mg Metoclopramide HCl (Reglan) 5 mg PO 0600,1130,1630,2200 [facility] Last Admin: 04/09/18 15:44 Dose: 5 mg Morphine Sulfate (Morphine) 1 mg IVP Q6H PRN PRN Reason: Pain, severe (8-10) Last Admin: 04/09/18 15:45 Dose: 1 mg Pantoprazole Sodium (Protonix Ec Tab) 20 mg PO 0600 [facility] Last Admin: 04/09/18 08:41 Dose: 20 mg Polyethylene Glycol (Miralax) 17 gm PO BID [facility] Last Admin: 04/09/18 09:47 Dose: 17 gm - Labs Labs: 04/09/18 06:00 04/09/18 06:00 - Constitutional Appears: Non-toxic - Head Exam Head Exam: NORMOCEPHALIC - Eye Exam Eye Exam: Normal appearance Pupil Exam: NORMAL ACCOMODATION - Neck Exam Neck Exam: Full ROM, Normal Inspection - Respiratory Exam Respiratory Exam: NORMAL BREATHING PATTERN - Cardiovascular Exam Cardiovascular Exam: REGULAR RHYTHM, +S1, +S2 - GI/Abdominal Exam GI & Abdominal Exam: Soft, Normal Bowel Sounds - Rectal Exam Rectal Exam: Deferred - Extremities Exam Extremities Exam: Normal Inspection - Neurological Exam Neurological Exam: Alert, Awake - Skin Skin Exam: Dry, Intact, Normal Color, Warm Assessment and Plan - Assessment and Plan (Free Text) Assessment: ITS Impressions Abdomen X-Ray 04/08/18 18:25 IMPRESSION: No evidence of mechanical obstruction. Lumbar Spine CT 04/08/18 18:28 IMPRESSION: 1. No large disc herniation or prominent bony central canal stenosis appreciable. MRI is more sensitive and can be performed for follow-up if clinically warranted. 2. Grade 1 spondylolisthesis L5-S1 resulting [id number] bilateral neural foraminal stenosis but no significant central canal stenosis. 3. Multilevel degenerative disease and facet arthropathy appears mild. Degenerative spinal stenosis is mild at L4-5. 4. Incidental cholelithiasis identified. 5. Overall no dramatic interval change compared to prior lumbar spine CT 11/04/2016. Concordant preliminary report from [facility], 03/30/2018, 11:[address] 04/08/18 18:28 IMPRESSION: 1. Mild anterior wedge compression fracture T7, age indeterminate. Bone scan or MRI can accurately assess timeframe of this fracture as clinically warranted. No additional potential thoracic spinal fracture identified. Normal curvature preserved throughout the thoracic spine nevertheless. 2. No spondylolisthesis or spinal stenosis appreciated. Preliminary report provided by [facility], 04/08/2018, 10:54 p.m. Assessment: Patient is a 77 year old Georgian Speaking female with PMHx of paroxysmal Afib, DM2, HTN, HLD, hypothyroidism, esophageal ulcers, gastritis, osteoporosis, multiple falls and fractures who presented to the ED for worsening lower back pain for 5 days in duration. Patient will be admitted for intractable low back pain Plan: 1. Intractable Lower back pain radiating down to legs. -Most likely r/t mild T7 compression fracture, with hx. T7 deformity - Lidoderm Patch and Morph IV prn ordered, Flexeril. 2. Deconditioned State with hx of multiple falls. -PT recommends [facility], will need 2 more nights Will continue to monitor clinical status and follow closely. Will discuss with consultants and Pmd. SW/CM for DC planning to [facility].
[2018-04-10] MEDS: Levothyroxine 150 MCG TAB PO SCH (05:40)
[2018-04-10] MEDS: Pantoprazole 20 mg EC Tab PO SCH (05:40)
[2018-04-10] MEDS ORDERED: Levothyroxine 175 MCG TAB PO SCH (06:00)
[2018-04-10 06:28] LABS: BASO # 0.04 K/mm3 (0.0-2.0); BASO % 0.7 % (0.0-3.0); EOS # 0.5 (0.0-0.7); EOS % 8.1 % (1.5-5.0); HEMOGLOBIN 13.1 g/dL (12.0-16.0); LYMPH # 1.8 (1.2-3.4); LYMPH % 30.5 % (22.0-35.0); MEAN CORPUSCULAR HEMOGLOBIN 25.9 pg (25.0-35.0); MEAN CORPUSCULAR HGB CONC 32.3 g/dl (31.0-37.0); MEAN PLATELET VOLUME 11.1 fl (7.0-11.0); MONO # 0.6 (0.1-0.6); MONO % 10.1 % (1.0-6.0); RBC 5.06 10^6/uL (3.5-6.1); RED CELL DISTRIBUTION WIDTH 15.1 % (11.5-14.5)
[2018-04-10 07:24] LABS: ALB/GLOB RATIO 0.7 (1.1-1.8); ALBUMIN 3.5 g/dL (3.0-4.8); CALCIUM 9.2 mg/dL (8.4-10.5)
[2018-04-10] MEDS: Insulin Lispro (humaLOG) LOW Coverage SC SCH ×4 (07:57→21:25)
[2018-04-10] MEDS: Lidocaine 5% Patch TD SCH (10:28)
[2018-04-10] MEDS: POLYETHYLENE GLYCOL 3350 17 GM/Dose PACKET PO SCH ×2 (10:28→17:33)
[2018-04-10] MEDS: Sodium Chloride 0.9% 1,000 ML IV SCH (10:34)
[2018-04-10] MEDS ORDERED: Bisacodyl 5mg EC Tab PO ONE (12:17)
[2018-04-10] MEDS ORDERED: Bisacodyl 5mg EC Tab PO PRN (12:18)
--- NOTE | 2018-04-10 16:08 | CP.PCM.PN ---
<José Lau - Last Filed: 04/10/18 16:53> Subjective - Date & Time of Evaluation Date of Evaluation: 04/10/18 Time of Evaluation: 16:04 - Subjective Subjective: José Lau, PGY-1 Medicine Progress Note for Dr. Payne: Pt was seen and examined this AM at bedside. wheel roller was used to help translate for the pt. Pt states that she is continuing to have lower back pain which is present b/l without radiation to the LE on either side. Pt continues to deny any numbness, tingling, bowel incontinence, or saddle anesthesia. She states that otherwise she has no fevers, or chills though does admit to cold intolerance. She also states that she does not have chest pain or palpitations, SOB or cough. She does admit to constipation for the past 11 days but states is still able to tolerate a diet without associated n/v. She has no other acute complaints at this time. Objective - Vital Signs/Intake and Output Vital Signs (last 24 hours): Temp Pulse Resp BP Pulse Ox 97.9 F 65 20 135/75 95 04/10/18 08:22 04/10/18 08:22 04/10/18 08:22 04/10/18 08:22 04/10/18 08:22 Intake and Output: 04/10/18 04/10/18 06:59 18:59 Intake Total 120 Output Total 950 Balance -830 - Medications Medications: Current Medications Albuterol/Ipratropium (Duoneb 3 Mg/0.5 Mg (3 Ml) Ud) 3 ml IH [id number] PRN PRN Reason: Shortness of Breath Bisacodyl (Dulcolax) 5 mg PO DAILY PRN PRN Reason: Constipation Last Admin: 04/10/18 13:17 Dose: 5 mg Calcium Carbonate (Oscal) 500 mg PO DAILY [facility] Last Admin: 04/10/18 10:27 Dose: 500 mg Docusate Sodium (Colace) 100 mg PO DAILY [facility] Last Admin: 04/10/18 10:27 Dose: 100 mg Ergocalciferol (Drisdol 50,000 Intl Units Cap) 1 cap PO QWK [facility] Hydralazine HCl (Apresoline) 10 mg PO BID PRN PRN Reason: Systolic Blood Pressure Insulin Human Lispro (Humalog Low) 0 units SC ACHS [facility]; Protocol Last Admin: 04/10/18 11:28 Dose: Not Given Levothyroxine Sodium (Synthroid) 150 mcg PO 0600 [facility] Last Admin: 04/10/18 05:40 Dose: 150 mcg Lidocaine (Lidoderm) 1 ea TD DAILY [facility] Last Admin: 04/10/18 10:28 Dose: 1 ea Memantine (Namenda) 5 mg PO DAILY [facility] Last Admin: 04/10/18 10:27 Dose: 5 mg Metoclopramide HCl (Reglan) 5 mg PO 0600,1130,1630,2200 [facility] Last Admin: 04/10/18 10:29 Dose: 5 mg Morphine Sulfate (Morphine) 1 mg IVP Q6H PRN PRN Reason: Pain, severe (8-10) Last Admin: 04/09/18 15:45 Dose: 1 mg Pantoprazole Sodium (Protonix Ec Tab) 20 mg PO 0600 [facility] Last Admin: 04/10/18 05:40 Dose: 20 mg Polyethylene Glycol (Miralax) 17 gm PO BID [facility] Last Admin: 04/10/18 10:28 Dose: 17 gm - Labs Labs: 04/10/18 06:00 04/10/18 06:00 - Constitutional Appears: Well, Non-toxic, No Acute Distress - Head Exam Head Exam: ATRAUMATIC, NORMAL INSPECTION, NORMOCEPHALIC - Eye Exam Eye Exam: EOMI, Normal appearance, PERRL - Respiratory Exam Respiratory Exam: Clear to Ausculation Bilateral, NORMAL BREATHING PATTERN. absent: Accessory Muscle Use, Rales, Rhonchi, Wheezes, Respiratory Distress, Stridor - Cardiovascular Exam Cardiovascular Exam: RRR, +S1, +S2. absent: Gallop, Rubs - GI/Abdominal Exam GI & Abdominal Exam: Soft, Hypoactive Bowel Sounds. absent: Distended, Guarding, Tenderness - Extremities Exam Extremities Exam: Normal Capillary Refill, Normal Inspection - Back Exam Back Exam: NORMAL INSPECTION. absent: CVA tenderness (L), CVA tenderness (R) - Neurological Exam Neurological Exam: Alert, Awake, Oriented x3 - Psychiatric Exam Psychiatric exam: Normal Affect, Normal Mood - Skin Skin Exam: Dry, Normal Color, Warm Assessment and Plan - Assessment and Plan (Free Text) Assessment: Patient is a 77 year old Bulgarian Speaking female with PMHx of paroxysmal Afib, DM2, HTN, HLD, hypothyroidism, esophageal ulcers, gastritis, osteoporosis, multiple falls and fractures who presented to the ED for worsening lower back pain for 5 days in duration. Patient will be admitted for intractable low back pain. Abd XR shows a lot of stool without transition point or evidence of obstruction. No BM during current hospitalization. Plan: 1) Intractable Lower Back Pain - Likely 2/2 constipation complicated by hx Osteoporotic Compression Fractures - Pt has not had BM yet. - Abd XR: No evidence of mechanical obstruction. Stool present throughout bowel - Thoracic CT: IMPRESSION: 1. Mild anterior wedge compression fracture T7, age indeterminate. Bone scan or MRI can accurately assess timeframe of this fracture as clinically warranted. No additional potential thoracic spinal fracture identified. Normal curvature preserved throughout the thoracic spine nevertheless. 2. No spondylolisthesis or spinal stenosis appreciated. - L Spine CT: IMPRESSION: 1. No large disc herniation or prominent bony central canal stenosis appreciable. MRI is more sensitive and can be performed for follow-up if clinically warranted. 2. Grade 1 spondylolisthesis L5-S1 resulting [id number] bilateral neural foraminal stenosis but no significant central canal stenosis. 3. Multilevel degenerative disease and facet arthropathy appears mild. Degenerative spinal stenosis is mild at L4-5. 4. Incidental cholelithiasis identified. 5. Overall no dramatic interval change compared to prior lumbar spine - cont Lidoderm patch - morphine 1 q6 prn for pain control with holding parameters - cont Calcium and Vitamin D supplement home meds - Started reglan to assist motility. - PT eval - Recommend [facility] - Due to patient immobility, q2 turns and multipodus boot to prevent pressure ulcers - cont home med mirilax and colace - Added dulcolax to assist BM - Flexeril 5mg once - Cont to monitor Pre-renal azotemia likely due poor PO intake - Improving - strict ins/outs - BUN/Cr improving 28/1.1 (baseline Cr is 0.9) - Will cont to monitor Hx HTN - Elevated BP may be 2/2 pain - started on hydralazine 10mg PO BID prn with holding parameters - monitor BP Hx DM - ISS (low) - Accuchecks ACHS - Hgb A1c - 6.4 Hx gastritis - cont home med protonix PO Hx Hypothyroidism - TSH - elevated at 6.67 and Free T4 low at .61 - Pt asymptomatic at this time and states non-compliance with meds - cont home med synthroid Diet: [facility]HD Dispo: [facility] placement Case was discussed and reviewed with Attending Physician, Dr. Elmer Lau, PGY-1 <Neo Payne - Last Filed: 04/10/18 17:15> Objective - Vital Signs/Intake and Output Vital Signs (last 24 hours): Temp Pulse Resp BP Pulse Ox 99 F 71 18 154/84 H 97 04/10/18 16:26 04/10/18 16:26 04/10/18 16:26 04/10/18 16:26 04/10/18 16:26 Intake and Output: 04/10/18 04/10/18 06:59 18:59 Intake Total 120 Output Total 950 Balance -830 - Medications Medications: Current Medications Albuterol/Ipratropium (Duoneb 3 Mg/0.5 Mg (3 Ml) Ud) 3 ml IH [id number] PRN PRN Reason: Shortness of Breath Bisacodyl (Dulcolax) 5 mg PO DAILY PRN PRN Reason: Constipation Last Admin: 04/10/18 13:17 Dose: 5 mg Calcium Carbonate (Oscal) 500 mg PO DAILY [facility] Last Admin: 04/10/18 10:27 Dose: 500 mg Docusate Sodium (Colace) 100 mg PO DAILY [facility] Last Admin: 04/10/18 10:27 Dose: 100 mg Ergocalciferol (Drisdol 50,000 Intl Units Cap) 1 cap PO QWK [facility] Hydralazine HCl (Apresoline) 10 mg PO BID PRN PRN Reason: Systolic Blood Pressure Insulin Human Lispro (Humalog Low) [address] [facility]; Protocol Last Admin: 04/10/18 16:44 Dose: Not Given Levothyroxine Sodium (Synthroid) 150 mcg PO 0600 [facility] Last Admin: 04/10/18 05:40 Dose: 150 mcg Lidocaine (Lidoderm) 1 ea TD DAILY [facility] Last Admin: 04/10/18 10:28 Dose: 1 ea Memantine (Namenda) 5 mg PO DAILY [facility] Last Admin: 04/10/18 10:27 Dose: 5 mg Metoclopramide HCl (Reglan) 5 mg PO 0600,1130,1630,2200 [facility] Last Admin: 04/10/18 10:29 Dose: 5 mg Morphine Sulfate (Morphine) 1 mg IVP Q6H PRN PRN Reason: Pain, severe (8-10) Last Admin: 04/09/18 15:45 Dose: 1 mg Pantoprazole Sodium (Protonix Ec Tab) 20 mg PO 0600 [facility] Last Admin: 04/10/18 05:40 Dose: 20 mg Polyethylene Glycol (Miralax) 17 gm PO BID [facility] Last Admin: 04/10/18 10:28 Dose: 17 gm - Labs Labs: 04/10/18 06:00 04/10/18 06:00 Attending/Attestation - Attestation I have personally seen and examined this patient.: Yes I have fully participated in the care of the patient.: Yes I have reviewed all pertinent clinical information, including history, physical exam and plan: Yes Notes (Text): 04/10/18 17:12 77 year old female with past medical history of paroxysmal afib, diabetes, hypertension, hypothyroidims, gastritis, multiple falls and fractures who presented with intractable back pain and constipation. CT spine showed mild anterior wedge compression fracture T7, grade 1 spondylolisthesis L5-S1 resulting mild to moderate bilateral neural foraminal stenosis and multilevel degenerative disease. Patient is on iv morphine prn, lidoderm patch and flexeral. Patient reports she lives alone; may benefit from rehab. Continue with PT who is recommending [facility]; will discuss with CMx/Sw. Continue with colace and miralax for constipation. Dose of dulcolax given today. Abdominal xray showed constipation without impaction or obstruction. Continue with synthroid for hypothyroidism. She was counselled on medication compliance. Mild CATARINO improved with IVF. Neo Payne MD Hospitalist.
[2018-04-10] MEDS: Morphine 2 mg/ml ISec IVP PRN (22:51)
[2018-04-11] MEDS: Pantoprazole 20 mg EC Tab PO SCH (05:58)
[2018-04-11] MEDS: Levothyroxine 150 MCG TAB PO SCH (06:00)
[2018-04-11 06:49] LABS: ALB/GLOB RATIO 0.8 (1.1-1.8); ALBUMIN 3.5 g/dL (3.0-4.8); BASO # 0.04 K/mm3 (0.0-2.0); BASO % 0.7 % (0.0-3.0); CALCIUM 9.2 mg/dL (8.4-10.5); EOS # 0.5 (0.0-0.7); EOS % 9.1 % (1.5-5.0); HEMOGLOBIN 12.9 g/dL (12.0-16.0); LYMPH # 2.1 (1.2-3.4); LYMPH % 34.8 % (22.0-35.0); MEAN CELL VOLUME 79.6 fl (80.0-105.0); MEAN CORPUSCULAR HEMOGLOBIN 25.5 pg (25.0-35.0); MONO # 0.6 (0.1-0.6); MONO % 9.6 % (1.0-6.0); RBC 5.06 10^6/uL (3.5-6.1)
[2018-04-11 07:59] VITALS: RESP 20
[2018-04-11] MEDS: Insulin Lispro (humaLOG) LOW Coverage SC SCH ×4 (08:46→21:27)
[2018-04-11] MEDS: Lidocaine 5% Patch TD SCH (09:59)
[2018-04-11] MEDS: POLYETHYLENE GLYCOL 3350 17 GM/Dose PACKET PO SCH ×2 (09:59→17:21)
--- NOTE | 2018-04-11 19:23 | CP.PCM.PN ---
<José Lau - Last Filed: 04/11/18 20:31> Subjective - Date & Time of Evaluation Date of Evaluation: 04/11/18 Time of Evaluation: 08:45 - Subjective Subjective: José Lau, PGY-1 Medicine Progress Note for Dr. Payne: Pt was seen and examined this AM at bedside. head of store operations was used to help translate for the pt. Pt states that she is continuing to have lower back pain which is present b/l without radiation to the LE on either side. Pt continues to deny any numbness, tingling, bowel incontinence, or saddle anesthesia. She states that otherwise she has no fevers, or chills though does admit to cold intolerance. She also states that she does not have chest pain or palpitations, SOB or cough. She does admit to constipation for the past 12 days but states is still able to tolerate a diet without associated n/v. She has no other acute complaints at this time. Spoke to the family who are receptive to taking the pt to [facility]. Objective - Vital Signs/Intake and Output Vital Signs (last 24 hours): Temp Pulse Resp BP Pulse Ox 98.2 F 71 20 154/84 H 94 L 04/11/18 15:47 04/11/18 15:47 04/11/18 15:47 04/11/18 15:47 04/11/18 15:47 Intake and Output: 04/11/18 04/12/18 18:59 06:59 Intake Total 720 Output Total 1000 Balance -280 - Medications Medications: Current Medications Albuterol/Ipratropium (Duoneb 3 Mg/0.5 Mg (3 Ml) Ud) 3 ml IH [id number] PRN PRN Reason: Shortness of Breath Bisacodyl (Dulcolax) 5 mg PO DAILY [facility] Calcium Carbonate (Oscal) 500 mg PO DAILY [facility] Last Admin: 04/11/18 09:59 Dose: 500 mg Docusate Sodium (Colace) 100 mg PO DAILY [facility] Last Admin: 04/11/18 09:59 Dose: 100 mg Ergocalciferol (Drisdol 50,000 Intl Units Cap) 1 cap PO QWK [facility] Hydralazine HCl (Apresoline) 10 mg PO BID PRN PRN Reason: Systolic Blood Pressure Insulin Human Lispro (Humalog Low) 0 units SC ACHS [facility]; Protocol Last Admin: 04/11/18 17:23 Dose: Not Given Levothyroxine Sodium (Synthroid) 150 mcg PO 0600 [facility] Last Admin: 04/11/18 06:00 Dose: 150 mcg Lidocaine (Lidoderm) 1 ea TD DAILY [facility] Last Admin: 04/11/18 09:59 Dose: 1 ea Memantine (Namenda) 5 mg PO DAILY [facility] Last Admin: 04/11/18 09:59 Dose: 5 mg Metoclopramide HCl (Reglan) 5 mg PO 0600,1130,1630,2200 [facility] Last Admin: 04/11/18 17:21 Dose: 5 mg Morphine Sulfate (Morphine) 1 mg IVP Q6H PRN PRN Reason: Pain, severe (8-10) Last Admin: 04/10/18 22:51 Dose: 1 mg Pantoprazole Sodium (Protonix Ec Tab) 20 mg PO 0600 [facility] Last Admin: 04/11/18 05:58 Dose: 20 mg Polyethylene Glycol (Miralax) 17 gm PO BID [facility] Last Admin: 04/11/18 17:21 Dose: 17 gm - Labs Labs: 04/11/18 06:00 04/11/18 06:00 - Constitutional Appears: Well, Non-toxic, No Acute Distress - Head Exam Head Exam: ATRAUMATIC, NORMAL INSPECTION, NORMOCEPHALIC - Eye Exam Eye Exam: EOMI, Normal appearance, PERRL - Respiratory Exam Respiratory Exam: Clear to Ausculation Bilateral, NORMAL BREATHING PATTERN. absent: Accessory Muscle Use, Rales, Rhonchi, Wheezes, Respiratory Distress, Stridor - Cardiovascular Exam Cardiovascular Exam: RRR, +S1, +S2. absent: Gallop, Rubs - GI/Abdominal Exam GI & Abdominal Exam: Soft, Hypoactive Bowel Sounds. absent: Firm, Guarding, Rigid, Tenderness - Extremities Exam Extremities Exam: Normal Capillary Refill, Normal Inspection - Back Exam Back Exam: NORMAL INSPECTION. absent: CVA tenderness (L), CVA tenderness (R) - Neurological Exam Neurological Exam: Alert, Awake, Oriented x3 - Psychiatric Exam Psychiatric exam: Normal Affect, Normal Mood - Skin Skin Exam: Dry, Normal Color, Warm Assessment and Plan - Assessment and Plan (Free Text) Assessment: Patient is a 77 year old Greenlandic Speaking female with PMHx of paroxysmal Afib, DM2, HTN, HLD, hypothyroidism, esophageal ulcers, gastritis, osteoporosis, multiple falls and fractures who presented to the ED for worsening lower back pain for 5 days in duration. Patient will be admitted for intractable low back pain. Abd XR shows a lot of stool without transition point or evidence of obstruction. No BM during current hospitalization. Plan: 1) Intractable Lower Back Pain - Likely 2/2 constipation complicated by hx Osteoporotic Compression Fractures - Pt has not had BM yet. - Abd XR: No evidence of mechanical obstruction. Stool present throughout bowel - Thoracic CT: IMPRESSION: 1. Mild anterior wedge compression fracture T7, age indeterminate. Bone scan or MRI can accurately assess timeframe of this fracture as clinically warranted. No additional potential thoracic spinal fracture identified. Normal curvature preserved throughout the thoracic spine nevertheless. 2. No spondylolisthesis or spinal stenosis appreciated. - L Spine CT: IMPRESSION: 1. No large disc herniation or prominent bony central canal stenosis appreciable. MRI is more sensitive and can be performed for follow-up if clinically warranted. 2. Grade 1 spondylolisthesis L5-S1 resulting [id number] bilateral neural foraminal stenosis but no significant central canal stenosis. 3. Multilevel degenerative disease and facet arthropathy appears mild. Degenerative spinal stenosis is mild at L4-5. 4. Incidental cholelithiasis identified. 5. Overall no dramatic interval change compared to prior lumbar spine - cont Lidoderm patch - morphine 1 q6 prn for pain control with holding parameters - cont Calcium and Vitamin D supplement home meds - Started reglan to assist motility. - PT eval - Recommend [facility] - Due to patient immobility, q2 turns and multipodus boot to prevent pressure ul cers - cont home med mirilax and colace - Dulcolax to assist BM - Added Relistor to combat opioid induced constipation - Flexeril 5mg once - Cont to monitor 2) Pre-renal azotemia likely due poor PO intake - Improving - strict ins/outs - BUN/Cr improving 24/1.2 (baseline Cr is 0.9) - Will cont to monitor 3) Hx HTN - Elevated BP may be 2/2 pain - started on hydralazine 10mg PO BID prn with holding parameters - monitor BP 4) Hx DM - ISS (low) - Accuchecks ACHS - Hgb A1c - 6.4 5) Hx gastritis - cont home med protonix PO 6) Hx Hypothyroidism - TSH - elevated at 6.67 and Free T4 low at .61 - Pt asymptomatic at this time and states non-compliance with meds - cont home med synthroid Diet: HHD Dispo: [facility] accepted, spoke to family and discussed what was best for pt. Son is on board with [facility] plan, but pt is still hesitant. Case was discussed and reviewed with Attending Physician, Dr. Elmer Lau, PGY-1 <eNo Payne - Last Filed: 04/12/18 07:40> Objective - Vital Signs/Intake and Output Vital Signs (last 24 hours): Temp Pulse Resp BP Pulse Ox 98.2 F 71 20 154/84 H 94 L 04/11/18 15:47 04/11/18 15:47 04/11/18 15:47 04/11/18 15:47 04/11/18 15:47 Intake and Output: 04/12/18 04/12/18 06:59 18:59 Intake Total 60 Output Total 450 Balance -390 - Medications Medications: Current Medications Albuterol/Ipratropium (Duoneb 3 Mg/0.5 Mg (3 Ml) Ud) 3 ml IH [id number] PRN PRN Reason: Shortness of Breath Bisacodyl (Dulcolax) 5 mg PO DAILY [facility] Calcium Carbonate (Oscal) 500 mg PO DAILY [facility] Last Admin: 04/11/18 09:59 Dose: 500 mg Docusate Sodium (Colace) 100 mg PO DAILY [facility] Last Admin: 04/11/18 09:59 Dose: 100 mg Ergocalciferol (Drisdol 50,000 Intl Units Cap) 1 cap PO QWK [facility] Hydralazine HCl (Apresoline) 10 mg PO BID PRN PRN Reason: Systolic Blood Pressure Insulin Human Lispro (Humalog Low) 0 units SC ACHS [facility]; Protocol Last Admin: 04/11/18 21:27 Dose: Not Given Levothyroxine Sodium (Synthroid) 150 mcg PO 0600 [facility] Last Admin: 04/12/18 06:46 Dose: 150 mcg Lidocaine (Lidoderm) 1 ea TD DAILY [facility] Last Admin: 04/11/18 09:59 Dose: 1 ea Memantine (Namenda) 5 mg PO DAILY [facility] Last Admin: 04/11/18 09:59 Dose: 5 mg Metoclopramide HCl (Reglan) 5 mg PO 0600,1130,1630,2200 [facility] Last Admin: 04/12/18 06:46 Dose: 5 mg Morphine Sulfate (Morphine) 1 mg IVP Q6H PRN PRN Reason: Pain, severe (8-10) Last Admin: 04/11/18 23:33 Dose: 1 mg Pantoprazole Sodium (Protonix Ec Tab) 20 mg PO 0600 [facility] Last Admin: 04/12/18 06:45 Dose: 20 mg Polyethylene Glycol (Miralax) 17 gm PO BID [facility] Last Admin: 04/11/18 17:21 Dose: 17 gm - Labs Labs: 04/11/18 06:00 04/11/18 06:00 Attending/Attestation - Attestation I have personally seen and examined this patient.: Yes I have fully participated in the care of the patient.: Yes I have reviewed all pertinent clinical information, including history, physical exam and plan: Yes Notes (Text): 04/11/18 77 year old female with past medical history of paroxysmal afib, diabetes, hypertension, hypothyroidims, gastritis, multiple falls and fractures who presented with intractable back pain and constipation. CT spine showed mild anterior wedge compression fracture T7, grade 1 spondylolisthesis L5-S1 resulting mild to moderate bilateral neural foraminal stenosis and multilevel degenerative disease. Patient is on iv morphine prn and lidoderm patch. Patient reports she lives alone; may benefit from rehab. Continue with PT who is recommending [facility]. This was discussed with patient and son today. Patient is undecided but son is agreeable. Continue with colace and miralax for constipation. Abdominal xray showed constipation without impaction or obstruction. Continue with synthroid for hypothyroidism. She was counselled on medication compliance. Mild CATARINO improved with IVF. Neo Payne MD Hospitalist.
[2018-04-11] MEDS: Morphine 2 mg/ml ISec IVP PRN (23:33)
[2018-04-12] MEDS: Pantoprazole 20 mg EC Tab PO SCH (06:45)
[2018-04-12] MEDS: Levothyroxine 150 MCG TAB PO SCH (06:46)
--- NOTE | 2018-04-12 07:50 | CP.PCM.PN ---
<Edil Ordonez - Last Filed: 04/12/18 15:09> Subjective - Date & Time of Evaluation Date of Evaluation: 04/12/18 Time of Evaluation: 07:49 - Subjective Subjective: Edil Ordonez DO, PGY-1 Hospitalist Progress Note for Dr. Payne Patient was seen and examined at bedside this AM. She reports she is still working with PT and expressed her willingness to go to [facility] if recommended. Objective - Vital Signs/Intake and Output Vital Signs (last 24 hours): Temp Pulse Resp BP Pulse Ox 98.2 F 71 20 154/84 H 94 L 04/11/18 15:47 04/11/18 15:47 04/11/18 15:47 04/11/18 15:47 04/11/18 15:47 Intake and Output: 04/12/18 04/12/18 06:59 18:59 Intake Total 60 Output Total 450 Balance -390 - Medications Medications: Current Medications Albuterol/Ipratropium (Duoneb 3 Mg/0.5 Mg (3 Ml) Ud) 3 ml IH [id number] PRN PRN Reason: Shortness of Breath Bisacodyl (Dulcolax) 5 mg PO DAILY [facility] Calcium Carbonate (Oscal) 500 mg PO DAILY [facility] Last Admin: 04/11/18 09:59 Dose: 500 mg Docusate Sodium (Colace) 100 mg PO DAILY [facility] Last Admin: 04/11/18 09:59 Dose: 100 mg Ergocalciferol (Drisdol 50,000 Intl Units Cap) 1 cap PO QWK [facility] Hydralazine HCl (Apresoline) 10 mg PO BID PRN PRN Reason: Systolic Blood Pressure Insulin Human Lispro (Humalog Low) 0 units SC ACHS [facility]; Protocol Last Admin: 04/11/18 21:27 Dose: Not Given Levothyroxine Sodium (Synthroid) 150 mcg PO 0600 [facility] Last Admin: 04/12/18 06:46 Dose: 150 mcg Lidocaine (Lidoderm) 1 ea TD DAILY [facility] Last Admin: 04/11/18 09:59 Dose: 1 ea Memantine (Namenda) 5 mg PO DAILY [facility] Last Admin: 04/11/18 09:59 Dose: 5 mg Metoclopramide HCl (Reglan) 5 mg PO 0600,1130,1630,2200 [facility] Last Admin: 04/12/18 06:46 Dose: 5 mg Morphine Sulfate (Morphine) 1 mg IVP Q6H PRN PRN Reason: Pain, severe (8-10) Last Admin: 04/11/18 23:33 Dose: 1 mg Pantoprazole Sodium (Protonix Ec Tab) 20 mg PO 0600 [facility] Last Admin: 04/12/18 06:45 Dose: 20 mg Polyethylene Glycol (Miralax) 17 gm PO BID [facility] Last Admin: 04/11/18 17:21 Dose: 17 gm - Labs Labs: 04/11/18 06:00 04/11/18 06:00 - Constitutional Appears: Non-toxic, No Acute Distress - Head Exam Head Exam: ATRAUMATIC, NORMOCEPHALIC - Eye Exam Eye Exam: EOMI, Normal appearance, PERRL - ENT Exam ENT Exam: Mucous Membranes Moist - Neck Exam Neck Exam: Full ROM, Normal Inspection - Respiratory Exam Respiratory Exam: Clear to Ausculation Bilateral, NORMAL BREATHING PATTERN. absent: Rales, Rhonchi, Wheezes - Cardiovascular Exam Cardiovascular Exam: REGULAR RHYTHM, RRR, +S1, +S2. absent: Gallop, Rubs, Murmur - GI/Abdominal Exam GI & Abdominal Exam: Soft, Normal Bowel Sounds. absent: Tenderness - Extremities Exam Extremities Exam: Normal Inspection. absent: Pedal Edema - Back Exam Back Exam: NORMAL INSPECTION - Neurological Exam Neurological Exam: Alert, Awake, Oriented x3 - Psychiatric Exam Psychiatric exam: Normal Affect, Normal Mood - Skin Skin Exam: Dry, Intact, Warm Assessment and Plan - Assessment and Plan (Free Text) Assessment: 77 yo Yakut Speaking female with PMH of paroxysmal Afib, DM2, HTN, HLD, hypothyroidism, esophageal ulcers, gastritis, osteoporosis, multiple falls and fractures who presented to the ED for intractable back pain and multiple falls. Plan: Intractable Lower Back Pain Thoracic and lumbar CT showed T7 compression fx, with L5-S1 spondylolisthesis and b/l foraminal stenosis Multidegenerative disc disease was also identified Continue lidoderm patch and morphine for pain control PT recommended [facility], authorization pending Continue q2 turns, multipodus boots Continue bowel regimen Pre-renal azotemia 2/2 poor PO intake BUN/Cr stable this AM at 26/1.3 Continue reglan Continue to encourage increased fluid intake Hx HTN Continue PRN hydralazine Has remained stable Hx DM Last A1c 6.4 Continue ISS with ACHS fingerstick glucose Hx gastritis Continue home protonix Hx Hypothyroidism TSH elevated on admission However, patient reports history of non-compliance with medicines Continue home synthroid Repeat TSH as outpatient DVT/GI PPX: SC heparin, protonix Full Code HHD Monitor on remote telemetry Patient seen, examined, and plan discussed with my attending Dr. Elmer Ordonez D.O. IM Resident PGY-1 Pager: [phone] <Neo Payne - Last Filed: 04/12/18 16:01> Objective - Vital Signs/Intake and Output Vital Signs (last 24 hours): Temp Pulse Resp BP Pulse Ox 97.6 F 62 20 145/75 99 04/12/18 06:00 04/12/18 06:00 04/12/18 06:00 04/12/18 06:00 04/12/18 06:00 Intake and Output: 04/12/18 04/12/18 06:59 18:59 Intake Total 60 Output Total 450 Balance -390 - Medications Medications: Current Medications Albuterol/Ipratropium (Duoneb 3 Mg/0.5 Mg (3 Ml) Ud) 3 ml IH [id number] PRN PRN Reason: Shortness of Breath Bisacodyl (Dulcolax) 5 mg PO DAILY [facility] Last Admin: 04/12/18 11:27 Dose: 5 mg Calcium Carbonate (Oscal) 500 mg PO DAILY [facility] Last Admin: 04/12/18 11:26 Dose: 500 mg Docusate Sodium (Colace) 100 mg PO DAILY [facility] Last Admin: 04/12/18 11:26 Dose: 100 mg Ergocalciferol (Drisdol 50,000 Intl Units Cap) 1 cap PO QWK [facility] Hydralazine HCl (Apresoline) 10 mg PO BID PRN PRN Reason: Systolic Blood Pressure Insulin Human Lispro (Humalog Low) 0 units SC ACHS [facility]; Protocol Last Admin: 04/12/18 11:39 Dose: 1 unit Levothyroxine Sodium (Synthroid) 150 mcg PO 0600 [facility] Last Admin: 04/12/18 06:46 Dose: 150 mcg Lidocaine (Lidoderm) 1 ea TD DAILY [facility] Last Admin: 04/12/18 11:27 Dose: 1 ea Memantine (Namenda) 5 mg PO DAILY [facility] Last Admin: 04/12/18 11:27 Dose: 5 mg Metoclopramide HCl (Reglan) 5 mg PO 0600,1130,1630,2200 [facility] Last Admin: 04/12/18 11:26 Dose: 5 mg Morphine Sulfate (Morphine) 1 mg IVP Q6H PRN PRN Reason: Pain, severe (8-10) Last Admin: 04/11/18 23:33 Dose: 1 mg Pantoprazole Sodium (Protonix Ec Tab) 20 mg PO 0600 [facility] Last Admin: 04/12/18 06:45 Dose: 20 mg Polyethylene Glycol (Miralax) 17 gm PO BID [facility] Last Admin: 04/12/18 11:27 Dose: 17 gm - Labs Labs: 04/12/18 07:51 04/12/18 07:51 Attending/Attestation - Attestation I have personally seen and examined this patient.: Yes I have fully participated in the care of the patient.: Yes I have reviewed all pertinent clinical information, including history, physical exam and plan: Yes Notes (Text): 04/12/18 16:00 77 year old female with past medical history of paroxysmal afib, diabetes, hypertension, hypothyroidims, gastritis, multiple falls and fractures who presented with intractable back pain and constipation. CT spine showed mild anterior wedge compression fracture T7, grade 1 spondylolisthesis L5-S1 resulting mild to moderate bilateral neural foraminal stenosis and multilevel degenerative disease. Patient is on iv morphine prn and lidoderm patch. Patient reports she lives alone; may benefit from rehab. Continue with PT who is recommending [facility]. However she is pending authorization per CMx/Sw to go to [facility]. Abdominal xray showed constipation without impaction or obstruction. Continue with colace and miralax for constipation. She reports bowel movement yesterday. Continue with synthroid for hypothyroidism. She was counselled on medication compliance. Neo Payne MD Hospitalist.
[2018-04-12 08:10] LABS: BASO # 0.03 K/mm3 (0.0-2.0); BASO % 0.4 % (0.0-3.0); EOS # 0.5 (0.0-0.7); EOS % 7.8 % (1.5-5.0); LYMPH # 2.3 (1.2-3.4); LYMPH % 33.3 % (22.0-35.0); MEAN CELL VOLUME 80.3 fl (80.0-105.0); MEAN CORPUSCULAR HEMOGLOBIN 25.6 pg (25.0-35.0); MEAN CORPUSCULAR HGB CONC 31.9 g/dl (31.0-37.0); MEAN PLATELET VOLUME 11.1 fl (7.0-11.0); MONO # 0.6 (0.1-0.6); MONO % 8.2 % (1.0-6.0); RBC 5.07 10^6/uL (3.5-6.1); RED CELL DISTRIBUTION WIDTH 15.2 % (11.5-14.5)
[2018-04-12 08:23] LABS: ALB/GLOB RATIO 0.7 (1.1-1.8); ALBUMIN 3.6 g/dL (3.0-4.8); CALCIUM 9.7 mg/dL (8.4-10.5)
[2018-04-12] MEDS: Insulin Lispro (humaLOG) LOW Coverage SC SCH ×4 (09:26→22:06)
[2018-04-12] MEDS: Bisacodyl 5mg EC Tab PO SCH (11:27)
[2018-04-12] MEDS: Lidocaine 5% Patch TD SCH (11:27)
[2018-04-12] MEDS: POLYETHYLENE GLYCOL 3350 17 GM/Dose PACKET PO SCH ×2 (11:27→17:27)
[2018-04-12] MEDS: Morphine 2 mg/ml ISec IVP PRN (18:24)
[2018-04-13] MEDS: Levothyroxine 150 MCG TAB PO SCH (05:20)
[2018-04-13] MEDS: Pantoprazole 20 mg EC Tab PO SCH (05:20)
[2018-04-13 08:01] LABS: BASO # 0.03 K/mm3 (0.0-2.0); BASO % 0.4 % (0.0-3.0); EOS # 0.6 (0.0-0.7); HEMOGLOBIN 12.8 g/dL (12.0-16.0); LYMPH # 2.3 (1.2-3.4); LYMPH % 30.9 % (22.0-35.0); MEAN CELL VOLUME 80.4 fl (80.0-105.0); MEAN CORPUSCULAR HEMOGLOBIN 25.7 pg (25.0-35.0); MEAN CORPUSCULAR HGB CONC 31.9 g/dl (31.0-37.0); MEAN PLATELET VOLUME 11.1 fl (7.0-11.0); MONO # 0.7 (0.1-0.6); RBC 4.99 10^6/uL (3.5-6.1); RED CELL DISTRIBUTION WIDTH 15.3 % (11.5-14.5); WHITE BLOOD COUNT 7.3 10^3/uL (4.5-11.0)
[2018-04-13] MEDS: Insulin Lispro (humaLOG) LOW Coverage SC SCH ×4 (08:09→21:32)
[2018-04-13 08:42] LABS: ALBUMIN 3.6 g/dL (3.0-4.8); CALCIUM 9.3 mg/dL (8.4-10.5)
[2018-04-13 08:43] LABS: ALB/GLOB RATIO 0.8 (1.1-1.8)
[2018-04-13] MEDS: POLYETHYLENE GLYCOL 3350 17 GM/Dose PACKET PO SCH ×3 (10:21→17:46)
[2018-04-13] MEDS: Lidocaine 5% Patch TD SCH (10:22)
[2018-04-13] MEDS: Bisacodyl 5mg EC Tab PO SCH (10:22)
--- NOTE | 2018-04-13 16:31 | CP.PCM.PN ---
<Edil Ordonez - Last Filed: 04/13/18 16:32> Subjective - Date & Time of Evaluation Date of Evaluation: 04/13/18 Time of Evaluation: 08:40 - Subjective Subjective: Edil Ordonez DO, PGY-1 Hospitalist Progress Note for Dr. Payne Patient was seen and examined at bedside this AM. She reports her pain is improving and she is working with PT, but it is difficult. She is still agreeable to going to [facility] for further rehab. Objective - Vital Signs/Intake and Output Vital Signs (last 24 hours): Temp Pulse Resp BP Pulse Ox 97.6 F 65 20 142/71 96 04/13/18 06:00 04/13/18 06:00 04/13/18 06:00 04/13/18 06:00 04/13/18 06:00 Intake and Output: 04/13/18 04/13/18 06:59 18:59 Intake Total 1200 Output Total 250 Balance 950 - Medications Medications: Current Medications Acetaminophen (Tylenol 325mg Tab) 650 mg PO Q6H PRN PRN Reason: Pain, moderate (4-7) Last Admin: 04/13/18 13:56 Dose: 650 mg Albuterol/Ipratropium (Duoneb 3 Mg/0.5 Mg (3 Ml) Ud) 3 ml IH [id number] PRN PRN Reason: Shortness of Breath Bisacodyl (Dulcolax) 5 mg PO DAILY [facility] Last Admin: 04/13/18 10:22 Dose: 5 mg Calcium Carbonate (Oscal) 500 mg PO DAILY [facility] Last Admin: 04/13/18 10:22 Dose: 500 mg Docusate Sodium (Colace) 100 mg PO DAILY [facility] Last Admin: 04/13/18 10:22 Dose: 100 mg Ergocalciferol (Drisdol 50,000 Intl Units Cap) 1 cap PO QWK [facility] Hydralazine HCl (Apresoline) 10 mg PO BID PRN PRN Reason: Systolic Blood Pressure Insulin Human Lispro (Humalog Low) 0 units SC ACHS [facility]; Protocol Last Admin: 04/13/18 12:06 Dose: Not Given Levothyroxine Sodium (Synthroid) 150 mcg PO 0600 [facility] Last Admin: 04/13/18 05:20 Dose: 150 mcg Lidocaine (Lidoderm) 1 ea TD DAILY [facility] Last Admin: 04/13/18 10:22 Dose: 1 ea Memantine (Namenda) 5 mg PO DAILY [facility] Last Admin: 04/13/18 10:22 Dose: 5 mg Metoclopramide HCl (Reglan) 5 mg PO 0600,1130,1630,2200 [facility] Last Admin: 04/13/18 12:45 Dose: 5 mg Pantoprazole Sodium (Protonix Ec Tab) 20 mg PO 0600 [facility] Last Admin: 04/13/18 05:20 Dose: 20 mg Polyethylene Glycol (Miralax) 17 gm PO BID [facility] Last Admin: 04/13/18 10:54 Dose: Not Given - Labs Labs: 04/13/18 07:00 04/13/18 07:00 - Constitutional Appears: Non-toxic, No Acute Distress - Head Exam Head Exam: ATRAUMATIC, NORMOCEPHALIC - Eye Exam Eye Exam: EOMI, Normal appearance, PERRL - ENT Exam ENT Exam: Mucous Membranes Moist - Neck Exam Neck Exam: Full ROM, Normal Inspection - Respiratory Exam Respiratory Exam: Clear to Ausculation Bilateral, NORMAL BREATHING PATTERN. absent: Rales, Rhonchi, Wheezes - Cardiovascular Exam Cardiovascular Exam: REGULAR RHYTHM, RRR, +S1, +S2. absent: Gallop, Rubs, Murmur - GI/Abdominal Exam GI & Abdominal Exam: Soft, Normal Bowel Sounds. absent: Tenderness - Extremities Exam Extremities Exam: Normal Inspection. absent: Pedal Edema - Back Exam Back Exam: NORMAL INSPECTION - Neurological Exam Neurological Exam: Alert, Awake, Oriented x3 - Psychiatric Exam Psychiatric exam: Normal Affect, Normal Mood - Skin Skin Exam: Dry, Intact, Warm Assessment and Plan - Assessment and Plan (Free Text) Assessment: 77 yo [place]oese Speaking female with PMH of paroxysmal Afib, DM2, HTN, HLD, hypothyroidism, esophageal ulcers, gastritis, osteoporosis, multiple falls and fractures who presented to the ED for intractable back pain and multiple falls. PT has recommended [facility] and authorization is pending. Plan on transfer tomorrow. Plan: Intractable Lower Back Pain Thoracic and lumbar CT showed T7 compression fx, with L5-S1 spondylolisthesis and b/l foraminal stenosis Multidegenerative disc disease was also identified Continue lidoderm patch and morphine for pain control Authorization still pending for [facility], plan on discharge tomorrow Continue q2 turns, multipodus boots Continue bowel regimen Pre-renal azotemia 2/2 poor PO intake BUN/Cr stable this AM at 28/1.2 Continue reglan Continue to encourage increased fluid intake Hx HTN Continue PRN hydralazine Has remained stable Hx DM Last A1c 6.4 Continue ISS with ACHS fingerstick glucose Hx gastritis Continue home protonix Hx Hypothyroidism TSH elevated on admission However, patient reports history of non-compliance with medicines Continue home synthroid Repeat TSH at [facility] after treatment DVT/GI PPX: SC heparin, protonix Full Code HHD Monitor on remote telemetry Patient seen, examined, and plan discussed with my attending Jeremy MeloO. IM Resident PGY-1 Pager: [phone] <Neo Payne - Last Filed: 04/13/18 17:55> Objective - Vital Signs/Intake and Output Vital Signs (last 24 hours): Temp Pulse Resp BP Pulse Ox 97.6 F 65 20 142/71 96 04/13/18 06:00 04/13/18 06:00 04/13/18 06:00 04/13/18 06:00 04/13/18 06:00 Intake and Output: 04/13/18 04/13/18 06:59 18:59 Intake Total 1200 Output Total 250 Balance 950 - Medications Medications: Current Medications Acetaminophen (Tylenol 325mg Tab) 650 mg PO Q6H PRN PRN Reason: Pain, moderate (4-7) Last Admin: 04/13/18 13:56 Dose: 650 mg Albuterol/Ipratropium (Duoneb 3 Mg/0.5 Mg (3 Ml) Ud) 3 ml IH [id number] PRN PRN Reason: Shortness of Breath Bisacodyl (Dulcolax) 5 mg PO DAILY [facility] Last Admin: 04/13/18 10:22 Dose: 5 mg Calcium Carbonate (Oscal) 500 mg PO DAILY [facility] Last Admin: 04/13/18 10:22 Dose: 500 mg Docusate Sodium (Colace) 100 mg PO DAILY [facility] Last Admin: 04/13/18 10:22 Dose: 100 mg Ergocalciferol (Drisdol 50,000 Intl Units Cap) 1 cap PO QWK [facility] Hydralazine HCl (Apresoline) 10 mg PO BID PRN PRN Reason: Systolic Blood Pressure Insulin Human Lispro (Humalog Low) 0 units SC ACHS [facility]; Protocol Last Admin: 04/13/18 17:07 Dose: Not Given Levothyroxine Sodium (Synthroid) 150 mcg PO 0600 [facility] Last Admin: 04/13/18 05:20 Dose: 150 mcg Lidocaine (Lidoderm) 1 ea TD DAILY [facility] Last Admin: 04/13/18 10:22 Dose: 1 ea Memantine (Namenda) 5 mg PO DAILY [facility] Last Admin: 04/13/18 10:22 Dose: 5 mg Metoclopramide HCl (Reglan) 5 mg PO 0600,1130,1630,2200 [facility] Last Admin: 04/13/18 17:46 Dose: 5 mg Pantoprazole Sodium (Protonix Ec Tab) 20 mg PO 0600 [facility] Last Admin: 04/13/18 05:20 Dose: 20 mg Polyethylene Glycol (Miralax) 17 gm PO BID [facility] Last Admin: 04/13/18 17:46 Dose: 17 gm - Labs Labs: 04/13/18 07:00 04/13/18 07:00 Attending/Attestation - Attestation I have personally seen and examined this patient.: Yes I have fully participated in the care of the patient.: Yes I have reviewed all pertinent clinical information, including history, physical exam and plan: Yes Notes (Text): 04/13/18 17:54 77 year old female with past medical history of paroxysmal afib, diabetes, hypertension, hypothyroidims, gastritis, multiple falls and fractures who presented with intractable back pain and constipation. CT spine showed mild anterior wedge compression fracture T7, grade 1 spondylolisthesis L5-S1 resulting mild to moderate bilateral neural foraminal stenosis and multilevel degenerative disease. Patient is on iv morphine prn and lidoderm patch. Patient reports she lives alone; may benefit from rehab. Continue with PT who is recommending [facility]. However she is pending authorization to go to [facility]. Will follow up with CMx/Sw tomorrow. Abdominal xray showed constipation without impaction or obstruction. Continue with colace and miralax for constipation. She reports last bowel movement on Saturday. Continue with synthroid for hypothyroidism. She was counselled on medication compliance. Neo Payne MD Hospitalist.
[2018-04-14] MEDS: Levothyroxine 150 MCG TAB PO SCH (05:58)
[2018-04-14] MEDS: Pantoprazole 20 mg EC Tab PO SCH (05:58)
[2018-04-14] MEDS: Insulin Lispro (humaLOG) LOW Coverage SC SCH ×4 (08:13→22:06)
[2018-04-14] MEDS: Lidocaine 5% Patch TD SCH (10:28)
[2018-04-14] MEDS: POLYETHYLENE GLYCOL 3350 17 GM/Dose PACKET PO SCH ×2 (10:28→17:15)
[2018-04-14] MEDS: Bisacodyl 5mg EC Tab PO SCH (10:28)
[2018-04-14] MEDS ORDERED: Morphine 2 mg/ml ISec IVP PRN (14:17)
--- NOTE | 2018-04-14 16:08 | CP.PCM.PN ---
<José Lau - Last Filed: 04/14/18 16:41> Subjective - Date & Time of Evaluation Date of Evaluation: 04/14/18 Time of Evaluation: 09:45 - Subjective Subjective: José Lau, PGY-1 Medicine Progress Note for Dr. Payne: Pt was seen and examined this AM at bedside. design project manager was used to help translate for the pt. Pt states that she is continuing to have lower back pain which is present b/l without radiation to the LE on either side. Pt continues to deny any numbness, tingling, bowel incontinence, or saddle anesthesia. She states that otherwise she has no fevers, or chills though does admit to cold intolerance. She also states that she does not have chest pain or palpitations, SOB or cough. She admits to having BMs over the weekend, but she continues to complain of low back pain particularly when attempting to sit up with PT. She has no other acute complaints at this time. Spoke to the family who are rece ptive to taking the pt to [facility]. Objective - Vital Signs/Intake and Output Vital Signs (last 24 hours): Temp Pulse Resp BP Pulse Ox 98 F 68 20 126/74 97 04/14/18 08:48 04/14/18 08:48 04/14/18 08:48 04/14/18 08:48 04/14/18 08:48 Intake and Output: 04/14/18 04/14/18 06:59 18:59 Intake Total 780 Output Total 475 Balance 305 - Medications Medications: Current Medications Acetaminophen (Tylenol 325mg Tab) 650 mg PO Q6H PRN PRN Reason: Pain, moderate (4-7) Last Admin: 04/14/18 14:22 Dose: 650 mg Albuterol/Ipratropium (Duoneb 3 Mg/0.5 Mg (3 Ml) Ud) 3 ml IH [id number] PRN PRN Reason: Shortness of Breath Bisacodyl (Dulcolax) 5 mg PO DAILY [facility] Last Admin: 04/14/18 10:28 Dose: 5 mg Calcium Carbonate (Oscal) 500 mg PO DAILY [facility] Last Admin: 04/14/18 10:29 Dose: 500 mg Docusate Sodium (Colace) 100 mg PO BID [facility] Ergocalciferol (Drisdol 50,000 Intl Units Cap) 1 cap PO QWK [facility] Hydralazine HCl (Apresoline) 10 mg PO BID PRN PRN Reason: Systolic Blood Pressure Insulin Human Lispro (Humalog Low) 0 units SC ACHS [facility]; Protocol Last Admin: 04/14/18 12:28 Dose: 2 unit Levothyroxine Sodium (Synthroid) 150 mcg PO 0600 [facility] Last Admin: 04/14/18 05:58 Dose: 150 mcg Lidocaine (Lidoderm) 1 ea TD DAILY [facility] Last Admin: 04/14/18 10:28 Dose: 1 ea Memantine (Namenda) 5 mg PO DAILY [facility] Last Admin: 04/14/18 10:28 Dose: 5 mg Metoclopramide HCl (Reglan) 5 mg PO 0600,1130,1630,2200 [facility] Last Admin: 04/14/18 10:53 Dose: 5 mg Morphine Sulfate (Morphine) 1 mg IVP Q6H PRN PRN Reason: Pain, severe (8-10) Oxycodone/Acetaminophen (Percocet 5/325 Mg Tab) 1 tab PO Q6H [facility] Stop: 04/17/18 14:31 Pantoprazole Sodium (Protonix Ec Tab) 20 mg PO 0600 [facility] Last Admin: 04/14/18 05:58 Dose: 20 mg Polyethylene Glycol (Miralax) 17 gm PO BID [facility] Last Admin: 04/14/18 10:28 Dose: 17 gm - Labs Labs: 04/13/18 07:00 04/13/18 07:00 - Constitutional Appears: Non-toxic, No Acute Distress - Head Exam Head Exam: ATRAUMATIC, NORMAL INSPECTION, NORMOCEPHALIC - Eye Exam Eye Exam: EOMI, Normal appearance, PERRL - Respiratory Exam Respiratory Exam: Clear to Ausculation Bilateral, NORMAL BREATHING PATTERN. absent: Accessory Muscle Use, Rales, Rhonchi, Wheezes, Respiratory Distress - Cardiovascular Exam Cardiovascular Exam: RRR, +S1, +S2. absent: Gallop, Rubs - GI/Abdominal Exam GI & Abdominal Exam: Soft, Hypoactive Bowel Sounds. absent: Firm, Guarding, Rigid, Tenderness - Extremities Exam Extremities Exam: Normal Inspection. absent: Calf Tenderness, Pedal Edema - Back Exam Back Exam: NORMAL INSPECTION. absent: CVA tenderness (L), CVA tenderness (R) - Neurological Exam Neurological Exam: Alert, Awake, Oriented x3 - Psychiatric Exam Psychiatric exam: Normal Affect, Normal Mood - Skin Skin Exam: Dry, Normal Color, Warm Assessment and Plan - Assessment and Plan (Free Text) Assessment: Pt is a 77 year old Kinyarwanda Speaking female with PMHx of paroxysmal Afib, DM2, HTN, HLD, hypothyroidism, esophageal ulcers, gastritis, osteoporosis, multiple falls and fractures who presented to the ED for worsening lower back pain for 5 days in duration. Patient will be admitted for intractable low back pain. Abd XR shows a lot of stool without transition point or evidence of obstruction. Pt had BM over the weekend, but still has pain when attempting to move. Plan: 1) Intractable Lower Back Pain - Likely 2/2 constipation complicated by hx Osteoporotic Compression Fractures - Pt had BMs over the weekend, but still admits to pain. - Abd XR: No evidence of mechanical obstruction. Stool present throughout bowel - Thoracic CT: IMPRESSION: 1. Mild anterior wedge compression fracture T7, age indeterminate. Bone scan or MRI can accurately assess timeframe of this fracture as clinically warranted. No additional potential thoracic spinal fracture identified. Normal curvature preserved throughout the thoracic spine nevertheless. 2. No spondylolisthesis or spinal stenosis appreciated. - L Spine CT: IMPRESSION: 1. No large disc herniation or prominent bony central canal stenosis appreciable. MRI is more sensitive and can be performed for follow-up if clinically warranted. 2. Grade 1 spondylolisthesis L5-S1 resulting [id number] bilateral neural foraminal stenosis but no significant central canal stenosis. 3. Multilevel degenerative disease and facet arthropathy appears mild. Degenerative spinal stenosis is mild at L4-5. 4. Incidental cholelithiasis identified. 5. Overall no dramatic interval change compared to prior lumbar spine - cont Lidoderm patch - morphine 1 q6 prn for pain control - Percocet 5/325 Q6 lorna for pain. - cont Calcium and Vitamin D supplement home meds - Started reglan to assist motility. - PT eval - Recommend [facility] - Due to patient immobility, q2 turns and multipodus boot to prevent pressure ulcers - cont home med miralax BID and colace BID - Dulcolax to assist BM - Flexeril 5mg TID PRN - Encourage ambulation with PT - Cont to monitor 2) Pre-renal azotemia likely due poor PO intake - Improving - strict ins/outs - BUN/Cr improving /.2 (baseline Cr is 0.9) - Will cont to monitor 3) Hx HTN - Elevated BP may be 2/2 pain - started on hydralazine 10mg PO BID prn with holding parameters - monitor BP 4) Hx DM - ISS (low) - Accuchecks ACHS - Hgb A1c - 6.4 5) Hx gastritis - cont home med protonix PO 6) Hx Hypothyroidism - TSH - elevated at 6.67 and Free T4 low at .61 - Pt asymptomatic at this time and states non-compliance with meds - cont home med synthroid Diet: HHD Dispo: [facility] accepted, awaiting insurance auth Case was discussed and reviewed with Attending Physician, Dr. Abbey Lau, PGY-1 <Riddhi Potter - Last Filed: 04/16/18 12:42> Objective - Vital Signs/Intake and Output Vital Signs (last 24 hours): Temp Pulse Resp BP Pulse Ox 97.9 F 68 20 117/72 96 04/15/18 08:03 04/15/18 08:03 04/15/18 08:03 04/15/18 08:03 04/15/18 08:03 - Labs Labs: 04/15/18 08:30 04/15/18 08:30 Attending/Attestation - Attestation I have personally seen and examined this patient.: Yes I have fully participated in the care of the patient.: Yes I have reviewed all pertinent clinical information, including history, physical exam and plan: Yes Notes (Text): 04/16/18 12:37 Patient was seen and examined with health care / medical job titles. 77 year old female with past medical history of paroxysmal afib, diabetes, hypertension, hypothyroidims, gastritis, multiple falls and fractures who presented with intractable back pain and constipation. CT spine showed mild anterior wedge compression fracture T7, grade 1 spondylolisthesis L5-S1 resulting mild to moderate bilateral neural foraminal stenosis and multilevel degenerative disease. Patient is on iv morphine prn and lidoderm patch. Patient mobility is limited due to Pain. Continue with PT ,PT has recommending [facility]. Constipation is resolved. Management plan was discussed in detail with patient. Education was provided.
[2018-04-14] MEDS: Oxycodone/Acetaminophen 5/325 mg Tab PO SCH ×2 (17:10→22:07)
[2018-04-15] MEDS: Oxycodone/Acetaminophen 5/325 mg Tab PO SCH ×2 (03:00→09:29)
[2018-04-15] MEDS: Pantoprazole 20 mg EC Tab PO SCH (05:58)
[2018-04-15] MEDS: Levothyroxine 150 MCG TAB PO SCH (05:59)
[2018-04-15 08:04] VITALS: BP 117/72; PULSE 68; TEMP 97.9; O2SAT 96
[2018-04-15] MEDS: Insulin Lispro (humaLOG) LOW Coverage SC SCH ×2 (08:40→12:49)
[2018-04-15 08:46] LABS: BASO # 0.04 K/mm3 (0.0-2.0); BASO % 0.6 % (0.0-3.0); EOS # 0.4 (0.0-0.7); EOS % 5.9 % (1.5-5.0); LYMPH # 1.9 (1.2-3.4); LYMPH % 29.5 % (22.0-35.0); MEAN CELL VOLUME 79.6 fl (80.0-105.0); MEAN CORPUSCULAR HEMOGLOBIN 25.8 pg (25.0-35.0); MEAN CORPUSCULAR HGB CONC 32.4 g/dl (31.0-37.0); MEAN PLATELET VOLUME 10.8 fl (7.0-11.0); MONO # 0.7 (0.1-0.6); MONO % 11.5 % (1.0-6.0); RBC 5.04 10^6/uL (3.5-6.1); RED CELL DISTRIBUTION WIDTH 15.2 % (11.5-14.5); WHITE BLOOD COUNT 6.4 10^3/uL (4.5-11.0)
[2018-04-15 08:56] LABS: ALB/GLOB RATIO 0.8 (1.1-1.8); ALBUMIN 3.8 g/dL (3.0-4.8); CALCIUM 9.6 mg/dL (8.4-10.5)
[2018-04-15] MEDS: Lidocaine 5% Patch TD SCH (09:23)
[2018-04-15] MEDS: Bisacodyl 5mg EC Tab PO SCH (09:24)
[2018-04-15] MEDS: POLYETHYLENE GLYCOL 3350 17 GM/Dose PACKET PO SCH (09:24)
[2018-04-15] MEDS ORDERED: Bisacodyl 5mg EC Tab PO PRN (09:39)
[2018-04-15] MEDS ORDERED: POLYETHYLENE GLYCOL 3350 17 GM/Dose PACKET PO SCH (10:00)
[2018-04-15] MEDS ORDERED: Ergocalciferol 50,000 Intl Units Cap PO SCH (10:00)
[2018-04-15] MEDS ORDERED: Oxycodone/Acetaminophen 5/325 mg Tab PO PRN (10:31)
--- NOTE | 2018-04-15 15:34 | CP.PCM.DIS ---
<José Lau - Last Filed: 04/16/18 14:20> Provider - Provider Date of Admission: 04/09/18 13:05 Attending physician: Riddhi Potter MD Primary care physician: NO FAMILY PROVIDER Consults: 04/09/18 00:53 Social Work Referral Routine Comment: IBIS SCORE 11 Physician Instructions: Reason For Exam: PROTOCOL Time Spent in preparation of Discharge (in minutes): 45 Diagnosis - Discharge Diagnosis (1) Intractable back pain Status: Acute (2) Intractable low back pain Status: Acute Hospital Course - Lab Results Lab Results: Micro Results 04/14/18 19:40 Stool C. difficile Antigen & Toxins A,B - Final Most Recent Lab Values WBC 6.4 10^3/uL (4.5-11.0) 04/15/18 08:30 RBC 5.04 10^6/uL (3.5-6.1) 04/15/18 08:30 Hgb 13.0 g/dL (12.0-16.0) 04/15/18 08:30 Hct 40.1 % (36.0-48.0) 04/15/18 08:30 MCV 79.6 fl (80.0-105.0) L 04/15/18 08:30 MCH 25.8 pg (25.0-35.0) 04/15/18 08:30 MCHC 32.4 g/dl (31.0-37.0) 04/15/18 08:30 RDW 15.2 % (11.5-14.5) H 04/15/18 08:30 Plt Count 174 10^3/uL (120.0-450.0) 04/15/18 08:30 MPV 10.8 fl (7.0-11.0) 04/15/18 08:30 Neut % (Auto) 52.5 % (50.0-68.0) 04/15/18 08:30 Lymph % (Auto) 29.5 % (22.0-35.0) 04/15/18 08:30 [place] % (Auto) 11.5 % (1.0-6.0) H 04/15/18 08:30 Eos % (Auto) 5.9 % (1.5-5.0) H 04/15/18 08:30 Baso % (Auto) 0.6 % (0.0-3.0) 04/15/18 08:30 Lymph # (Auto) 1.9 (1.2-3.4) 04/15/18 08:30 [place] # (Auto) 0.7 (0.1-0.6) H 04/15/18 08:30 Eos # (Auto) 0.4 (0.0-0.7) 04/15/18 08:30 Baso # (Auto) 0.04 K/mm3 (0.0-2.0) 04/15/18 08:30 Absolute Neuts (auto) 3.36 (1.4-6.5) 04/15/18 08:30 Sodium 139 mmol/L (132-148) 04/15/18 08:30 Potassium 4.1 mmol/L (3.6-5.0) 04/15/18 08:30 Chloride 110 mmol/L (98-107) H 04/15/18 08:30 Carbon Dioxide 21 mmol/L (21-33) 04/15/18 08:30 Anion Gap 13 (10-20) 04/15/18 08:30 BUN 30 mg/dL (7-21) H 04/15/18 08:30 Creatinine 1.2 mg/dl (0.7-1.2) 04/15/18 08:30 Est GFR ( Amer) 52 04/15/18 08:30 Est GFR (Non-Af Amer) 43 04/15/18 08:30 POC Glucose (mg/dL) 207 mg/dL (65-110) H 04/15/18 11:12 Random Glucose 107 mg/dL (70-110) 04/15/18 08:30 Hemoglobin A1c 6.4 % (4.2-6.5) 04/08/18 19:50 Calcium 9.6 mg/dL (8.4-10.5) 04/15/18 08:30 Phosphorus 4.2 mg/dL (2.5-4.5) 04/15/18 08:30 Magnesium 2.0 mg/dL (1.7-2.2) 04/15/18 08:30 Total Bilirubin 0.8 mg/dL (0.2-1.3) 04/15/18 08:30 AST 36 U/L (14-36) 04/15/18 08:30 ALT 9 U/L (7-56) 04/15/18 08:30 Alkaline Phosphatase 170 U/L (38-126) H 04/15/18 08:30 Total Protein 8.6 g/dL (5.8-8.3) H 04/15/18 08:30 Albumin 3.8 g/dL (3.0-4.8) 04/15/18 08:30 Globulin 4.9 gm/dL 04/15/18 08:30 Albumin/Globulin Ratio 0.8 (1.1-1.8) L 04/15/18 08:30 Free T4 0.61 ng/dL (0.78-2.19) L 04/08/18 19:50 TSH 3rd Generation 6.67 mIU/mL (0.46-4.68) H 04/08/18 19:50 - Hospital Course Hospital Course: Upon Admission: Pt is a 77 year old Khmer Speaking female with PMHx of paroxysmal Afib, DM2, HTN, HLD, hypothyroidism, esophageal ulcers, gastritis, osteoporosis, multiple falls and fractures who presented to the ED for worsening lower back pain for 5 days in duration. In the ED, Vitals: HR 72, BP 160/90, HR 18, SaO2 95%. Patient was given tylenol, flexeril, morphine, and lidoderm patch for pain control. Medical team consulted for evaluation. Family members were available for translation at bedside. Aside from lower back pain, patient also has constipation for x10 days in duration with poor appetite. There is no history of malignancy. She denies cp, sob, abdominal pain, n/v/d, fevers, chills, urinary frequency, urgency, dysuria. No sick contacts or recent travel history. Patient was seen in the ED on 01/2017 for similar complaint and was sent to [facility] at the time. During this ED visit, she is coming from home. Lower back pain is worse with movement and patient says her home medications are not controlling the pain. No bowel or bladder incontinence. She does not endorse decreased sensation in the trunk, groin, or extremities. Her last fall was approximately 1 year ago. As per family, there has been no acute change in mental status. Hospital Course: Pt is german speaking, so bessemer bottom maker was used for every encounter. Pt was being evaluated for intractable lower back pain. Pt had Thoracic CT done which showed: 1. Mild anterior wedge compression fracture T7, age indeterminate. Bone scan or MRI can accurately assess timeframe of this fracture as clinically warranted. No additional potential thoracic spinal fracture identified. Normal curvature preserved throughout the thoracic spine nevertheless. Lumbar spine CT was also done and showed: 1. No large disc herniation or prominent bony central canal stenosis appreciable. MRI is more sensitive and can be performed for follow-up if clinically warranted. 2. Grade 1 spondylolisthesis L5-S1 resulting [id number] bilateral neural foraminal stenosis but no significant central canal stenosis. 3. Multilevel degenerative disease and facet arthropathy appears mild. Degenerative spinal stenosis is mild at L4-5. 4. Incidental cholelithiasis identified. 5. Overall no dramatic interval change compared to prior lumbar spine. 2. No spondylolisthesis or spinal stenosis appreciated. Pt also had abd XR done which showed moderate amounts of stool without obstruction or transition point. Pt states that she has an issue with constipation and has not had a BM in over a week. Pt was started on lidoderm patch and given morphine 1q6 prn for pain control. Pt was offered relistor which the pt refused. Pt states that the pain is controlled, until she has to sit up and work with PT. Pt was given percocet scheduled to ensure that she would be able to move and work with PT. Pt also was started on flexeril 5 PRN for muscle spasm to assist her working with PT and to alleviate the abrupt pain that she would feel upon sitting up. PT saw the pt and recommended the pt go to [facility]. PT also recommended that the pt should be placed on multipodus boot and turn pt q2 to prevent pressure ulcers. Pt was started on a regimen of miralax, colace which she initially did not respond to. Pt then had reglan added on to assist in GI motility and dulcolax after prior treatments were noted to be ineffective. Eventually pt was given enema to help move pts bowels. Pt was noted to have pre- renal azotemia and was given fluid, initially and then d/malathi once it was noted that the pts renal functions were improving. Pt has hx of HTN and was started on hydralazine 10mg po BID with holding parameters. Pt was also started in low ISS due to hx of DM. Pt was started on home protonix given hx of gastritis. Pt also started on home synthroid due to hx of hypothyroidism. Pt was accepted to [facility], and it was discussed with family about d/c pending insurance auth. Insurance aut h was recieved and the pt and family were informed about the plan for d/c. The pt and family expressed understanding and agreement with plan for discharge. All of the pts questions and concerns were addressed prior to d/c. For further details please refer to medical records. Discharge Exam - Head Exam Head Exam: ATRAUMATIC, NORMAL INSPECTION, NORMOCEPHALIC - Eye Exam Eye Exam: EOMI, Normal appearance, PERRL - Respiratory Exam Respiratory Exam: Clear to PA & Lateral, NORMAL BREATHING PATTERN, UNREMARKABLE. absent: Accessory Muscle Use, Rales, Rhonchi, Wheezes, Respiratory Distress, Stridor - Cardiovascular Exam Cardiovascular Exam: RRR, +S1, +S2. absent: Gallop, Rubs - GI/Abdominal Exam GI & Abdominal Exam: Normal Bowel Sounds, Soft. absent: Distended, Firm, Gua rding, Tenderness, Unremarkable - Extremities Exam Extremities exam: normal inspection - Back Exam Back exam: NORMAL INSPECTION. absent: CVA tenderness (L), CVA tenderness (R) - Neurological Exam Neurological exam: Alert, Oriented x3 - Psychiatric Exam Psychiatric exam: Normal Affect, Normal Mood - Skin Skin Exam: Dry, Intact, Normal Color Discharge Plan - Follow Up Plan Condition: STABLE Disposition: REHAB FACILITY/REHAB UNIT Instructions: Low Back Pain in Adults, Low Back Pain (DC) Additional Instructions: Please follow up with a primary medical doctor within 2 weeks of discharge. The subacute rehab facility will assist you in finding a new primary medical doctor if needed. Please continue all previously prescribed medicines. Please be sure to continue to take pain medicine, especially as needed to continue PT at rehab facility. We have given you a referral for Dr. Richardson, who may be able to perform a surgery to help with the pain from your compression fracture. His information has been provided in your paperwork. If your symptoms return or worsen, please present to nearest ED. Referrals: FAMILY PROVIDER,NO [Primary Care Provider] - Mikael Richardson MD [Staff Provider] - <Riddhi Potter - Last Filed: 04/16/18 14:53> Provider - Provider Date of Admission: 04/09/18 13:05 Attending physician: Riddhi Potter MD Primary care physician: NO FAMILY PROVIDER Consults: 04/09/18 00:53 Social Work Referral Routine Comment: IBIS SCORE 11 Physician Instructions: Reason For Exam: PROTOCOL Hospital Course - Lab Results Lab Results: Micro Results 04/14/18 19:40 Stool C. difficile Antigen & Toxins A,B - Final Most Recent Lab Values WBC 6.4 10^3/uL (4.5-11.0) 04/15/18 08:30 RBC 5.04 10^6/uL (3.5-6.1) 04/15/18 08:30 Hgb 13.0 g/dL (12.0-16.0) 04/15/18 08:30 Hct 40.1 % (36.0-48.0) 04/15/18 08:30 MCV 79.6 fl (80.0-105.0) L 04/15/18 08:30 MCH 25.8 pg (25.0-35.0) 04/15/18 08:30 MCHC 32.4 g/dl (31.0-37.0) 04/15/18 08:30 RDW 15.2 % (11.5-14.5) H 04/15/18 08:30 Plt Count 174 10^3/uL (120.0-450.0) 04/15/18 08:30 MPV 10.8 fl (7.0-11.0) 04/15/18 08:30 Neut % (Auto) 52.5 % (50.0-68.0) 04/15/18 08:30 Lymph % (Auto) 29.5 % (22.0-35.0) 04/15/18 08:30 [place] % (Auto) 11.5 % (1.0-6.0) H 04/15/18 08:30 Eos % (Auto) 5.9 % (1.5-5.0) H 04/15/18 08:30 Baso % (Auto) 0.6 % (0.0-3.0) 04/15/18 08:30 Lymph # (Auto) 1.9 (1.2-3.4) 04/15/18 08:30 [place] # (Auto) 0.7 (0.1-0.6) H 04/15/18 08:30 Eos # (Auto) 0.4 (0.0-0.7) 04/15/18 08:30 Baso # (Auto) 0.04 K/mm3 (0.0-2.0) 04/15/18 08:30 Absolute Neuts (auto) 3.36 (1.4-6.5) 04/15/18 08:30 Sodium 139 mmol/L (132-148) 04/15/18 08:30 Potassium 4.1 mmol/L (3.6-5.0) 04/15/18 08:30 Chloride 110 mmol/L (98-107) H 04/15/18 08:30 Carbon Dioxide 21 mmol/L (21-33) 04/15/18 08:30 Anion Gap 13 (10-20) 04/15/18 08:30 BUN 30 mg/dL (7-21) H 04/15/18 08:30 Creatinine 1.2 mg/dl (0.7-1.2) 04/15/18 08:30 Est GFR ( Amer) 52 04/15/18 08:30 Est GFR (Non-Af Amer) 43 04/15/18 08:30 POC Glucose (mg/dL) 207 mg/dL (65-110) H 04/15/18 11:12 Random Glucose 107 mg/dL (70-110) 04/15/18 08:30 Hemoglobin A1c 6.4 % (4.2-6.5) 04/08/18 19:50 Calcium 9.6 mg/dL (8.4-10.5) 04/15/18 08:30 Phosphorus 4.2 mg/dL (2.5-4.5) 04/15/18 08:30 Magnesium 2.0 mg/dL (1.7-2.2) 04/15/18 08:30 Total Bilirubin 0.8 mg/dL (0.2-1.3) 04/15/18 08:30 AST 36 U/L (14-36) 04/15/18 08:30 ALT 9 U/L (7-56) 04/15/18 08:30 Alkaline Phosphatase 170 U/L (38-126) H 04/15/18 08:30 Total Protein 8.6 g/dL (5.8-8.3) H 04/15/18 08:30 Albumin 3.8 g/dL (3.0-4.8) 04/15/18 08:30 Globulin 4.9 gm/dL 04/15/18 08:30 Albumin/Globulin Ratio 0.8 (1.1-1.8) L 04/15/18 08:30 Free T4 0.61 ng/dL (0.78-2.19) L 04/08/18 19:50 TSH 3rd Generation 6.67 mIU/mL (0.46-4.68) H 04/08/18 19:50 Attending/Attestation - Attestation I have personally seen and examined this patient.: Yes I have fully participated in the care of the patient.: Yes I have reviewed all pertinent clinical information, including history, physical exam and plan: Yes Notes (Text): 04/16/18 14:51 Patient was seen and examined with medical asst. 77 year old female with past medical history of paroxysmal afib, diabetes, hypertension, hypothyroidims, gastritis, multiple falls and fractures who presented with intractable back pain and constipation. CT spine showed mild anterior wedge compression fracture T7, grade 1 spondylolisthesis L5-S1 resulting mild to moderate bilateral neural foraminal stenosis and multilevel degenerative disease. Patient mobility is limited due to Pain. Patient was evaluated by physical therapy and [facility] is recommended. Patient be will be discharged to [facility] for rehabilitation. Constipation is resolved. Management plan was discussed in detail with patient. Education was provided.
== END 2018-04-15 16:53 | DRG 552 ==
LOC: ED 17:50 → ERH 20:59 → 3RNO 23:40 → OBSVTOIN 04-09 13:05 → 3RNO 04-12 14:20
PROVIDERS: ADMIT Hospitalist; ATTEND Internal Medicine
DX: M43.17 Spondylolisthesis, lumbosacral region (principal); M48.54XA Collapsed vertebra, not elsewhere classified, thoracic region, initial encounter for fracture; N17.9 Acute kidney failure, unspecified; M54.5 Low back pain; E03.9 Hypothyroidism, unspecified; E78.5 Hyperlipidemia, unspecified; F03.90 Unspecified dementia, unspecified severity, without behavioral disturbance, psychotic disturbance, mood disturbance, and anxiety; I12.9 Hypertensive chronic kidney disease with stage 1 through stage 4 chronic kidney disease, or unspecified chronic kidney disease; M81.0 Age-related osteoporosis without current pathological fracture; M48.061 Spinal stenosis, lumbar region without neurogenic claudication; N18.9 Chronic kidney disease, unspecified; E11.22 Type 2 diabetes mellitus with diabetic chronic kidney disease; I48.0 Paroxysmal atrial fibrillation; K21.9 Gastro-esophageal reflux disease without esophagitis; K59.00 Constipation, unspecified; K80.20 Calculus of gallbladder without cholecystitis without obstruction; M46.90 Unspecified inflammatory spondylopathy, site unspecified; R29.6 Repeated falls; Z79.4 Long term (current) use of insulin; Z87.19 Personal history of other diseases of the digestive system; Z87.440 Personal history of urinary (tract) infections; Z96.60 Presence of unspecified orthopedic joint implant; Z91.14 Patient's other noncompliance with medication regimen